=== PATIENT | male | born 1960 | race Caucasian/White ===

== ENCOUNTER → 2017-10-23 15:25 | Outpatient (CLI) | payer BC, SELFPAY ==
--- NOTE | 2017-10-23 15:25 | DT_ITS ---
This patient was seen during an EMR downtime October 20, 2017 - October 27, 2017. This patient may have a combination of paper and electronic documentation or all paper documentation. All documentation is viewable within the e-chart portion of [facility] for each patient visit.
[2017-10-28 05:11] LABS: ALB/GLOB Ratio 1.1 RATIO (0.9-2.4); Albumin, Serum 3.6 g/dL (3.2-5.0); BUN 14 mg/dL (7-18); BUN/Creat Ratio 17.5 RATIO (10-20); Calcium,Total 8.3 mg/dL (8.5-10.1); EST Glomerular Filtration Rate 105 mL/min (>60); Est Glom Filt Rate - Afr Amer 127 mL/min (>60); Globulin 3.3 g/dL (2.2-4.2); Glucose 102 mg/dL (74-106); Protein, Total 6.9 g/dL (6.4-8.2)
[2017-10-28 05:12] LABS: AST(SGOT) 21 U/L (15-37); Alanine Aminotransfer ALT/SGPT 32 U/L (16-61); Alkaline Phosphatase 112 U/L (45-117); Anion Gap 7 (5-15); Chloride 112 mmol/L (98-107); PSA,Total - Annual Screen 0.71 ng/mL (0.00-4.00); Potassium 3.9 mmol/L (3.5-5.1); Sodium Level 143 mmol/L (136-145); Thyroid Stim Hormone (TSH) 1.36 uIU/mL (0.358-3.74)
[2017-10-28 06:01] LABS: Absolute Neutrophil Count 5.1 X10^3/uL (2.0-7.7); Basophil% 0.2 % (0-1); Eosinophils% 2.1 % (0-5); Hematocrit 44.2 % (40-54); Hemoglobin 14.9 g/dl (13.0-16.5); Lymphocyte % 29.9 % (19-41); Mean Corp Hgb Conc 33.7 g/gl (32-36); Mean Corpuscular Hgb 31.3 pg (27.0-32.0); Mean Corpuscular Volume 92.9 fL (80-94); Mean Platelet Vol. 9.9 fl (6.2-12.0); Monocyte% 8.8 % (0-10); Neutrophil # 5.14 X10^3/uL (2.7-7.7); Neutrophil % 58.9 % (47-70); POSITIVE COUNT NO; POSITIVE DIFFERENTIAL NO; POSITIVE MORPHOLOGY NO; Platelet Count 211 K/mm3 (150-450); RBC Distribution Width CV 13.2 % (11.6-14.6); RBC Distribution Width SD 44.9 fl (35.1-43.9); Red Blood Count 4.76 M/mm3 (4.6-6.2); White Blood Count 8.7 K/mm3 (4.4-11.0)
[2017-10-28 06:02] LABS: Absolute Lymphocyte Count 2.61 X10^3/ul (0.83-4.51); Basophil# 0.02 X10^3/uL; Eosinophil# 0.18 X10^3/uL; Lymphocyte # 2.61 X10^3/ul (4.0); Monocyte# 0.77 X10^3/uL
[2017-11-07 14:38] LABS: Hep C Antibodies <0.1
== END ==
PROVIDERS: Family Provider Family Medicine Geriatric Medicine; PCP Family Medicine Geriatric Medicine; Visit Provider Family Medicine Geriatric Medicine
DX: R53.83 Other fatigue (principal); Z12.5 Encounter for screening for malignant neoplasm of prostate; Z13.89 Encounter for screening for other disorder
CPT/HCPCS: 36415; 80053; 84153; 84443; 85025; 86803; G0103

== ENCOUNTER → 2017-10-24 22:21 | Outpatient (CLI) | payer BC, SELFPAY ==
--- NOTE | 2017-10-24 22:21 | DT_ITS ---
This patient was seen during an EMR downtime October 20, 2017 - October 27, 2017. This patient may have a combination of paper and electronic documentation or all paper documentation. All documentation is viewable within the e-chart portion of [facility] for each patient visit.
[2017-10-31 07:11] LABS: Hep B Surface Antibodies Non Reactive (.)
== END ==
PROVIDERS: Visit Provider Family Medicine Geriatric Medicine
DX: Z13.89 Encounter for screening for other disorder (principal)
CPT/HCPCS: 86706

== ENCOUNTER → 2017-11-13 12:55 | Outpatient (CLI) | payer BC, SELFPAY ==
--- NOTE | 2017-11-13 12:59 | CT_ITS ---
STUDY: CT ABDOMEN AND PELVIS WITH CONTRAST REASON FOR EXAM: Male, 57 years old. One-week history Central abdominal pain. Nausea. RADIATION DOSAGE (If Supplied By Facility): CTDIvol = ( 17.37 ) mGy, DLP = ( 1185.66 ) mGycm TECHNIQUE: Transaxial images were obtained from the dome of the diaphragm to the symphysis pubis with oral contrast. 100mL ml of Isovue 300 contrast was administered. Sagittal and coronal images were reconstructed. Individualized dose optimization techniques were used for this CT. COMPARISON: Comparison is made with prior study dated March 08, 2016. FINDINGS: Stable mild increased markings at the right lung base. The visualized portions of the heart are within normal limits. Stable tiny cyst in the medial aspect of the dome of the liver. Normal gallbladder and extrahepatic biliary system. Normal spleen. Normal pancreas. Normal bilateral adrenal glands. Normal right kidney. Normal left kidney. Normal visualized stomach. Normal small intestine. There are multiple colonic diverticula consistent with diverticulosis. The appendix is visualized and appears normal. There is scattered atherosclerotic calcification of the abdominal aorta, without a demonstrated aneurysm. Normal inferior vena cava. Normal retroperitoneum. Normal urinary bladder. There are prostatic calcifications. There is a left-sided inguinal hernia containing adipose tissue. There are degenerative changes of the visualized lumbar spine. CT/Abdomen/Pelvis WITH Contrast IMPRESSION: Sigmoid diverticulosis. No acute abnormality is seen. Electronically Signed: Moy Simeon MD at 15:49 EDT Tel [phone], Service support ,
[2017-11-13 17:45] LABS: Absolute Lymphocyte Count 2.27 X10^3/ul (0.83-4.51); Absolute Neutrophil Count 7.7 X10^3/uL (2.0-7.7); Basophil# 0.02 X10^3/uL; Basophil% 0.2 % (0-1); Eosinophil# 0.08 X10^3/uL; Eosinophils% 0.7 % (0-5); Hematocrit 46.2 % (40-54); Hemoglobin 15.7 g/dl (13.0-16.5); Lymphocyte # 2.27 X10^3/ul (4.0); Mean Corpuscular Hgb 31.3 pg (27.0-32.0); Mean Corpuscular Volume 92.2 fL (80-94); Mean Platelet Vol. 10.3 fl (6.2-12.0); Monocyte# 0.71 X10^3/uL; Monocyte% 6.6 % (0-10); Neutrophil # 7.73 X10^3/uL (2.7-7.7); Neutrophil % 71.4 % (47-70); Platelet Count 207 K/mm3 (150-450); RBC Distribution Width CV 12.7 % (11.6-14.6); RBC Distribution Width SD 42.4 fl (35.1-43.9); Red Blood Count 5.01 M/mm3 (4.6-6.2); White Blood Count 10.8 K/mm3 (4.4-11.0)
[2017-11-13 17:51] LABS: POSITIVE COUNT NO; POSITIVE DIFFERENTIAL NO; POSITIVE MORPHOLOGY NO
[2017-11-13 17:59] LABS: AST(SGOT) 20 U/L (15-37); Alanine Aminotransfer ALT/SGPT 29 U/L (16-61); Albumin, Serum 3.7 g/dL (3.2-5.0); Alkaline Phosphatase 122 U/L (45-117); Amylase 56 U/L (25-115); Anion Gap 5 (5-15); BUN 11 mg/dL (7-18); BUN/Creat Ratio 13.8 RATIO (10-20); Calcium,Total 8.5 mg/dL (8.5-10.1); Chloride 106 mmol/L (98-107); EST Glomerular Filtration Rate 105 mL/min (>60); Est Glom Filt Rate - Afr Amer 128 mL/min (>60); Globulin 3.8 g/dL (2.2-4.2); Glucose 97 mg/dL (74-106); Lipase 177 U/L (73-393); Potassium 4.3 mmol/L (3.5-5.1); Protein, Total 7.5 g/dL (6.4-8.2); Sodium Level 136 mmol/L (136-145)
== END ==
LOC: CT 12:58
PROVIDERS: Family Provider Family Medicine Geriatric Medicine; PCP Family Medicine Geriatric Medicine; Visit Provider Family Medicine Geriatric Medicine
DX: R10.9 Unspecified abdominal pain (principal)
CPT/HCPCS: 36415; 74177; 80053; 82150; 83690; 85025

== ENCOUNTER → 2018-02-17 15:42 | Outpatient (CLI) | payer BC, SELFPAY ==
[2018-02-17 17:24] LABS: Absolute Lymphocyte Count 2.96 X10^3/ul (0.83-4.51); Absolute Neutrophil Count 6.1 X10^3/uL (2.0-7.7); Basophil# 0.03 X10^3/uL; Basophil% 0.3 % (0-1); Hematocrit 47.1 % (40-54); Lymphocyte # 2.96 X10^3/ul (4.0); Mean Corpuscular Hgb 30.9 pg (27.0-32.0); Mean Corpuscular Volume 91.1 fL (80-94); Monocyte# 0.89 X10^3/uL; Monocyte% 8.7 % (0-10); Neutrophil # 6.13 X10^3/uL (2.7-7.7); Neutrophil % 59.9 % (47-70); Platelet Count 213 K/mm3 (150-450); RBC Distribution Width CV 13.6 % (11.6-14.6); RBC Distribution Width SD 45.1 fl (35.1-43.9); Red Blood Count 5.17 M/mm3 (4.6-6.2); White Blood Count 10.2 K/mm3 (4.4-11.0)
[2018-02-17 17:25] LABS: POSITIVE COUNT NO; POSITIVE DIFFERENTIAL NO; POSITIVE MORPHOLOGY NO
[2018-02-17 17:57] LABS: AST(SGOT) 17 U/L (15-37); Alanine Aminotransfer ALT/SGPT 27 U/L (16-61); Albumin, Serum 3.8 g/dL (3.2-5.0); Alkaline Phosphatase 114 U/L (45-117); Anion Gap 5 (5-15); BUN 12 mg/dL (7-18); BUN/Creat Ratio 13.9 RATIO (10-20); Calcium,Total 8.6 mg/dL (8.5-10.1); Chloride 107 mmol/L (98-107); Creatinine, Serum 0.86 mg/dL (0.70-1.30); EST Glomerular Filtration Rate 96 mL/min (>60); Est Glom Filt Rate - Afr Amer 117 mL/min (>60); Globulin 3.7 g/dL (2.2-4.2); Glucose 88 mg/dL (74-106); Potassium 4.2 mmol/L (3.5-5.1); Protein, Total 7.5 g/dL (6.4-8.2); Sodium Level 139 mmol/L (136-145)
== END ==
PROVIDERS: Family Provider Family Medicine Geriatric Medicine; PCP Family Medicine Geriatric Medicine; Visit Provider Family Medicine Geriatric Medicine
DX: R10.9 Unspecified abdominal pain (principal)
CPT/HCPCS: 36415; 80053; 85025

== ENCOUNTER → 2018-02-18 09:33 | Outpatient (CLI) | payer BC, SELFPAY ==
--- NOTE | 2018-02-18 09:55 | RAD_ITS ---
STUDY: X-RAY - ABDOMEN/PELVIS REASON FOR EXAM: Male, 57 years old. ABDOMIONAL PAIN; H/O DIVERTICULOSIS TECHNIQUE: AP supine and upright views of the abdomen and pelvis. COMPARISON: None. FINDINGS: Normal visualized lung bases. There is an unremarkable bowel gas pattern. There is no demonstrated free abdominal air. The visualized liver, spleen and kidneys are grossly normal in size and morphology. Normal soft tissue structures. Normal visualized osseous structures. RAD/Abd Inc Decub and/or Erect IMPRESSION: Normal x-ray examination of the abdomen and pelvis. Electronically Signed: Yanick Colon MD at 10:26 EDT Tel , Service support ,
== END ==
PROVIDERS: Family Provider Family Medicine Geriatric Medicine; PCP Family Medicine Geriatric Medicine; Referring Provider Family Medicine Geriatric Medicine; Visit Provider Family Medicine Geriatric Medicine
DX: R10.9 Unspecified abdominal pain (principal)
CPT/HCPCS: 74019

== ENCOUNTER → 2018-04-22 13:16 | Outpatient (CLI) | payer BC, SELFPAY ==
[2018-04-22 16:20] LABS: Absolute Lymphocyte Count 3.73 X10^3/ul (0.83-4.51); Absolute Neutrophil Count 4.3 X10^3/uL (2.0-7.7); Basophil# 0.03 X10^3/uL; Basophil% 0.3 % (0-1); Eosinophils% 2.2 % (0-5); Hematocrit 45.5 % (40-54); Hemoglobin 15.4 g/dl (13.0-16.5); Lymphocyte # 3.73 X10^3/ul (4.0); Lymphocyte % 40.2 % (19-41); Mean Corp Hgb Conc 33.8 g/gl (32-36); Mean Corpuscular Hgb 31.2 pg (27.0-32.0); Mean Corpuscular Volume 92.1 fL (80-94); Monocyte# 0.99 X10^3/uL; Monocyte% 10.7 % (0-10); Neutrophil # 4.31 X10^3/uL (2.7-7.7); Neutrophil % 46.3 % (47-70); Platelet Count 221 K/mm3 (150-450); RBC Distribution Width CV 13.6 % (11.6-14.6); RBC Distribution Width SD 44.3 fl (35.1-43.9); Red Blood Count 4.94 M/mm3 (4.6-6.2); White Blood Count 9.3 K/mm3 (4.4-11.0)
[2018-04-22 16:38] LABS: POSITIVE COUNT NO; POSITIVE DIFFERENTIAL NO; POSITIVE MORPHOLOGY NO
[2018-04-22 17:00] LABS: AST(SGOT) 20 U/L (15-37); Alanine Aminotransfer ALT/SGPT 26 U/L (16-61); Albumin, Serum 3.5 g/dL (3.2-5.0); Alkaline Phosphatase 103 U/L (45-117); Anion Gap 9 (5-15); BUN 17 mg/dL (7-18); BUN/Creat Ratio 18.6 RATIO (10-20); Calcium,Total 8.6 mg/dL (8.5-10.1); Chloride 109 mmol/L (98-107); Creatinine, Serum 0.92 mg/dL (0.70-1.30); EST Glomerular Filtration Rate 90 mL/min (>60); Est Glom Filt Rate - Afr Amer 109 mL/min (>60); Globulin 3.5 g/dL (2.2-4.2); Glucose 90 mg/dL (74-106); Sodium Level 144 mmol/L (136-145)
== END ==
PROVIDERS: Family Provider Family Medicine Geriatric Medicine; PCP Family Medicine Geriatric Medicine; Visit Provider Family Medicine Geriatric Medicine
DX: R53.83 Other fatigue (principal)
CPT/HCPCS: 36415; 80053; 84443; 85025

== ENCOUNTER → 2018-11-06 | Outpatient (CLI) | payer OTHER, BC, SELFPAY ==
[2018-11-06 13:01] LABS: Absolute Lymphocyte Count 4.07 X10^3/ul (0.83-4.51); Absolute Neutrophil Count 7.6 X10^3/uL (2.0-7.7); Basophil# 0.02 X10^3/uL; Basophil% 0.1 % (0-1); Eosinophil# 0.12 X10^3/uL; Eosinophils% 0.9 % (0-5); Lymphocyte # 4.07 X10^3/ul (4.0); Lymphocyte % 30.5 % (19-41); Mean Corp Hgb Conc 33.3 g/gl (32-36); Mean Corpuscular Hgb 30.6 pg (27.0-32.0); Mean Corpuscular Volume 91.8 fL (80-94); Mean Platelet Vol. 9.5 fl (6.2-12.0); Monocyte# 1.47 X10^3/uL; Neutrophil # 7.62 X10^3/uL (2.7-7.7); Neutrophil % 57.1 % (47-70); Platelet Count 222 K/mm3 (150-450); RBC Distribution Width CV 13.2 % (11.6-14.6); RBC Distribution Width SD 43.8 fl (35.1-43.9); White Blood Count 13.4 K/mm3 (4.4-11.0)
[2018-11-06 13:05] LABS: POSITIVE COUNT NO; POSITIVE DIFFERENTIAL NO; POSITIVE MORPHOLOGY NO
[2018-11-06 13:26] LABS: ALB/GLOB Ratio 1.1 RATIO (0.9-2.4); AST(SGOT) 15 U/L (15-37); Alanine Aminotransfer ALT/SGPT 28 U/L (16-61); Albumin, Serum 3.5 g/dL (3.2-5.0); Alkaline Phosphatase 92 U/L (45-117); Anion Gap 7 (5-15); BUN 16 mg/dL (7-18); BUN/Creat Ratio 18.7 RATIO (10-20); Calcium,Total 8.7 mg/dL (8.5-10.1); Chloride 105 mmol/L (98-107); Creatinine, Serum 0.86 mg/dL (0.70-1.30); EST Glomerular Filtration Rate 97 mL/min (>60); Est Glom Filt Rate - Afr Amer 117 mL/min (>60); Globulin 3.2 g/dL (2.2-4.2); Glucose 102 mg/dL (74-106); PSA,Total - Annual Screen 0.73 ng/mL (0.00-4.00); Potassium 3.7 mmol/L (3.5-5.1); Protein, Total 6.7 g/dL (6.4-8.2); Sodium Level 141 mmol/L (136-145); Thyroid Stim Hormone (TSH) 2.35 uIU/mL (0.358-3.74)
== END | disposition home or self-care (01) ==
LOC: POLAB3 11:37
PROVIDERS: Family Provider Family Medicine Geriatric Medicine; PCP Family Medicine Geriatric Medicine; Visit Provider Family Medicine Geriatric Medicine
DX: R53.83 Other fatigue (principal); Z12.5 Encounter for screening for malignant neoplasm of prostate
CPT/HCPCS: 36415; 80053; 84153; 84443; 85025; G0103

== ENCOUNTER → 2019-01-20 | Outpatient (CLI) | payer OTHER, BC, SELFPAY ==
--- NOTE | 2019-01-20 10:00 | RAD_ITS ---
HISTORY:NKI, pain NKI, pain COMPARISON: None FINDINGS: # of images incl. paperwork: 4 XR Shoulder Min 2 Views: Right BONE AND JOINTS: No acute fracture or subluxation. Acromioclavicular arthropathy SOFT TISSUES: Unremarkable. No radiopaque foreign body. RAD/Shoulder min 2 Views IMPRESSION: No acute pathology Acromioclavicular arthropathy at 2218 Reported and signed by: Alissa Hammond DO Electronically Signed: Alissa Hammond DO at 22:16 EDT Tel , Service support ,
== END | disposition home or self-care (01) ==
LOC: RAD 09:54
PROVIDERS: Family Provider Family Medicine Geriatric Medicine; PCP Family Medicine Geriatric Medicine; Referring Provider Family Medicine Geriatric Medicine; Visit Provider Family Medicine Geriatric Medicine
DX: M25.511 Pain in right shoulder (principal)
CPT/HCPCS: 73030

== ENCOUNTER → 2019-01-29 | Outpatient (CLI) | payer OTHER, BC, SELFPAY ==
[2019-01-29 08:14] VITALS: BMI 32.9
--- NOTE | 2019-01-29 08:30 | RAD_ITS ---
STUDY: X-RAY - CERVICAL SPINE REASON FOR EXAM: Male, 58 years old. Neck pain TECHNIQUE: 3 view(s) of the cervical spine were obtained. COMPARISON: 09 August 2016 FINDINGS: Normal anterior atlantoaxial articulation. Normal odontoid process. Normal cervical lordosis. Normal vertebral bodies and endplates. Normal disc space heights. Normal visualized intervertebral neuroforamina. The soft tissue structures are unremarkable. RAD/Cerv Spine 2 or 3 Views IMPRESSION: Unremarkable for age x-ray examination of the visualized cervical spine. Electronically Signed: Milla Bell, at 16:54 EDT Tel , Service support ,
== END | disposition home or self-care (01) ==
PROVIDERS: Family Provider Family Medicine Geriatric Medicine; PCP Family Medicine Geriatric Medicine; Referring Provider Orthopaedic Surgery; Visit Provider Orthopaedic Surgery
DX: M25.511 Pain in right shoulder (principal); M43.6 Torticollis
CPT/HCPCS: 72040

== ENCOUNTER 2019-02-26 09:30 | Outpatient (RCR) | payer OTHER, BC, SELFPAY ==
[2019-01-29 08:14] VITALS: BMI 32.9
--- NOTE | 2019-02-08 15:08 | HP.PTEVAL ---
Patient's Visit Information PAU JOHNSON is a 58 year old M referred to Physical Therapy by Mason Hartley DO with a diagnosis of SPASM OF CERVICAL SPINE, DDD CERVICAL SPINE AND RIGHT SHOULDER PAIN.. Date of Evaluation: 02/08/19 Physical Therapist: Kitty Geronimo PT, Cert MDT - Visit Plan Frequency: 2-3x /Week Duration: 4-6 Weeks Plan: RIGHT NECK/SHOULDER US, E-STIM WITH CP OR MH AND STM. RIGHT SHOULDER MOBILIZATION AND PROM. POSTURE CORRECTION/STRENGTHENING, INSTRUCTION IN APPROPRIATE BODY MECHANICS AND ACTIVITY MODIFICATIONS. VENUS UE ROM, STRETCHING AND STRENGTHENING. HEP INSTRUCTION. 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 Disability: NO. Present symptoms: RIGHT SHOULDER PAIN. ARM HURTS DOWN TO HIS ELBOW AND UP INTO HIS NECK. ABOUT 4 MONTHS AGO HAD NUMBNESS TRAVELING DOWN ARM INTO FOREARM. DR. HYATT SENT HIM TO NEURO CARE AND HE HAD A NCT. HE REPORTS THE NERVE CONDUCTION TEST CAME BACK GOOD. PATIENT REPORTS HIS NECK FEELS STIFF BUT HE DOESN'T HAVE INTENSE PAIN IN HIS NECK. STATES HIS RIGHT SHOULDER REALLY HURTS AND IS TENDER TO THE TOUCH. DENIES LEFT UE SX'S. Present since: ABOUT 5 MONTHS AGO. Pain Scale: Worst - 10/10 Least - 3/10. Currently: 12/26 PATIENT REPORTS HE IS WORSENING. Commenced as a result of: NO APPARENT REASON. Symptoms at onset: RIGHT UE TINGLING IN ARM AND FOREARM. Worse: JUST SITTING UP, DRIVING, WALKING, IT SEEMS LIKE EVERYTHING DOES. Better: SOMETIMES LYING DOWN ON BACK WITH PILLOW UNDER HEAD. Disturbed sleep: YES. Previous history/Previous treatment: UNREMARKABLE. PATIENT DENIES ANY PRIOR HISTORY OF NECK OR SHOULDER PROBLEMS. REC'D A CORTISONE SHOT IN RIGHT SHOULDER FROM DR. CLARKE AND IT HAD NO EFFECT SO HE WAS REFERRED TO DR. BENDER. TAKING AN ANTI-INFLAMMATORY, MUSCLE RELAXER, VICODIN - NO EFFECT. Dizziness: NO. Tinnitis: NO. Nausea: NO. Shortness of Breath: NO. Difficulty Swollowing: NO. Gait: NORMAL FOR PATIENT - NO NEW CHANGES. Accidents: NO. Unexplained weight loss: NO. Imaging: NECK AND SHOULDER X-RAYS - AC JOINT ARTHROPATHY. NECK X-RAY - NORMAL. BUT STATES DR. BENDER TOLD HIM HE HAS DDD IN HIS LOWER CERVICAL SPINE AND THAT HE HAS A STRAIGHTENING OF THE CURVE IN HIS NECK. NO MRI'S. PMH/Recent major surgery: BAD BACK. LUMBAR DISCECTOMY ABOUT 8 YEARS AGO. OTHER: PATIENT REPORTS HE WAKES UP 2 OR 3 TIMES A NIGHT DUE TO THE PAIN. PATIENT REPORTS DR. CLARKE ORDERED AN MRI FOR HIS RIGHT SHOULDER PENDING TOMORROW. PATIENT REPORTS HE WAS SITTING AT THE TABLE THE OTHER DAY AND WHEN HE TURNED AND REACHED TO CYTOLOGY TEACHER A GLASS OF WATER HE FELT LIKE SOMETHING POPPED IN HIS RIGHT SHOULER. - Objective Sitting Posture/Standing Posture: POOR. FORWARD HEAD AND ROUNDED SHOULDERS. NO TORTICOLLIS. Active Correction of posture: NE. Other Observations: INDEP GAIT AND TRANSFERS. PAIN BEHAVIOR THROUGHOUT SUBJECTIVE PORTION OF EXAM WITH PATIENT C/O PAIN AND HOLDING RIGHT SHOULDER WITH LEFT HAND. Motor deficit: RIGHT HANDED WITH RIGHT CHUCKER STRENGTH OF 95 LBS AND LEFT 80 LBS. LEFT UE 5/5. RIGHT UE 5/5 EXCEPT RIGHT SHOULDER ABD AND EXTERNAL ROTATION 4-/5. Sensory deficit: NO EXCEPT HYPERSENSATIVITY RIGHT SHOULDER REGION. ROM deficit: DECREASED RIGHT SHOULDER ROM PASSIVELY IN SUPINE FOLLOWS: FLEX 160 DEG, ABD 170 DEG, IR/ER 40 DEG/65 DEG WITH 65 DEG ABD OF SHOULDER. PATIENT C/O PAIN WITH RIGHT SHOULDER ROM TESTING ALL PLANES. Reflexes: NT. Dural Signs: POSITIVE RIGHT UE. Cervical Mvmt Loss: Flex: NIL. Pro: NIL. Ext: KEITH. Ret: KEITH. RSB: MIN. LSB: MIN. R Rot: MOD. L Rot: MIN. PATIENT DENIES INCREASED PAIN WITH CERVICAL ROM TESTING ALL PLANES EXCEPT RIGHT ROTATION. Postural strength: POOR. Palpation: VERY ACUTE TENDERNESS WITH PALPATION OF THE ENTIRE RIGHT SHOULDER REGION AND INTO THE RIGHT UPPER TRAP BUT NOT IN THE OCCIPUT, CERVICAL SPINE, THORACIC SPINE OR MEDIAL/INFERIOR REGIONS OF THE SCAPULAE. OTHER: SEATED CERVICAL DISTRACTION TESTING HAS NO EFFECT ON RIGHT UE SX'S. TREATMENT: TRIAL OF US AT 1.5 W/CM2 X 10 MIN TO RIGHT NECK AND SHOULDER WITH PATIENT IN SITTING WITH LUMBAR SUPPORT. PATIENT REPORTED SOME RELIEF OF PAIN AFTER US TREATMENT. - Goals Goal 1:: DECREASE C/O RIGHT NECK AND UE SX'S. Goal Time Frame: 4-6 Weeks Goal 2:: IMPROVE PERSONAL CARE, LIFTING, READING, SLEEP, WORK, DRIVING AND RECREATIONAL FUNCTION. Goal Time Frame: 4-6 Weeks Goal 3:: INSTRUCT IN PROPHYLAXIS Goal Time Frame: 4-6 Weeks - Rehabilitation Potential Rehabilitation Potential: Fair - Anticipated Interventions Patient/Client Instruction: Educate patient on: Condition, Plan of Care, Risk Factors, Benefits of Fitness Program For the Purpose of:: To improve self management Therapeutic Exercise to Include: Strength training, Body mechanics, Postural training, Passive ROM, Active ROM, Scapular Strength/Stabilization For the Purpose of:: To decrease pain, To increase ROM, To improve muscle performance and motor function, To increase tolerance to activity/condition/position, To improve ability of physical actions for home/community/work/leisure Manual Therapy Techniques to Include: Passive ROM, Soft tissue mobilization Comment: OK TO TRY GENTLE MANUAL TRACTION WITH STM. RIGHT SHLD A/AA/PROM For the Purpose of:: To decrease pain, To increase ROM, To improve nutrient delivery to tissue, To improve muscle performance and motor function, To increase tolerance to activity/condition/position, To improve ability of physical actions for home/community/work/leisure TENS: Yes Cryotherapy (ice pack, ice massage): Yes Thermo therapy (hot pack): Yes Ultrasound (thermal/non thermal): Yes Comment: NECK AND RIGHT SHOULDER For the Purpose of:: To decrease pain, To decrease swelling/inflammation, To increase ROM, To improve nutrient delivery to tissue Thank you for the opportunity to evaluate your patient. For Medicare and Medicare HMO plans, please review the plan of care and approve it. It will need to be FAXED BACK to us at [phone] for Medicare purposes. For Medicare only, by signing this I certify the plan of care. Please let me know if there are questions or concerns regarding this plan of care. Physician Signature: Date:
--- NOTE | 2019-02-26 10:31 | HP.PTREVAL ---
Mason Hartley DO, It has been my pleasure to treat PAU JOHNSON over the last 6 visits for SPASM OF CERVICAL SPINE, DDD CERVICAL SPINE AND RIGHT SHOULDER PAIN.. Please see the progress note below for an update on the physical therapy plan of care! Subjective: PATIENT REPORTS THE MUSCLE STIFFNESS IN HIS SHOULDER BLADE IS NO LONGER THERE. THE PAIN IN THE SHOULER AND ARM IS BETTER BUT IT GETS WORSE WITH USEAGE (EX - DRIVING). IT RAMPS BACK UP WITH USAGE IN THE SHOULDER AND THE ARM. THE PAIN IS IN THE SHOULDER AND ARM IS ONLY IN THE UPPER ARM. PATIENT DENIES SYMPTOMS BELOW HIS ELBOW. PATIENT REPORTS HE WAS NOT ADMITTED TO THE HOSPITAL FOR HIS VERTIGO, HE WAS TREATED AND RELEASED IN THE EMERGENCY DEPARTMENT. STILL GETTING SOME VERTIGO. FOLLOWING UP WITH DR. REIS AFTER PT TODAY. MYRNA DROVE HIM HERE TODAY SO A LITTLE LESS PAIN THAN USUAL. PATIENT REPORTS HE HAS STARTED DOING EVERYTHING LEFT HANDED. Objective/Function: PATIENT REPORTS 40% IMPROVEMENT SINCE STARTING PHYSICAL THERAPY HOWEVER HE STILL REPORTS SIGNIFICANT PAIN AND HAS DECREASED HIS FUNCTION TO MANAGE HIS PAIN. HE NOW HAS DECREASED RIGHT SHOULDER ROM COMPARED TO INITIAL EVAL. AND HE ALSO HAS DECREASED RIGHT UE STRENGTH UPON EXAM TODAY. PAIN BEHAVIOR THROUGHOUT SUBJECTIVE PORTION OF EXAM WITH PATIENT C/O PAIN AND HOLDING RIGHT SHOULDER WITH LEFT HAND. UPON EXAM TODAY: Motor deficit: RIGHT HANDED WITH RIGHT CRIMINAL JUSTICE DEPARTMENT CHAIR STRENGTH OF 65 LBS AND LEFT 75 LBS. LEFT UE 5/5. RIGHT UE 5/5 EXCEPT RIGHT SHOULDER ABD AND EXTERNAL ROTATION 4-/5. Sensory deficit: NO EXCEPT HYPERSENSATIVITY RIGHT SHOULDER REGION. ROM deficit: DECREASED RIGHT SHOULDER ROM PASSIVELY IN SUPINE FOLLOWS: FLEX 135 DEG, ABD 110 DEG, IR/ER 45 DEG/65 DEG WITH 85 DEG ABD OF SHOULDER. PATIENT C/O PAIN WITH RIGHT SHOULDER ROM TESTING ALL PLANES. Reflexes: NT. Dural Signs: POSITIVE RIGHT UE. Cervical Mvmt Loss: Flex: NIL. Pro: NIL. Ext: KEITH. Ret: KEITH. RSB: MIN. LSB: MIN. R Rot: MOD. L Rot: MIN. PATIENT DENIES INCREASED PAIN WITH CERVICAL ROM TESTING ALL PLANES EXCEPT RIGHT ROTATION. Postural strength: POOR. Palpation: VERY ACUTE TENDERNESS WITH PALPATION OF THE ENTIRE RIGHT SHOULDER REGION AND INTO THE RIGHT UPPER TRAP BUT NOT IN THE OCCIPUT, CERVICAL SPINE, THORACIC SPINE OR MEDIAL/INFERIOR REGIONS OF THE SCAPULAE. NO DIZZINESS DURING PT SESSION TODAY HOWEVER HE IS HAVING A VERTIGO ISSUE AND EXPECTS TO GET AN ORDER FOR VESTIBULAR REHAB SOON. Plan Plan: HOLD PT DUE TO LACK OF PROGRESS PHYSICIAN RE-ASSESSMENT PENDING TODAY. Goals Goal 1:: DECREASE C/O RIGHT NECK AND UE SX'S. Goal Time Frame: 4-6 Weeks Goal Progress: Progressing Goal 2:: IMPROVE PERSONAL CARE, LIFTING, READING, SLEEP, WORK, DRIVING AND RECREATIONAL FUNCTION. Goal Time Frame: 4-6 Weeks Goal Progress: Not Progressing Goal 3:: INSTRUCT IN PROPHYLAXIS Goal Time Frame: 4-6 Weeks Goal Progress: Not Progressing Anticipated Interventions Patient/Client Instruction: Educate patient on: Condition, Plan of Care, Risk Factors, Benefits of Fitness Program For the Purpose of:: To improve self management Therapeutic Exercise to Include: Strength training, Body mechanics, Postural training, Passive ROM, Active ROM, Scapular Strength/Stabilization For the Purpose of:: To decrease pain, To increase ROM, To improve muscle performance and motor function, To increase tolerance to activity/condition/position, To improve ability of physical actions for home/community/work/leisure Manual Therapy Techniques to Include: Passive ROM, Soft tissue mobilization Comment: OK TO TRY GENTLE MANUAL TRACTION WITH STM. RIGHT SHLD A/AA/PROM For the Purpose of:: To decrease pain, To increase ROM, To improve nutrient delivery to tissue, To improve muscle performance and motor function, To increase tolerance to activity/condition/position, To improve ability of physical actions for home/community/work/leisure TENS: Yes Cryotherapy (ice pack, ice massage): Yes Thermo therapy (hot pack): Yes Ultrasound (thermal/non thermal): Yes Comment: NECK AND RIGHT SHOULDER For the Purpose of:: To decrease pain, To decrease swelling/inflammation, To increase ROM, To improve nutrient delivery to tissue Please do not hesitate to contact me at [phone] by phone or if you have questions or concerns regarding this new plan of care! Sincerely, Kitty Geronimo, PT, Cert MDT
--- NOTE | 2019-02-26 10:52 | HP.PTREVAL ---
Mason Hartley DO, It has been my pleasure to treat PAU JOHNSON over the last 6 visits for SPASM OF CERVICAL SPINE, DDD CERVICAL SPINE AND RIGHT SHOULDER PAIN.. Please see the progress note below for an update on the physical therapy plan of care! Subjective: PATIENT REPORTS THE MUSCLE STIFFNESS IN HIS SHOULDER BLADE IS NO LONGER THERE. THE PAIN IN THE SHOULER AND ARM IS BETTER BUT IT GETS WORSE WITH USEAGE (EX - DRIVING). IT RAMPS BACK UP WITH USAGE IN THE SHOULDER AND THE ARM. THE PAIN IS IN THE SHOULDER AND ARM IS ONLY IN THE UPPER ARM. PATIENT DENIES SYMPTOMS BELOW HIS ELBOW. PATIENT REPORTS HE WAS NOT ADMITTED TO THE HOSPITAL FOR HIS VERTIGO, HE WAS TREATED AND RELEASED IN THE EMERGENCY DEPARTMENT. STILL GETTING SOME VERTIGO. FOLLOWING UP WITH DR. REIS AFTER PT TODAY. MYRNA DROVE HIM HERE TODAY SO A LITTLE LESS PAIN THAN USUAL. PATIENT REPORTS HE HAS STARTED DOING EVERYTHING LEFT HANDED. Objective/Function: PATIENT REPORTS 40% IMPROVEMENT SINCE STARTING PHYSICAL THERAPY HOWEVER HE STILL REPORTS SIGNIFICANT PAIN AND HAS DECREASED HIS FUNCTION TO MANAGE HIS PAIN. HE NOW HAS DECREASED RIGHT SHOULDER ROM COMPARED TO INITIAL EVAL. AND HE ALSO HAS DECREASED RIGHT UE STRENGTH UPON EXAM TODAY. PAIN BEHAVIOR THROUGHOUT SUBJECTIVE PORTION OF EXAM WITH PATIENT C/O PAIN AND HOLDING RIGHT SHOULDER WITH LEFT HAND. UPON EXAM TODAY: Motor deficit: RIGHT HANDED WITH RIGHT INSTALLER TECHNICIAN STRENGTH OF 65 LBS AND LEFT 75 LBS. LEFT UE 5/5. RIGHT UE 5/5 EXCEPT RIGHT SHOULDER ABD AND EXTERNAL ROTATION 4-/5. Sensory deficit: NO EXCEPT HYPERSENSATIVITY RIGHT SHOULDER REGION. ROM deficit: DECREASED RIGHT SHOULDER ROM PASSIVELY IN SUPINE FOLLOWS: FLEX 135 DEG, ABD 110 DEG, IR/ER 45 DEG/65 DEG WITH 85 DEG ABD OF SHOULDER. PATIENT C/O PAIN WITH RIGHT SHOULDER ROM TESTING ALL PLANES. Reflexes: NT. Dural Signs: POSITIVE RIGHT UE. Cervical Mvmt Loss: Flex: NIL. Pro: NIL. Ext: KEITH. Ret: KEITH. RSB: MIN. LSB: MIN. R Rot: MOD. L Rot: MIN. PATIENT DENIES INCREASED PAIN WITH CERVICAL ROM TESTING ALL PLANES EXCEPT RIGHT ROTATION. Postural strength: POOR. Palpation: VERY ACUTE TENDERNESS WITH PALPATION OF THE ENTIRE RIGHT SHOULDER REGION AND INTO THE RIGHT UPPER TRAP BUT NOT IN THE OCCIPUT, CERVICAL SPINE, THORACIC SPINE OR MEDIAL/INFERIOR REGIONS OF THE SCAPULAE. PATIENT HAS A LOT OF SHOULDER PAIN TRYING TO DO THE SHOULDER ROM EX'S AND IS GOING TO TALK TO DR. BENDER ABOUT IT ON FOLLOW UP. NO DIZZINESS DURING PT SESSION TODAY HOWEVER HE IS HAVING A VERTIGO ISSUE AND EXPECTS TO GET AN ORDER FOR VESTIBULAR REHAB SOON. Plan Plan: HOLD PT DUE TO LACK OF PROGRESS PHYSICIAN RE-ASSESSMENT PENDING TODAY. Goals Goal 1:: DECREASE C/O RIGHT NECK AND UE SX'S. Goal Time Frame: 4-6 Weeks Goal Progress: Progressing Goal 2:: IMPROVE PERSONAL CARE, LIFTING, READING, SLEEP, WORK, DRIVING AND RECREATIONAL FUNCTION. Goal Time Frame: 4-6 Weeks Goal Progress: Not Progressing Goal 3:: INSTRUCT IN PROPHYLAXIS Goal Time Frame: 4-6 Weeks Goal Progress: Not Progressing Anticipated Interventions Patient/Client Instruction: Educate patient on: Condition, Plan of Care, Risk Factors, Benefits of Fitness Program For the Purpose of:: To improve self management Therapeutic Exercise to Include: Strength training, Body mechanics, Postural training, Passive ROM, Active ROM, Scapular Strength/Stabilization For the Purpose of:: To decrease pain, To increase ROM, To improve muscle performance and motor function, To increase tolerance to activity/condition/position, To improve ability of physical actions for home/community/work/leisure Manual Therapy Techniques to Include: Passive ROM, Soft tissue mobilization Comment: OK TO TRY GENTLE MANUAL TRACTION WITH STM. RIGHT SHLD A/AA/PROM For the Purpose of:: To decrease pain, To increase ROM, To improve nutrient delivery to tissue, To improve muscle performance and motor function, To increase tolerance to activity/condition/position, To improve ability of physical actions for home/community/work/leisure TENS: Yes Cryotherapy (ice pack, ice massage): Yes Thermo therapy (hot pack): Yes Ultrasound (thermal/non thermal): Yes Comment: NECK AND RIGHT SHOULDER For the Purpose of:: To decrease pain, To decrease swelling/inflammation, To increase ROM, To improve nutrient delivery to tissue Please do not hesitate to contact me at [phone] by phone or if you have questions or concerns regarding this new plan of care! Sincerely, Kitty Geronimo, PT, Cert MDT
== END 2019-02-26 17:00 | disposition home or self-care (01) ==
LOC: PT 09:30
PROVIDERS: Family Provider Family Medicine Geriatric Medicine; PCP Family Medicine Geriatric Medicine; Referring Provider Orthopaedic Surgery; Visit Provider Orthopaedic Surgery
DX: M62.838 Other muscle spasm (principal); M50.30 Other cervical disc degeneration, unspecified cervical region; M25.511 Pain in right shoulder
CPT/HCPCS: 97012; 97014; 97035; 97140; 97162; 97530; G0283

== ENCOUNTER → 2019-04-07 09:58 | Outpatient (CLI) | payer OTHER, BC, SELFPAY ==
[2019-03-15 07:55] VITALS: BMI 32.9
--- NOTE | 2019-04-07 10:00 | RAD_ITS ---
CLINICAL HISTORY: Male, 58 years old. Chronic right shoulder pain. PROCEDURE: ARTHROGRAM - RIGHT SHOULDER CONSENT: The procedure as well as the benefits and possible complications including infection and bleeding were explained to the patient. Informed consent was obtained. FLUOROSCOPY TIME (if supplied): (30 seconds) minutes/seconds Injection Information: 10 cc of dilute Magnevist. Number of images obtained: 3 TECHNIQUE: (All elements of maximal sterile barrier technique followed, including US elements as applicable) The patient was in the supine position. The overlying skin was prepped and draped in the usual sterile fashion. Following local anesthetic application and under direct fluoroscopic guidance, a 22-gauge spinal needle was placed into the shoulder joint. 2 cc of Isovue-300 was injected for confirmation. Following this, 10 cc of dilute Magnevist was injected. MRI will follow. The patient tolerated the procedure well. RAD/Arthrogram Shoulder w/ MRI IMPRESSION: Successful right shoulder arthrogram with injection of 10 cc of dilute Magnevist. Electronically Signed: Moy Simeon, at 12:43 EST , Service support ,
--- NOTE | 2019-04-07 10:56 | MRI_ITS ---
STUDY: MRI RIGHT SHOULDER REASON FOR EXAM: Male, 58 years old. Shoulder pain, labral tear TECHNIQUE: Standardized fat and water weighted pulse sequences were obtained in all 3 orthogonal planes. COMPARISON: None. FINDINGS: Mild supraspinatus and infraspinatus tendinosis and peritendinitis is with a thin linear full-thickness tear of the distal anterior supraspinatus tendon at the footprint with leakage of intra-articular contrast into the subacromial/subdeltoid bursa. Normal subscapularis tendon. Normal teres minor tendon. Normal supraspinatus muscle. Normal infraspinatus muscle. Normal subscapularis muscle. Normal teres minor muscle. Normal glenohumeral articulation. Normal humeral head and visualized proximal humerus. Normal biceps labral complex. Normal intracapsular long biceps tendon. There is labral degeneration with areas of fraying, but there is no demonstrated discrete labral tear. Normal capsulo- ligamentous complex. Normal rotator interval. There is moderate osteoarthritis of the acromioclavicular articulations. There is a Type II morphology (curved), with a neutral orientation. Normal visualized coracohumeral and coracoacromial ligaments. Normal quadrilateral space. Normal axillary space. Normal deltoid muscle. Normal trapezius muscle. MRI/Upper Ext Jt Only W/Contrast IMPRESSION: 1. Mild supraspinatus and infraspinatus tendinosis and peritendinitis as with a thin full-thickness tear of the distal anterior supraspinatus tendon at the footprint with leakage of intra-articular contrast into the subacromial/subdeltoid bursa. 2. Chronic fraying of the superior labrum. 3. Moderate acromioclavicular joint arthrosis with capsulitis and inferior osteophyte formation producing medial outlet stenosis. Electronically Signed: Earnest Hahn MD at 13:15 EST Tel , Service support ,
--- NOTE | 2019-04-07 11:05 | RAD_ITS ---
STUDY: X-RAY - ORBITS REASON FOR EXAM: Male, 58 years old. MRI clearance. TECHNIQUE: 2 view(s) of the orbits were obtained. COMPARISON: None. FINDINGS: Normal bilateral orbits without a metallic orbital foreign body. Normal visualized facial bones. Normal paranasal sinuses. The soft tissue structures are unremarkable. RAD/Orbits for Foreign Body IMPRESSION: No demonstrated metallic orbital foreign body. The patient is cleared for an MRI examination. Electronically Signed: Moy Simeon, at 11:19 EST , Service support ,
== END ==
LOC: RAD 09:59 → MRI 10:01
PROVIDERS: Family Provider Family Medicine Geriatric Medicine; PCP Family Medicine Geriatric Medicine; Referring Provider Orthopaedic Surgery; Visit Provider Orthopaedic Surgery
DX: M25.311 Other instability, right shoulder (principal); M25.511 Pain in right shoulder; S43.431D Superior glenoid labrum lesion of right shoulder, subsequent encounter
CPT/HCPCS: 23350; 70030; 73222; 77002; A9575; Q9967

== ENCOUNTER 2019-04-20 08:51 | Day surgery (SDC) | payer OTHER, BC, SELFPAY ==
[2019-04-12 08:59] VITALS: BMI 32.9
[2019-04-20] VITALS (7 sets, daily range): BP systolic 119–141; BP diastolic 74–87; PULSE 64–84; RESP 16–18; TEMP 36.3–37.1; O2SAT 93–97; BMI 34.0
--- NOTE | 2019-04-20 09:01 | EKG12_ITS ---
Test Reason : PRE OP Blood Pressure : / mmHG Vent. Rate : 075 BPM Atrial Rate : 075 BPM P-R Int : 132 ms QRS Dur : 088 ms QT Int : 380 ms P-R-T Axes : 004 057 040 degrees QTc Int : 424 ms Normal sinus rhythm Normal ECG No previous ECGs available Confirmed by ERIN AGUSTIN ([id number]), news video editor GISELE FUENTES ([id number]) on 04/25/2019 10:41:53 AM Referred By: Mason Hartley Confirmed By:ERIN AGUSTIN
[2019-04-20 09:46] LABS: Absolute Lymphocyte Count 3.03 X10^3/uL (0.83-4.51); Absolute Neutrophil Count 7.1 X10^3/uL (2.0-7.7); Basophil# 0.05 X10^3/uL; Basophil% 0.4 % (0-1); Eosinophil# 0.17 X10^3/uL; Eosinophils% 1.5 % (0-5); Hematocrit 44.8 % (40-54); Hemoglobin 15.4 g/dL (13.0-16.5); Lymphocyte # 3.03 X10^3/ul (4.0); Lymphocyte % 26.6 % (19-41); Mean Corp Hgb Conc 34.4 g/dL (32-36); Mean Corpuscular Hgb 31.7 pg (27.0-32.0); Mean Corpuscular Volume 92.2 fL (80-94); Mean Platelet Vol. 9.1 fl (6.2-12.0); Monocyte# 0.96 X10^3/uL; Monocyte% 8.4 % (0-10); NRBC Flagged by Analyzer 0 % (0-5); Neutrophil # 7.11 X10^3/uL (2.7-7.7); Neutrophil % 62.7 % (47-70); Platelet Count 198 K/mm3 (150-450); RBC Distribution Width CV 12.8 % (11.6-14.6); RBC Distribution Width SD 43.2 fl (35.1-43.9); Red Blood Count 4.86 M/mm3 (4.6-6.2); White Blood Count 11.4 K/mm3 (4.4-11.0)
[2019-04-20] MEDS: Lactated Ringers 1,000 ML 100 ML IV (09:52)
[2019-04-20] MEDS: Cefazolin 2 GM in 0.9% Normal Saline 100 ML IV (11:11)
[2019-04-20] MEDS: Bupiv/Epi 0.25% 30 ML Vial (11:56)
[2019-04-20] MEDS: Epinephrine (1 mg/ml) 1 MG/ML VIAL (11:56)
--- NOTE | 2019-04-20 12:56 | PCM.HP.BLA ---
History and Physical Date of Admission: 04/20/19 Intake Vital Signs 04/12/19 Body Mass Index (BMI) 32.9 Intake Visit Reasons: right shoulder Is patient in pain?: Yes Allergies No Known Allergies Allergy (Verified 03/15/19 09:50) [facility] Medical History (Updated 01/29/19 @ 08:17 by Jinny Calabrese) DDD (degenerative disc disease), lumbar (Acute) Chronic back pain (Chronic) HPI right shoulder: Details: Parts of this documentation were recorded by a scribe, this documentation accurately reflects the service provided and the decisions made by me, Mason Hartley, 04/12/19 0757. PAU JOHNSON is a 58 year old M here today for MRI f/u on right shoulder. He has slightly less pain because he has decreased use of it. He has pain with driving in the anterior shoulder. And worse pain with abduction of the arm or repetitive overhead movements over the deltoid. Ortho Exam Right Shoulder Skin/Wound: Yes CDI, No ecchymosis, No erythema, No swelling Testing: Positive Hawkin's, Neer's and TTP AC Joint SHOULDER: Skin/Wound: Yes CDI, No ecchymosis, No erythema, No swelling Testing: Positive Speed's, TTP Biceps and Bracken; SHOULDER: 140 forward elevation, 118 abduction, 4/5 abduction, 5/5 IR/ER Supplemental Info 04/07/2019 MRI right shoulder: Supraspinatus tendinosis with peritendinitis with thin full-thickness linear tear of the anterior supraspinatus, labral fraying superior labrum moderate AC joint arthrosis with capsulitis and inferior spurring producing impingement Assessment & Plan Problems 1. Impingement syndrome of right shoulder M75.41 2. Arthritis of right acromioclavicular joint M19.011 Plan Spoke with the patient about the anatomy of the shoulder and etiology of his pain. Explained due to failed conservative treatment, he is a candidate for surgery. Spoke with him about the surgery procedure and possible recovery depending on the procedure. We will consent him for an arthroscopic right shoulder rotator cuff evaluation debridement versus repair subacromial decompression labral debridement possible biceps tenotomy with open distal clavicle excision Reviewed the pre-operative plans with the patient. Risks and benefits of the procedure were fully explained, including but not limited to infection, neurovascular injury, continued pain, arthritis, stiffness, need for further surgery, re-injury, DVT, PE, general risks of anesthesia, and loss of limb or life. The patient understands all the risks and does wish to proceed with written consent. Follow up for 2 week post op appt or sooner if pain, swelling, numbness or associated symptoms, or concerns develop. All questions answered. Patient in agreement of plan. Coding Level of Care Code Off vis,est,level 3 Diagnoses Impingement syndrome of right shoulder M75.41 Arthritis of right acromioclavicular joint M19.011 ??Laterality: right I have re-examined the patient. There are no clinical changes since date of exam
--- NOTE | 2019-04-20 12:57 | DCINST_ITS ---
Discharge Diet: No Restrictions Call your doctor if you observe: Shortness of breath, Chest pain Additional Instructions: Leave the dressing on and intact for 48 hours. Then may remove and shower with warm water and antibacterial soap. But do not submerge in tub for 3 weeks. ice shoulder 15 min on and 15 mins off next 72 hrs. May remove sling for elbow range of motion and pendulum exercises may preform active range of motion of shoulder when pain allows. discontinue sling over the course to the week as pain allow. DC completely by 1 week. Do not lift push or pull greater then 5 lbs with operative extremity. Encourage finger and wrist range of motion. If any concerns call Dr. Hartley's office. Allergies/Adverse Reactions: Allergies No Known Allergies Allergy (Verified 04/19/19 13:51) Medications to take at Discharge albuterol sulfate HFA 90 mcg/actuation aerosol inhaler 1 puff INHALATION PRN PRN #8 g 01/29/19 famotidine 40 mg tablet 40 mg PO DAILY #90 tab 01/29/19 hydrocodone 7.5 mg-acetaminophen 325 mg tablet 1 tab PO PRN PRN #90 tab 01/29/19 tizanidine 4 mg tablet 4 mg PO PRN PRN #90 tab 01/29/19 Orders to be completed after discharge: CBC W/Diff, Automated Time Frame: 04/20/19, Facility: [facility], Location: Laboratory Primary Care Physician: Ye Acevedo Chi, MD [Primary Care Provider] - Test Results: Test results from this visit will be discussed in further detail at your follow- up appointment, if applicable. Please Follow Up With: Mason Hartley DO - 2 wk
--- NOTE | 2019-04-20 13:03 | PCM.OPRPT ---
Report of Operation Date of Procedure: 04/20/19 Description of Surgical Findings:: Preoperative diagnosis: Right shoulder impingement AC joint arthritis degenerative labral tearing small supraspinatus rotator cuff tear Postoperative diagnosis: Same Procedure: Arthroscopic labral debridement rotator cuff debridement subacromial decompression acromioplasty open distal clavicle excision Anesthesia: General ; EBL: 10 cc Complications: none Indication for procedure: This is a 58-year-old male with ongoing right shoulder pain who has failed conservative treatment with signs of impingement and AC joint pain on examination did have an MRI demonstrating AC joint arthritis with impingement anterior leading edge of supraspinatus rotator cuff tear and degenerative labral tearing. Patient did wish to proceed with an arthroscopic subacromial decompression open distal clavicle excision and surgery as indicated. risks benefits and alternatives of the procedure were reviewed including risk of bleeding infection nerve artery tissue damage need for further surgery continued pain postoperative stiffness and need for postoperative physical therapy and continued pain. Procedure : Patient was met in the preoperative holding area the operative extremity was identified by both the patient and the physician and was marked. Patient was met by anesthesia and brought back to the operating room on a wheeled cart. She was transferred to the operating table in the supine position. Anesthesia was started. Patient was then positioned in the beachchair configuration. Bony prominences were well-padded. The patient was prepped and draped in the usual sterile fashion. A timeout was called to ensure the proper patient procedure and extremity were being contemplated. Anatomic landmarks were palpated and marked with a marking pen. A 0.25% Marcaine with epinephrine was injected into the planned portal sites. An 11 blade scalpel was used to make a stab incision in the posterior lateral portal. Arthroscope was inserted into the glenohumeral space with ease. Inflow and outflow tubes were attached and arthroscopic visualization began. An anterior portal was established with an 18-gauge spinal needle. There was degenerative fraying of the superior labrum which was debrided with a shaver biceps tendon anchor complex was intact without tenosynovitis bicipital sling intact there was a small partial-thickness tear anterior supraspinatus which was debrided it was not felt that repair would be indicated. The arthroscope was then repositioned into the subacromial space there was large spurring of the undersurface of the acromion where the coracoacromial ligament attached as well as large spurring about the AC joint as well as significant bursal thickening with the use of an ArthroCare and a bur acromioplasty was performed of both spurs the AC joint was identified with spinal needles and marked the shoulder was thoroughly irrigated and injected with quarter percent Marcaine plain and morphine and attention was turned to our open portion of the procedure a 15 blade scalpel was then used to make a incision through the skin electrocautery was used to maintain hemostasis and dissected directly to bone creating full-thickness flaps Hohmann retractors were placed anterior and posterior to the distal clavicle and a TPS oscillating saw was used to remove 1.5 cm of distal clavicle to the undersurface of the clavicle and acromion were rasped this repair with 0 Vicryl stitches of the periosteal tissue was performed after wound was thoroughly irrigated followed by 2-0 Vicryl subcutaneous stitches followed by 3-0 nylon in the arthroscopic portals and open incision dressing was applied in the form of Xeroform 4 x 4 ABD and Ioban simple sling was placed.
[2019-04-20] MEDS: Acetaminophen 325 MG Tablet 650 MG PO (14:38)
[2019-04-20] MEDS: oxyCODONE 5 MG Tablet 10 MG PO (14:38)
== END 2019-04-20 15:05 | disposition home or self-care (01) ==
LOC: SDC 08:52 → AC 08:53
PROVIDERS: Anesthesiology; Family Provider Family Medicine Geriatric Medicine; PCP Family Medicine Geriatric Medicine; Referring Provider Orthopaedic Surgery; Visit Provider Orthopaedic Surgery
PROC: (CPT 29827; principal; 2019-04-20 10:00)
DX: M19.011 Primary osteoarthritis, right shoulder (principal); M75.41 Impingement syndrome of right shoulder; J44.9 Chronic obstructive pulmonary disease, unspecified; F17.200 Nicotine dependence, unspecified, uncomplicated; G47.30 Sleep apnea, unspecified; K21.9 Gastro-esophageal reflux disease without esophagitis; Z79.899 Other long term (current) drug therapy
CPT/HCPCS: 00450; 23120; 29823; 85025; 93005; J7120; J2405

== ENCOUNTER → 2019-05-07 10:10 | Outpatient (CLI) | payer OTHER, BC, SELFPAY ==
[2019-05-03 07:49] VITALS: BMI 34.0
[2019-05-07 12:30] LABS: Absolute Lymphocyte Count 2.74 X10^3/uL (0.83-4.51); Absolute Neutrophil Count 6.3 X10^3/uL (2.0-7.7); Basophil# 0.04 X10^3/uL; Basophil% 0.4 % (0-1); Eosinophil# 0.16 X10^3/uL; Eosinophils% 1.6 % (0-5); Hematocrit 47.8 % (40-54); Hemoglobin 15.7 g/dL (13.0-16.5); Lymphocyte # 2.74 X10^3/ul (4.0); Lymphocyte % 26.7 % (19-41); Mean Corp Hgb Conc 32.8 g/dL (32-36); Mean Corpuscular Hgb 30.7 pg (27.0-32.0); Mean Corpuscular Volume 93.4 fL (80-94); Mean Platelet Vol. 9.9 fl (6.2-12.0); Monocyte# 0.96 X10^3/uL; Monocyte% 9.4 % (0-10); NRBC Flagged by Analyzer 0 % (0-5); Neutrophil % 61.4 % (47-70); Platelet Count 230 K/mm3 (150-450); RBC Distribution Width CV 12.8 % (11.6-14.6); RBC Distribution Width SD 44.2 fl (35.1-43.9); Red Blood Count 5.12 M/mm3 (4.6-6.2); White Blood Count 10.3 K/mm3 (4.4-11.0)
[2019-05-07 12:53] LABS: AST(SGOT) 15 U/L (15-37); Alanine Aminotransfer ALT/SGPT 26 U/L (16-61); Albumin, Serum 3.8 g/dL (3.2-5.0); Alkaline Phosphatase 117 U/L (45-117); Anion Gap 4 (5-15); BUN 14 mg/dL (7-18); BUN/Creat Ratio 16.4 RATIO (10-20); Calcium,Total 8.5 mg/dL (8.5-10.1); Chloride 108 mmol/L (98-107); Creatinine, Serum 0.85 mg/dL (0.70-1.30); EST Glomerular Filtration Rate 97 mL/min (>60); Est Glom Filt Rate - Afr Amer 118 mL/min (>60); Globulin 3.7 g/dL (2.2-4.2); Glucose 93 mg/dL (74-106); Potassium 3.9 mmol/L (3.5-5.1); Protein, Total 7.5 g/dL (6.4-8.2); Sodium Level 139 mmol/L (136-145); Thyroid Stim Hormone (TSH) 0.77 uIU/mL (0.358-3.74)
== END ==
PROVIDERS: Family Provider Family Medicine Geriatric Medicine; PCP Family Medicine Geriatric Medicine; Visit Provider Family Medicine Geriatric Medicine
DX: R53.83 Other fatigue (principal)
CPT/HCPCS: 36415; 80053; 84443; 85025

== ENCOUNTER 2019-05-28 08:00 | Outpatient (RCR) | payer OTHER, BC, SELFPAY ==
[2019-05-03 07:49] VITALS: BMI 34.0
--- NOTE | 2019-05-06 09:57 | HP.PTEVAL_ITS ---
Patient's Visit Information PAU JOHNSON is a 58 year old M referred to Physical Therapy by Mason Hartley DO with a diagnosis of s/p Right Shoulder Labral Debriedment, distal clav excision 04/20/19. Date of Evaluation: 05/06/19 Physical Therapist: Padma Fitzgerald DPT - Visit Plan Frequency: 2x /Week Duration: 4 Weeks Plan: Focus on ROM, strength and functional mobility. No restrictions - Subjective Findings: He reports that he has had shoulder pain for a long time- then went to ortho- thought it was coming from his neck- was coming 3x a week for 3 weeks- went back to [facility]- MRI of the right shoulder- has surgery 04/20/19. Patient reports that when he rolls over onto it the pain increases. Physical movement is okay but repetitive really bothers him. Wore a sling for a week but is now better. When he gets over 90 degrees its sore and weak. Can reach up he can do it slow but coming down is worse. Pain is located along the incision on the upper trap. No radiating down the arm. No N/T. Worst: 5/10 Agg: movement above 90 degrees, reaching up quickly, picking up something. Best: 0/10 Eases: return to side of his chest. Describes pain as sharp but can be dull and achy as well. Right hand dominate. Work: [employer]- return to work date unknown- planson after the . Lifting up to #50 but thats not a normal thing. [employer] driving. Sleep: disturbed- bed- when on back hes okay then it wakes him up when he turns over on his side. No decrease in towel hemmer strength or finger dexterity. No RODRIGUEZ, blurred vision, dizziness. - Objective Posture: FH, RS, increased guarding of the right UE. Palpatoin: tender along upper trap to the tip of the acromion and into the bicpital groove. Sensation: WNL. Observation: incision healing well no s/s of infection. ROM: AROM: flexion: 90 degrees, Abd: 80 degrees, IR: to greater troch, ER: 30 degrees with pain at end ranges. 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 Strength: Wrist/Chucking And Sawing Machine Operator: good, Elbow: 4+/5 with discomfort. Shoulder isometrically at neutral: 4/5 with pain in all directions Scap: fair minus - Goals Goal 1:: Patient will be I with HEP and progression Goal Time Frame: 4-6 Weeks Goal 2:: Patient will demo full AROM of the right shoulder Goal Time Frame: 4-6 Weeks Goal 3:: Patient will demo 4+/5 strength in right UE Goal Time Frame: 4-6 Weeks Goal 4:: Patient will maintain proper posture t/o tx session to demo increased scap s/s. Goal Time Frame: 4-6 Weeks - Rehabilitation Potential Physical Therapy Diagnosis: Patient presents s/p right shoulder surgery- he has decreased ROM, strength, and muscular endurance leading to poor posture and increased pain with ADL's and recreational activities. Rehabilitation Potential: Good - Anticipated Interventions Patient/Client Instruction: Educate patient on: Benefits of Fitness Program Therapeutic Exercise to Include: Strength training, Endurance training, Balance training, Agility training, Body mechanics, Postural training, Flexibilty training, Passive ROM, Active ROM, Scapular Strength/Stabilization For the Purpose of:: To improve muscle performance and motor function TENS: Yes Cryotherapy (ice pack, ice massage): Yes Thermo therapy (hot pack): Yes Ultrasound (thermal/non thermal): Yes For the Purpose of:: To decrease pain Thank you for the opportunity to evaluate your patient. For Medicare and Medicare HMO plans, please review the plan of care and approve it. It will need to be FAXED BACK to us at [phone] for Medicare purposes. For Medicare only, by signing this I certify the plan of care. Please let me know if there are questions or concerns regarding this plan of care. Physician Signature: Date:
== END 2019-05-28 19:00 | disposition home or self-care (01) ==
LOC: PT 08:00
PROVIDERS: Family Provider Family Medicine Geriatric Medicine; PCP Family Medicine Geriatric Medicine; Referring Provider Orthopaedic Surgery; Visit Provider Orthopaedic Surgery
DX: Z98.890 Other specified postprocedural states (principal)
CPT/HCPCS: 97110; 97161

== ENCOUNTER → 2019-08-11 13:34 | Outpatient (CLI) | payer BC, SELFPAY ==
[2019-07-14 09:51] VITALS: BMI 34.0
--- NOTE | 2019-08-11 13:49 | CT_ITS ---
STUDY: CT BRAIN WITHOUT CONTRAST REASON FOR EXAM: Male, 58 years old. PT STATED INTERMITTENT VERTIGO X SEVERAL MONTHS RADIATION DOSAGE (If Supplied By Facility): CTDIvol = ( 60.81 ) mGy, DLP = ( 1021.47 ) mGycm TECHNIQUE: Transaxial CT imaging of the brain was performed without administration of intravenous contrast material. Individualized dose optimization techniques were used for this CT. COMPARISON: No relevant priors. FINDINGS: Normal soft tissue structures. Normal calvarium. Normal size ventricles and extra-axial spaces for the patient''s age. Normal white matter tracts of the cerebral hemispheres. Normal basal ganglia and thalami. Normal brainstem. Normal cerebellum. There is no intracranial hemorrhage. There are no findings of an acute ischemic infarction. Atherosclerotic calcification of the cavernous portions of the internal carotid arteries bilaterally. Partial opacification of the left ethmoid sinus. CT/Brain/Head without Contrast IMPRESSION: Partial opacification of the left ethmoid sinus. Electronically Signed: Moy Simeon, at 14:36 EDT , Service support ,
== END ==
PROVIDERS: PCP Family Medicine Geriatric Medicine; Referring Provider Family Medicine Geriatric Medicine; Visit Provider Family Medicine Geriatric Medicine
DX: R42 Dizziness and giddiness (principal)
CPT/HCPCS: 70450

== ENCOUNTER 2019-08-25 08:30 | Outpatient (RCR) | payer BC, SELFPAY ==
[2019-07-14 09:51] VITALS: BMI 34.0
--- NOTE | 2019-08-18 11:27 | HP.PTEVAL ---
Patient's Visit Information PAU JOHNSON is a 58 year old M referred to Physical Therapy by Ye Acevedo MD with a diagnosis of BPPV. Date of Evaluation: 08/18/19 Physical Therapist: PATRICK Vasquez - Visit Plan Frequency: 1-2x /Week Duration: 4 Weeks Plan: 1-2X/ week for treatment of R horizontal canal vertigo - Subjective Subjective: Pt reports that he has vertigo and depending on movements the room will spin. If he jumps out of bed in the morning he will lose his balance. Looking up and turning his head to the R the room will spin. If he rolls to his R side the room will spin.... he gets out of position so that he does not have to feel the spinning. He has not stayed on that side for awhile cause it is not a comfortable feeling. All day his head feel weird. He had a catscan the other day and it was normal except her had a little sinusitis on the R hand side. He reported that he had this a few months ago and he hit the floor. Not sure what was going on and took him to the ER and then it went away for 2-3 days and then it came back 2-3 week and then went away and then came back and now it has been there for 4 weeks no. He has been doing exercises from Dr Newman and have not helped. He had a PT visit and got HEP but they did not help. He is able to do most things but off balance. - Objective + R Hallpike for questionable torsional nystagmus that lasted about 30 seconds. Treated with the R EPLY. Re-tested R Hallpike and nystagmus was present and was not stopping at a minute..... sat pt up. Re-tested R Hallpike and nystagmus was present but it stopped after about 40 seconds. Roll test was + to the Right. Did BBQ roll X 4X to the R side and ended prone X 1 minute - Goals Goal 1:: Abolish dizziness when rolling to R side Goal Time Frame: 4-6 Weeks Goal 2:: Test FGA Goal Time Frame: 4-6 Weeks Goal 3:: Pt to feel 95% back to normal when walking with his dog. Goal Time Frame: 4-6 Weeks - Rehabilitation Potential Rehabilitation Potential: Good - Anticipated Interventions Patient/Client Instruction: Educate patient on: Plan of Care For the Purpose of:: To improve muscle performance and motor function, To improve ability to perform ADL's, To increase tolerance to activity/condition/position, To improve performance and independence with ADL's, To improve endurance, To improve balance, To improve safety with gait Therapeutic Exercise to Include: Strength training, Balance training, Neuromotor development For the Purpose of:: To improve ability to perform ADL's, To increase tolerance to activity/condition/position, To improve balance Manual Therapy Techniques to Include: Other Comment: Positional treatment For the Purpose of:: To improve ability to perform ADL's, To improve ability of physical actions for home/community/work/leisure, To improve gait and locomotor functions Thank you for the opportunity to evaluate your patient. For Medicare and Medicare HMO plans, please review the plan of care and approve it. It will need to be FAXED BACK to us at [phone] for Medicare purposes. For Medicare only, by signing this I certify the plan of care. Please let me know if there are questions or concerns regarding this plan of care. Physician Signature: Date:
--- NOTE | 2019-08-25 08:48 | HP.PTDCSUM ---
It has been my pleasure to treat PAU JOHNSON referred by Ye Acevedo MD, with the diagnosis of BPPV for a total of 3 visit(s). Discharge Date: 08/25/19 Please see the following information for a summary of their discharge status. Subjective: Overall much better. No spinning. Rated at 90% better. Still gets a slight feeling of continued movement when sitting. Feels like he keeps moving at times when he has stopped but it is brief. % Improvement: 90 Objective/Function: - MSQ except slight with head nods adn turns slight tranisent- B hallpike va. - roll test. excellent balance. Goal 1:: Abolish dizziness when rolling to R side Goal Progress: Goal Met Goal 2:: Test FGA Goal Progress: Goal Met Goal 3:: Pt to feel 95% back to normal when walking with his dog. Goal Progress: Progressing Plan: d/c Discharge Comments: Will do habituation at home for slight remianing symptoms and contact doctor if it worsens again If there are questions or concerns regarding this patient's physical therapy, please feel free to call me at [phone]. Thank you for the referral of this patient. Sincerely, Michael Solis, DPT, OCS, CSCS
== END 2019-08-25 19:00 | disposition home or self-care (01) ==
LOC: PT 08:30
PROVIDERS: PCP Family Medicine Geriatric Medicine; Referring Provider Family Medicine Geriatric Medicine; Visit Provider Family Medicine Geriatric Medicine
DX: H81.10 Benign paroxysmal vertigo, unspecified ear (principal)
CPT/HCPCS: 97161; 97530

== ENCOUNTER → 2019-10-22 12:05 | Outpatient (CLI) | payer BC, SELFPAY ==
[2019-10-06 14:15] VITALS: BMI 34.2
--- NOTE | 2019-10-22 12:10 | ECHOD_ITS ---
Reason For Study: CP Procedure This was a 2D Doppler, Color Flow transthoracic echocardiogram. Exam performed in department. Left Ventricle Normal LV size. Left ventricular systolic function is normal. The estimated ejection fraction is 60 %. Normal diastology for age. No regional wall motion abnormalities noted. Right Ventricle Normal RV size. Normal systolic function. Atria Normal left atrium. Normal right atrium. Mitral Valve Normal mitral valve. Trivial eccentric mitral valve insufficiency. Tricuspid Valve Normal tricuspid valve. Aortic Valve Normal aortic valve. Trisinus/trileaflet aortic valve. Pulmonic Valve Normal pulmonic valve. Great Vessels Normal aortic root. The pulmonary artery is normal size. Normal inferior vena cava. Pericardium/Pleural No pericardial effusion. MMode/2D Measurements & Calculations LVIDd: 4.6 cm IVSd: 1.1 cm LA dimension: 3.6 cm LVIDs: 2.2 cm LVPWd: 1.0 cm RVDd: 3.6 cm FS: 51.8 % LAV(MOD-bp): 51.3 ml LA A4 area: 18.1 cm2 RA A4 area: 14.9 cm2 LAV(MOD-bp) Indexed: 22.3 ml/m2 LAV(MOD-sp2): 51.1 ml LAV(MOD-sp4): 52.9 ml Time Measurements MV dec time: 0.20 sec Doppler Measurements & Calculations MV E max merritt: 95.1 cm/sec Lat Peak E' Merritt: 13.9 cm/sec Med Peak E' Merritt: 9.0 cm/sec MV A max merritt: 84.6 cm/sec E/E' lat: 6.9 E/E' med: 10.6 MV E/A: 1.1 MV V2 max: 118.5 cm/sec MV P1/2t max merritt: 119.4 cm/sec Ao V2 max: 140.6 cm/sec MV max P.6 mmHg MV P1/2t: 50.2 msec Ao max P.9 mmHg MV V2 mean: 65.1 cm/sec MV dec slope: 696.2 cm/sec2 MV mean P.0 mmHg MVA(P1/2t): 4.4 cm2 MV V2 VTI: 31.6 cm LV V1 max: 122.6 cm/sec PA V2 max: 125.2 cm/sec LV V1 max P.0 mmHg Interpretation Summary Normal LV size. Left ventricular systolic function is normal. The estimated ejection fraction is 60 %. Normal diastology for age. Structurally normal valves. Ordering Physician: Aleksandar Patton Referring Physician: Ye Acevedo Chi Performed By: Carlos Suárez RCS
--- NOTE | 2019-10-22 16:31 | STRESSREP ---
Stress Test Report Exercise stress test. 59-year-old man with a history of occasional chest discomfort. Stress protocol: Resting EKG demonstrates normal sinus rhythm with a rate of 71 bpm normal intervals are noted resting blood pressure 732 over 70 mmHg. The patient exercised according to regular Isaias protocol for total duration of 5 minutes and 8 seconds. The maximum heart rate was 157 bpm which was 98% of maximum predicted heart rate the maximum workload was 7 metabolic equivalents. At rest there were no ST or T wave changes noted to suggest ischemia at peak exercise upsloping ST changes only were noted with no meet the criteria for ischemia. The test was terminated due to dyspnea and back pain. The resting blood pressure was 132/70 with a peak blood pressure of 204/72 mmHg. Conclusion: Exercise stress test with no EKG criteria for ischemia at a moderate workload. No arrhythmias noted. No angina present.
== END ==
LOC: CVS 12:10
PROVIDERS: PCP Family Medicine Geriatric Medicine; Referring Provider Internal Medicine Cardiovascular Disease; Visit Provider Internal Medicine Cardiovascular Disease
DX: R07.9 Chest pain, unspecified (principal)
CPT/HCPCS: 93017; 93306

== ENCOUNTER → 2019-11-17 10:25 | Outpatient (CLI) | payer BC, SELFPAY ==
[2019-10-06 14:15] VITALS: BMI 34.2
[2019-11-17 12:26] LABS: Absolute Lymphocyte Count 3.05 X10^3/uL (0.83-4.51); Absolute Neutrophil Count 6.2 X10^3/uL (2.0-7.7); Basophil# 0.04 X10^3/uL; Basophil% 0.4 % (0-1); Eosinophil# 0.17 X10^3/uL; Eosinophils% 1.6 % (0-5); Hematocrit 46.3 % (40-54); Hemoglobin 15.4 g/dL (13.0-16.5); Lymphocyte # 3.05 X10^3/ul (4.0); Mean Corp Hgb Conc 33.3 g/dL (32-36); Mean Corpuscular Hgb 31.6 pg (27.0-32.0); Mean Corpuscular Volume 94.9 fL (80-94); Mean Platelet Vol. 10.1 fl (6.2-12.0); Monocyte# 0.99 X10^3/uL; Monocyte% 9.4 % (0-10); NRBC Flagged by Analyzer 0 % (0-5); Neutrophil # 6.23 X10^3/uL (2.7-7.7); Neutrophil % 59.2 % (47-70); Platelet Count 219 K/mm3 (150-450); RBC Distribution Width CV 13.2 % (11.6-14.6); RBC Distribution Width SD 46.1 fl (35.1-43.9); Red Blood Count 4.88 M/mm3 (4.6-6.2); White Blood Count 10.5 K/mm3 (4.4-11.0)
[2019-11-17 12:45] LABS: ALB/GLOB Ratio 1.1 RATIO (0.9-2.4); AST(SGOT) 19 U/L (15-37); Alanine Aminotransfer ALT/SGPT 29 U/L (16-61); Albumin, Serum 3.7 g/dL (3.2-5.0); Alkaline Phosphatase 121 U/L (45-117); Anion Gap 6 (5-15); BUN 18 mg/dL (7-18); BUN/Creat Ratio 24.9 RATIO (10-20); Calcium,Total 8.4 mg/dL (8.5-10.1); Chloride 108 mmol/L (98-107); Creatinine, Serum 0.72 mg/dL (0.70-1.30); EST Glomerular Filtration Rate 117 mL/min (>60); Est Glom Filt Rate - Afr Amer 142 mL/min (>60); Globulin 3.5 g/dL (2.2-4.2); Glucose 98 mg/dL (74-106); PSA,Total - Annual Screen 0.68 ng/mL (0.00-4.00); Protein, Total 7.2 g/dL (6.4-8.2); Sodium Level 140 mmol/L (136-145); Thyroid Stim Hormone (TSH) 0.93 uIU/mL (0.358-3.74)
== END ==
PROVIDERS: PCP Family Medicine Geriatric Medicine; Visit Provider Family Medicine Geriatric Medicine
DX: M10.9 Gout, unspecified (principal); R53.83 Other fatigue; Z12.5 Encounter for screening for malignant neoplasm of prostate
CPT/HCPCS: 36415; 80053; 84153; 84443; 84550; 85025; G0103

== ENCOUNTER → 2019-11-30 15:29 | Outpatient (CLI) | payer BC, SELFPAY ==
[2019-10-06 14:15] VITALS: BMI 34.2
--- NOTE | 2019-11-30 15:35 | CT_ITS ---
STUDY: LOW DOSE CT LUNG CANCER SCREENING REASON FOR EXAM: Male, 59 years old. TOBACCO USE- 1 PPD X 30 YRS, QUIT 2 WKS AGO RADIATION DOSAGE (If Supplied By Facility): CTDIvol = ( 4.02 ) mGy, DLP = ( 148.98 ) mGycm TECHNIQUE: No contrast was administered. Low dose technique was utilized (average mAS-38 and kVp 120). 1.25 mm axial source images with a slice interval of 1.25-mm were reconstructed in lung windows. 2.5 mm axial source images with a slice interval of 2.5-mm were reconstructed in lung windows. 5.0 mm axial source images with a slice interval of 5.0-mm were reconstructed in soft tissue windows. Nodule measured using lung windows on PACS and/or independent workstation with automated measurement of minimum and maximum diameter. Nodule measurement reported as average diameter rounded to the nearest whole number. Growth is defined as an increase ins size of greater than 1.5 mm. COMPARISON: Comparison is made with prior examination dated October 24 NODULES: No suspicious nodules seen. Emphysema: Mild degree of emphysematous changes. Increased renal markings with areas of confluence in the anterior medial aspect of the right middle lobe as well as the lingular segment of the left upper lobe suggestive of scarring. Hyperinflation. Aorta: Unremarkable Coronary arteries: Unremarkable Heart: Unremarkable Mediastinal nodes: Small benign-appearing mediastinal lymph nodes. Other chest and abdominal findings: Degenerative changes of the thoracic spine. CT/Low Dose CT Lung Screening IMPRESSION: Lung-RADS category 2 - Continue annual screening with LDCT in 12 months. IMPORTANT NOTES FOR USE: ACR Lung-RADS Version 1.0 Assessment Categories Release Date: September 13, 2013 Category: Coded 0-4 bases on nodule(s) with highest degree of suspicion. Negative screen is defined as categories 1 and 2; a positive screen is defined as categories 3 and 4. Category 3 and 4A nodules that are unchanged on interval CT should be coded as category 2, and individuals returned to screening in 12 months. Category 4X: Category 3 or 4 nodules with additional imaging findings that increase the suspicion of lung cancer, such as spiculation, GGN that doubles in size in 1 year, enlarged lymph notes, etc. Category Modifiers: S (significant finding unrelated to lung cancer) and C (prior history of treated lung cancer) may be added to the 0-4 Lung-RADS Electronically Signed: Moy Simeon, at 11:33 EDT , Service support ,
== END ==
PROVIDERS: PCP Family Medicine Geriatric Medicine; Referring Provider Family Medicine Geriatric Medicine; Visit Provider Family Medicine Geriatric Medicine
DX: T65.222S Toxic effect of tobacco cigarettes, intentional self-harm, sequela (principal); F17.210 Nicotine dependence, cigarettes, uncomplicated
CPT/HCPCS: G0297

== ENCOUNTER → 2020-04-10 14:42 | Outpatient (CLI) | payer BC, SELFPAY ==
[2019-10-06 14:15] VITALS: BMI 34.2
[2020-04-10 15:12] LABS: Absolute Lymphocyte Count 2.69 X10^3/uL (0.83-4.51); Absolute Neutrophil Count 8.3 X10^3/uL (2.0-7.7); Basophil# 0.04 X10^3/uL; Basophil% 0.3 % (0-1); Eosinophil# 0.09 X10^3/uL; Eosinophils% 0.7 % (0-5); Hematocrit 49.6 % (40-54); Hemoglobin 16.2 g/dL (13.0-16.5); Lymphocyte # 2.69 X10^3/ul (4.0); Mean Corp Hgb Conc 32.7 g/dL (32-36); Mean Corpuscular Hgb 30.2 pg (27.0-32.0); Mean Corpuscular Volume 92.5 fL (80-94); Mean Platelet Vol. 9.2 fl (6.2-12.0); Monocyte# 1.08 X10^3/uL; Monocyte% 8.8 % (0-10); NRBC Flagged by Analyzer 0 % (0-5); Neutrophil % 67.9 % (47-70); Platelet Count 218 K/mm3 (150-450); RBC Distribution Width CV 13.2 % (11.6-14.6); RBC Distribution Width SD 44.8 fl (35.1-43.9); Red Blood Count 5.36 M/mm3 (4.6-6.2); White Blood Count 12.2 K/mm3 (4.4-11.0)
[2020-04-10 15:27] LABS: ALB/GLOB Ratio 1.1 RATIO (0.9-2.4); AST(SGOT) 13 U/L (15-37); Alanine Aminotransfer ALT/SGPT 29 U/L (16-61); Albumin, Serum 3.9 g/dL (3.2-5.0); Alkaline Phosphatase 112 U/L (45-117); Anion Gap 5 (5-15); BUN 14 mg/dL (7-18); BUN/Creat Ratio 16.2 RATIO (10-20); Chloride 110 mmol/L (98-107); Creatinine, Serum 0.87 mg/dL (0.70-1.30); EST Glomerular Filtration Rate 95 mL/min (>60); Est Glom Filt Rate - Afr Amer 115 mL/min (>60); Globulin 3.5 g/dL (2.2-4.2); Glucose 99 mg/dL (74-106); Potassium 4.1 mmol/L (3.5-5.1); Protein, Total 7.4 g/dL (6.4-8.2); Sodium Level 141 mmol/L (136-145)
--- NOTE | 2020-04-10 17:15 | CT_ITS ---
STUDY: CT ABDOMEN AND PELVIS WITH CONTRAST REASON FOR EXAM: Male, 59 years old. Left lower quadrant pain RADIATION DOSAGE (If Supplied By Facility): DLP = ( 1011.85 ) mGycm TECHNIQUE: Transaxial images were obtained from the dome of the diaphragm to the symphysis pubis with oral contrast. GASTROGRAFIN and 100ML ISOVUE 300 contrast was administered. Sagittal and coronal images were reconstructed. Individualized dose optimization techniques were used for this CT. COMPARISON: CT abdomen pelvis 11/13/2017 FINDINGS: The visualized lung bases are clear. The visualized portions of the heart and pericardium are within normal limits. There are no calcified gallstones present. The liver is within normal limits. There are no suspicious hepatic lesions. The spleen is normal in size. The pancreas is within normal limits. The adrenal glands are within normal limits. There is a punctate density within the left distal ureter, series 601 image 61, without associated hydroureteronephrosis. There is no hydronephrosis. There are no focal renal lesions. Normal visualized stomach. There is no bowel obstruction or inflammation. Colonic diverticulosis is present. The aorta is normal in caliber. There is no abdominal or pelvic free air, free fluid, fluid collection or lymphadenopathy. There are no destructive osseous lesions. There is a left inguinal fat containing hernia. CT/Abdomen/Pelvis WITH Contrast IMPRESSION: Punctate density within the left distal ureter without associated hydroureteronephrosis, which may represent artifact, although tiny stone is possible. Colonic diverticulosis without evidence of inflammation. Left inguinal fat-containing hernia. Electronically Signed: Domingo Valencia, at 19:08 EST Tel , Service support ,
== END ==
PROVIDERS: PCP Family Medicine Geriatric Medicine; Referring Provider Family Medicine Geriatric Medicine; Visit Provider Family Medicine Geriatric Medicine
DX: R10.9 Unspecified abdominal pain (principal)
CPT/HCPCS: 36415; 74177; 80053; 85025; Q9967

== ENCOUNTER → 2020-04-27 10:32 | Outpatient (CLI) | payer BC, SELFPAY ==
[2019-10-06 14:15] VITALS: BMI 34.2
[2020-04-27 12:26] LABS: Absolute Lymphocyte Count 2.55 X10^3/uL (0.83-4.51); Basophil# 0.04 X10^3/uL; Basophil% 0.4 % (0-1); Eosinophil# 0.12 X10^3/uL; Eosinophils% 1.1 % (0-5); Hematocrit 48.3 % (40-54); Hemoglobin 16.5 g/dL (13.0-16.5); Lymphocyte # 2.55 X10^3/ul (4.0); Lymphocyte % 23.9 % (19-41); Mean Corp Hgb Conc 34.2 g/dL (32-36); Mean Corpuscular Hgb 31.3 pg (27.0-32.0); Mean Corpuscular Volume 91.7 fL (80-94); Mean Platelet Vol. 9.5 fl (6.2-12.0); Monocyte# 0.96 X10^3/uL; NRBC Flagged by Analyzer 0 % (0-5); Neutrophil # 6.96 X10^3/uL (2.7-7.7); Neutrophil % 65.2 % (47-70); Platelet Count 235 K/mm3 (150-450); RBC Distribution Width CV 13.2 % (11.6-14.6); RBC Distribution Width SD 43.9 fl (35.1-43.9); Red Blood Count 5.27 M/mm3 (4.6-6.2); White Blood Count 10.7 K/mm3 (4.4-11.0)
[2020-04-27 12:49] LABS: AST(SGOT) 15 U/L (15-37); Alanine Aminotransfer ALT/SGPT 28 U/L (16-61); Albumin, Serum 3.7 g/dL (3.2-5.0); Alkaline Phosphatase 111 U/L (45-117); Anion Gap 7 (5-15); BUN 15 mg/dL (7-18); BUN/Creat Ratio 18.7 RATIO (10-20); Calcium,Total 8.8 mg/dL (8.5-10.1); Chloride 106 mmol/L (98-107); EST Glomerular Filtration Rate 104 mL/min (>60); Est Glom Filt Rate - Afr Amer 126 mL/min (>60); Globulin 3.7 g/dL (2.2-4.2); Glucose 103 mg/dL (74-106); Potassium 3.9 mmol/L (3.5-5.1); Protein, Total 7.4 g/dL (6.4-8.2); Sodium Level 138 mmol/L (136-145)
== END ==
PROVIDERS: PCP Family Medicine Geriatric Medicine; Visit Provider Family Medicine Geriatric Medicine
DX: N39.0 Urinary tract infection, site not specified (principal); R10.9 Unspecified abdominal pain
CPT/HCPCS: 36415; 80053; 85025; 87086

== ENCOUNTER → 2020-04-27 11:34 | Outpatient (CLI) | payer BC, SELFPAY ==
[2019-10-06 14:15] VITALS: BMI 34.2
--- NOTE | 2020-04-27 11:37 | CT_ITS ---
STUDY: CT ABDOMEN AND PELVIS WITHOUT CONTRAST REASON FOR EXAM: Male, 59 years old. Left ureteral stone RADIATION DOSAGE (If Supplied By Facility): CTDIvol = ( 19.58 ) mGy, DLP = ( 1027.29 ) mGycm TECHNIQUE: Transaxial images were obtained from the dome of the diaphragm to the symphysis pubis without oral contrast, and without intravenous contrast. Sagittal and coronal images were reconstructed. Individualized dose optimization techniques were used for this CT. COMPARISON: Comparison is made with prior study dated 04/10/2020. FINDINGS: The visualized lung bases are unremarkable. The visualized portions of the heart are within normal limits. Normal liver. Normal gallbladder and extrahepatic biliary system. Normal spleen. Normal pancreas. Normal bilateral adrenal glands. Normal right kidney. Normal left kidney. Normal visualized stomach. Normal small intestine. There are multiple colonic diverticula consistent with diverticulosis. The appendix is visualized and appears normal. There is scattered atherosclerotic calcification of the abdominal aorta, without a demonstrated aneurysm. Normal inferior vena cava. Normal retroperitoneum. Normal urinary bladder. There is a left-sided inguinal hernia containing adipose tissue. There are mild degenerative changes of the visualized lumbar spine. CT/Abdomen/Pelvis without Cont IMPRESSION: No acute abnormality is seen. Sigmoid diverticulosis. Electronically Signed: Moy Simeon, at 12:19 EST , Service support ,
== END ==
PROVIDERS: PCP Family Medicine Geriatric Medicine; Referring Provider Family Medicine Geriatric Medicine; Visit Provider Family Medicine Geriatric Medicine
DX: N20.1 Calculus of ureter (principal)
CPT/HCPCS: 74176

== ENCOUNTER → 2020-05-17 09:13 | Outpatient (CLI) | payer BC, SELFPAY ==
[2019-10-06 14:15] VITALS: BMI 34.2
[2020-05-17 12:05] LABS: Absolute Lymphocyte Count 2.34 X10^3/uL (0.83-4.51); Absolute Neutrophil Count 5.9 X10^3/uL (2.0-7.7); Basophil# 0.04 X10^3/uL; Basophil% 0.4 % (0-1); Eosinophil# 0.14 X10^3/uL; Eosinophils% 1.5 % (0-5); Hematocrit 49.6 % (40-54); Hemoglobin 15.9 g/dL (13.0-16.5); Lymphocyte # 2.34 X10^3/ul (4.0); Lymphocyte % 25.4 % (19-41); Mean Corp Hgb Conc 32.1 g/dL (32-36); Mean Corpuscular Hgb 29.8 pg (27.0-32.0); Mean Corpuscular Volume 93.1 fL (80-94); Mean Platelet Vol. 9.6 fl (6.2-12.0); Monocyte# 0.81 X10^3/uL; Monocyte% 8.8 % (0-10); NRBC Flagged by Analyzer 0 % (0-5); Neutrophil # 5.87 X10^3/uL (2.7-7.7); Neutrophil % 63.6 % (47-70); Platelet Count 235 K/mm3 (150-450); RBC Distribution Width SD 44.8 fl (35.1-43.9); Red Blood Count 5.33 M/mm3 (4.6-6.2); White Blood Count 9.2 K/mm3 (4.4-11.0)
[2020-05-17 12:34] LABS: ALB/GLOB Ratio 1.1 RATIO (0.9-2.4); AST(SGOT) 15 U/L (15-37); Alanine Aminotransfer ALT/SGPT 29 U/L (16-61); Albumin, Serum 3.7 g/dL (3.2-5.0); Alkaline Phosphatase 114 U/L (45-117); Anion Gap 3 (5-15); BUN 13 mg/dL (7-18); BUN/Creat Ratio 15.7 RATIO (10-20); Calcium,Total 8.7 mg/dL (8.5-10.1); Chloride 108 mmol/L (98-107); Creatinine, Serum 0.83 mg/dL (0.70-1.30); EST Glomerular Filtration Rate 100 mL/min (>60); Est Glom Filt Rate - Afr Amer 122 mL/min (>60); Globulin 3.5 g/dL (2.2-4.2); Glucose 99 mg/dL (74-106); Potassium 4.1 mmol/L (3.5-5.1); Protein, Total 7.2 g/dL (6.4-8.2); Sodium Level 138 mmol/L (136-145); Thyroid Stim Hormone (TSH) 1.01 uIU/mL (0.358-3.74); Uric Acid 4.8 mg/dL (3.5-7.2)
== END ==
PROVIDERS: PCP Family Medicine Geriatric Medicine; Visit Provider Family Medicine Geriatric Medicine
DX: M10.9 Gout, unspecified (principal); R53.83 Other fatigue
CPT/HCPCS: 36415; 80053; 84443; 84550; 85025

== ENCOUNTER 2020-08-01 15:07 | Outpatient (RCR) | payer BC, SELFPAY ==
[2019-10-06 14:15] VITALS: BMI 34.2
== END 2020-10-24 23:59 ==
LOC: IMMUN 15:07
PROVIDERS: PCP Family Medicine Geriatric Medicine; Visit Provider Family Medicine
DX: Z23 Encounter for immunization (principal)
CPT/HCPCS: 91300

== ENCOUNTER → 2020-12-12 10:27 | Outpatient (CLI) | payer BC, SELFPAY ==
[2019-10-06 14:15] VITALS: BMI 34.2
[2020-12-12 12:41] LABS: Absolute Lymphocyte Count 3.01 X10^3/uL (0.83-4.51); Absolute Neutrophil Count 8.3 X10^3/uL (2.0-7.7); Basophil# 0.03 X10^3/uL; Basophil% 0.2 % (0-1); Eosinophil# 0.08 X10^3/uL; Eosinophils% 0.6 % (0-5); Hematocrit 46.2 % (40-54); Hemoglobin 15.6 g/dL (13.0-16.5); Lymphocyte # 3.01 X10^3/ul (0.83-4.51); Lymphocyte % 24.4 % (19-41); Mean Corp Hgb Conc 33.8 g/dL (32-36); Mean Corpuscular Volume 91.8 fL (80-94); Mean Platelet Vol. 9.6 fl (6.2-12.0); Monocyte# 0.92 X10^3/uL; Monocyte% 7.4 % (0-10); NRBC Flagged by Analyzer 0 % (0-5); Neutrophil # 8.26 X10^3/uL (2.7-7.7); Platelet Count 237 K/mm3 (150-450); RBC Distribution Width CV 12.4 % (11.6-14.6); RBC Distribution Width SD 41.7 fl (35.1-43.9); Red Blood Count 5.03 M/mm3 (4.6-6.2); White Blood Count 12.4 K/mm3 (4.4-11.0)
[2020-12-12 13:25] LABS: AST(SGOT) 16 U/L (15-37); Alanine Aminotransfer ALT/SGPT 29 U/L (16-61); Albumin, Serum 3.6 g/dL (3.2-5.0); Alkaline Phosphatase 110 U/L (45-117); Anion Gap 7 (5-15); BUN 12 mg/dL (7-18); BUN/Creat Ratio 16.2 RATIO (10-20); Calcium,Total 8.4 mg/dL (8.5-10.1); Chloride 107 mmol/L (98-107); Creatinine, Serum 0.74 mg/dL (0.70-1.30); EST Glomerular Filtration Rate 114 mL/min (>60); Est Glom Filt Rate - Afr Amer 137 mL/min (>60); Globulin 3.7 g/dL (2.2-4.2); Glucose 90 mg/dL (74-106); PSA,Total - Annual Screen 0.65 ng/mL (0.00-4.00); Potassium 3.9 mmol/L (3.5-5.1); Protein, Total 7.3 g/dL (6.4-8.2); Sodium Level 137 mmol/L (136-145); Thyroid Stim Hormone (TSH) 1.23 uIU/mL (0.358-3.74)
== END ==
PROVIDERS: PCP Family Medicine Geriatric Medicine; Visit Provider Family Medicine Geriatric Medicine
DX: M10.9 Gout, unspecified (principal); R53.83 Other fatigue; Z12.5 Encounter for screening for malignant neoplasm of prostate
CPT/HCPCS: 36415; 80053; 84153; 84443; 84550; 85025; G0103

== ENCOUNTER 2021-05-22 13:15 | Outpatient (CLI) | payer BC, SELFPAY | END 2021-05-22 23:59 | disposition short-term general hospital (02) | PROVIDERS: PCP Family Medicine Geriatric Medicine; Referring Provider Family Medicine Geriatric Medicine; Visit Provider Family Medicine Geriatric Medicine | DX: R68.83 Chills (without fever) (principal) | CPT/HCPCS: 87635; C9803; U0003; U0005 ==

== ENCOUNTER 2021-06-14 13:21 | Outpatient (CLI) | payer BC, SELFPAY ==
[2021-06-14 17:27] LABS: Absolute Lymphocyte Count 2.36 X10^3/uL (0.83-4.51); Basophil# 0.02 X10^3/uL; Basophil% 0.2 % (0-1); Hematocrit 48.1 % (40-54); Hemoglobin 15.8 g/dL (13.0-16.5); Lymphocyte # 2.36 X10^3/ul (0.83-4.51); Lymphocyte % 22.7 % (19-41); Mean Corp Hgb Conc 32.8 g/dL (32-36); Mean Corpuscular Hgb 30.4 pg (27.0-32.0); Mean Corpuscular Volume 92.5 fL (80-94); Monocyte# 0.88 X10^3/uL; Monocyte% 8.5 % (0-10); NRBC Flagged by Analyzer 0 % (0-5); Neutrophil % 67.3 % (47-70); Platelet Count 247 K/mm3 (150-450); RBC Distribution Width CV 13.2 % (11.6-14.6); RBC Distribution Width SD 45.1 fl (35.1-43.9); White Blood Count 10.4 K/mm3 (4.4-11.0)
[2021-06-14 18:10] LABS: AST(SGOT) 18 U/L (15-37); Alanine Aminotransfer ALT/SGPT 30 U/L (16-61); Albumin, Serum 3.8 g/dL (3.2-5.0); Alkaline Phosphatase 120 U/L (45-117); Anion Gap 7 (5-15); BUN 13 mg/dL (7-18); BUN/Creat Ratio 15.1 RATIO (10-20); Calcium,Total 8.7 mg/dL (8.5-10.1); Chloride 106 mmol/L (98-107); Creatinine, Serum 0.86 mg/dL (0.70-1.30); EST Glomerular Filtration Rate 95 mL/min (>60); Est Glom Filt Rate - Afr Amer 115 mL/min (>60); Globulin 3.8 g/dL (2.2-4.2); Glucose 109 mg/dL (74-106); Protein, Total 7.6 g/dL (6.4-8.2); Sodium Level 137 mmol/L (136-145); Thyroid Stim Hormone (TSH) 0.75 uIU/mL (0.358-3.74); Uric Acid 5.1 mg/dL (3.5-7.2)
== END 2021-06-14 23:59 | disposition short-term general hospital (02) ==
LOC: POLAB3 13:22
PROVIDERS: PCP Family Medicine Geriatric Medicine; Visit Provider Family Medicine Geriatric Medicine
DX: M10.9 Gout, unspecified (principal); R53.83 Other fatigue
CPT/HCPCS: 36415; 80053; 84443; 84550; 85025

== ENCOUNTER → 2021-11-14 | Outpatient (CLI) | payer BC, SELFPAY | END | disposition home or self-care (01) | PROVIDERS: PCP Family Medicine Geriatric Medicine; Visit Provider Family Medicine Geriatric Medicine | DX: R68.83 Chills (without fever) (principal) | CPT/HCPCS: 87635; 87804; 87807; C9803; U0003; U0005 ==

== ENCOUNTER → 2022-01-03 | Outpatient (CLI) | payer BC, SELFPAY ==
[2022-01-03 16:42] LABS: Absolute Lymphocyte Count 2.76 X10^3/uL (0.83-4.51); Absolute Neutrophil Count 8.6 X10^3/uL (2.0-7.7); Basophil# 0.02 X10^3/uL; Basophil% 0.2 % (0-1); Eosinophil# 0.11 X10^3/uL; Eosinophils% 0.9 % (0-5); Hematocrit 43.9 % (40-54); Hemoglobin 14.9 g/dL (13.0-16.5); Lymphocyte # 2.76 X10^3/ul (0.83-4.51); Lymphocyte % 22.3 % (19-41); Mean Corp Hgb Conc 33.9 g/dL (32-36); Mean Corpuscular Hgb 31.2 pg (27.0-32.0); Mean Corpuscular Volume 91.8 fL (80-94); Mean Platelet Vol. 9.7 fl (6.2-12.0); Monocyte# 0.86 X10^3/uL; NRBC Flagged by Analyzer 0 % (0-5); Neutrophil # 8.55 X10^3/uL (2.7-7.7); Neutrophil % 69.1 % (47-70); Platelet Count 220 K/mm3 (150-450); RBC Distribution Width CV 12.9 % (11.6-14.6); RBC Distribution Width SD 43.7 fl (35.1-43.9); Red Blood Count 4.78 M/mm3 (4.6-6.2); White Blood Count 12.4 K/mm3 (4.4-11.0)
[2022-01-03 16:58] LABS: Vitamin D,25 Hydroxy 18.6 ng/mL
[2022-01-03 17:01] LABS: ALB/GLOB Ratio 0.9 RATIO (0.9-2.4); AST(SGOT) 14 U/L (15-37); Alanine Aminotransfer ALT/SGPT 33 U/L (16-61); Albumin, Serum 3.5 g/dL (3.2-5.0); Alkaline Phosphatase 98 U/L (45-117); Anion Gap 7 (5-15); BUN 14 mg/dL (7-18); BUN/Creat Ratio 16.9 RATIO (10-20); Calcium,Total 8.7 mg/dL (8.5-10.1); Chloride 107 mmol/L (98-107); Creatinine, Serum 0.83 mg/dL (0.70-1.30); EST Glomerular Filtration Rate 100 mL/min (>60); Est Glom Filt Rate - Afr Amer 120 mL/min (>60); Globulin 3.8 g/dL (2.2-4.2); Glucose 129 mg/dL (74-106); PSA,Total - Annual Screen 0.73 ng/mL (0.00-4.00); Potassium 3.9 mmol/L (3.5-5.1); Protein, Total 7.3 g/dL (6.4-8.2); Sodium Level 140 mmol/L (136-145); Uric Acid 4.8 mg/dL (3.5-7.2)
== END | disposition home or self-care (01) ==
LOC: POLAB3 14:22
PROVIDERS: PCP Family Medicine Geriatric Medicine; Visit Provider Family Medicine Geriatric Medicine
DX: E55.9 Vitamin D deficiency, unspecified (principal); M10.9 Gout, unspecified; R53.83 Other fatigue; Z12.5 Encounter for screening for malignant neoplasm of prostate
CPT/HCPCS: 36415; 80053; 82306; 84153; 84443; 84550; 85025; G0103

== ENCOUNTER → 2022-04-29 | Outpatient (CLI) | payer BC, SELFPAY | END | disposition home or self-care (01) | LOC: PSN 11:26 | PROVIDERS: PCP Family Medicine Geriatric Medicine; Visit Provider Family Medicine Geriatric Medicine | DX: R68.83 Chills (without fever) (principal) | CPT/HCPCS: 87635; 87804; 87807; C9803; U0003; U0005 ==

== ENCOUNTER → 2022-06-05 | Outpatient (CLI) | payer BC, SELFPAY ==
--- NOTE | 2022-06-05 14:34 | CT_ITS ---
EXAM: CT ABDOMEN AND PELVIS WITH INTRAVENOUS CONTRAST CLINICAL INDICATION: DIVERTICULITIS TECHNIQUE: Helically acquired images were obtained of the abdomen and pelvis with intravenous contrast. This CT exam was performed using one or more of the following dose reduction techniques: automated exposure control, adjustment of the mA and/or kV according to patient size, and/or use of iterative reconstruction technique. This report was created using [employer] report generation technology. CONTRAST: Oral and amp; IV Gastrografin and amp; 100mL Isovue-300 COMPARISON: None. FINDINGS: LOWER THORAX: Unremarkable. Lung bases are clear. No cardiomegaly. No significant pericardial effusion. ABDOMEN: LIVER: Unremarkable. Homogeneous. No focal mass. GALLBLADDER AND BILE DUCTS: Unremarkable. No calcified gallstones. No gallbladder distention or wall edema. No intra- or extrahepatic biliary ductal dilation. PANCREAS: Unremarkable. No focal cystic or solid mass. SPLEEN: Unremarkable. Normal size without focal cystic or solid mass. ADRENALS: Unremarkable. No nodules. KIDNEYS AND URETERS: Unremarkable. Normal renal size and position. No hydronephrosis. STOMACH AND BOWEL: Unremarkable. No stomach or bowel distention. No focal inflammatory change. PELVIS: APPENDIX: No evidence of acute appendicitis. BLADDER: Unremarkable. REPRODUCTIVE: Unremarkable as visualized. No mass. ABDOMEN and PELVIS: INTRAPERITONEAL SPACE: Unremarkable. No ascites or other fluid collection. No free air. BONES/JOINTS: Unremarkable. No suspicious lytic or blastic abnormality. SOFT TISSUES: Unremarkable. No discrete abdominal or pelvic wall hernia. VASCULATURE: Unremarkable. Abdominal aorta is non-dilated. LYMPH NODES: Unremarkable. No enlarged lymph nodes. CT/Abdomen/Pelvis WITH Contrast IMPRESSION: Negative CT of the abdomen and pelvis with intravenous contrast. Electronically Signed: Sadi Butterfield MD at 16:54 [facility] ,
[2022-06-05 15:32] LABS: Absolute Lymphocyte Count 2.55 X10^3/uL (0.83-4.51); Absolute Neutrophil Count 5.5 X10^3/uL (2.0-7.7); Basophil# 0.04 X10^3/uL; Basophil% 0.4 % (0-1); Eosinophil# 0.15 X10^3/uL; Eosinophils% 1.6 % (0-5); Hematocrit 44.4 % (40-54); Hemoglobin 15.2 g/dL (13.0-16.5); Lymphocyte # 2.55 X10^3/ul (0.83-4.51); Lymphocyte % 27.3 % (19-41); Mean Corp Hgb Conc 34.2 g/dL (32-36); Mean Corpuscular Hgb 31.1 pg (27.0-32.0); Mean Corpuscular Volume 90.8 fL (80-94); Mean Platelet Vol. 9.5 fl (6.2-12.0); Monocyte% 11.8 % (0-10); NRBC Flagged by Analyzer 0 % (0-5); Neutrophil # 5.48 X10^3/uL (2.7-7.7); Neutrophil % 58.6 % (47-70); Platelet Count 212 K/mm3 (150-450); RBC Distribution Width CV 12.4 % (11.6-14.6); RBC Distribution Width SD 41.2 fl (35.1-43.9); Red Blood Count 4.89 M/mm3 (4.6-6.2); White Blood Count 9.4 K/mm3 (4.4-11.0)
[2022-06-05 15:59] LABS: ALB/GLOB Ratio 1.1 RATIO (0.9-2.4); AST(SGOT) 19 U/L (15-37); Alanine Aminotransfer ALT/SGPT 39 U/L (16-61); Albumin, Serum 3.8 g/dL (3.2-5.0); Alkaline Phosphatase 104 U/L (45-117); Anion Gap 5 (5-15); BUN 14 mg/dL (7-18); Chloride 110 mmol/L (98-107); Creatinine, Serum 0.78 mg/dL (0.70-1.30); EST Glomerular Filtration Rate 107 mL/min (>60); Est Glom Filt Rate - Afr Amer 129 mL/min (>60); Globulin 3.5 g/dL (2.2-4.2); Glucose 90 mg/dL (74-106); Potassium 4.2 mmol/L (3.5-5.1); Protein, Total 7.3 g/dL (6.4-8.2); Sodium Level 141 mmol/L (136-145)
== END | disposition home or self-care (01) ==
PROVIDERS: PCP Family Medicine Geriatric Medicine; Referring Provider Family Medicine Geriatric Medicine; Visit Provider Family Medicine Geriatric Medicine
DX: K57.32 Diverticulitis of large intestine without perforation or abscess without bleeding (principal)
CPT/HCPCS: 36415; 74177; 80053; 85025; Q9967

== ENCOUNTER → 2022-07-09 | Outpatient (CLI) | payer BC, SELFPAY ==
[2022-07-09 17:39] LABS: Absolute Lymphocyte Count 2.61 X10^3/uL (0.83-4.51); Absolute Neutrophil Count 4.7 X10^3/uL (2.0-7.7); Basophil# 0.06 X10^3/uL; Basophil% 0.7 % (0-1); Eosinophils% 2.3 % (0-5); Hematocrit 43.7 % (40-54); Hemoglobin 14.8 g/dL (13.0-16.5); Lymphocyte # 2.61 X10^3/ul (0.83-4.51); Lymphocyte % 30.6 % (19-41); Mean Corp Hgb Conc 33.9 g/dL (32-36); Mean Corpuscular Volume 91.4 fL (80-94); Mean Platelet Vol. 9.9 fl (6.2-12.0); Monocyte# 0.95 X10^3/uL; Monocyte% 11.1 % (0-10); NRBC Flagged by Analyzer 0 % (0-5); Neutrophil # 4.68 X10^3/uL (2.7-7.7); Neutrophil % 54.9 % (47-70); Platelet Count 227 K/mm3 (150-450); RBC Distribution Width CV 12.7 % (11.6-14.6); RBC Distribution Width SD 42.1 fl (35.1-43.9); Red Blood Count 4.78 M/mm3 (4.6-6.2); White Blood Count 8.5 K/mm3 (4.4-11.0)
[2022-07-09 18:21] LABS: Vitamin D,25 Hydroxy 21.2 ng/mL
[2022-07-09 18:34] LABS: ALB/GLOB Ratio 1.1 RATIO (0.9-2.4); AST(SGOT) 27 U/L (15-37); Alanine Aminotransfer ALT/SGPT 37 U/L (16-61); Albumin, Serum 3.7 g/dL (3.2-5.0); Alkaline Phosphatase 97 U/L (45-117); Anion Gap 6 (5-15); BUN 13 mg/dL (7-18); BUN/Creat Ratio 15.9 RATIO (10-20); Calcium,Total 9.2 mg/dL (8.5-10.1); Chloride 106 mmol/L (98-107); Creatinine, Serum 0.82 mg/dL (0.70-1.30); EST Glomerular Filtration Rate 101 mL/min (>60); Est Glom Filt Rate - Afr Amer 122 mL/min (>60); Globulin 3.5 g/dL (2.2-4.2); Glucose 79 mg/dL (74-106); Potassium 4.2 mmol/L (3.5-5.1); Protein, Total 7.2 g/dL (6.4-8.2); Sodium Level 139 mmol/L (136-145); Thyroid Stim Hormone (TSH) 0.87 uIU/mL (0.358-3.74)
== END | disposition home or self-care (01) ==
LOC: POLAB3 15:06
PROVIDERS: PCP Family Medicine Geriatric Medicine; Visit Provider Family Medicine Geriatric Medicine
DX: E11.65 Type 2 diabetes mellitus with hyperglycemia (principal); I10 Essential (primary) hypertension; E55.9 Vitamin D deficiency, unspecified
CPT/HCPCS: 36415; 80053; 82306; 84443; 85025

== ENCOUNTER → 2022-11-07 | Outpatient (CLI) | payer BC, SELFPAY ==
--- NOTE | 2022-11-07 10:11 | US_ITS ---
HISTORY: ABDOMINAL PAIN. TECHNIQUE: Davis scale and color doppler imaging was performed of the right upper quadrant. 95 images. COMPARISON: CT 06/05/2022. FINDINGS: LIVER: 17.9 cm in length. Heterogeneous echotexture without focal lesion demonstrated. No intrahepatic ductal dilatation. MAIN PORTAL VEIN: Patent with hepatopedal flow. COMMON BILE DUCT: 5 mm in diameter. GALLBLADDER: No gallstones. 3 mm wall thickness, within normal limits. No pericholecystic fluid. Sonographic Rubio sign negative. PANCREAS: Not well visualized due to overlying bowel gas. RIGHT KIDNEY: 12.2 cm in length with a cortical thickness of 2.5 cm. No hydronephrosis or gross renal mass demonstrated. US/Abdomen Limited IMPRESSION: No sonographic evidence of cholelithiasis. Hepatic steatosis with hepatomegaly. Electronically Signed: Marifer Swenson MD at 11:19 EDT ,
--- NOTE | 2022-11-07 10:30 | RAD_ITS ---
HISTORY: ABDOMINAL PAIN. TECHNIQUE: XR Abdomen W/ Decub and/or Erect Views. COMPARISON: CT 06/05/2022. FINDINGS: BOWEL GAS PATTERN: No dilated bowel loops identified. FREE AIR: None seen on upright view. CALCIFICATIONS: No abnormal calcifications observed. BONES: Mild degenerative change and scoliosis of the lumbar spine. SOFT TISSUES: No acute consolidation in the lung bases. RAD/Abd Inc Decub and/or Erect IMPRESSION: Non-obstructive bowel gas pattern. Electronically Signed: Marifer Swenson MD at 11:21 EDT ,
[2022-11-07 11:15] LABS: Absolute Lymphocyte Count 2.33 X10^3/uL (0.83-4.51); Basophil# 0.05 X10^3/uL; Basophil% 0.6 % (0-1); Eosinophil# 0.16 X10^3/uL; Eosinophils% 1.9 % (0-5); Hematocrit 45.5 % (40-54); Lymphocyte # 2.33 X10^3/ul (0.83-4.51); Lymphocyte % 27.3 % (19-41); Mean Corpuscular Hgb 30.1 pg (27.0-32.0); Mean Corpuscular Volume 91.2 fL (80-94); Mean Platelet Vol. 9.9 fl (6.2-12.0); Monocyte# 0.96 X10^3/uL; Monocyte% 11.2 % (0-10); NRBC Flagged by Analyzer 0 % (0-5); Neutrophil # 5.02 X10^3/uL (2.7-7.7); Neutrophil % 58.8 % (47-70); Platelet Count 221 K/mm3 (150-450); RBC Distribution Width CV 12.9 % (11.6-14.6); RBC Distribution Width SD 43.1 fl (35.1-43.9); Red Blood Count 4.99 M/mm3 (4.6-6.2); White Blood Count 8.5 K/mm3 (4.4-11.0)
[2022-11-07 11:33] LABS: ALB/GLOB Ratio 1.1 RATIO (0.9-2.4); AST(SGOT) 26 U/L (15-37); Alanine Aminotransfer ALT/SGPT 38 U/L (16-61); Albumin, Serum 3.8 g/dL (3.2-5.0); Alkaline Phosphatase 90 U/L (45-117); Amylase 57 U/L (25-115); Anion Gap 3 (5-15); BUN 14 mg/dL (7-18); BUN/Creat Ratio 18.4 RATIO (10-20); Calcium,Total 8.9 mg/dL (8.5-10.1); Chloride 110 mmol/L (98-107); Creatinine, Serum 0.76 mg/dL (0.70-1.30); EST Glomerular Filtration Rate 110 mL/min (>60); Est Glom Filt Rate - Afr Amer 133 mL/min (>60); Globulin 3.4 g/dL (2.2-4.2); Glucose 113 mg/dL (74-106); Lipase 37 U/L (13-75); Potassium 4.4 mmol/L (3.5-5.1); Protein, Total 7.2 g/dL (6.4-8.2); Sodium Level 141 mmol/L (136-145)
== END | disposition home or self-care (01) ==
LOC: US 10:01
PROVIDERS: PCP Family Medicine Geriatric Medicine; Referring Provider Family Medicine Geriatric Medicine; Visit Provider Family Medicine Geriatric Medicine
DX: M06.4 Inflammatory polyarthropathy (principal); R10.9 Unspecified abdominal pain
CPT/HCPCS: 36415; 74019; 76705; 80053; 82150; 83690; 85025

== ENCOUNTER → 2022-11-20 | Outpatient (CLI) | payer BC, SELFPAY ==
--- NOTE | 2022-11-20 08:41 | US_ITS ---
STUDY: ABDOMINAL ULTRASOUND - ELASTOGRAPHY REASON FOR VISIT: Male, 62 years old. History of fatty infiltration of the liver. TECHNIQUE: Liver stiffness measurements were obtained on a [employer] RS 85 ultrasound machine using a CA 1-7 probe following the SRU guidelines. 3 measurements were obtained using a 2-D-SWE method. TheIQR/M was 22% suggesting a quality data set. TECHNICAL QUALITY: Adequate. COMPARISON: Comparison is made with prior ultrasound of the abdomen dated November 07, 2022. FINDINGS: Liver: Hepatomegaly and fatty infiltration of the liver. Median liver stiffness measured 6.7 kPa. Abdomen: There is no demonstrated mass lesion. US/Elastography Parenchyma/Organ IMPRESSION: Liver stiffness measures 6.7 kPa compatible with F2-F3 (Mild to moderate liver fibrosis) Metavir score. Electronically Signed: Moy Simeon MD at 15:10 EDT ,
== END | disposition home or self-care (01) ==
PROVIDERS: PCP Family Medicine Geriatric Medicine; Referring Provider Family Medicine Geriatric Medicine; Visit Provider Family Medicine Geriatric Medicine
DX: K76.0 Fatty (change of) liver, not elsewhere classified (principal)
CPT/HCPCS: 76981

== ENCOUNTER → 2023-01-08 | Outpatient (CLI) | payer BC, SELFPAY ==
[2023-01-08 12:14] LABS: Basophil# 0.06 X10^3/uL; Basophil% 0.7 % (0-1); Eosinophil# 0.16 X10^3/uL; Eosinophils% 1.9 % (0-5); Hematocrit 44.1 % (40-54); Hemoglobin 14.8 g/dL (13.0-16.5); Lymphocyte % 27.8 % (19-41); Mean Corp Hgb Conc 33.6 g/dL (32-36); Mean Corpuscular Hgb 30.4 pg (27.0-32.0); Mean Corpuscular Volume 90.6 fL (80-94); Mean Platelet Vol. 10.1 fl (6.2-12.0); Monocyte# 0.78 X10^3/uL; Monocyte% 9.4 % (0-10); NRBC Flagged by Analyzer 0 % (0-5); Neutrophil # 4.96 X10^3/uL (2.7-7.7); Platelet Count 218 K/mm3 (150-450); RBC Distribution Width CV 12.8 % (11.6-14.6); RBC Distribution Width SD 42.2 fl (35.1-43.9); Red Blood Count 4.87 M/mm3 (4.6-6.2); White Blood Count 8.3 K/mm3 (4.4-11.0)
[2023-01-08 12:41] LABS: AST(SGOT) 24 U/L (15-37); Alanine Aminotransfer ALT/SGPT 41 U/L (16-61); Albumin, Serum 3.7 g/dL (3.2-5.0); Alkaline Phosphatase 103 U/L (45-117); Anion Gap 6 (5-15); BUN 12 mg/dL (7-18); Calcium,Total 8.8 mg/dL (8.5-10.1); Chloride 109 mmol/L (98-107); Creatinine, Serum 0.75 mg/dL (0.70-1.30); EST Glomerular Filtration Rate 112 mL/min (>60); Est Glom Filt Rate - Afr Amer 135 mL/min (>60); Globulin 3.7 g/dL (2.2-4.2); Glucose 114 mg/dL (74-106); PSA,Total - Annual Screen 0.66 ng/mL (0.00-4.00); Potassium 4.3 mmol/L (3.5-5.1); Protein, Total 7.4 g/dL (6.4-8.2); Sodium Level 140 mmol/L (136-145); Thyroid Stim Hormone (TSH) 1.18 uIU/mL (0.358-3.74)
== END | disposition home or self-care (01) ==
LOC: POLAB3 09:28
PROVIDERS: PCP Family Medicine Geriatric Medicine; Visit Provider Family Medicine Geriatric Medicine
DX: E11.65 Type 2 diabetes mellitus with hyperglycemia (principal); I10 Essential (primary) hypertension; Z12.5 Encounter for screening for malignant neoplasm of prostate
CPT/HCPCS: 36415; 80053; 84153; 84443; 85025; G0103

== ENCOUNTER → 2023-02-27 | Outpatient (CLI) | payer BC, SELFPAY ==
--- NOTE | 2023-02-27 06:45 | CT_ITS ---
STUDY: LOW DOSE CT LUNG CANCER SCREENING REASON FOR EXAM: Male, 62 years old. NICOTINE DEPENDENCE RADIATION DOSAGE (If Supplied By Facility): CTDIvol = ( 4.02 ) mGy, DLP = ( 145.97 ) mGycm TECHNIQUE: No contrast was administered. Low dose technique was utilized (average mAS-38 and kVp 120). 1.25 mm axial source images with a slice interval of 1.25-mm were reconstructed in lung windows with coronal and sagittal reformats. COMPARISON: November 30, 2019 NODULES: No suspicious pulmonary nodules. Parenchyma: No airspace consolidation, effusion, pneumothorax. Minimal bilateral apical scarring. Mild bilateral diffuse upper lung emphysematous change. Endobronchial lesion: No endobronchial lesion. Mild bilateral basilar peribronchial thickening. Aorta: No aortic ectasia CORONARY ARTERIES: Mild multivessel coronary atherosclerosis. Heart: No cardiomegaly. No pericardial effusion. Pulmonary artery: No main pulmonary arterial enlargement. Mediastinal nodes: Scattered subcentimeter short axis mediastinal lymph nodes, unchanged from November 30, 2019, nonpathologic by size criteria. Other chest and abdominal findings: Unremarkable imaged portion of the thyroid. Unremarkable esophagus. CT/Low Dose CT Lung Screening IMPRESSION: No suspicious pulmonary nodules. Mild emphysematous change with mild bilateral peribronchial thickening that can be seen with acute inflammation. Lung-RADS category 1 - Continue annual screening with LDCT in 12 months. IMPORTANT NOTES FOR USE: ACR Lung-RADS Version 1.1 Assessment Categories Release Date: 2018 Category: Coded 0-4 bases on nodule(s) with highest degree of suspicion. Negative screen is defined as categories 1 and 2; a positive screen is defined as categories 3 and 4. Category 3 and 4A nodules that are unchanged on interval CT should be coded as category 2, and individuals returned to screening in 12 months. Category 4X: Category 3 or 4 nodules with additional imaging findings that increase the suspicion of lung cancer, such as spiculation, GGN that doubles in size in 1 year, enlarged lymph notes, etc. Category Modifiers: S (significant finding unrelated to lung cancer) Electronically Signed: Oneal Rudolph MD at 9:08 EDT ,
== END | disposition home or self-care (01) ==
LOC: CT 06:45
PROVIDERS: PCP Family Medicine Geriatric Medicine; Referring Provider Family Medicine Geriatric Medicine; Visit Provider Family Medicine Geriatric Medicine
DX: Z12.2 Encounter for screening for malignant neoplasm of respiratory organs (principal); F17.210 Nicotine dependence, cigarettes, uncomplicated
CPT/HCPCS: 71271

== ENCOUNTER → 2023-05-22 | Outpatient (CLI) | payer BC, SELFPAY ==
--- NOTE | 2023-05-22 07:41 | US_ITS ---
STUDY: ABDOMINAL ULTRASOUND - RIGHT UPPER QUADRANT; ELASTOGRAPHY REASON FOR VISIT: Male, 62 years old. Fatty infiltration of the liver. TECHNIQUE: Ultrasound evaluation of the right upper quadrant was performed with real-time and static roa-scale imaging. Point quantification shear wave elastography was performed ([employer]). TECHNICAL QUALITY: Limited. Examination limited due to a combination of factors including obesity and bowel gas. COMPARISON: Comparison is made with prior study dated November 07, 2022. FINDINGS: Liver: The liver measures 20 cm. There is increased echogenicity consistent with fatty infiltration. The bile ducts are within normal limits. There is hepatic color flow. The direction of portal flow is hepatopetal. There is no demonstrated mass lesion. Median liver stiffness measured 6.7 kPa. Gallbladder: Normal distended gallbladder. The gallbladder wall measures 2.2 mm. There is a negative sonographic Rubio''s sign. There is no pericholecystic fluid. There are no gallstones. Common Bile Duct (C.B.D.): The common bile duct measures 4.9 mm. Pancreas: The pancreas was not visualized due to overlying bowel gas. Right Kidney: Normal size of the right kidney. The right kidney measures 13.2 cm x 5.2 cm x 6.7 cm. Normal renal cortex. The right cortex measures 1.9 cm. There is no demonstrated renal mass or cyst. There is no right hydronephrosis. US/ABD Limited w/ Elastography IMPRESSION: 1. Liver stiffness measures 6.7 kPa compatible with F2-F3 (Mild to moderate liver fibrosis) Metavir score. Electronically Signed: Moy Simeon MD at 10:49 EST ,
--- OUTSIDE RECORDS SUMMARY | 2023-05-22 08:10 | XMS RPT_ITS | CCD ---
Author Name Unknown Address [address] [place] [address] Organization [facility] Care Team Providers Care Commercial Singer Name Role Phone Janine Carney PA-C Unavailable Martinez Green MD Unavailable Janine Carney PA-C Unavailable TRICIA LEVIN, DR LINDQUIST Primary Care Physician TRICIA LEVIN, DR LINDQUIST Primary Care Physician TRICIA LEVIN, DR LINDQUIST Primary Care Unavailable RICHARD LIEBERMAN, ZECHARIAH Meyer Attending Eagle CLARKE MD, DR LINDQUIST Primary Care Unavailable RICHARD LIEBERMAN, ZECHARIAH Meyer Attending Eagle CLARKE MD, DR LINDQUIST Primary Care Unavailable RICHARD LIEBERMAN, ZECHARIAH Meyer Attending Eagle CLARKE MD, DR LINDQUIST Primary Care Unavailable RICHARD LIEBERMAN, ZECHARIAH Meyer Attending Eagle CLARKE MD, DR LINDQUIST Primary Care Unavailable KAYLEY CARVAJAL, DR EVERARDO Piper Attending Agustina CLARKE MD, DR LINDQUIST Primary Care Unavailable ROBBIN BLOCK Admitting RENEE Caballero DO Attending Agustina CLARKE MD, DR LINDQUIST Primary Care Unavailable RICHARD LIEBERMAN, ZECHARIAH Meyer Attending Eagle LIEBERMAN, ZECHARIAH Meyer Attending Eagle CLARKE MD, DR LINDQUIST Primary Care Unavailable DIANA LEVIN, DR ERINN Cramer Attending Abigail CLARKE MD, DR LINDQUIST Primary Care Unavailable DIANA LEVIN, DR ERINN Cramer Attending Abigail CLARKE MD, DR LINDQUIST Primary Care Unavailable TRICIA LEVIN, DR LINDQUIST Primary Care Unavailable RICHARD CABAN-ALICIA, ZECHARIAH Meeyr Attending [facility] harden Medications Current Medications Medication Drug Class(es) Dates Sig (Normalized) Sig (Original) acetaminophen 500 mg oral tablet (10 sources) Start: 07-23-2022 Tylenol Extra Strength 500 mg oral tablet Dose : 1,000 mg = 2 tab(s), Oral, TID, PRN as needed for pain Start Date: 07/23/22 Status: Ordered Completed/Discontinued Medications Medication Drug Class(es) Dates Sig (Normalized) Sig (Original) cyclobenzaprine hydrochloride 10 mg oral tablet (4 sources) Muscle Relaxant Start: 01-16-2017 take 1 tablet by mouth twice daily CYCLOBENZAPRINE HCL 10 MG TABS One tablet by mouth twice daily CYCLOBENZAPRINE HCL [id number] Janine Carney PA-C gabapentin 600 mg oral tablet (4 sources) Anti-epileptic Agent Start: 10-25-2021 End: 12-24-2021 Neurontin 600 mg oral tablet Dose : 600 mg = 1 tab(s), Oral, qHS, Fill 10/26/2021., # 30 tab(s), 1 Refill(s), Pharmacy: [facility], DDD (degenerative disc disease), lumbar, 10/26/21, 180.3, cm, 10/25/21 8:17:00 EDT, Height, 111.4, kg, 10/25/21 8:17:00 EDT, Dosing Weight Start Date: 10/25/21 Stop Date: 12/24/21 Status: Ordered Problems Active Problems Problem Classification Problem Date Documented Date Episodic/Chronic Intestinal infection (10 sources) Intestinal infectious disease 04-20-2020 Episodic Nonspecific chest pain (1 source) Chest pain; Translations: [Chest pain, unspecified] Onset: 07-22-2022 Episodic Osteoarthritis (10 sources) Osteoarthritis of joint of right hand 04-20-2020 Chronic Other nervous system disorders (1 source) Chronic pain; Translations: [Other chronic pain] Onset: 07-22-2022 Chronic Other non-traumatic joint disorders (20 sources) Arthritis of hand 09-20-2020 Chronic Residual codes; unclassified (10 sources) Sleep disorder 11-22-2020 Episodic Residual codes; unclassified (1 source) Tobacco user; Translations: [Tobacco use] Onset: 07-22-2022 Episodic Spondylosis; intervertebral disc disorders; other back problems (20 sources) Degeneration of lumbar intervertebral disc; Translations: [Lumbar spondylosis] Onset: 07-22-2022 04-20-2020 Chronic Spondylosis; intervertebral disc disorders; other back problems (20 sources) Backache; Translations: [Lumbar radiculopathy] Onset: 01-16-2017 01-16-2017 Episodic Past or Other Problems Problem Classification Problem Date Documented Date Episodic/Chronic Bacterial infection (4 sources) Methicillin resistant Staphylococcus aureus infection; Translations: [Methicillin resistant Staphylococcus aureus infection, unspecified site] Onset: 01-16-2017 01-16-2017 Episodic Calculus of urinary tract (10 sources) Kidney stone Onset: 06-22-2020 06-28-2020 Episodic Skin and subcutaneous tissue infections (4 sources) Abscess; Translations: [Cutaneous abscess, unspecified] Onset: 01-16-2017 01-16-2017 Episodic Results Test Name Value Interpretation Reference Range Facil ity Vital Signs Date Time Vital Sign Value Performing Clinician Facility 01-18-2023 21:37-0400 Diastolic Blood Pressure Non-Invasive [address] EVERARDO ZALDIVAR DO [facility] 01-18-2023 21:37-0400 Heart rate 95 /min DR EVERARDO ZALDIVAR DO [facility] 01-18-2023 21:37-0400 Reason For Taking VItal Signs DR EVERARDO ZALDIVAR DO [facility] 01-18-2023 21:37-0400 Respiratory rate 18 /min DR EVERARDO ZALDIVAR DO [facility] 01-18-2023 21:37-0400 Systolic Blood Pressure Non-Invasive [address] EVERARDO ZALDIVAR DO [facility] 01-18-2023 20:34-0400 Body temperature 98.6 [degF] DR MCGEE KAYLEY DO [facility] 01-18-2023 20:34-0400 Diastolic Blood Pressure Non-Invasive 84 1 EVERARDO KALYEY DO [facility] 01-18-2023 20:34-0400 Heart rate 98 /min DR MCGEE KAYLEY DO [facility] 01-18-2023 20:34-0400 Respiratory rate 18 /min EVERARDO ZALDIVAR DO [facility] 01-18-2023 20:34-0400 Systolic Blood Pressure Non-Invasive 151 1 EVERARDO KAYLEY DO [facility] 07-23-2022 14:07-0500 Body temperature 97.88 [degF] ROBBIN GAMINO HOSPICE NURSE PRACTITIONER-SILK HANGER [facility] 07-23-2022 14:07-0500 Diastolic Blood Pressure Non-Invasive 82 1 ROBBINDAISHA RUBIODEBRA HOSPICE NURSE PRACTITIONER-SILK HANGER [facility] 07-23-2022 14:07-0500 Heart rate 73 /min ROBBINDAISHA RUBIODEBRA HOSPICE NURSE PRACTITIONER-SILK HANGER [facility] 07-23-2022 14:07-0500 Respiratory rate 18 /min ROBBINDAISHA RUBIODEBRA HOSPICE NURSE PRACTITIONER-SILK HANGER [facility] 07-23-2022 14:07-0500 Systolic Blood Pressure Non-Invasive 121 1 ROBBIN JOANNEDEBRA HOSPICE NURSE PRACTITIONER-SILK HANGER [facility] 07-23-2022 12:05-0500 Heart rate 69 /min ROBBINDAISHA RUBIODEBRA HOSPICE NURSE PRACTITIONER-SILK HANGER [facility] 07-23-2022 11:11-0500 Body temperature 97.34 [degF] ROBBIN GAMINO HOSPICE NURSE PRACTITIONER-SILK HANGER [facility] 07-23-2022 11:11-0500 Diastolic Blood Pressure Non-Invasive 70 1 ROBBIN GAMINO HOSPICE NURSE PRACTITIONER-SILK HANGER [facility] 07-23-2022 11:11-0500 Heart rate 71 /min ROBBIN GAMINO HOSPICE NURSE PRACTITIONER-SILK HANGER [facility] 07-23-2022 11:11-0500 Respiratory rate 18 /min ROBBIN GAMINO HOSPICE NURSE PRACTITIONER-SILK HANGER [facility] 07-23-2022 11:11-0500 Systolic Blood Pressure Non-Invasive 117 1 ROBBIN GAMINO HOSPICE NURSE PRACTITIONER-SILK HANGER [facility] 07-23-2022 08:02-0500 Blood Pressure Cuff Size ROBBIN GAMINO HOSPICE NURSE PRACTITIONER-SILK HANGER [facility] 07-23-2022 08:02-0500 Blood Pressure Location ROBBIN GAMINO HOSPICE NURSE PRACTITIONER-SILK HANGER [facility] 07-23-2022 08:02-0500 Blood Pressure Method ROBBIN GAMINO HOSPICE NURSE PRACTITIONER-SILK HANGER [facility] 07-23-2022 08:02-0500 Body temperature 97.88 [degF] ROBBIN GAMINO HOSPICE NURSE PRACTITIONER-SILK HANGER [facility] 07-23-2022 08:02-0500 Diastolic Blood Pressure Non-Invasive 90 1 ROBBIN GAMINO HOSPICE NURSE PRACTITIONER-SILK HANGER [facility] 07-23-2022 08:02-0500 Heart rate 73 /min ROBBIN GAMINO HOSPICE NURSE PRACTITIONER-SILK HANGER [facility] 03-07-2023 08:02-0500 Respiratory rate 18 /min ROBBIN GAMINO APRN-SILK HANGER [facility] 07-23-2022 08:02-0500 Systolic Blood Pressure Non-Invasive 143 1 ROBBIN GAMINO HOSPICE NURSE PRACTITIONER-SILK HANGER [facility] 07-22-2022 18:03-0500 Body height 180.3 cm ROBBIN GAMINO HOSPICE NURSE PRACTITIONER-SILK HANGER [facility] 07-22-2022 18:03-0500 Body weight 117.3 kg ROBBIN GAMINO HOSPICE NURSE PRACTITIONER-SILK HANGER [facility] 07-22-2022 18:03-0500 Body weight 36.08 kg/m2 ROBBIN GAMINO HOSPICE NURSE PRACTITIONER-SILK HANGER [facility] 07-22-2022 12:14-0500 Heart rate 89 /min ROBBIN GAMINO APRN-SILK HANGER [facility] 01-16-2017 13:35-0400 BP Diastolic 78 mm[Hg] Janine Carney PA-C [facility] [employer] Work Phone: 01-16-2017 13:35-0400 BP Systolic 122 mm[Hg] Janine Carney PA-C [facility] [employer] Work Phone: 01-16-2017 13:35-0400 Pulse (Heart Rate) 87 /min Janine Carney PA-C [facility] [employer] Work Phone: 01-16-2017 13:35-0400 Respiratory Rate 18 /min Janine Carney PA-C [facility] [employer] Work Phone: Encounters Encounter Date Encounter Type Care Provider Facility Start: 05-07-2023 End: 05-08-[address] AMEENA CLARKE MD Facility:A Start: 03-26-2023 End: 03-27-[address] AMEENA CLARKE MD Facility:A Start: 02-26-2023 End: 02-27-[address] AMEENA CLARKE MD Facility:A Start: 01-24-2023 End: 01-25-[address] AMEENA CLARKE MD Facility:A Start: 01-18-2023 End: 01-18-2023 Emergency department patient visit DR AMEENA CLARKE MD Facility:B Start: 01-18-2023 End: 01-18-2023 Emergency department patient visit DR EVERARDO ZALDIVAR DO [facility] Start: 12-25-2022 End: 12-26-[address] AMEENA CLARKE MD Facility:A Start: 11-26-2022 End: 11-27-[address] AMEENA CLARKE MD Facility:A Start: 11-26-2022 End: 11-26-2022 Patient encounter procedure ZECHARIAH RAMOS HOSPICE NURSE PRACTITIONER-SEAT BUILDER [facility][1] Pain Management Start: 2022 End: 09-13-[address] ERINN ORTIZ MD Facility:A Start: 07-22-2022 End: 07-23-[address] AMEENA CLARKE MD Facility:B Start: 07-22-2022 End: 07-23-2022 Observation ROBBIN GAMINO APRN-SILK HANGER [facility] Start: 07-10-2022 End: 07-11-[address] ERINN ORTIZ MD Facility:A Start: 07-10-2022 End: 07-10-[address] ERINN ORTIZ MD [facility][1] Pain Management Start: 05-22-2022 End: 05-23-2022 ambulatory ZECHARIAH RAMOS HOSPICE NURSE PRACTITIONER-SEAT BUILDER Facility:A Start: 05-22-2022 End: 05-22-2022 Patient encounter procedure ZECHARIAH RAMOS HOSPICE NURSE PRACTITIONER-SEAT BUILDER [facility][1] Pain Management Start: 03-19-2022 End: 03-19-2022 Patient encounter procedure ZECHARIAH RAMOS APRN-SEAT BUILDER [facility][1] Pain Management Start: 01-17-2022 End: 01-17-2022 Patient encounter procedure ZECHARIAH RAMOS HOSPICE NURSE PRACTITIONER-SEAT BUILDER [facility][1] Pain Management Start: 10-25-2021 End: 10-25-2021 Patient encounter procedure ZECHARIAH RAMOS HOSPICE NURSE PRACTITIONER-SEAT BUILDER [facility][1] Pain Management Start: 08-08-2021 End: 08-08-[address] ERINN ORTIZ MD [facility][1] Pain Management Start: 03-29-2021 End: 03-29-[address] ERINN ORTIZ MD [facility][1] Pain Management Procedures Date Procedure Procedure Detail Performing Clinician Start: 01-16-2017 End: 01-16-2017 Drainage of skin abscess Janine michael PA-C Work Phone: Laminectomy DR ERINN VALADEZ MD Mass (morphologic abnormality) DR ERINN ORTIZ MD Plan of Treatment Date Care Activity Detail Author Start: 01-23-2017 End: 01-23-2017 Appointment Appointment [facility] [employer] Work Phone: Start: 01-16-2017 End: 01-16-2017 Appointment Appointment [facility] Work Phone: [facility] Work Phone: Immunizations Immunization Date Immunization Notes Care Provider Adriano Adams-26-2022 influenza virus vaccine, unspecified formulation ROBBIN GAMINO HOSPICE NURSE PRACTITIONER-SILK HANGER [facility] 05-08-2021 SARS-CoV-2 mRNA (tozinameran) vaccine ROBBIN GAMINO HOSPICE NURSE PRACTITIONER-SILK HANGER [facility] 03-05-2021 influenza virus vaccine, unspecified formulation ROBBIN GAMINO HOSPICE NURSE PRACTITIONER-SILK HANGER [facility] 09-02-2020 SARS-CoV-2 mRNA (tozinameran) vaccine ROBBIN GAMINO HOSPICE NURSE PRACTITIONER-SILK HANGER [facility] Payers Date Payer Category Payer Unknown [id number] 1960 Unknown [id number] 2.16.8 [id number] 1960 Unknown [id number] 2.16.8 [id number]. 1960 Unknown [id number] 2.16.8 [id number]. 1958 Unknown [id number] 2.16.8 [id number]. 1958 Unknown [id number] 2.16.8 [id number]. 1958 Unknown [id number] 2.16.8 [id number]. 1960 Unknown [id number] 2.16.8 [id number]. 1958 Unknown [id number] 2.16.8 [id number]. 1960 Unknown [id number] 2.16.8 [id number] 1960 Unknown [id number] 2.16.8 [id number] 1960 Unknown [id number] 2.16.8 [id number] Social History Date Type Detail Facility Start: 09-20-2020 Light tobacco smoker (finding) [facility] Ex-smoker (finding) [facility][1] Pain Management Sex Assigned At Male [facility] Functional Status Date Assessment Result Facility 01-18-2023 Functional Status N/A [facility] 01-18-2023 Functional Status Standard Safet y ID band on, Call device within reach, Bed in low position, Wheels locked, Upper/Half-Length side-rails up, Toileting device within reach, Bedside Cart Locked, Visitor at bedside [facility] 07-23-2022 Functional Status Door open, Room check performed [facility] 07-23-2022 Functional Status [facility] 07-23-2022 Functional Status bilateral knee high [facility] 07-23-2022 Functional Status Multilevel home [facility] 07-23-2022 [facility] Functional Status Sensory Deficits None [facility] Mental Status Date Assessment Result Facility 01-18-2023 Mental Status Orientation Oriented x 4 [facility] 01-18-2023 Mental Status [facility] 07-23-2022 Mental Status Oriented x 4 [facility] 07-23-2022 Mental Status [facility] Clinical Notes 07-22-2022 to 01-18-2023 Note Date & Type Note Facility 01-18-2023 Hospital Discharg e instructions Patient Education 01/18/2023 20:42:45 Back Care Tips Back Care Tips Caring for your back These are things you can do to prevent a recurrence of acute back pain and to reduce symptoms from chronic back pain: Maintain a healthy weight. If you are overweight, losing weight will help most types of back pain. Exercise is an important part of recovery from most types of back pain. The muscles behind and in front of the spine support the back. This means strengthening both the back muscles and the abdominal muscles will provide better support for your spine. Swimming and brisk walking are good overall exercises to improve your fitness level. Practice safe lifting methods (below). Practice good posture when sitting, standing and walking. Avoid prolonged sitting. This puts more stress on the lower back than standing or walking. Wear quality shoes with sufficient arch support. Foot and ankle alignment can affect back symptoms. Women should avoid wearing high heels. Therapeutic massage can help relax the back muscles without stretching them. During the first 24 to 72 hours after an acute injury or flare-up of chronic back pain, apply an ice pack to the painful area for 20 minutes and then remove it for 20 minutes, over a period of 60 to 90 minutes, or several times a day. As a safety precaution, do not use a heating pad at bedtime. Sleeping on a heating pad can lead to skin dugan or tissue damage. You can alternate ice and heat therapies. Medicines Talk to your healthcare provider before using medicines, especially if you have other medical problems or are taking other medicines. You may use acetaminophen or ibuprofen to control pain, unless your healthcare provider prescribed other pain medicine. If you have chronic conditions like diabetes, liver or kidney disease, stomach ulcers, or gastrointestinal bleeding, or are taking blood thinners, talk with your healthcare provider before taking any medicines. Be careful if you are given prescription pain medicines, narcotics, or medicine for muscle spasm. They can cause drowsiness, affect your coordination, reflexes, and judgment. Do not drive or operate heavy machinery while taking these types of medicines. Take prescription pain medicine only as prescribed by your healthcare provider. Lumbar stretch Here is a simple stretching exercise that will help relax muscle spasm and keep your back more limber. If exercise makes your back pain worse, don t do it. Lie on your back with your knees bent and both feet on the ground. Slowly raise your left knee to your chest as you flatten your lower back against the floor. Hold for 5 seconds. Relax and repeat the exercise with your right knee. Do 10 of these exercises for each leg. Safe lifting method Don t bend over at the waist to lift an object off the floor. Instead, bend your knees and hips in a squat. Keep your back and head upright Hold the object close to your body, directly in front of you. Straighten your legs to lift the object. Lower the object to the floor in the reverse fashion. If you must slide something across the floor, push it. Posture tips Sitting Sit in chairs with straight backs or low-back support. Keep your knees lower than your hips, with your feet flat on the floor. When driving, sit up straight. Adjust the seat forward so you are not leaning toward the steering wheel. A small pillow or rolled towel behind your lower back may help if you are driving long distances. Standing When standing for long periods, shift most of your weight to one leg at a time. Alternate legs every few minutes. Sleeping The best way to sleep is on your side with your knees bent. Put a low pillow under your head to support your neck in a neutral spine position. Avoid thick pillows that bend your neck to one side. Put a pillow between your legs to further relax your lower back. If you sleep on your back, put pillows under your knees to support your legs in a slightly flexed position. Use a firm mattress. If your mattress sags, replace it, or use a 1/2-inch plywood board under the mattress to add support. Follow-up care Follow up with your healthcare provider, or as advised. If X-rays, a CT scan or an MRI scan were taken, they will be reviewed by a radiologist. You will be notified of any new findings that may affect your care. Call 911 Call 911 if any of the following occur: Trouble breathing Confusion Very drowsy Fainting or loss of consciousness Rapid or very slow heart rate Loss of bowel or bladder control When to seek medical advice Call your healthcare provider right away if any of the following occur: Pain becomes worse or spreads to your arms or legs Weakness or numbness in one or both arms or legs Numbness in the groin area [id number] [employer]. [address] [place] [address], [place] [address]. All rights reserved. This information is not intended as a substitute for professional medical care. Always follow your healthcare professional's instructions. Follow Up Care 01/18/2023 18:36:19 With:AMEENA CLARKE MD Address: [address] [place] [id number]- [facility] Discharge summary Discharge Instructions Thank you for allowing [facility] to assist you with your healthcare needs. The following is important discharge information regarding your hospital visit. Diagnosis from Today's Visit Back pain What to Do Next Instructions from Your Care Team No qualifying data available. Post Acute Orders No qualifying data available. You Need to Schedule the Following Appointments Follow Up with AMEENA CLARKE MD When Within 2-4 days Where: [facility] [place] [id number]- Allergies NKA Medications Please ask your primary doctor or pharmacist before taking any other medication not listed, including over the counter drugs, herbal medications, vitamins and or supplements as they may interact with your home medications. What How Much When Why Instructions Last Dose New baclofen (baclofen 20 mg oral tablet) 1 tab(s) by mouth Three (3) times a day Duration: 5 Days Printed Prescription Unchanged acetaminophen (Tylenol Extra Strength 500 mg oral tablet) 2 tab(s) by mouth Three (3) times a day as needed for as needed for pain Unchanged acetaminophen-hydrocodone (acetaminophen-hydrocodone 325 mg-7.5 mg oral tablet) 1 tab(s) by mouth Every 8 hours Lumbar degenerative disc disease Duration: 30 Days fill date Unchanged ibuprofen As needed for as needed for pain Unchanged pantoprazole (pantoprazole 40 mg oral enteric coated tablet) 1 tab(s) by mouth Daily before supper Duration: 30 Days Unchanged tiZANidine (tiZANidine 4 mg oral tablet) 1 tab(s) by mouth Three (3) times a day DDD (degenerative disc disease), lumbar Duration: 90 Days fill date: Please take this list to your next doctor s visit. Bring all medications you take, including over the counter medications, herbals and other supplements with you to your doctor s visit. Patients and families are reminded to discard old lists and to update any records with all medication providers or retail pharmacies. Education Materials Back Care Tips Caring for your back These are things you can do to prevent a recurrence of acute back pain and to reduce symptoms from chronic back pain: Maintain a healthy weight. If you are overweight, losing weight will help most types of back pain. Exercise is an important part of recovery from most types of back pain. The muscles behind and in front of the spine support the back. This means strengthening both the back muscles and the abdominal muscles will provide better support for your spine. Swimming and brisk walking are good overall exercises to improve your fitness level. Practice safe lifting methods (below). Practice good posture when sitting, standing and walking. Avoid prolonged sitting. This puts more stress on the lower back than standing or walking. Wear quality shoes with sufficient arch support. Foot and ankle alignment can affect back symptoms. Women should avoid wearing high heels. Therapeutic massage can help relax the back muscles without stretching them. During the first 24 to 72 hours after an acute injury or flare-up of chronic back pain, apply an ice pack to the painful area for 20 minutes and then remove it for 20 minutes, over a period of 60 to 90 minutes, or several times a day. As a safety precaution, do not use a heating pad at bedtime. Sleeping on a heating pad can lead to skin dugan or tissue damage. You can alternate ice and heat therapies. Medicines Talk to your healthcare provider before using medicines, especially if you have other medical problems or are taking other medicines. You may use acetaminophen or ibuprofen to control pain, unless your healthcare provider prescribed other pain medicine. If you have chronic conditions like diabetes, liver or kidney disease, stomach ulcers, or gastrointestinal bleeding, or are taking blood thinners, talk with your healthcare provider before taking any medicines. Be careful if you are given prescription pain medicines, narcotics, or medicine for muscle spasm. They can cause drowsiness, affect your coordination, reflexes, and judgment. Do not drive or operate heavy machinery while taking these types of medicines. Take prescription pain medicine only as prescribed by your healthcare provider. Lumbar stretch Here is a simple stretching exercise that will help relax muscle spasm and keep your back more limber. If exercise makes your back pain worse, don t do it. Lie on your back with your knees bent and both feet on the ground. Slowly raise your left knee to your chest as you flatten your lower back against the floor. Hold for 5 seconds. Relax and repeat the exercise with your right knee. Do 10 of these exercises for each leg. Safe lifting method Don t bend over at the waist to lift an object off the floor. Instead, bend your knees and hips in a squat. Keep your back and head upright Hold the object close to your body, directly in front of you. Straighten your legs to lift the object. Lower the object to the floor in the reverse fashion. If you must slide something across the floor, push it. Posture tips Sitting Sit in chairs with straight backs or low-back support. Keep your knees lower than your hips, with your feet flat on the floor. When driving, sit up straight. Adjust the seat forward so you are not leaning toward the steering wheel. A small pillow or rolled towel behind your lower back may help if you are driving long distances. Standing When standing for long periods, shift most of your weight to one leg at a time. Alternate legs every few minutes. Sleeping The best way to sleep is on your side with your knees bent. Put a low pillow under your head to support your neck in a neutral spine position. Avoid thick pillows that bend your neck to one side. Put a pillow between your legs to further relax your lower back. If you sleep on your back, put pillows under your knees to support your legs in a slightly flexed position. Use a firm mattress. If your mattress sags, replace it, or use a 1/2-inch plywood board under the mattress to add support. Follow-up care Follow up with your healthcare provider, or as advised. If X-rays, a CT scan or an MRI scan were taken, they will be reviewed by a radiologist. You will be notified of any new findings that may affect your care. Call 911 Call 911 if any of the following occur: Trouble breathing Confusion Very drowsy Fainting or loss of consciousness Rapid or very slow heart rate Loss of bowel or bladder control When to seek medical advice Call your healthcare provider right away if any of the following occur: Pain becomes worse or spreads to your arms or legs Weakness or numbness in one or both arms or legs Numbness in the groin area [phone] [employer]. [address] [place] [address]. All rights reserved. This information is not intended as a substitute for professional medical care. Always follow your healthcare professional's instructions. Additional Information VACCINATE! IT SAVES LIVES! Members of the community who have not yet received the COVID-19 vaccine and would like to receive it can visit one of [facility] vaccine clinics. There are many vaccine clinic locations within the [facility]. For locations and available times, please visit www.[email or web address].[place]. gov/. It is important to note that some COVID mobile vaccine clinics are held outdoors and may be canceled in rainy or stormy conditions. To learn more about pediatric vaccinations (ages 5-11), we invite you to visit the [facility] webpage. https://www.[employer]rmos.org/p ages/6843-Qsqto-Btcicgdkuvj-Freq ckealo-Idvsk-Idrccjfsg.html To learn more about the COVID-19 vaccine, we invite you to visit the CDC website for a list of frequently asked questions. https://www.cdc.gov/coronavirus/ 2019-ncov/vaccines/faq.html [employer] Patient Portal Access Instructions: Stay connected with your healthcare team and access your personal medical information anytime with the [facility] Patient Portal. If you would like a full copy of your medical records please contact the [facility] Medical Records Department Friday through Friday between 8a.m. and 4:30p.m. Please follow the directions below to access the portal: 1.Access the email account you provided upon registration to the hospital.2.Look for an invitation email from [facility].3.Open the email and access the invitation link: Accept Invitation to [facility]4.Fill in the required taylor to create your account. Sign into [email or web address] with your username and password that you created in the above steps to stay up to date. You can then view a summary of results, a summary of your visits, and the ability to download your summaries to your computer or send the information securely to a physician. Remember that your healthcare information is confidential, so carefully consider who you will allow to register on the [facility] Patient Portal for access to your information. You can also access the [employer] Patient Portal on the [employer]. Simply click on Health Records under Health Data and then click on the [employer] logo. HOW TO SAFELY DISPOSE OF PRESCRIPTION MEDICATIONS Please use one of the following methods to safely dispose of your unused medications. 1.Use a drug disposal kit: the drug disposal pouch allows you to safely discard your old and unused drugs. Ask your nurse to give you one when you are discharged.2.Visit a local take-back location: Many local pharmacies and police departments have programs that collect old and unwanted prescription drugs. Call your local pharmacy or go to http://Teachbase.Sprig Toys/5D3Id4c to find one close to you.3.Make use of household items: Use cat litter or old coffee grounds to dispose medications if other options are not available. Mix your drugs with these household products, seal them in an airtight container and throw it into the garbage. Call [facility]: [phone] to be sure your drugs can be disposed of in this way. Some medicines may require a different approach.4.Never flush your medications down the toilet. IF YOU HAVE BEEN PRESCRIBED AN OPIOIDS FOR PAIN If you have been prescribed an opioid (such as hydrocodone, oxycodone or morphine), it is critical to understand the possible side effects and risks of opioid pain medications. Even when taken as directed, opioids can have several side effects including: Tolerance, meaning you might need to take more of a medication for the same pain relief. Nausea, vomiting and/or constipation. Sleepiness, dizziness, dry mouth, confusion, depression or itching. Physical dependence, meaning you have withdrawal symptoms when a medication is stopped ? this can develop within a few days. KNOW YOUR RESPONSIBILITIES It is important to know exactly how much and how often to take the opioid pain medications you are prescribed. Never take opioids in higher amounts or more often than prescribed. Do not combine opioids with alcohol or other drugs that cause drowsiness, such as benzodiazepines, also known as benzos, including diazepam and alprazolam, muscle relaxants or sleep aids. Never sell or share prescription opioids. This is illegal. Store opioids in a secure place and out of reach of others (including children, family, friends and visitors). The last page(s) of this document has been signed and retained as a CHART COPY Signatures Patient Education Materials Back Care Tips Medication Leaflets My discharge plan and instructions have been reviewed and explained to me and ELIZABETH Corrigan PAU Carli understand my current condition and have read and understand these discharge instructions. I have received a written copy of the plan/instructions. If I have questions, I am aware that I should contact my doctor. Patient/Occupational Therapy Specialist Signature: Date/Time: Relationship to Patient: Witness Name/Signature: Date/Time: [facility] 07-23-2022 Hospital Discharg e instructions Patient Education 07/23/2022 13:50:33 Aspirin and Your Heart Aspirin and Your Heart Aspirin is a medicine that prevents the cells in the blood that are used for clotting, called platelets, from sticking together. Aspirin can be used to help reduce the risk of blood clots, heart attacks, and other heart-related problems. Can I take aspirin? Your health care provider will help you determine whether it is safe and beneficial for you to take aspirin daily. Taking aspirin daily may be helpful if you: Have had a heart attack or chest pain. Are at risk for a heart attack. Have undergone open-heart surgery, such as coronary artery bypass surgery (CABG). Have had coronary angioplasty or a stent. Have had certain types of stroke or transient ischemic attack (TIA). Have peripheral artery disease (PAD). Have chronic heart rhythm problems such as atrial fibrillation and cannot take an anticoagulant. Have valve disease or have had surgery on a valve. What are the risks? Daily use of aspirin can cause side effects. Some of these include: Bleeding. Bleeding problems can be minor or serious. An example of a minor problem is a cut that does not stop bleeding. An example of a more serious problem is stomach bleeding or, rarely, bleeding into the brain. Your risk of bleeding is increased if you are also taking non-steroidal anti-inflammatory drugs (NSAIDs). Increased bruising. Upset stomach. An allergic reaction. People who have nasal polyps have an increased risk of developing an aspirin allergy. General guidelines Take aspirin only as told by your health care provider. Make sure that you understand how much you should take and what form you should take. The two forms of aspirin are: ?Oli-nxsgkye-qtivpu.This type of aspirin does not have a coating and is absorbed quickly. This type of aspirin also comes in a chewable form. ?Enteric-coated. This type of aspirin has a coating that releases the medicine very slowly. Enteric-coated aspirin might cause less stomach upset than iix-ihcykip-rllmqr aspirin. This type of aspirin should not be chewed or crushed. Limit alcohol intake to no more than 1 drink a day for non women and 2 drinks a day for men. Drinking alcohol increases your risk of bleeding. One drink equals 12 oz of beer, 5 oz of wine, or 1 oz of hard liquor. Contact a health care provider if you: Have unusual bleeding or bruising. Have stomach pain or nausea. Have ringing in your ears. Have an allergic reaction that causes: ?Hives. ?Itchy skin. ?Swelling of the lips, tongue, or face. Get help right away if you: Notice that your bowel movements are bloody, dark red, or black in color. Vomit or cough up blood. Have blood in your urine. Cough, have noisy breathing (wheeze), or feel short of breath. Have chest pain, especially if the pain spreads to the arms, back, neck, or jaw. Have a severe headache, or a headache with confusion, or dizziness. These symptoms may represent a serious problem that is an emergency. Do not wait to see if the symptoms will go away. Get medical help right away. Call your local emergency services (911 in the [place] Do not drive yourself to the hospital. Summary Aspirin can be used to help reduce the risk of blood clots, heart attacks, and other heart-related problems. Daily use of aspirin can increase your risk of side effects. Your health care provider will help you determine whether it is safe and beneficial for you to take aspirin daily. Take aspirin only as told by your health care provider. Make sure that you understand how much you can take and what form you can take. This information is not intended to replace advice given to you by your health care provider. Make sure you discuss any questions you have with your health care provider. Document Released: 04/17/2009 Document Revised: 03/05/2018 Document Reviewed: 03/05/2018 [employer] Patient Education 2020 [employer]. 07/23/2022 13:48:35 Chest Pain (Nonspecific), Dqwj-gk-Bqwn Chest Pain (Nonspecific) It is often hard to give a diagnosis for the cause of chest pain. There is always a chance that your pain could be related to something serious, such as a heart attack or a blood clot in the lungs. You need to follow up with your doctor. HOME CARE If antibiotic medicine was given, take it as directed by your doctor. Finish the medicine even if you start to feel better. For the next few days, avoid activities that bring on chest pain. Continue physical activities as told by your doctor. Do not use any tobacco products. This includes cigarettes, chewing tobacco, and e-cigarettes. Avoid drinking alcohol. Only take medicine as told by your doctor. Follow your doctor's suggestions for more testing if your chest pain does not go away. Keep all doctor visits you made. GET HELP IF: Your chest pain does not go away, even after treatment. You have a rash with blisters on your chest. You have a fever. GET HELP RIGHT AWAY IF: You have more pain or pain that spreads to your arm, neck, jaw, back, or belly (abdomen). You have shortness of breath. You cough more than usual or cough up blood. You have very bad back or belly pain. You feel sick to your stomach (nauseous) or throw up (vomit). You have very bad weakness. You pass out (faint). You have chills. This is an emergency. Do not wait to see if the problems will go away. Call your local emergency services (911 in [place] Do not drive yourself to the hospital. MAKE SURE YOU: Understand these instructions. Will watch your condition. Will get help right away if you are not doing well or get worse. Document Released: 10/21/2008 Document Revised: 05/10/2014 Document Reviewed: 10/21/2008 ExitCare Patient Information 2015 [employer]. This information is not intended to replace advice given to you by your health care provider. Make sure you discuss any questions you have with your health care provider. Follow Up Care 07/22/2022 12:05:58 With:AMEENA CLARKE MD Address: [facility] [place] [address]- When:5 to 7 days Comments:Follow up. Message left with office [facility] Dominique 07-23-2022 Note Discharge Instructions Thank you for allowing [facility] to assist you with your healthcare needs. The following is important discharge information regarding your hospital visit. Your Care Team Robbin Gamino HOSPICE NURSE PRACTITIONER Your Diagnosis Chest pain Chronic pain Tobacco use Chest pain DDD (degenerative disc disease), lumbar, Lumbar degenerative disc disease What to do next Instructions From Your Doctor You were admitted for chest pain and had a stress test done. This was negative. It appears as though you have not been taking pantoprazole as prescribed for GERD. A prescription has been sent into your pharmacy for 1 month. Please follow-up with your PCP. Scheduled Follow-Up Appointments Appointment Type When With Where Contact InformationPM OV 2022 08:30 AM JOSE ANTONIOT ERINN ORTIZ MD [facility] Follow Up Appointments Follow Up with AMEENA CLARKE MD When Within 5 to 7 days Why: Follow up. Message left with office Where: [facility] [place] [address]- The Following Activity and Diet Have Been Ordered for You Discharge Activity - Ordered -- Resume your pre-hospitalization activity, 07/23/22 13:30:00 EST Discharge Diet - Ordered -- No changes were made to your diet during your hospital stay. Please resume your pre hospitalization diet on discharge., 07/23/22 13:30:00 EST The Following Treatments Have Been Ordered for You Discharge Labs No qualifying data available. Discharge Radiology No qualifying data available. Other Therapies No qualifying data available. Post Acute Orders No qualifying data available. Allergies NKA Medications Please ask your primary doctor or pharmacist before taking any other medication not listed, including over the counter drugs, herbal medications, vitamins and or supplements as they may interact with your home medications. What How Much When Why Instructions Last Dose Changed acetaminophen (Tylenol Extra Strength 500 mg oral tablet) 2 tab(s) by mouth Three (3) times a day as needed for as needed for pain None today Changed acetaminophen-hydrocodone ([place] 325- 7.5 mg oral tablet) 1 tab(s) by mouth Every 8 hours as needed for as needed for pain none today Changed albuterol (ProAir HFA MDI (90 mcg/ inh) inhalation aerosol) 2 puff(s) by inhalation Every 4 hours as needed for as needed for wheezing none Changed pantoprazole (pantoprazole 40 mg oral enteric coated tablet) 1 tab(s) by mouth Daily before supper Duration: 30 Days Pickup at [facility] 18107/23/22 at 1202 Unchanged tiZANidine (tiZANidine 4 mg oral tablet) 1 tab(s) by mouth Three (3) times a day DDD (degenerative disc disease), lumbar Duration: 30 Days Fill 07/23/22 at 0923am Pharmacy Information [facility] [address]: [address] [place], [place] [id number] [phone] Please take this list to your next doctor s visit. Bring all medications you take, including over the counter medications, herbals and other supplements with you to your doctor s visit. Patients and families are reminded to discard old lists and to update any records with all medication providers or retail pharmacies. Education Materials Chest Pain (Nonspecific) It is often hard to give a diagnosis for the cause of chest pain. There is always a chance that your pain could be related to something serious, such as a heart attack or a blood clot in the lungs. You need to follow up with your doctor. HOME CARE If antibiotic medicine was given, take it as directed by your doctor. Finish the medicine even if you start to feel better. For the next few days, avoid activities that bring on chest pain. Continue physical activities as told by your doctor. Do not use any tobacco products. This includes cigarettes, chewing tobacco, and e-cigarettes. Avoid drinking alcohol. Only take medicine as told by your doctor. Follow your doctor's suggestions for more testing if your chest pain does not go away. Keep all doctor visits you made. GET HELP IF: Your chest pain does not go away, even after treatment. You have a rash with blisters on your chest. You have a fever. GET HELP RIGHT AWAY IF: You have more pain or pain that spreads to your arm, neck, jaw, back, or belly (abdomen). You have shortness of breath. You cough more than usual or cough up blood. You have very bad back or belly pain. You feel sick to your stomach (nauseous) or throw up (vomit). You have very bad weakness. You pass out (faint). You have chills. This is an emergency. Do not wait to see if the problems will go away. Call your local emergency services (911 in [place] Do not drive yourself to the hospital. MAKE SURE YOU: Understand these instructions. Will watch your condition. Will get help right away if you are not doing well or get worse. Document Released: 10/21/2008 Document Revised: 05/10/2014 Document Reviewed: 10/21/2008 ExitCare Patient Information 2015 [employer]. This information is not intended to replace advice given to you by your health care provider. Make sure you discuss any questions you have with your health care provider. Additional Information VACCINATE! IT SAVES LIVES! Members of the community who have not yet received the COVID-19 vaccine and would like to receive it can visit one of [facility] vaccine clinics. There are many vaccine clinic locations within the [facility]. For locations and available times, please visit [email or web address].gov/. It is important to note that some COVID mobile vaccine clinics are held outdoors and may be canceled in rainy or stormy conditions. To learn more about pediatric vaccinations (ages 5-11), we invite you to visit the [facility] webpage. https://www.[facility].org/p ages/5298-Pcxme-Otzxltbazdu-Freq qwwxqo-Ajzbz-Fclrfdbtk.html To learn more about the COVID-19 vaccine, we invite you to visit the CDC website for a list of frequently asked questions. https://www.cdc.gov/coronavirus/ 2019-ncov/vaccines/faq.html [facility] Patient Portal Access Instructions: Stay connected with your healthcare team and access your personal medical information anytime with the [facility] Patient Portal.If you would like a full copy of your medical records, please contact the [facility] Medical Records Department, Friday through Friday between 8a.m. and 4:30p.m. Please follow the directions below to access the portal: 1.Access the email account you provided upon registration to the hospital.2.Look for an invitation email from [facility].3.Open the email and access the invitation link: Accept Invitation to [facility]4.Fill in the required taylor to create your account. Sign into [email or web address] with your username and password that you created in the above steps to stay up to date. You can then view a summary of results, a summary of your visits, and the ability to download your summaries to your computer or send the information securely to a physician. Remember that your healthcare information is confidential, so carefully consider who you will allow to register on the [facility] Patient Portal for access to your information. You can also access the [facility] Patient Portal on the [employer]. Simply click on Health Records under Health Data and then click on the [employer] logo. HOW TO SAFELY DISPOSE OF PRESCRIPTION MEDICATIONS Please use one of the following methods to safely dispose of your unused medications. 1.Use a drug disposal kit: the drug disposal pouch allows you to safely discard your old and unused drugs. Ask your nurse to give you one when you are discharged.2.Visit a local take-back location: Many local pharmacies and police departments have programs that collect old and unwanted prescription drugs. Call your local pharmacy or go to http://Teachbase.Sprig Toys/3V5Lg6l to find one close to you.3.Make use of household items: Use cat litter or old coffee grounds to dispose medications if other options are not available. Mix your drugs with these household products, seal them in an airtight container and throw it into the garbage. Call [facility]: [phone] to be sure your drugs can be disposed of in this way. Some medicines may require a different approach.4.Never flush your medications down the toilet. IF YOU HAVE BEEN PRESCRIBED AN OPIOID FOR PAIN If you have been prescribed an opioid (such as hydrocodone, oxycodone or morphine), it is critical to understand the possible side effects and risks of opioid pain medications. Even when taken as directed, opioids can have several side effects including: Tolerance, meaning you might need to take more of a medication for the same pain relief. Nausea, vomiting and/or constipation. Sleepiness, dizziness, dry mouth, confusion, depression or itching. Physical dependence, meaning you have withdrawal symptoms when a medication is stopped, can develop within a few days. KNOW YOUR RESPONSIBILITIES It is important to know exactly how much and how often to take the opioid pain medications you are prescribed. Never take opioids in higher amounts or more often than prescribed. Do not combine opioids with alcohol or other drugs that cause drowsiness, such as benzodiazepines, also known as benzos, including diazepam and alprazolam, muscle relaxants or sleep aids. Never sell or share prescription opioids. This is illegal. Store opioids in a secure place and out of reach of others (including children, family, friends and visitors). The last page of this document has been signed and retained as a CHART COPY. Signatures Patient Education Materials Chest Pain (Nonspecific), Sppf-vp-Bjdc Medication Leaflets My discharge plan and instructions have been reviewed and explained to me and I,PAU JOHNSON V understand my current condition and have read and understand these discharge instructions. I have received a written copy of the plan/instructions. If I have questions, I am aware that I should contact my doctor. Patient/Occupational Therapy Specialist Signature: Date/Time: Relationship to Patient: Witness Name/Signature: Date/Time: [facility] 07-23-2022 Note ORIGINAL NM MYOCARDIAL SPECT STRESS/REST CLINICAL STATEMENT: cp TECHNIQUE: Lexiscan dose:0.4 mg Radiopharmaceutical (stress): Tc-99m Sestamibi Dose:31.6 mCi Radiopharmaceutical (rest): Tc-99m Sestamibi Dose:9.9 mCi SPECT acquisition and processing Reconstruction and reorientation of SPECT images into short axis, vertical and horizontal long axis planes Quantitative LVEF assessment COMPARISON:None REPORT: Rotating planar images demonstrate subdiaphragmatic tracer activity especially in rest images. Prominent apical thinning and diaphragmatic attenuation noted. No evidence of transient ischemic dilatation. Gated SPECT images demonstrate normal wall motion and wall thickening. End-diastolic volume is 107 mL. Ejection fraction is 66%. IMPRESSION: 1. No evidence of ischemia or prior infarction. 2. Diaphragmatic attenuation and prominent apical thinning noted. 3. Normal systolic function with ejection fraction of 66%. 4. No prior studies for comparison. Interpreted By: Catie Umanzor MD Preliminary Report By: Catie Umanzor MD Electronically Signed By: Catie Umanzor MD Dictated Date: 07/23/2022 1:01:26 PM Prelim Date: 07/23/2022 1:01:26 PM Sign Date: 07/23/2022 1:04:20 PM Ordering Provider:[facility], [place], [facility] 07-23-2022 Note ORIGINAL NM MYOCARDIAL SPECT STRESS/REST CLINICAL STATEMENT: cp TECHNIQUE: Lexiscan dose:0.4 mg Radiopharmaceutical (stress): Tc-99m Sestamibi Dose:31.6 mCi Radiopharmaceutical (rest): Tc-99m Sestamibi Dose:9.9 mCi SPECT acquisition and processing Reconstruction and reorientation of SPECT images into short axis, vertical and horizontal long axis planes Quantitative LVEF assessment COMPARISON:None REPORT: Rotating planar images demonstrate subdiaphragmatic tracer activity especially in rest images. Prominent apical thinning and diaphragmatic attenuation noted. No evidence of transient ischemic dilatation. Gated SPECT images demonstrate normal wall motion and wall thickening. End-diastolic volume is 107 mL. Ejection fraction is 66%. IMPRESSION: 1. No evidence of ischemia or prior infarction. 2. Diaphragmatic attenuation and prominent apical thinning noted. 3. Normal systolic function with ejection fraction of 66%. 4. No prior studies for comparison. Interpreted By: Catie Umanzor MD Preliminary Report By: Catie Umanzor MD Electronically Signed By: Catie Umanzor MD Dictated Date: 07/23/2022 1:01:26 PM Prelim Date: 07/23/2022 1:01:26 PM Sign Date: 07/23/2022 1:04:20 PM Ordering Provider:[facility], [place], [facility] 07-22-2022 Note Date of Service 07/22/22 Chief Complaint c/o chest pain into left arm since last night History of Present Illness 61-year-old male with past medical history significant for chronic back pain, obesity, tobacco use, GERD. Patient presented to [facility] emergency department on 07/22/2022 with a 1 day history of left-sided chest pain. In the emergency department he was afebrile, mildly hypertensive, adequate oxygen saturations on room air. CBC was within normal limits. Glucose elevated at 118. BNP 21. High-sensitivity troponin 6.4. X-ray chest was unremarkable. On exam today, pt denies any fever or chills. No headache or dizziness. Denies palpitations. Admits chest discomfort on the left side that is constant does not worsen with activity. Left arm pain. No cough, dyspnea, sputum production. Denies N/V/D/C. No melena/hematochezia. No dysuria or hematuria. No new paresthesias. Review of Systems See HPI for specific ROS. All other systems reviewed and negative. Physical Exam Vitals and Measurements T: 36.5 C (Oral) TMIN: 36.5 C (Oral) TMAX: 36.9 C (Oral) HR: 92(Monitored) RR: 18 BP: 148/87 SpO2: 96% HT: 180.3 cm WT: 117.3 kg BMI: 36.08 Weight Dosing Weight: 117.3 kg (07/22/22) Dosing Weight: 117.3 kg (07/22/22) GEN: Appears chronically ill EYES: No conjunctival erythema, drainage. EOMI EARS: Hearing grossly intact. NOSE: No nasal discharge. THROAT: Oral cavity and pharynx pink and moist. CHEST: Normal S1 and S2. Rhythm is regular. Clear to auscultation, without rales, rhonchi, wheezing. Chest pain is reproducible on 1 area of the left side of his chest but not the rest of the left side of his chest. ABD: Positive bowel sounds x 4 quads. Soft, nondistended, nontender. EXT: No significant deformity or joint abnormality. No edema. Peripheral pulses intact. NEURO: Sensation grossly intact SKIN: Skin color normal PSYCH: The mental examination revealed the patient was alert and oriented x 4 Lab Results 07/22 12:39 WBC: 8.3 Hgb: 14.8 Hct: 43.4 Platelet: 213 Neutrophil %: 65.0 Glucose Level: 118 H Sodium Level: 142 Potassium Level: 4.4 BUN: 14 Creatinine Lvl (s): 0.79 Imaging Results and Diagnostics XR Chest 1 View Result Date: July 22, 2022 Verified By: MARTINEZ MARISCAL MD CLINICAL STATEMENT: IMPRESSION: No acute pulmonary disease. EKG EC07/22/22: Sinus rhythm...normal P axis, V-rate 50- 99 Baseline wander in lead(s) II,III,aVL,aVF Electronic Signature: MD FAWN BARGER MD 07/22/2022 12:26:40 Assessment/Plan 1. Chest pain 2. Chronic pain 3. Tobacco use Chest pain heart score 4 for being moderately suspicious, age 61, obese, tobacco use, family history. Admit for stress test. Keep n.p.o. after midnight. Repeat troponin at 1800 today. Chronic pain continue home medications Tobacco use educated on smoking cessation DVT prophylaxis:Lovenox Labs, diagnostics, and progress notes reviewed as noted in HPI Code Status:Full Code Plan of care discussed with patient. All questions answered. Patient verbalizes understanding is agreeable to plan of care. This dictation was performed using voice recognition software and may include grammatical and/or spelling errors. Problem List/Past Medical History Ongoing Arthritis of hand, left Arthritis of right hand Intestinal infection Kidney stone Lumbar degenerative disc disease Lumbar radiculopathy Lumbar spondylosis Lumbosacral radiculopathy Osteoarthritis of right hand Postlaminectomy syndrome Sleep disorder Historical No qualifying data Procedure/Surgical History Mass Laminectomy Rotator cuff repair Medications Home Medications (5) Active acetaminophen-hydrocodone 325 mg-7.5 mg oral tablet 1 tab(s), Oral, q8h pantoprazole 40 mg oral enteric coated tablet ProAir HFA MDI (90 mcg/inh) inhalation aerosol tiZANidine 4 mg oral tablet 4 mg = 1 tab(s), Oral, TID Tylenol 650 mg, PRN, Oral, QID Allergies NKA Social History Smoking Status - 01/17/2017 Current some day smoker Alcohol - Denies Alcohol Use, 01/17/2017 Use: Current. Frequency: 1-2 times per year., 02/18/2019 Home/Environment Domestic Concerns: None. Living situation: Home/Independent. Lives In: Multilevel home., 07/22/2022 Nutrition/Health Type of diet: Regular. Appetite Excellent. Eating Difficulties None., 07/22/2022 Substance Abuse - Denies Substance Abuse, 01/17/2017 Use: Never., 02/18/2019 Tobacco Nicotine Use: 4 or less cigarettes(less than 1/4 pack)/day in last 30 days, Former smoker, quit more than 30 days ago. Type: Cigarettes., 09/20/2020 Family History Family history is unknown Immunizations pneumococcal 23-valent vaccine(Pneumovax: 0 unknown unit (10/18/15) SARS-CoV-2 mRNA (tozinameran) vaccine: 0.3 unknown unit (05/08/21) SARS-CoV-2 mRNA (tozinameran) vaccine: 0.3 unknown unit (09/02/20) SARS-CoV-2 mRNA (tozinameran) vaccine: 0.3 unknown unit (08/12/20) zoster vaccine live: 0 unknown unit (10/18/15) zoster vaccine, inactivated: 0.5 unknown unit (10/30/18) zoster vaccine, inactivated: 0.5 unknown unit (08/26/18) Code Status Code Status - Ordered -- 07/22/22 16:33:00 EST, Full Code, Constant Order Digitally Signed by ROBBIN GAMINO on 07/22/2022 07:03 PM [facility] 1. Chest pain 2. Chronic pain 3. Tobacco use Chest pain heart score 4 for being moderately suspicious, age 61, obese, tobacco use, family history. Admit for stress test. Keep n.p.o. after midnight. Repeat troponin at 1800 today. Chronic pain continue home medications Tobacco use educated on smoking cessation DVT prophylaxis:Lovenox Labs, diagnostics, and progress notes reviewed as noted in HPI Code Status:Full Code Plan of care discussed with patient. All questions answered. Patient verbalizes understanding is agreeable to plan of care. This dictation was performed using voice recognition software and may include grammatical and/or spelling errors. Future Appointments Appointment Date:2022 08:30:00 AM Scheduled Provider:ERINN ORTIZ MD Location:PM Office Appointment Type:PM OV [facility] 03-06-2023 Note ORIGINAL EXAMINATION: ONE XRAY VIEW OF THE CHEST TECHNIQUE: AP upright COMPARISON: Chest 02/18/2019, CT abdomen pelvis 06/21/2020 HISTORY: ORDERING SYSTEM PROVIDED HISTORY: Reason for Exam: chest pain FINDINGS: Support devices: None Cardiomediastinal: The heart size is normal Lungs: No infiltrates, pulmonary edema, consolidation or a large pleural effusion is demonstrated. Mild bilateral lower lobe fibrosis noted. Pneumothorax: None Osseous: No acute osseous pathology. Moderately severe left AC joint arthrosis. Foreshortening of the distal right clavicle reflecting either postsurgical or degenerative change. IMPRESSION: No acute pulmonary disease. Interpreted by: Martinez Mariscal MD Preliminary Report By: Martinez Mariscal MD Electronically signed By Martinez Mariscal MD Dictated Date: 07/22/2022 1:01:07 PM Prelim Date: 07/22/2022 1:03:44 PM Sign Date: 07/22/2022 1:03:44 PM Ordering Provider: [facility]03-06-2023 Note ORIGINAL EXAMINATION: ONE XRAY VIEW OF THE CHEST TECHNIQUE: AP upright COMPARISON: Chest 02/18/2019, CT abdomen pelvis 06/21/2020 HISTORY: ORDERING SYSTEM PROVIDED HISTORY: Reason for Exam: chest pain FINDINGS: Support devices: None Cardiomediastinal: The heart size is normal Lungs: No infiltrates, pulmonary edema, consolidation or a large pleural effusion is demonstrated. Mild bilateral lower lobe fibrosis noted. Pneumothorax: None Osseous: No acute osseous pathology. Moderately severe left AC joint arthrosis. Foreshortening of the distal right clavicle reflecting either postsurgical or degenerative change. IMPRESSION: No acute pulmonary disease. Interpreted by: Martinez Mariscal MD Preliminary Report By: Martinez Mariscal MD Electronically signed By Martinez Mariscal MD Dictated Date: 07/22/2022 1:01:07 PM Prelim Date: 07/22/2022 1:03:44 PM Sign Date: 07/22/2022 1:03:44 PM [facility] available [facility] + Plan note Future Appointments Appointment Date:12/27/2021 08:30:00 AM Scheduled Provider:ZECHARIAH RAMOS Location:PM Office Appointment Type:PM [facility][1] Pain Management Evaluation + Plan note Future Appointments Appointment Date:03/19/2022 12:30:00 PM Scheduled Provider:ZECHARIAH RAMOS Location:PM Office Appointment Type:PM [facility][1] Pain Management Evaluation + Plan note Future Appointments Appointment Date:05/22/2022 09:30:00 AM Scheduled Provider:ZECHARIAH RAMOS APRN-ALICIA Location:PM Office Appointment Type:PM [facility][1] Pain Management Evaluation + Plan note Future Appointments Appointment Date:07/24/2022 09:30:00 AM Scheduled Provider:ZECHARIAH RAMOS APRN-ALICIA Location:PM Office Appointment Type:PM OV [facility][1] Pain Management Evaluation + Plan note Future Appointments Appointment Date:2022 08:30:00 AM Scheduled Provider:ERINN ORTIZ MD Location:PM Office Appointment Type:PM OV [facility][1] Pain Management Evaluation + Plan note Future Appointments Appointment Date:12/25/2022 08:20:00 AM Scheduled Provider:ZECHARIAH RAMOS APRN-ALICIA Location:PM Office Appointment Type:PM OV [facility][1] Pain Management Evaluation + Plan note Future Appointments Appointment Date:01/24/2023 08:10:00 AM Scheduled Provider:ZECHARIAH RAMOS APRN-ALICIA Location:PM Office Appointment Type:PM [facility] Discharge instructions No data available for this section [facility][1] Pain Management progress note No data available for this section [facility][1] Pain Management Summary Purpose Family History No Family History Records Found Advance Directives No Advanced Directives Records Found Additional Source Comments Care Team (unrecognized sect ion and content) Personnel Name: AMEENA CLARKE MD Address: [facility] [address] [place] [address]- Care Team Personnel Name: AMEENA CLARKE MD Member Role: Primary Care Physician Address: Address: [facility] [place] [address]- Care Team Related Persons Name: [facility] Address: Home [address] [place] [address] [place] Care Team Personnel Name: AMEENA CLARKE MD Member Role: Primary Care Physician Address: Address: [facility] [place] [address]- Name: EVERARDO ZALDIVAR DO Position: ED Physician Member Role: Attending Physician Address: Address: [place] [address]- Care Team Related Persons Name: [facility] Address: Home [address] Care Team (unrecognized sect ion and content) Care Team Personnel Name: AMEENA CLARKE MD Member Role: Primary Care Physician Address: Address: [facility] [place] [address]- Care Team Related Persons Name: [facility] Address: Home [address] [place] [address] [place] Care Team Personnel Name: AMEENA CLARKE MD Member Role: Primary Care Physician Address: Address: [facility] [place] [address]- Care Team Related Persons Name: [facility] Address: Home [address] [place] [address] [place] Care Team Personnel Name: AMEENA CLARKE MD Member Role: Primary Care Physician Address: Address: [facility] [place] [address]- Care Team Related Persons Name: [facility] Address: Home [address] [place] [address] [place] Care Team Personnel Name: AMEENA CLARKE MD Member Role: Primary Care Physician Address: Address: [facility] [address] [place] [address]- Care Team Related Persons Name: JACOB JOHNSON Address: Home [address] Care Team Personnel Name: AMEENA CLARKE MD Member Role: Primary Care Physician Address: Address: [facility] [address] [place] [address]- Name: JESS Lorenzo Position: AO RN Member Role: ED RN Name: Katharine Gan Coder Position: HIM: Coders Member Role: HIM: Coders Name: MD FAWN BARGER MD Position: ED Physician Member Role: ED Physician Address: Address: [facility] [address] [place] [address]- Care Team Related Persons Name: JACOB JOHNSON Address: Home [address] [place] [address] (unrecognized sect ion and content) No Status Records Found INFORMATION SOURCE (unrecogn ized section and content) FOR RECORDS PERTAINING TO PATIENTS WHO ARE OR HAVE BEEN ENROLLED IN A CHEMICAL DEPENDENCY/SUBSTANCEABUSE PROGRAM, SOME INFORMATION MAY BE OMITTED. This clinical summary was aggregated from multiple sources. Caution should be exercised in using it in the provision of clinical care. This summary normalizes information from multiple sources, and as a consequence, information in this document may materially change the coding, format and clinical context of patient data. In addition, data may be omitted in some cases. CLINICAL DECISIONS SHOULD BE BASED ON THE PRIMARY CLINICAL RECORDS. [employer] provides no warranty or guarantee of the accuracy or completeness of information in this document.
== END | disposition home or self-care (01) ==
LOC: US 07:40
PROVIDERS: PCP Family Medicine Geriatric Medicine; Referring Provider Internal Medicine Gastroenterology; Visit Provider Internal Medicine Gastroenterology
DX: K76.0 Fatty (change of) liver, not elsewhere classified (principal)
CPT/HCPCS: 76705; 76981

== ENCOUNTER → 2023-06-16 | Outpatient (CLI) | payer BC, SELFPAY ==
--- NOTE | 2023-06-16 11:45 | RAD_ITS ---
STUDY: X-RAY - LEFT HAND REASON FOR EXAM: Male, 62 years old. HAND PAIN SWELLING TECHNIQUE: 3 view(s) of the hand. COMPARISON: Left hand x-ray April 04, 2015 FINDINGS: There is joint space narrowing of the radiocarpal articulation consistent with degenerative arthrosis. Normal distal radioulnar joint. 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 Normal carpal articulations Normal carpometacarpal articulation of the thumb. Normal second through fifth carpometacarpal joints. Normal metacarpi. There is mild degenerative arthrosis of the metacarpophalangeal (MCP) joints. Normal interphalangeal joint of the thumb. Normal proximal and distal phalanges of the thumb. Normal metacarpophalangeal joints of the second through fifth fingers. There is mild articular joint space narrowing of the proximal and distal interphalangeal joints of the second through fifth fingers, but without erosive changes or periarticular soft tissue swelling. Normal phalanges of the second through fifth fingers. The soft tissue structures are unremarkable. 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 There is intervening small stable cyst at this level. No visualized acute fracture. Degenerative change slightly worsened over time at the radiocarpal joint and the first carpal metacarpal joint. Electronically Signed: Alissa Mullins MD at 22:42 EST ,
--- NOTE | 2023-06-16 11:47 | RAD_ITS ---
EXAM: XR LEFT WRIST COMPLETE, 3 OR MORE VIEWS CLINICAL INDICATION: HAND PAIN TECHNIQUE: Frontal, lateral and oblique views of the left wrist. COMPARISON: No relevant prior studies available. FINDINGS: BONES/JOINTS: There is narrowing of the radiocarpal joint space. No acute fracture. No subluxation. Normal alignment. No sclerotic or destructive changes observed. SOFT TISSUES: Unremarkable. No soft tissue swelling or gas. No radiopaque foreign body. RAD/Wrist min 3 Views IMPRESSION: Degenerative changes with narrowing of the radiocarpal joint space. There is no acute osseous abnormality. Electronically Signed: Sadi Butterfield MD at 23:55 EST ,
--- OUTSIDE RECORDS SUMMARY | 2023-06-16 12:21 | XMS RPT_ITS | CCD ---
Author Name Unknown Address [address] [place] [address] Organization [facility] Care Team Providers Care Infection Control Manager Name Role Phone Janine Carney PA-C Unavailable Martinez Green MD Unavailable [phone] Janine Carney PA-C Unavailable TRICIA LEVIN, DR [...] CLARKE MD, DR LINDQUIST Primary Care Unavailable ZECHARIAH SPENCE Attending Eagle ORTIZ MD, DR ERINN Craemr Attending Abigail CLARKE MD, DR LINDQUIST Primary Care Unavailable DIANA LEVIN, DR ERINN Cramer Attending Abigail CLARKE MD, DR LINDQUIST Primary Care Unavailable ZECHARIAH SPENCE Attending Eagle CLARKE MD, DR LINDQUIST Primary Care Unavailable TRICIA LEVIN, DR LINDQUIST Primary Care Unavailable ZECHARIAH SPENCE Attending Eagle harden Medications Current Medications Medication Drug Class(es) Dates Sig (Normalized) Sig (Original) acetaminophen 500 mg oral tablet (11 sources) Start: 07-23-2022 Tylenol Extra Strength 500 [...] tablet by mouth twice daily CYCLOBENZAPRINE HCL [id number] Janine Carney PA-C gabapentin 600 mg oral tablet (4 sources) Anti-epileptic Agent Start: 10-25-2021 End: 12-24-2021 Neurontin 600 mg oral tablet Dose : 600 mg = 1 tab(s), Oral, qHS, Fill 10/26/2021., # 30 tab(s), 1 Refill(s), Pharmacy: [facility], DDD (degenerative disc disease), lumbar, 10/26/21, 180.3, cm, 10/25/21 8:17:00 EDT, Height, 111.4, kg, 10/25/21 8:17:00 EDT, Dosing Weight Start Date: 10/25/21 Stop Date: 12/24/21 Status: Ordered Problems Active Problems Problem Classification Problem Date Documented Date Episodic/Chronic Intestinal infection (11 sources) Intestinal infectious disease 04-20-2020 Episodic Nonspecific chest pain (1 source) Chest pain; Translations: [Chest pain, unspecified] Onset: 07-22-2022 Episodic Osteoarthritis (11 sources) Osteoarthritis of joint of right hand 04-20-2020 Chronic Other nervous system disorders (1 source) Chronic pain; Translations: [Other chronic pain] Onset: 07-22-2022 Chronic Other non-traumatic joint disorders (20 sources) Arthritis of hand 09-20-2020 Chronic Residual codes; unclassified (11 sources) Sleep disorder 11-22-2020 Episodic Residual codes; [...] 01-16-2017 01-16-2017 Episodic Calculus of urinary tract (11 sources) Kidney stone Onset: 06-22-2020 06-28-2020 Episodic Skin and subcutaneous tissue infections (4 sources) Abscess; Translations: [Cutaneous abscess, unspecified] Onset: 01-16-2017 01-16-2017 Episodic Results Test Name Value Interpretation Reference Range Facil ity Vital Signs Date Time Vital Sign Value Performing Clinician Facility 01-18-2023 21:37-0400 Diastolic Blood Pressure Non-Invasive [address] EVERARDO ZALDIVAR DO [facility] 01-18-2023 21:37-0400 Heart rate 95 /min DR EVERARDO ZALDIVAR DO [facility] 01-18-2023 21:37-0400 Reason For Taking VItal Signs DR EVERARDO ZALDIVAR DO [facility] 01-18-2023 21:37-0400 Respiratory rate 18 /min DR EVERARDO ZALDIVAR DO [facility] 01-18-2023 21:37-0400 Systolic Blood Pressure Non-Invasive [address] EVERARDO ZALDIVAR DO [facility] 01-18-2023 20:34-0400 Body temperature 98.6 [degF] DR MCGEE KAYLEY DO [facility] 01-18-2023 20:34-0400 Diastolic Blood Pressure Non-Invasive 84 1 EVERARDO KAYLEY DO [facility] 01-18-2023 20:34-0400 Heart rate 98 /min DR MCGEE KAYLEY DO [facility] 01-18-2023 20:34-0400 Respiratory rate 18 /min EVERARDO ZALDIVAR DO [facility] 01-18-2023 20:34-0400 Systolic Blood Pressure Non-Invasive 151 1 EVERARDO KAYLEY DO [facility] 07-23-2022 14:07-0500 Body temperature 97.88 [degF] ROBBIN GAMINO LICENSING ENGINEER-BOILER RELINER [facility] 07-23-2022 14:07-0500 Diastolic Blood Pressure Non-Invasive 82 1 ROBBINDAISHA RUBIODEBRA LICENSING ENGINEER-BOILER RELINER [facility] 07-23-2022 14:07-0500 Heart rate 73 /min ROBBINDAISHA RUBIODEBRA LICENSING ENGINEER-BOILER RELINER [facility] 07-23-2022 14:07-0500 Respiratory rate 18 /min ROBBINDAISHA RUBIODEBRA LICENSING ENGINEER-BOILER RELINER [facility] 07-23-2022 14:07-0500 Systolic Blood Pressure Non-Invasive 121 1 ROBBIN JOANNEDEBRA LICENSING ENGINEER-BOILER RELINER [facility] 07-23-2022 12:05-0500 Heart rate 69 /min ROBBINDAISHA RUBIODEBRA LICENSING ENGINEER-BOILER RELINER [facility] 07-23-2022 11:11-0500 Body temperature 97.34 [degF] ROBBIN GAMINO LICENSING ENGINEER-BOILER RELINER [facility] 07-23-2022 11:11-0500 Diastolic Blood Pressure Non-Invasive 70 1 ROBBIN GAMINO LICENSING ENGINEER-BOILER RELINER [facility] 07-23-2022 11:11-0500 Heart rate 71 /min ROBBIN GAMINO LICENSING ENGINEER-BOILER RELINER [facility] 07-23-2022 11:11-0500 Respiratory rate 18 /min ROBBIN GAMINO LICENSING ENGINEER-BOILER RELINER [facility] 07-23-2022 11:11-0500 Systolic Blood Pressure Non-Invasive 117 1 ROBBIN GAMINO LICENSING ENGINEER-BOILER RELINER [facility] 07-23-2022 08:02-0500 Blood Pressure Cuff Size ROBBIN GAMINO LICENSING ENGINEER-BOILER RELINER [facility] 07-23-2022 08:02-0500 Blood Pressure Location ROBBIN GAMINO LICENSING ENGINEER-BOILER RELINER [facility] 07-23-2022 08:02-0500 Blood Pressure Method ROBBIN GAMINO LICENSING ENGINEER-BOILER RELINER [facility] 07-23-2022 08:02-0500 Body temperature 97.88 [degF] ROBBIN GAMINO LICENSING ENGINEER-BOILER RELINER [facility] 07-23-2022 08:02-0500 Diastolic Blood Pressure Non-Invasive 90 1 ROBBIN GAMINO LICENSING ENGINEER-BOILER RELINER [facility] 07-23-2022 08:02-0500 Heart rate 73 /min ROBBIN GAMINO LICENSING ENGINEER-BOILER RELINER [facility] 03-07-2023 08:02-0500 Respiratory rate 18 /min ROBBIN GAMINO LICENSING ENGINEER-BOILER RELINER [facility] 07-23-2022 08:02-0500 Systolic Blood Pressure Non-Invasive 143 1 ROBBIN GAMINO LICENSING ENGINEER-BOILER RELINER [facility] 07-22-2022 18:03-0500 Body height 180.3 cm ROBBIN GAMINO LICENSING ENGINEER-BOILER RELINER [facility] 07-22-2022 18:03-0500 Body weight 117.3 kg ROBBIN GAMINO LICENSING ENGINEER-BOILER RELINER [facility] 07-22-2022 18:03-0500 Body weight 36.08 kg/m2 ROBBIN GAMINO LICENSING ENGINEER-BOILER RELINER [facility] 07-22-2022 12:14-0500 Heart rate 89 /min ROBBIN GAMINO LICENSING ENGINEER-BOILER RELINER [facility] 01-16-2017 13:35-0400 BP Diastolic 78 mm[Hg] Janine Carney PA-C [facility] Work Phone: 01-16-2017 13:35-0400 BP Systolic 122 mm[Hg] Janine Carney PA-C [facility] Work Phone: 01-16-2017 13:35-0400 Pulse (Heart Rate) 87 /min Janine Carney PA-C [facility] Work Phone: 01-16-2017 13:35-0400 Respiratory Rate 18 /min Janine Carney PA-C [facility] Work Phone: Encounters Encounter Date Encounter Type Care Provider Facility Start: 06-04-2023 End: 06-05-[address] AMEENA CLARKE MD Facility:A Start: 06-04-2023 End: 06-04-2023 Patient encounter procedure ZECHARIAH Mitch RICHARD LICENSING ENGINEER-ANTHROPOLOGICAL LINGUIST [facility] Start: 05-07-2023 End: 05-08-[address] AMEENA [...] department patient visit DR EVERARDO ZALDIVAR DO [facility] Start: 12-25-2022 End: 12-26-[address] AMEENA CLARKE MD Facility:A Start: 11-26-2022 End: 11-27-2022 ambulatory ZECHARIAH RAMOS LICENSING ENGINEER-ANTHROPOLOGICAL LINGUIST Facility:A Start: 11-26-2022 End: 11-26-2022 Patient encounter procedure ZECHARIAH RAMOS LICENSING ENGINEER-ANTHROPOLOGICAL LINGUIST [facility] Start: 2022 End: 09-13-[address] ERINN ORTIZ MD Facility:A Start: 07-22-2022 End: 07-23-[address] AMEENA CLARKE MD Facility:B Start: 07-22-2022 End: 07-23-2022 Observation ROBBIN GAMINO APRN-BOILER RELINER [facility] Start: 07-10-2022 End: 07-11-[address] ERINN ORTIZ MD Facility:A Start: 07-10-2022 End: 07-10-[address] ERINN ORTIZ MD [facility] Start: 05-22-2022 End: 05-22-2022 Patient encounter procedure ZECHARIAH RAMOS LICENSING ENGINEER-ANTHROPOLOGICAL LINGUIST [facility] Start: 03-19-2022 End: 03-19-2022 Patient encounter procedure ZECHARIAH RAMOS LICENSING ENGINEER-ANTHROPOLOGICAL LINGUIST [facility] Start: 01-17-2022 End: 01-17-2022 Patient encounter procedure ZECHARIAH RAMOS LICENSING ENGINEER-ANTHROPOLOGICAL LINGUIST [facility] Start: 10-25-2021 End: 10-25-2021 Patient encounter procedure ZECHARIAH RAMOS LICENSING ENGINEER-ANTHROPOLOGICAL LINGUIST [facility] Start: 08-08-2021 End: 08-08-[address] ERINN ORTIZ MD [facility] Start: 03-29-2021 End: 03-29-[address] ERINN ORTIZ MD [facility] Procedures Date Procedure Procedure Detail Performing Clinician Start: 01-16-2017 End: 01-16-2017 Drainage of skin abscess Janine ANDRADE-Anshul Work Phone: Laminectomy DR ERINN VALADEZ MD Mass (morphologic abnormality) DR ERINN ORTIZ MD Plan of Treatment Date Care Activity Detail Author Start: 01-23-2017 End: 01-23-2017 Appointment Appointment [facility] Work Phone: Start: 01-16-2017 End: 01-16-2017 Appointment Appointment [facility] Work Phone: [facility] Work Phone: Immunizations Immunization Date Immunization Notes Care Provider Adriano turner 03-13-2022 influenza virus vaccine, unspecified formulation ROBBIN KENNEN LICENSING ENGINEER-BOILER RELINER [facility] 05-08-2021 SARS-CoV-2 mRNA (tozinameran) vaccine ROBBIN KENNEN LICENSING ENGINEER-BOILER RELINER [facility] 03-05-2021 influenza virus vaccine, unspecified formulation ROBBIN KENNEN LICENSING ENGINEER-BOILER RELINER [facility] 09-02-2020 SARS-CoV-2 mRNA (tozinameran) vaccine ROBBINDAISHA RUBIONEN LICENSING ENGINEER-BOILER RELINER [facility] Payers Date Payer Category Payer Unknown [id number] 1960 Unknown [id number] 2.16.8 [id number] 1960 Unknown [id number] 2.16.8 [id number] 1960 Unknown [id number] 2.16.8 [id number] 1958 Unknown [id number] 2.16.8 [id number] 1958 Unknown [id number] 2.16.8 [id number] 1958 Unknown [id number] 2.16.8 [id number] 1958 Unknown [id number] 2.16.8 [id number] 1958 Unknown [id number] 2.16.8 [id number] 1958 Unknown [id number] 2.16.8 [id number] 1958 Unknown [id number] 2.16.8 [id number] 1958 Unknown [id number] 2.16.8 [id number] Social History Date Type Detail Facility Start: 09-20-2020 Light tobacco smoker (finding) [facility] Ex-smoker (finding) [facility] Sex Assigned At Male [facility] Functional Status Date Assessment Result Facility 01-18-2023 Functional Status N/A [facility] 01-18-2023 Functional Status Standard Safet y ID band on, Call device within reach, Bed in low position, Wheels locked, Upper/Half-Length side-rails up, Toileting device within reach, Bedside Cart Locked, Visitor at bedside [facility] 07-23-2022 Functional Status Door open, Room check performed [facility] 07-23-2022 Functional Status [facility] 07-23-2022 Functional Status bilateral knee high [facility] 07-23-2022 Functional Status Multilevel home [facility] 07-23-2022 Functional Status [facility] 07-22-2022 Functional Status Sensory Deficits None A [facility] Mental Status Date Assessment Result Facility 01-18-2023 Mental Status Orientation Oriented x 4 [facility] 01-18-[address] [facility] 07-23-2022 Mental Status Oriented x [address] [facility] 07-23-2022 Mental Status [facility] selma Fox Clinical Notes 07-22-2022 to 01-18-2023 Note Date [...] or legs Numbness in the groin area [phone] [employer] [place] [address], [place] [address]. All rights reserved. This information is not intended as a substitute for professional medical care. Always follow your healthcare professional's instructions. Follow Up Care 01/18/2023 18:36:19 With:AMEENA CLARKE MD [facility] [facility] [address] [place] [address]- When:2-4 days [facility] 01-18-2023 Emergency department Discharge summary Discharge Instructions Thank you for allowing [facility] to assist you with your healthcare needs. The following is important discharge information regarding your hospital visit. Diagnosis from Today's Visit Back pain What to Do Next Instructions from Your Care Team No qualifying data available. Post Acute Orders No qualifying data available. You Need to Schedule the Following Appointments Follow Up with AMEENA CLARKE MD When Within 2-4 days Where: [facility] [address] [place] [address]- Allergies NKA Medications Please ask your primary [...] or legs Numbness in the groin area [phone] [employer]. [address] [place] [address], [place] [address]. All rights reserved. This information is not intended as a substitute for professional medical care. Always follow your healthcare professional's instructions. Additional Information VACCINATE! IT SAVES LIVES! Members of the community who have not yet received the COVID-19 vaccine and would like to receive it can visit one of [facility] vaccine clinics. There are many vaccine clinic locations within the [facility]. For locations and available times, please visit [email or web address] [email or web address] It is important to note that some COVID mobile vaccine clinics are held outdoors and may be canceled in rainy or stormy conditions. To learn more about pediatric vaccinations (ages 5-11), we invite you to visit the [facility] webpage. https://www.Mailsuites.org/p ages/0238-Vqpze-Jxnqfmyfqay-Freq nmjytq-Aonzw-Siwyuobnf.html To learn more about the COVID-19 vaccine, we invite you to visit the CDC website for a list of frequently asked questions. https://www.cdc.gov/coronavirus/ 2019-ncov/vaccines/faq.html [facility] Patient Portal Access Instructions: Stay connected with your healthcare team and access your personal medical information anytime with the [facility] Patient Portal. If you would like a full copy of your medical records please contact the [facility] Medical Records Department Friday through Friday between 8a.m. and 4:30p.m. Please follow the directions below to access the portal: 1.Access the email account you provided upon registration to the hospital.2.Look for an invitation email from [facility].3.Open the email and access the invitation link: Accept Invitation to [facility]4.Fill in the required taylor to create your account. Sign into [email or web address] with your username and password that you [...] you will allow to register on the [facility] Patient Portal for access to your information. You can also access the [facility] Patient Portal on the [employer] roc. Simply click on Health Records under Health Data and then click on the [employer] logo. HOW TO SAFELY DISPOSE OF PRESCRIPTION [...] Call your local pharmacy or go to http://Transifex.Truminim/7X9Oz1s to find one close to you.3.Make use of household items: Use cat litter or old coffee grounds to dispose medications if other options are not available. Mix your drugs with these household products, seal them in an airtight container and throw it into the garbage. Call [facility]: [phone] to be sure your drugs can be [...] been reviewed and explained to me and I,BELLEHOLLIS PAU Carli understand my current condition and have read and understand these discharge instructions. I have received a written copy of the plan/instructions. If I have questions, I am aware that I should contact my doctor. Patient/Horse Racing Manager Signature: Date/Time: Relationship to Patient: Witness Name/Signature: Date/Time: [facility] 07-23-2022 Hospital Discharg e instructions Patient Education [...] take. The two forms of aspirin are: ?Wey-mdwhyuh-jlrmsc.This type of aspirin does not have a coating and is absorbed quickly. This type of aspirin also comes in a chewable form. ?Enteric-coated. This type of aspirin has a coating that releases the medicine very slowly. Enteric-coated aspirin might cause less stomach upset than eeu-eylnqet-vaidov aspirin. This type of aspirin should not [...] 04/17/2009 Document Revised: 03/05/2018 Document Reviewed: 03/05/2018 [employer] Patient Education 2020 [employer]. 07/23/2022 13:48:35 Chest Pain (Nonspecific), Ojrg-qm-Resg Chest Pain (Nonspecific) It is often hard [...] Document Reviewed: 10/21/2008 ExitCare Patient Information 2015 [employer]. This information is not intended to replace advice given to you by your health care provider. Make sure you discuss any questions you have with your health care provider. Follow Up Care 07/22/2022 12:05:58 With:AMEENA CLARKE MD Address: [facility] [address] [place] [address]- When:5 to 7 days Comments:Follow up. Message left with office [facility] 07-23-2022 Note Discharge Instructions Thank you for allowing [facility] to assist you with your healthcare needs. The following is important discharge information regarding your hospital visit. Your Care Team Robbin Gamino LICENSING ENGINEER Your Diagnosis Chest pain Chronic pain Tobacco [...] Where Contact InformationPM OV 2022 08:30 AM EDT ERINN ORTIZ MD [facility] Follow Up Appointments Follow Up with AMEENA CLARKE MD When Within 5 to 7 days Why: Follow up. Message left with office Where: [facility] [address] [place] [address]- The Following Activity and Diet Have Been [...] needed for pain None today Changed acetaminophen-hydrocodone ([place] 325- 7.5 mg oral tablet) 1 tab(s) [...] before supper Duration: 30 Days Pickup at [facility] 181107/23/22 at 1202 Unchanged tiZANidine (tiZANidine 4 mg oral tablet) 1 tab(s) by mouth Three (3) times a day DDD (degenerative disc disease), lumbar Duration: 30 Days Fill 07/23/22 at 0923am Pharmacy Information [facility]: [address] [place], [place] [id number] [phone] Please take this list to your next [...] Document Reviewed: 10/21/2008 ExitCare Patient Information 2015 [facility] [employer]. This information is not intended to replace advice given to you by your health care provider. Make sure you discuss any questions you have with your health care provider. Additional Information VACCINATE! IT SAVES LIVES! Members of the community who have not yet received the COVID-19 vaccine and would like to receive it can visit one of [facility] vaccine clinics. There are many vaccine clinic locations within the [facility]. For locations and available times, please visit https://[email or web address].[email or web address]/. It is important to note that some COVID mobile vaccine clinics are held outdoors and may be canceled in rainy or stormy conditions. To learn more about pediatric vaccinations (ages 5-11), we invite you to visit the [facility] webpage. https://www.[facility].org/p ages/1547-Mhkwz-Ofmttpjnrog-Freq rzlhfx-Oawyl-Nrosjwpsm.html To learn more about the COVID-19 vaccine, we invite you to visit the CDC website for a list of frequently asked questions. https://www.cdc.gov/coronavirus/ 2019-ncov/vaccines/faq.html [facility] Patient Portal Access Instructions: Stay connected with your healthcare team and access your personal medical information anytime with the [facility] [facility] Patient Portal.If you would like a full copy of your medical records, please contact the [facility] Medical Records Department, Friday through Friday between 8a.m. and 4:30p.m. Please follow the directions below to access the portal: 1.Access the email account you provided upon registration to the [facility].2.Look for an invitation email from [facility].3.Open the email and access the invitation link: Accept Invitation to [employer]4.Fill in the required taylor to create your account. Sign into [email or web address] with your username and password that you [...] you will allow to register on the [facility] Patient Portal for access to your information. You can also access the [facility] [facility] Patient Portal on the [employer]. Simply click on Health Records under Health Data and then click on the [employer] logo. HOW TO SAFELY DISPOSE OF PRESCRIPTION [...] Call your local pharmacy or go to http://Transifex.Truminim/0Q0Wu0n to find one close to you.3.Make use of household items: Use cat litter or old coffee grounds to dispose medications if other options are not available. Mix your drugs with these household products, seal them in an airtight container and throw it into the garbage. Call [facility]: [phone] to be sure your drugs can be [...] Signatures Patient Education Materials Chest Pain (Nonspecific), Pree-gr-Rorr Medication Leaflets My discharge plan and instructions have been reviewed and explained to me and I,PAU JOHNSON V understand my current condition and have read and understand these discharge instructions. I have received a written copy of the plan/instructions. If I have questions, I am aware that I should contact my doctor. Patient/Horse Racing Manager Signature: Date/Time: Relationship to Patient: Witness Name/Signature: Date/Time: [facility] 07-23-2022 Note ORIGINAL NM MYOCARDIAL SPECT STRESS/REST [...] PM Sign Date: 07/23/2022 1:04:20 PM Ordering Provider:[facility] 07-23-2022 Note ORIGINAL NM MYOCARDIAL SPECT [...] PM Sign Date: 07/23/2022 1:04:20 PM Ordering Provider:Robbin Gamino [facility] 07-22-2022 Note Date of Service 07/22/22 Chief Complaint c/o chest pain into left arm since last night History of Present Illness 61-year-old male with past medical history significant for chronic back pain, obesity, tobacco use, GERD. Patient presented to [facility] emergency department on 07/22/2022 with a 1 [...] by ROBBIN GAMINO on 07/22/2022 07:03 PM [facility] 1. Chest pain 2. Chronic pain 3. [...] ORTIZ MD Location:PM Office Appointment Type:PM OV [facility] 03-06-2023 Note ORIGINAL EXAMINATION: ONE XRAY VIEW [...] Sign Date: 07/22/2022 1:03:44 PM Ordering Provider: FAWN BARGER [facility]03-06-2023 Note ORIGINAL EXAMINATION: ONE XRAY VIEW OF [...] Sign Date: 07/22/2022 1:03:44 PM [facility] No data available for this section [facility] Evaluation + Plan note Future Appointments Appointment Date:12/27/2021 08:30:00 AM Scheduled Provider:ZECHARIAH RAMOS APRN-ANTHROPOLOGICAL LINGUIST Location:PM Office Appointment Type:PM OV RICHARD AT [facility] Evaluation + Plan note Future Appointments Appointment Date:03/19/2022 12:30:00 PM Scheduled Provider:ZECHARIAH RAMOS LICENSING ENGINEER-ANTHROPOLOGICAL LINGUIST Location:PM Office Appointment Type:PM OV RICHARD AT [facility] evaluation + Plan note Future Appointments Appointment Date:05/22/2022 09:30:00 AM Scheduled Provider:ZECHARIAH RAMOS LICENSING ENGINEER-ANTHROPOLOGICAL LINGUIST Location:PM Office Appointment Type:PM OV RICHARD AT [facility] Evaluation + Plan note Future Appointments Appointment Date:07/24/2022 09:30:00 AM Scheduled Provider:ZECHARIAH RAMOS APRN-ANTHROPOLOGICAL LINGUIST Location:PM Office Appointment Type:PM OV RICHARD AT [facility] evaludrdyq + Plan note Future Appointments Appointment Date:2022 08:30:00 AM Scheduled Provider:ERINN ORTIZ MD Location:PM Office Appointment Type:PM OV [facility] Pain Management Evaluation + Plan note Future Appointments Appointment Date:12/25/2022 08:20:00 AM Scheduled Provider:ZECHARIAH RAMOS APRN-ANTHROPOLOGICAL LINGUIST Location:PM Office Appointment Type:PM OV [facility] Pain Management evaluation + Plan note Future Appointments Appointment Date:01/24/2023 08:10:00 AM Scheduled Provider:ZECHARIAH RAMOS LICENSING ENGINEER-ANTHROPOLOGICAL LINGUIST Location:PM Office Appointment Type:PM OV [facility] Evaluation + Plan note Future Appointments Appointment Date:07/03/2023 06:50:00 AM Scheduled Provider:ERINN ORTIZ MD Location:PM Office Appointment Type:PM OV [facility] Hospital Discharge instructions No data available for this section [facility] Note* [facility] [employer] Tech Reyna Piper: PERFORM Event Display: Pain Management Treatment Agreement Authored Date: [id number] [facility] progress note No data available for this section [facility] Summary Purpose Family History No Family History Records Found Advance Directives No Advanced Directives Records Found Additional Source Comments Care Team (unrecognized sect ion and content) Personnel Name: AMEENA CLARKE MD Address: [facility] [address] [place] [address]- Care Team Personnel Name: AMEENA CLARKE MD Member Role: Primary Care Physician Address: Address: [facility] [address] [place] [address]- Care Team Related Persons Name: JACOB JOHNSON Address: Home [address] [place] [address] [place] Care Team Personnel Name: AMEENA CLARKE MD Member Role: Primary Care Physician Address: Address: [facility] [address] [place] [address]- Name: EVERARDO ZALDIVAR DO Position: ED Physician Member Role: Attending Physician Address: Address: [facility] [address] [place] [address]- Care Team Related Persons Name: JACOB JOHNSON Address: Home [address] Care Team Personnel Name: AMEENA CLARKE MD Member Role: Primary Care Physician Address: Address: [facility] [address] [place] [address]- Care Team Related Persons Name: JACOB JOHNSNO Address: Home [address] Care Team (unrecognized sect ion and content) Care Team Personnel Name: AMEENA CLARKE MD Member Role: Primary Care Physician Address: Address: [facility] [address] [place] [address]- Care Team Related Persons Name: JACOB JOHNSON Address: Home [address] Care Team Personnel Name: AMEENA CLARKE MD Member Role: Primary Care Physician Address: Address: [facility] [address] [place] [address]- Care Team Related Persons Name: [facility] Address: Home [address] Care Team Personnel Name: AMEENA CLARKE MD Member Role: Primary Care Physician Address: Address: [facility] [address] [place] [address]- Care Team Related Persons Name: ANAIS JOHNSONI Address: Home [address] Care Team Personnel Name: AMEENA CLARKE MD Member Role: Primary Care Physician Address: Address: [facility] [address] [place] [address]- Care Team Related Persons Name: ANAIS JOHNSONI Address: Home [address] Care Team Personnel Name: AMEENA CLARKE MD Member Role: Primary Care Physician Address: Address: [facility] [address] [place] [address]- Name: JESS Lorenzo Position: RN Member Role: ED RN Name: Katharine Gan Coder Position: HIM: Coders Member Role: HIM: Coders Name: MD FAWN BARGER MD Position: ED Physician Member Role: ED Physician Address: Address: [facility] [address] [place] [address]- Care Team Related Persons Name: JACOB JOHNSON Address: Home [address] (unrecognized sect ion and content) No Status [...] BE BASED ON THE PRIMARY CLINICAL RECORDS. [facility] [employer] [facility]. provides no warranty or guarantee of the accuracy or completeness of information in this document.
[2023-06-16 12:30] LABS: Erythrocyte Sedimentation Rate 10 mm/hr (0-20)
[2023-06-16 12:32] LABS: Absolute Lymphocyte Count 2.46 X10^3/uL (0.83-4.51); Absolute Neutrophil Count 5.2 X10^3/uL (2.0-7.7); Basophil# 0.04 X10^3/uL; Basophil% 0.5 % (0-1); Eosinophils% 2.3 % (0-5); Hematocrit 43.1 % (40-54); Hemoglobin 14.7 g/dL (13.0-16.5); Lymphocyte # 2.46 X10^3/ul (0.83-4.51); Lymphocyte % 28.1 % (19-41); Mean Corp Hgb Conc 34.1 g/dL (32-36); Mean Corpuscular Hgb 30.2 pg (27.0-32.0); Mean Corpuscular Volume 88.7 fL (80-94); Mean Platelet Vol. 9.7 fl (6.2-12.0); Monocyte% 9.1 % (0-10); NRBC Flagged by Analyzer 0 % (0-5); Neutrophil # 5.23 X10^3/uL (2.7-7.7); Neutrophil % 59.8 % (47-70); Platelet Count 180 K/mm3 (150-450); RBC Distribution Width CV 12.7 % (11.6-14.6); RBC Distribution Width SD 41.4 fl (35.1-43.9); Red Blood Count 4.86 M/mm3 (4.6-6.2); White Blood Count 8.8 K/mm3 (4.4-11.0)
[2023-06-16 13:09] LABS: Anion Gap 6 (5-15); BUN 13 mg/dL (7-18); BUN/Creat Ratio 15.3 RATIO (10-20); Calcium,Total 8.8 mg/dL (8.5-10.1); Chloride 110 mmol/L (98-107); Creatinine, Serum 0.85 mg/dL (0.70-1.30); EST Glomerular Filtration Rate 96 mL/min (>60); Est Glom Filt Rate - Afr Amer 116 mL/min (>60); Glucose 133 mg/dL (74-106); Potassium 3.9 mmol/L (3.5-5.1); Sodium Level 138 mmol/L (136-145); Uric Acid 5.5 mg/dL (3.5-7.2)
== END | disposition home or self-care (01) ==
PROVIDERS: PCP Family Medicine Geriatric Medicine; Referring Provider Family Medicine Geriatric Medicine; Visit Provider Family Medicine Geriatric Medicine
DX: M79.89 Other specified soft tissue disorders (principal); M79.641 Pain in right hand
CPT/HCPCS: 36415; 73110; 73130; 80048; 84550; 85025; 85652; 86140

== ENCOUNTER → 2023-07-07 | Outpatient (CLI) | payer BC, SELFPAY ==
--- OUTSIDE RECORDS SUMMARY | 2023-07-07 10:27 | XMS RPT_ITS | CCD ---
Author Name Unknown Address [address] [place] [address] Organization [facility] Care Team Providers Care Retail Solar Advisor Name Role Phone Janine Carney PA-C Unavailable [phone] Martinez Green MD Unavailable Janine Carney PA-C Unavailable TRICIA LEVIN, DR LINDQUIST Primary Care Physician TRICIA LEVIN, DR LINDQUIST Primary Care Physician DIANA LEVIN, DR ERINN Cramer Attending Abigail CLARKE MD, DR LINDQUIST Primary Care Unavailable DIANA LEVIN, DR ERINN Cramer Attending Abigail CLARKE MD, DR LINDQUIST Primary Care Unavailable DIANA LEVIN, DR ERINN Cramer Attending Abigail CLARKE MD, DR LINDQUIST Primary Care Unavailable TRICIA LEVIN, DR LINDQUIST Primary Care Unavailable EVERARDO ZALDIVAR Attending Unavailable TRICIA LEVIN, DR LINDQUIST Primary Care Unavailable ROBBIN GAMINO Admitting Unavailable RENEE ALDANA DO Attending Unavailable ZECHARIAH SPENCE Attending Eagle CLARKE MD, [...] CLARKE MD, DR LINDQUIST Primary Care Unavailable Medications Current Medications Medication Drug Class(es) Dates [...] tablet by mouth twice daily CYCLOBENZAPRINE HCL [id number] Janine Carney PA-C gabapentin 600 mg oral tablet (4 sources) Anti-epileptic Agent Start: 10-25-2021 End: 12-24-2021 Neurontin 600 mg oral tablet Dose : 600 mg = 1 tab(s), Oral, qHS, Fill 10/26/2021., # 30 tab(s), 1 Refill(s), Pharmacy: [facility], DDD (degenerative disc disease), lumbar, 10/26/21, 180.3, [...] Non-Invasive [address] EVERARDO ZALDIVAR DO [facility] 01-18-2023 21:37-0400 Heart rate 95 /min DR EVERARDO ZALDIVAR DO [facility] 01-18-2023 21:37-0400 Reason For Taking VItal Signs DR EVERARDO ZALDIVAR DO [facility] 01-18-2023 21:37-0400 Respiratory rate 18 /min DR EVERARDO ZALDIVAR DO [facility] 01-18-2023 21:37-0400 Systolic Blood Pressure Non-Invasive [address] EVERARDO ZALDIVAR DO [facility] 01-18-2023 20:34-0400 Body temperature 98.6 [degF] DR MCGEE KAYLEY DO [facility] 01-18-2023 20:34-0400 Diastolic Blood Pressure Non-Invasive [address] MCGEE KAYLEY DO [facility] 01-18-2023 20:34-0400 Heart rate 98 /min DR MCGEE KAYLEY DO [facility] 01-18-2023 20:34-0400 Respiratory rate 18 /min DR MCGEE KAYLEY DO [facility] 01-18-2023 20:34-0400 Systolic Blood Pressure Non-Invasive [address] MCGEE EFRABONI DO [facility] 07-23-2022 14:07-0500 Body temperature 97.88 [degF] ROBBIN GAMINO RAM PRESS OPERATOR-REPAIRER SHOE STICKS [facility] 07-23-2022 14:07-0500 Diastolic Blood Pressure Non-Invasive 82 1 ROBBIN GAMINO RAM PRESS OPERATOR-REPAIRER [employer] STIC[employer] [facility] 07-23-2022 14:07-0500 Heart rate 73 /min ROBBIN GAMINO RAM PRESS OPERATOR-REPAIRER [employer]OE STICKS [facility] 07-23-2022 14:07-0500 Respiratory rate 18 /min ROBBIN GAMINO RAM PRESS OPERATOR-REPAIRER SHOE STICKS [facility] 07-23-2022 14:07-0500 Systolic Blood Pressure Non-Invasive 121 1 ROBBINDAISHA GAMINO RAM PRESS OPERATOR-REPAIRER SHOE STICKS [facility] 07-23-2022 12:05-0500 Heart rate 69 /min ROBBIN GAMINO RAM PRESS OPERATOR-REPAIRER SHOE STICKS [facility] 07-23-2022 11:11-0500 Body temperature 97.34 [degF] ROBBIN GAMINO RAM PRESS OPERATOR-REPAIRER SHOE STICKS [facility] 07-23-2022 11:11-0500 Diastolic Blood Pressure Non-Invasive 70 1 ROBBIN GAMINO RAM PRESS OPERATOR-REPAIRER SHOE STICKS [facility] 07-23-2022 11:11-0500 Heart rate 71 /min ROBBIN GAMINO RAM PRESS OPERATOR-REPAIRER SHOE STICKS [facility] 07-23-2022 11:11-0500 Respiratory rate 18 /min ROBBIN GAMINO RAM PRESS OPERATOR-REPAIRER SHOE STICKS [facility] 07-23-2022 11:11-0500 Systolic Blood Pressure Non-Invasive 117 1 ROBBIN DEL RIOShoaib RAM PRESS OPERATOR-REPAIRER SHOE STICKS [facility] 07-23-2022 08:02-0500 Blood Pressure Cuff Size ROBBIN GAMINO RAM PRESS OPERATOR-REPAIRER SHOE STICKS [facility] 07-23-2022 08:02-0500 Blood Pressure Location ROBBIN GAMINO RAM PRESS OPERATOR-REPAIRER [employer]IC[employer] [facility] 07-23-2022 08:02-0500 Blood Pressure Method ROBBIN GAMINO RAM PRESS OPERATOR-REPAIRER SH[employer] STICKS [facility] 07-23-2022 08:02-0500 Body temperature 97.88 [degF] ROBBIN GAMINO RAM PRESS OPERATOR-REPAIRER SHOE STICKS [facility] 07-23-2022 08:02-0500 Diastolic Blood Pressure Non-Invasive 90 1 ROBBIN GAMINO RAM PRESS OPERATOR-REPAIRER SHOE STICKS [facility] 07-23-2022 08:02-0500 Heart rate 73 /min ROBBIN DEL RIOShoaib RAM PRESS OPERATOR-REPAIRER SHOE STICKS [facility] 07-23-2022 08:02-0500 Respiratory rate 18 /min ROBBIN GAMINO RAM PRESS OPERATOR-REPAIRER SHOE STICKS [facility] 07-23-2022 08:02-0500 Systolic Blood Pressure Non-Invasive 143 1 ROBBIN GAMINO RAM PRESS OPERATOR-REPAIRER SHOE STICKS [facility] 07-22-2022 18:03-0500 Body height 180.3 cm ROBBIN GAMINO RAM PRESS OPERATOR-REPAIRER SHOE STICKS [facility] 07-22-2022 18:03-0500 Body weight 117.3 kg ROBBIN GAMINO RAM PRESS OPERATOR-REPAIRER SHOE [employer]ICKS [facility] 07-22-2022 18:03-0500 Body weight 36.08 kg/m2 ROBBIN GAMINO RAM PRESS OPERATOR-REPAIRER SHOE STICKS [facility] 07-22-2022 12:14-0500 Heart rate 89 /min ROBBIN GAMINO RAM PRESS OPERATOR-REPAIRER SHOE STICKS [facility] 01-16-2017 13:35-0400 BP Diastolic 78 mm[Hg] Janine Carney PA-C [facility] Work Phone: 01-16-2017 13:35-0400 BP Systolic 122 mm[Hg] Janine Carney PA-C [facility] Work Phone: 01-16-2017 13:35-0400 Pulse (Heart Rate) 87 /min Janine Carney PA-C [facility] [employer] [facility] Work Phone: 01-16-2017 13:35-0400 Respiratory Rate 18 /min Janine Carney PA-C [facility] [employer] Work Phone: Encounters Encounter Date Encounter Type Care Provider Facility Start: 07-03-2023 End: 07-04-[address] ERINN ORTIZ MD Facility:A Start: 06-04-2023 End: 06-05-2023 ambulatory ZECHARIAH A RICHARD RAM PRESS OPERATOR-HIGH SCHOOL TUTOR Facility:A Start: 06-04-2023 End: 06-04-2023 Patient encounter procedure ZECHARIAH A RICHARD RAM PRESS OPERATOR-HIGH SCHOOL TUTOR [facility] Start: 05-07-2023 End: 05-08-2023 ambulatory ZECHARIAH A RICHARD RAM PRESS OPERATOR-HIGH SCHOOL TUTOR Facility:A Start: 03-26-2023 End: 03-27-2023 ambulatory ZECHARIAH A RICHARD RAM PRESS OPERATOR-HIGH SCHOOL TUTOR Facility:A Start: 02-26-2023 End: 02-27-2023 ambulatory ZECHARIAH A RICHARD RAM PRESS OPERATOR-HIGH SCHOOL TUTOR Facility:A Start: 01-24-2023 End: 01-25-2023 ambulatory ZECHARIAH A RICHARD RAM PRESS OPERATOR-HIGH SCHOOL TUTOR Facility:A Start: 01-18-2023 End: 01-18-2023 Emergency department patient visit DR AMEENA CLARKE MD Facility:B Start: 01-18-2023 End: 01-18-2023 Emergency department patient visit DR EVERARDO ZALDIVAR DO [facility] Start: 12-25-2022 End: 12-26-2022 ambulatory ZECHARIAH A RICHARD RAM PRESS OPERATOR-HIGH SCHOOL TUTOR Facility:A Start: 11-26-2022 End: 11-27-2022 ambulatory ZECHARIAH A RICHARD RAM PRESS OPERATOR-HIGH SCHOOL TUTOR Facility:A Start: 11-26-2022 End: 11-26-2022 Patient encounter procedure ZECHARIAH A RICHARD RAM PRESS OPERATOR-HIGH SCHOOL TUTOR [facility] Start: 2022 End: 09-13-[address] ERINN ORTIZ MD Facility:A Start: 07-22-2022 End: 07-23-[address] AMEENA CLARKE MD Facility:B Start: 07-22-2022 End: 07-23-2022 Observation ROBBIN SIDDIQUIREPAIRER SHOE STICKS [facility] Start: 07-10-2022 End: 07-11-[address] ERINN ORTIZ MD Facility:A Start: 07-10-2022 End: 07-10-[address] ERINN ORTIZ MD [facility] Start: 05-22-2022 End: 05-22-2022 Patient encounter procedure ZECHARIAH RAMOS RAM PRESS OPERATOR-HIGH SCHOOL TUTOR [facility] Start: 03-19-2022 End: 03-19-2022 Patient encounter procedure ZECHARIAH DESIRETTA RAM PRESS OPERATOR-HIGH SCHOOL TUTOR [facility] Start: 01-17-2022 End: 01-17-2022 Patient encounter procedure ZECHARIAH RAMOS RAM PRESS OPERATOR-HIGH SCHOOL TUTOR [facility] Start: 10-25-2021 End: 10-25-2021 Patient encounter procedure ZECHARIAH DESIRETTA RAM PRESS OPERATOR-HIGH SCHOOL TUTOR [facility] Start: 08-08-2021 End: 08-08-[address] ERINN ORTIZ MD [facility] Start: 03-29-2021 End: 03-29-[address] ERINN ORTIZ MD [facility] Procedures Date Procedure Procedure Detail Performing Clinician Start: 01-16-2017 End: 01-16-2017 Drainage of skin abscess Janine ANDRADE-Anshul Work Phone: Laminectomy DR ERINN VALADEZ MD Mass (morphologic abnormality) DR ERINN ORTIZ MD Plan of Treatment Date Care Activity Detail Author Start: 01-23-2017 End: 01-23-2017 Appointment Appointment [facility] Work Phone: Start: 01-16-2017 End: 01-16-2017 Appointment Appointment [facility] Work Phone: [facility] Work Phone: Immunizations Immunization Date Immunization Notes Care Provider [facility] 03-13-2022 influenza virus vaccine, unspecified formulation ROBBINDAISHA RUBIONEN RAM PRESS OPERATOR-REPAIRER SHOE STICKS [facility] 05-08-2021 SARS-CoV-2 mRNA (tozinameran) vaccine ROBBIN JOANNENEN RAM PRESS OPERATOR-REPAIRER SHOE STICKS [facility] 03-05-2021 influenza virus vaccine, unspecified formulation ROBBIN KENNEN RAM PRESS OPERATOR-REPAIRER SHOE STICKS [facility] 09-02-2020 SARS-CoV-2 mRNA (tozinameran) vaccine ROBBIN JOANNENEN RAM PRESS OPERATOR-REPAIRER SHOE STICKS [facility] Payers Date Payer Category Payer Unknown [id number] 1960 Unknown [id number] 2.16.8 [id number] 1960 Unknown [id number] 2.16.8 [id number] 1958 Unknown [id number] 2.16.8 [id number] 1958 Unknown [id number] 2.16.8 [id number] 1958 Unknown [id number] 2.16.8 [id number] 1958 Unknown [id number] 2.16.8 [id number] 1958 Unknown [id number] 2.16.8 [id number] 1958 Unknown [id number] 2.16.8 [id number] 1958 Unknown [id number] 2.16.8 [id number] 1960 Unknown [id number] 2.16.8 [id number] 1958 Unknown [id number] 2.16.8 [id number] 1960 Unknown [id number] 2.16.8 [id number] Social History Date Type Detail Facility Start: 09-20-2020 Light tobacco smoker (finding) [facility] Ex-smoker (finding) [facility] Sex Assigned At Male [facility] Functional Status Date Assessment Result Facility 01-18-2023 Functional Status N/A [facility] 01-18-2023 Functional Status Standard Safet y ID band on, Call device within reach, Bed in low position, Wheels locked, Upper/Half-Length side-rails up, Toileting device within reach, Bedside Cart Locked, Visitor at bedside [facility] 07-23-2022 Functional Status Door open, Room check performed [facility] 07-23-2022 Functional Status [facility] 07-23-2022 Functional Status bilateral knee high [facility] 07-23-2022 Functional Status Multilevel home [facility] 07-23-2022 Functional Status [facility] 07-22-2022 Functional Status Sensory Deficits None A [facility] Mental Status Date Assessment Result Facility 01-18-2023 Mental Status Orientation Oriented x 4 [facility] 01-18-2023 Mental Status [facility] 07-23-2022 Mental Status Oriented x 4 [facility] 07-23-2022 Mental Status [facility] Clinical Notes 07-22-2022 to 01-18-2023 Note Date [...] or legs Numbness in the groin area [phone] [employer]. [address] [place] [address]. All rights reserved. This information is not intended as a substitute for professional medical care. Always follow your healthcare professional's instructions. Follow Up Care 01/18/2023 18:36:19 With:AMEENA CLARKE MD Address: [facility]/[address] [place] [address]- When:2-4 days [facility] 01-18-2023 Emergency department Discharge summary Discharge Instructions Thank you for allowing [facility] to assist you with your healthcare needs. The following is important discharge information regarding your hospital visit. Diagnosis from Today's Visit Back pain What to Do Next Instructions from Your Care Team No qualifying data available. Post Acute Orders No qualifying data available. You Need to Schedule the Following Appointments Follow Up with AMEENA CLARKE MD When Within 2-4 days Where: [facility]/[address] [place] [address]- Allergies NKA Medications Please ask your primary [...] or legs Numbness in the groin area [phone] [employer]. [address] [place] [address]. All rights reserved. This information is not intended as a substitute for professional medical care. Always follow your healthcare professional's instructions. Additional Information VACCINATE! IT SAVES LIVES! Members of the community who have not yet received the COVID-19 vaccine and would like to receive it can visit one of [facility] vaccine clinics. There are many vaccine clinic locations within the [facility]. For locations and available times, please visit [email or web address] [email or web address] It is important to note that some COVID mobile vaccine clinics are held outdoors and may be canceled in rainy or stormy conditions. To learn more about pediatric vaccinations (ages 5-11), we invite you to visit the [facility] webpage. https://www.[facility].org/p ages/2564-Ykiud-Fjvpsitwggf-Freq lfrjjq-Lmmpm-Lxpbpaaob.html To learn more about the COVID-19 vaccine, we invite you to visit the CDC website for a list of frequently asked questions. https://www.cdc.gov/coronavirus/ 2019-ncov/vaccines/faq.html [facility] Patient Portal Access Instructions: Stay connected with your healthcare team and access your personal medical information anytime with the [facility] Patient Portal. If you would like a full copy of your medical records please contact the [facility] Medical Records Department Friday through Friday between 8a.m. and 4:30p.m. Please follow the directions below to access the portal: 1.Access the email account you provided upon registration to the [facility].2.Look for an invitation email from [facility].3.Open the email and access the invitation link: Accept Invitation to [facility].Fill in the required taylor to create your account. Sign into [email or web address].[email or web address] with your username and password that you [...] you will allow to register on the [facility] Patient Portal for access to your information. You can also access the [facility] Patient Portal on the [employer]. Simply click on Health Records under Health Data and then click on the TrustedCompany.com logo. HOW TO SAFELY DISPOSE OF PRESCRIPTION [...] Call your local pharmacy or go to http://GlucoSentient.Inteligistics/3J6Dy4r to find one close to you.3.Make use of household items: Use cat litter or old coffee grounds to dispose medications if other options are not available. Mix your drugs with these household products, seal them in an airtight container and throw it into the garbage. Call [facility]: [phone] to be sure your drugs can be [...] aware that I should contact my doctor. Patient/Pan Devulcanizer Signature: Date/Time: Relationship to Patient: Witness Name/Signature: Date/Time: [facility] 07-23-2022 Hospital Discharg e instructions Patient [...] take. The two forms of aspirin are: ?Gdh-hluchlh-lyevpf.This type of aspirin does not have a coating and is absorbed quickly. This type of aspirin also comes in a chewable form. ?Enteric-coated. This type of aspirin has a coating that releases the medicine very slowly. Enteric-coated aspirin might cause less stomach upset than umd-cohuazn-utvvza aspirin. This type of aspirin should not [...] 04/17/2009 Document Revised: 03/05/2018 Document Reviewed: 03/05/2018 [employer] Patient Education 2020 [employer]. 07/23/2022 13:48:35 Chest Pain (Nonspecific), Jfvr-yd-Pzkv Chest Pain (Nonspecific) It is often hard [...] Document Reviewed: 10/21/2008 ExitCare Patient Information 2015 [employer] [facility]. This information is not intended to replace advice given to you by your health care provider. Make sure you discuss any questions you have with your health care provider. Follow Up Care 07/22/2022 12:05:58 With:AMEENA CLARKE MD Address: [facility]/[place] [address] [place] [address]- When:5 to 7 days Comments:Follow up. Message left with office [facility] 07-23-2022 Note Discharge Instructions Thank you for allowing [facility] to assist you with your healthcare needs. The following is important discharge information regarding your hospital visit. Your Care Team Robbin Gamino RAM PRESS OPERATOR Your Diagnosis Chest pain Chronic pain Tobacco [...] 2022 08:30 AM EDT ERINN ORTIZ MD [facility] Follow Up Appointments Follow Up with AMEENA CLARKE MD When Within 5 to 7 days Why: Follow up. Message left with office Where: [facility]/[place] [address] [place] [address]- The Following Activity and Diet Have Been [...] needed for pain None today Changed acetaminophen-hydrocodone (Reddick 325- 7.5 mg oral tablet) 1 tab(s) [...] before supper Duration: [address] [facility] 07/23/22 at 1202 Unchanged tiZANidine (tiZANidine 4 mg oral tablet) 1 tab(s) by mouth Three (3) times a day DDD (degenerative disc disease), lumbar Duration: 30 Days Fill 07/23/22 at 0923am Pharmacy Information [facility]: [address] [place], [place] [id number] [phone] Please take this list to your next [...] Document Reviewed: 10/21/2008 ExitCare Patient Information 2015 [facility], [facility]. This information is not intended to replace advice given to you by your health care provider. Make sure you discuss any questions you have with your health care provider. Additional Information VACCINATE! IT SAVES LIVES! Members of the community who have not yet received the COVID-19 vaccine and would like to receive it can visit one of [facility] vaccine clinics. There are many vaccine clinic locations within the [facility]. For locations and available times, please visit [email or web address]/. It is important to note that some COVID mobile vaccine clinics are held outdoors and may be canceled in rainy or stormy conditions. To learn more about pediatric vaccinations (ages 5-11), we invite you to visit the [facility] webpage. https://www.[facility].org/p ages/9833-Rhvua-Ptyjqvceezt-Freq dontfy-Zruyw-Iwpydblnr.html To learn more about the COVID-19 vaccine, we invite you to visit the CDC website for a list of frequently asked questions. https://www.cdc.gov/coronavirus/ 2019-ncov/vaccines/faq.html [facility] Patient Portal Access Instructions: Stay connected with your healthcare team and access your personal medical information anytime with the [facility] Patient Portal.If you would like a full copy of your medical records, please contact the [facility] Medical Records Department, Friday through Friday between 8a.m. and 4:30p.m. Please follow the directions below to access the portal: 1.Access the email account you provided upon registration to the [facility].2.Look for an invitation email from [facility].3.Open the email and access the invitation link: Accept Invitation to [facility]4.Fill in the required taylor to create your account. Sign into [email or web address].[email or web address] with your username and password that you [...] you will allow to register on the [facility] Patient Portal for access to your information. You can also access the [facility] Patient Portal on the [employer] roc. Simply click on Health Records under Health Data and then click on the TrustedCompany.com logo. HOW TO SAFELY DISPOSE OF PRESCRIPTION [...] Call your local pharmacy or go to http://bit.ly/9V4Tp6o to find one close to you.3.Make use of household items: Use cat litter or old coffee grounds to dispose medications if other options are not available. Mix your drugs with these household products, seal them in an airtight container and throw it into the garbage. Call [facility]: [phone] to be sure your drugs can be [...] Signatures Patient Education Materials Chest Pain (Nonspecific), Bsoc-lb-Tkvz Medication Leaflets My discharge plan and instructions have been reviewed and explained to me and IELIZABETH KEVIN V understand my current condition and have read and understand these discharge instructions. I have received a written copy of the plan/instructions. If I have questions, I am aware that I should contact my doctor. Patient/Pan Devulcanizer Signature: Date/Time: Relationship to Patient: Witness Name/Signature: Date/Time: [facility] 07-23-2022 Note ORIGINAL NM MYOCARDIAL SPECT [...] Date: 07/23/2022 1:04:20 PM Ordering Provider:Robbin Gamino [facility] 07-23-2022 Note ORIGINAL NM MYOCARDIAL SPECT [...] Date: 07/23/2022 1:04:20 PM Ordering Provider:Robbin Gamino [facility] 07-22-2022 Note Date of Service 07/22/22 Chief Complaint c/o chest pain into left arm since last night History of Present Illness 61-year-old male with past medical history significant for chronic back pain, obesity, tobacco use, GERD. Patient presented to [facility] emergency department on 07/22/2022 with a [...] by ROBBIN GAMINO on 07/22/2022 07:03 PM [facility] 1. Chest pain 2. Chronic pain [...] ORTIZ MD Location:PM Office Appointment Type:PM OV [facility] 03-06-2023 Note ORIGINAL EXAMINATION: ONE XRAY [...] 07/22/2022 1:03:44 PM Ordering Provider: FAWN BARGER [facility]03-06-2023 Note ORIGINAL EXAMINATION: ONE XRAY VIEW [...] Sign Date: 07/22/2022 1:03:44 PM [facility] No data available for this section [facility] Evaluation + Plan note Future Appointments Appointment Date:12/27/2021 08:30:00 AM Scheduled Provider:ZECHARIAH RAMOS Location:PM Office Appointment Type:PM OV RICHARD AT [facility] Evaluation + Plan note Future Appointments Appointment Date:03/19/2022 12:30:00 PM Scheduled Provider:ZECHARIAH RAMOS Location:PM Office Appointment Type:PM OV [facility] AT [facility] Evaluation + Plan note Future Appointments Appointment Date:05/22/2022 09:30:00 AM Scheduled Provider:ZECHARIAH RAMOS Location:PM Office Appointment Type:PM OV [facility] AT [facility] Evaluation + Plan note Future Appointments Appointment Date:07/24/2022 09:30:00 AM Scheduled Provider:ZECHARIAH RAMOS Location:PM Office Appointment Type:PM OV [facility] AT [facility] Pain Management Evaluation + Plan note Future Appointments Appointment Date:2022 08:30:00 AM Scheduled Provider:ERINN ORTIZ MD Location:PM Office Appointment Type:PM OV [facility] Pain Management Evaluation + Plan note Future Appointments Appointment Date:12/25/2022 08:20:00 AM Scheduled Provider:ZECHARIAH RAMOS APRN-[employer] Location:PM Office Appointment Type:PM OV [facility] AT [facility] Evaluation + Plan note Future Appointments Appointment Date:01/24/2023 08:10:00 AM Scheduled Provider:ZECHARIAH RAMOS Location:PM Office Appointment Type:PM OV [facility] AT [facility] Evaluation + Plan note Future Appointments Appointment Date:07/03/2023 06:50:00 AM Scheduled Provider:ERINN ORTIZ MD Location:PM Office Appointment Type:PM OV [facility] Hospital Discharge instructions No data available for this section [facility] Note* Roosevelt Louise: PERFORM Event Display: Pain Management Treatment Agreement Authored Date: [id number] [facility] progress note No data available for this section [facility] Summary Purpose Family History No Family History Records Found Advance Directives No Advanced Directives Records Found Additional Source Comments Care Team (unrecognized sect ion and content) Personnel Name: AMEENA CLARKE MD Address: [facility] [address] [place] [address]- Care Team Personnel Name: AMEENA CLARKE MD Member Role: Primary Care Physician Address: Address: [facility] [address] [place] [address]- Care Team Related Persons Name: JACOB JOHNSON Address: Home [address] [place] [address] Care Team Personnel Name: AMEENA CLARKE MD Member Role: Primary Care Physician Address: Address: [facility] [address] [place] [address]- [place] Name: EVERARDO ZALDIVAR DO Position: ED Physician Member Role: Attending Physician Address: Address: [facility] [address] [place] [address]- [place] Care Team Related Persons Name: JACOB JOHNSON Address: Home [address] [place] [address] [place] Care Team Personnel Name: AMEENA CLARKE MD Member Role: Primary Care Physician Address: Address: [facility] [address] [place] [address]- Care Team Related Persons Name: JACOB JOHNSON Address: Home [address] [place] [address] [place] Care Team (unrecognized sect ion and content) Care Team Personnel Name: AMEENA CLARKE MD Member Role: Primary Care Physician Address: Address: [facility] [address] [place] [address]- Care Team Related Persons Name: JACOB JOHNSON Address: Home [address] Care Team Personnel Name: AMEENA CLARKE MD Member Role: Primary Care Physician Address: Address: [facility] [address] [place] [address]- Care Team Related Persons Name: ANAIS JOHNSONI Address: Home [address] [place] [address] [place] Care Team Personnel Name: AMEENA CLARKE MD Member Role: Primary Care Physician Address: Address: [facility] [place] [address]- Care Team Related Persons Name: JACOB JOHNSON Address: Home [address] [place] [address] [place] Care Team Personnel Name: AMEENA CLARKE MD Member Role: Primary Care Physician Address: Address: [facility] [place] [address]- Care Team Related Persons Name: ANAIS JOHNSONI Address: Home [address] [place] [address] [place] Care Team Personnel Name: AMEENA CLAKRE MD Member Role: Primary Care Physician Address: Address: [facility] [address] [place] [address]- Name: JESS Lorenzo Position: AO RN Member Role: ED RN Name: Katharine Gan Coder Position: HIM: Coders Member Role: HIM: Coders Name: MD FAWN BARGER MD Position: ED Physician Member Role: ED Physician Address: Address: [facility] [address] [place] [address]- Care Team Related Persons Name: JACOB JOHNSON Address: Home [address] [place] [address] (unrecognized sect ion and content) No Status [...] BE BASED ON THE PRIMARY CLINICAL RECORDS. [facility] [employer] [facility]. provides no warranty or guarantee of the accuracy or completeness of information in this document.
[2023-07-07 11:15] LABS: Absolute Lymphocyte Count 2.14 X10^3/uL (0.83-4.51); Absolute Neutrophil Count 5.2 X10^3/uL (2.0-7.7); Basophil# 0.05 X10^3/uL; Basophil% 0.6 % (0-1); Eosinophil# 0.18 X10^3/uL; Eosinophils% 2.2 % (0-5); Lymphocyte # 2.14 X10^3/ul (0.83-4.51); Lymphocyte % 25.6 % (19-41); Mean Corp Hgb Conc 32.6 g/dL (32-36); Mean Platelet Vol. 9.8 fl (6.2-12.0); Monocyte# 0.81 X10^3/uL; Monocyte% 9.7 % (0-10); NRBC Flagged by Analyzer 0 % (0-5); Neutrophil # 5.16 X10^3/uL (2.7-7.7); Neutrophil % 61.5 % (47-70); Platelet Count 201 K/mm3 (150-450); RBC Distribution Width CV 12.8 % (11.6-14.6); RBC Distribution Width SD 42.7 fl (35.1-43.9); White Blood Count 8.4 K/mm3 (4.4-11.0)
[2023-07-07 12:06] LABS: ALB/GLOB Ratio 1.1 RATIO (0.9-2.4); AST(SGOT) 21 U/L (15-37); Alanine Aminotransfer ALT/SGPT 40 U/L (16-61); Albumin, Serum 3.7 g/dL (3.2-5.0); Alkaline Phosphatase 100 U/L (45-117); Anion Gap 3 (5-15); BUN 17 mg/dL (7-18); BUN/Creat Ratio 22.5 RATIO (10-20); Calcium,Total 8.7 mg/dL (8.5-10.1); Chloride 110 mmol/L (98-107); Creatinine, Serum 0.76 mg/dL (0.70-1.30); EST Glomerular Filtration Rate 110 mL/min (>60); Est Glom Filt Rate - Afr Amer 133 mL/min (>60); Globulin 3.5 g/dL (2.2-4.2); Glucose 111 mg/dL (74-106); Potassium 4.1 mmol/L (3.5-5.1); Protein, Total 7.2 g/dL (6.4-8.2); Sodium Level 139 mmol/L (136-145); Thyroid Stim Hormone (TSH) 0.88 uIU/mL (0.358-3.74)
== END | disposition home or self-care (01) ==
PROVIDERS: PCP Family Medicine Geriatric Medicine; Visit Provider Family Medicine Geriatric Medicine
DX: E11.65 Type 2 diabetes mellitus with hyperglycemia (principal); I10 Essential (primary) hypertension
CPT/HCPCS: 36415; 80053; 84443; 85025

== ENCOUNTER → 2023-12-08 | Outpatient (CLI) | payer BC, MEDICARE, SELFPAY ==
--- NOTE | 2023-12-08 12:25 | RAD_ITS ---
STUDY: X-RAY - ABDOMEN/PELVIS REASON FOR EXAM: Male, 63 years old. DIVERTICULITIS TECHNIQUE: AP supine and upright views of the abdomen and pelvis. COMPARISON: None. FINDINGS: Normal visualized lung bases. There is a moderate amount of colonic fecal material. There is no demonstrated free abdominal air. The visualized liver, spleen and kidneys are grossly normal in size and morphology. Normal soft tissue structures. There are diffuse degenerative changes of the visualized lumbar spine. RAD/Abd Inc Decub and/or Erect IMPRESSION: Moderate amount of fecal material is seen throughout the colon. Electronically Signed: Moy Simeon MD at 9:36 EDT ,
[2023-12-08 12:32] LABS: Absolute Lymphocyte Count 2.07 X10^3/uL (0.83-4.51); Absolute Neutrophil Count 5.8 X10^3/uL (2.0-7.7); Basophil# 0.03 X10^3/uL; Basophil% 0.3 % (0-1); Eosinophil# 0.13 X10^3/uL; Eosinophils% 1.5 % (0-5); Hematocrit 46.5 % (40-54); Hemoglobin 15.4 g/dL (13.0-16.5); Lymphocyte # 2.07 X10^3/ul (0.83-4.51); Lymphocyte % 23.4 % (19-41); Mean Corp Hgb Conc 33.1 g/dL (32-36); Mean Corpuscular Hgb 29.8 pg (27.0-32.0); Mean Corpuscular Volume 90.1 fL (80-94); Mean Platelet Vol. 9.1 fl (6.2-12.0); Monocyte# 0.74 X10^3/uL; Monocyte% 8.4 % (0-10); NRBC Flagged by Analyzer 0 % (0-5); Neutrophil # 5.84 X10^3/uL (2.7-7.7); Neutrophil % 66.2 % (47-70); Platelet Count 232 K/mm3 (150-450); RBC Distribution Width CV 13.1 % (11.6-14.6); RBC Distribution Width SD 43.6 fl (35.1-43.9); Red Blood Count 5.16 M/mm3 (4.6-6.2); White Blood Count 8.8 K/mm3 (4.4-11.0)
[2023-12-08 13:02] LABS: ALB/GLOB Ratio 0.8 RATIO (0.9-2.4); AST(SGOT) 15 U/L (15-37); Alanine Aminotransfer ALT/SGPT 23 U/L (16-61); Albumin, Serum 3.4 g/dL (3.2-5.0); Alkaline Phosphatase 101 U/L (45-117); Anion Gap 3 (5-15); BUN 14 mg/dL (7-18); BUN/Creat Ratio 19.9 RATIO (10-20); Calcium,Total 8.9 mg/dL (8.5-10.1); Chloride 108 mmol/L (98-107); EST Glomerular Filtration Rate 120 mL/min (>60); Est Glom Filt Rate - Afr Amer 145 mL/min (>60); Glucose 117 mg/dL (74-106); Potassium 4.1 mmol/L (3.5-5.1); Protein, Total 7.4 g/dL (6.4-8.2); Sodium Level 137 mmol/L (136-145)
== END | disposition home or self-care (01) ==
PROVIDERS: PCP Family Medicine Geriatric Medicine; Referring Provider Family Medicine Geriatric Medicine; Visit Provider Family Medicine Geriatric Medicine
DX: R53.83 Other fatigue (principal); E78.5 Hyperlipidemia, unspecified; K57.32 Diverticulitis of large intestine without perforation or abscess without bleeding
CPT/HCPCS: 36415; 74019; 80053; 85025

== ENCOUNTER → 2023-12-17 | Outpatient (CLI) | payer BC, MEDICARE, SELFPAY ==
[2023-12-16 22:29] LABS: Absolute Lymphocyte Count 2.57 X10^3/uL (0.83-4.51); Basophil# 0.07 X10^3/uL; Basophil% 0.5 % (0-1); Eosinophil# 0.12 X10^3/uL; Eosinophils% 0.8 % (0-5); Hematocrit 45.1 % (40-54); Hemoglobin 15.2 g/dL (13.0-16.5); Lymphocyte # 2.57 X10^3/ul (0.83-4.51); Lymphocyte % 16.9 % (19-41); Mean Corp Hgb Conc 33.7 g/dL (32-36); Mean Corpuscular Hgb 30.2 pg (27.0-32.0); Mean Corpuscular Volume 89.5 fL (80-94); Mean Platelet Vol. 9.4 fl (6.2-12.0); Monocyte# 1.37 X10^3/uL; NRBC Flagged by Analyzer 0 % (0-5); Neutrophil # 11.01 X10^3/uL (2.7-7.7); Neutrophil % 72.5 % (47-70); Platelet Count 241 K/mm3 (150-450); RBC Distribution Width CV 13.1 % (11.6-14.6); Red Blood Count 5.04 M/mm3 (4.6-6.2); White Blood Count 15.2 K/mm3 (4.4-11.0)
[2023-12-16 22:41] LABS: ALB/GLOB Ratio 0.9 RATIO (0.9-2.4); AST(SGOT) 17 U/L (15-37); Alanine Aminotransfer ALT/SGPT 27 U/L (16-61); Albumin, Serum 3.6 g/dL (3.2-5.0); Alkaline Phosphatase 113 U/L (45-117); Anion Gap 6 (5-15); BUN 13 mg/dL (7-18); BUN/Creat Ratio 16.4 RATIO (10-20); Chloride 107 mmol/L (98-107); EST Glomerular Filtration Rate 104 mL/min (>60); Est Glom Filt Rate - Afr Amer 126 mL/min (>60); Globulin 3.9 g/dL (2.2-4.2); Glucose 98 mg/dL (74-106); Potassium 3.9 mmol/L (3.5-5.1); Protein, Total 7.5 g/dL (6.4-8.2); Sodium Level 138 mmol/L (136-145)
== END | disposition home or self-care (01) ==
LOC: POLAB3 07:11
PROVIDERS: PCP Family Medicine Geriatric Medicine; Referring Provider Family Medicine Geriatric Medicine; Visit Provider Family Medicine Geriatric Medicine
DX: I10 Essential (primary) hypertension (principal)
CPT/HCPCS: 36415; 80053; 85025

== ENCOUNTER → 2023-12-17 | Outpatient (CLI) | payer BC, MEDICARE, SELFPAY ==
--- NOTE | 2023-12-17 10:01 | CT_ITS ---
STUDY: CT ABDOMEN AND PELVIS WITH CONTRAST REASON FOR EXAM: Male, 63 years old. Lower abdominal pain with cramping. History of diverticulitis and esophageal mass. RADIATION DOSAGE (If Supplied By Facility): CTDIvol = ( 16.71 ) mGy, DLP = ( 1310.20 ) mGycm TECHNIQUE: Transaxial images were obtained from the dome of the diaphragm to the symphysis pubis with oral contrast. Oral and amp; IV Gastrografin and amp; 100mL Isovue-300 was administered. Sagittal and coronal images were reconstructed. Individualized dose optimization techniques were used for this CT. COMPARISON: Comparison is made with prior study dated June 05, 2022. FINDINGS: Mild increased linear markings in the anterior aspect of the right middle lobe and lingular segment of the left upper lobe suggestive of scarring. Minimal right lateral pericardial thickening. There is decreased attenuation of the liver consistent with steatosis. Normal gallbladder and extrahepatic biliary system. Normal spleen. Normal pancreas. Normal bilateral adrenal glands. Normal right kidney. Normal left kidney. Normal visualized stomach. Normal small intestine. There is diverticulosis, with thickening of the colon wall, and pericolonic inflammation changes consistent with acute diverticulitis. The appendix is visualized and appears normal. There is scattered atherosclerotic calcification of the abdominal aorta, without a demonstrated aneurysm. Normal inferior vena cava. Normal retroperitoneum. Normal urinary bladder. There are prostatic calcifications. Normal abdominal wall. There are degenerative changes of the visualized lumbar spine. CT/Abdomen/Pelvis WITH Contrast IMPRESSION: Mild degree of acute sigmoid diverticulitis. No evidence of fluid collection. Electronically Signed: Moy Simeon MD at 12:39 EDT ,
== END | disposition home or self-care (01) ==
LOC: CT 10:00
PROVIDERS: PCP Family Medicine Geriatric Medicine; Referring Provider Family Medicine Geriatric Medicine; Visit Provider Family Medicine Geriatric Medicine
DX: I10 Essential (primary) hypertension (principal); R10.9 Unspecified abdominal pain
CPT/HCPCS: 74177; Q9967; A4216

== ENCOUNTER → 2024-02-05 | Outpatient (CLI) | payer BC, MEDICARE, SELFPAY ==
[2024-02-05 14:31] LABS: Absolute Lymphocyte Count 2.42 X10^3/uL (0.83-4.51); Absolute Neutrophil Count 6.3 X10^3/uL (2.0-7.7); Basophil# 0.04 X10^3/uL; Basophil% 0.4 % (0-1); Eosinophil# 0.16 X10^3/uL; Eosinophils% 1.6 % (0-5); Hematocrit 44.1 % (40-54); Hemoglobin 14.8 g/dL (13.0-16.5); Lymphocyte # 2.42 X10^3/ul (0.83-4.51); Lymphocyte % 24.6 % (19-41); Mean Corp Hgb Conc 33.6 g/dL (32-36); Mean Corpuscular Hgb 30.4 pg (27.0-32.0); Mean Corpuscular Volume 90.6 fL (80-94); Mean Platelet Vol. 9.4 fl (6.2-12.0); Monocyte# 0.95 X10^3/uL; Monocyte% 9.6 % (0-10); NRBC Flagged by Analyzer 0 % (0-5); Neutrophil # 6.25 X10^3/uL (2.7-7.7); Neutrophil % 63.5 % (47-70); Platelet Count 206 K/mm3 (150-450); RBC Distribution Width CV 13.3 % (11.6-14.6); RBC Distribution Width SD 44.1 fl (35.1-43.9); Red Blood Count 4.87 M/mm3 (4.6-6.2); White Blood Count 9.9 K/mm3 (4.4-11.0)
[2024-02-05 14:53] LABS: Vitamin D,25 Hydroxy 15.8 ng/mL
[2024-02-05 14:59] LABS: ALB/GLOB Ratio 0.9 RATIO (0.9-2.4); AST(SGOT) 19 U/L (15-37); Alanine Aminotransfer ALT/SGPT 24 U/L (16-61); Albumin, Serum 3.4 g/dL (3.2-5.0); Alkaline Phosphatase 97 U/L (45-117); Anion Gap 7 (5-15); BUN 15 mg/dL (7-18); BUN/Creat Ratio 15.4 RATIO (10-20); Calcium,Total 9.2 mg/dL (8.5-10.1); Chloride 111 mmol/L (98-107); Creatinine, Serum 0.98 mg/dL (0.70-1.30); EST Glomerular Filtration Rate 82 mL/min (>60); Est Glom Filt Rate - Afr Amer 99 mL/min (>60); Globulin 3.9 g/dL (2.2-4.2); Glucose 96 mg/dL (74-106); PSA,Total - Annual Screen 0.96 ng/mL (0.00-4.00); Potassium 4.1 mmol/L (3.5-5.1); Protein, Total 7.3 g/dL (6.4-8.2); Sodium Level 142 mmol/L (136-145); Thyroid Stim Hormone (TSH) 0.971 uIU/mL (0.358-3.740)
== END | disposition home or self-care (01) ==
LOC: POLAB3 14:19
PROVIDERS: PCP Family Medicine Geriatric Medicine; Visit Provider Family Medicine Geriatric Medicine
DX: I10 Essential (primary) hypertension (principal); E11.65 Type 2 diabetes mellitus with hyperglycemia; E55.9 Vitamin D deficiency, unspecified; Z12.5 Encounter for screening for malignant neoplasm of prostate
CPT/HCPCS: 36415; 80053; 82306; 84153; 84443; 85025; G0103

== ENCOUNTER → 2024-03-30 | Outpatient (CLI) | payer BC, MEDICARE, SELFPAY | END | disposition home or self-care (01) | LOC: POLAB3 16:09 | PROVIDERS: PCP Family Medicine Geriatric Medicine; Visit Provider Family Medicine Geriatric Medicine | DX: R68.83 Chills (without fever) (principal) | CPT/HCPCS: 36415; 87631 ==

== ENCOUNTER → 2024-04-29 | Outpatient (CLI) | payer BC, MEDICARE, SELFPAY | END | disposition home or self-care (01) | LOC: POLAB3 14:03 | PROVIDERS: PCP Family Medicine Geriatric Medicine; Visit Provider Family Medicine Geriatric Medicine | DX: R68.83 Chills (without fever) (principal) | CPT/HCPCS: 87631 ==

== ENCOUNTER → 2024-06-01 | Outpatient (CLI) | payer BC, MEDICARE, SELFPAY | END | disposition home or self-care (01) | LOC: POLAB3 11:45 | PROVIDERS: PCP Family Medicine Geriatric Medicine; Visit Provider Family Medicine Geriatric Medicine | DX: R68.83 Chills (without fever) (principal) ==

== ENCOUNTER → 2024-07-02 | Outpatient (CLI) | payer BC, MEDICARE, SELFPAY ==
--- NOTE | 2024-07-02 07:50 | RAD_ITS ---
EXAM: XR Right Ribs and AP Chest, 3 or More Views CLINICAL INDICATION: TECHNIQUE: Frontal and oblique views of the right ribs and frontal view of the chest. COMPARISON: No relevant prior studies available. FINDINGS: LUNGS AND PLEURAL SPACES: Unremarkable. No consolidation. No pneumothorax. HEART: Unremarkable. No cardiomegaly. MEDIASTINUM: Unremarkable. Normal mediastinal contour. BONES/JOINTS: Unremarkable. No displaced rib fractures. RAD/Ribs Uni Min 3V w/PA Chest IMPRESSION: No displaced rib fractures. Reading [facility]
== END | disposition home or self-care (01) ==
LOC: RAD 07:44
PROVIDERS: PCP Family Medicine Geriatric Medicine; Referring Provider Family Medicine Geriatric Medicine; Visit Provider Family Medicine Geriatric Medicine
DX: R07.81 Pleurodynia (principal)
CPT/HCPCS: 71101

== ENCOUNTER → 2024-08-04 | Outpatient (CLI) | payer BC, MEDICARE, SELFPAY ==
[2024-08-04 13:30] LABS: Absolute Lymphocyte Count 2.59 X10^3/uL (0.83-4.51); Basophil# 0.05 X10^3/uL; Basophil% 0.4 % (0-1); Eosinophil# 0.16 X10^3/uL; Eosinophils% 1.3 % (0-5); Hematocrit 43.9 % (40-54); Lymphocyte # 2.59 X10^3/ul (0.83-4.51); Lymphocyte % 21.8 % (19-41); Mean Corp Hgb Conc 34.2 g/dL (32-36); Mean Corpuscular Hgb 31.1 pg (27.0-32.0); Mean Corpuscular Volume 90.9 fL (80-94); Mean Platelet Vol. 8.8 fl (6.2-12.0); Monocyte# 1.02 X10^3/uL; Monocyte% 8.6 % (0-10); NRBC Flagged by Analyzer 0 % (0-5); Neutrophil # 8.03 X10^3/uL (2.7-7.7); Neutrophil % 67.6 % (47-70); Platelet Count 219 K/mm3 (150-450); RBC Distribution Width CV 13.4 % (11.6-14.6); Red Blood Count 4.83 M/mm3 (4.6-6.2); White Blood Count 11.9 K/mm3 (4.4-11.0)
[2024-08-04 14:12] LABS: ALB/GLOB Ratio 1.4 RATIO (0.9-2.4); AST(SGOT) 22 U/L (<=37); Alanine Aminotransfer ALT/SGPT 20 U/L (<=46); Albumin, Serum 4.2 g/dL (3.4-4.8); Alkaline Phosphatase 94 U/L (40-129); Anion Gap 10 (5-15); BUN 12 mg/dL (4-19); BUN/Creat Ratio 14.6 RATIO (10-20); Calcium,Total 9.1 mg/dL (7.6-11.0); Carbon Dioxide 23.7 mmol/L (21.0-32.0); Chloride 106 mmol/L (98-108); Creatinine, Serum 0.79 mg/dL (0.70-1.20); EST Glomerular Filtration Rate 99 (>60); Glucose 109 mg/dL (70-99); Protein, Total 7.1 g/dL (5.9-8.4); Sodium Level 139 mmol/L (133-145); Total Bilirubin 0.34 mg/dL (0.00-1.30)
[2024-08-04 14:44] LABS: Thyroid Stim Hormone (TSH) 0.846 uIU/mL (0.300-4.200)
== END | disposition home or self-care (01) ==
LOC: POLAB3 13:13
PROVIDERS: PCP Family Medicine Geriatric Medicine; Visit Provider Family Medicine Geriatric Medicine
DX: E11.65 Type 2 diabetes mellitus with hyperglycemia (principal); I10 Essential (primary) hypertension; E55.9 Vitamin D deficiency, unspecified; R68.83 Chills (without fever)
CPT/HCPCS: 36415; 80053; 82306; 84443; 85025; 87631

== ENCOUNTER → 2024-09-22 | Outpatient (CLI) | payer BC, MEDICARE, SELFPAY | END | disposition home or self-care (01) | LOC: LABSPEC 17:08 | PROVIDERS: PCP Family Medicine Geriatric Medicine; Visit Provider Family Medicine Geriatric Medicine | DX: R50.9 Fever, unspecified (principal) | CPT/HCPCS: 87631 ==

== ENCOUNTER → 2024-10-18 | Outpatient (CLI) | payer BC, MEDICARE, SELFPAY ==
--- NOTE | 2024-10-18 11:08 | RAD_ITS ---
EXAM: XR Abdomen, 2 Views CLINICAL INDICATION: FECAL IMPACTION TECHNIQUE: Frontal view of the abdomen/pelvis with upright view of the abdomen. COMPARISON: No relevant prior studies available. FINDINGS: INTRAPERITONEAL SPACE: No free air. GASTROINTESTINAL TRACT: Fecal retention in the colon consistent with constipation. No dilation. BONES/JOINTS: Unremarkable. No acute fracture. RAD/Abd Inc Decub and/or Erect IMPRESSION: Fecal retention in the colon consistent with constipation. Reading Location[facility]
[2024-10-18 13:19] LABS: ALB/GLOB Ratio 1.5 RATIO (0.9-2.4); AST(SGOT) 23 U/L (<=37); Alanine Aminotransfer ALT/SGPT 22 U/L (<=46); Albumin, Serum 4.3 g/dL (3.4-4.8); Alkaline Phosphatase 88 U/L (40-129); Anion Gap 12 (5-15); BUN 13 mg/dL (4-19); BUN/Creat Ratio 17.8 RATIO (10-20); CORTISOL AM 6.81 ug/dL (6.02-18.40); Calcium,Total 9.1 mg/dL (7.6-11.0); Carbon Dioxide 22.1 mmol/L (21.0-32.0); Chloride 104 mmol/L (98-108); Creatinine, Serum 0.71 mg/dL (0.70-1.20); EST Glomerular Filtration Rate 101 (>60); Globulin 2.8 g/dL (2.2-4.2); Glucose 109 mg/dL (70-99); Potassium 4.5 mmol/L (3.3-5.1); Protein, Total 7.1 g/dL (5.9-8.4); Sodium Level 138 mmol/L (133-145); Total Bilirubin 0.45 mg/dL (0.00-1.30); Troponin T High Sensitivity 7 ng/L (<=22)
[2024-10-18 14:03] LABS: Absolute Lymphocyte Count 2.01 X10^3/uL (0.83-4.51); Absolute Neutrophil Count 7.4 X10^3/uL (2.0-7.7); Basophil# 0.05 X10^3/uL; Basophil% 0.5 % (0-1); Eosinophil# 0.11 X10^3/uL; Hemoglobin 14.7 g/dL (13.0-16.5); Lymphocyte # 2.01 X10^3/ul (0.83-4.51); Lymphocyte % 19.1 % (19-41); Mean Corp Hgb Conc 34.2 g/dL (32-36); Mean Corpuscular Hgb 31.7 pg (27.0-32.0); Mean Corpuscular Volume 92.7 fL (80-94); Mean Platelet Vol. 9.4 fl (6.2-12.0); Monocyte# 0.89 X10^3/uL; Monocyte% 8.5 % (0-10); NRBC Flagged by Analyzer 0 % (0-5); Neutrophil # 7.41 X10^3/uL (2.7-7.7); Neutrophil % 70.5 % (47-70); Platelet Count 225 K/mm3 (150-450); RBC Distribution Width CV 12.9 % (11.6-14.6); RBC Distribution Width SD 43.9 fl (35.1-43.9); Red Blood Count 4.64 M/mm3 (4.6-6.2); White Blood Count 10.5 K/mm3 (4.4-11.0)
[2024-10-20 04:07] LABS: Myoglobin, Serum 41 ng/mL (28-72)
== END | disposition home or self-care (01) ==
LOC: RAD 10:58
PROVIDERS: PCP Family Medicine Geriatric Medicine; Referring Provider Family Medicine Geriatric Medicine; Visit Provider Family Medicine Geriatric Medicine
DX: K56.41 Fecal impaction (principal); R07.9 Chest pain, unspecified
CPT/HCPCS: 36415; 74019; 80053; 82533; 83874; 84484; 85025

== ENCOUNTER → 2024-10-19 | Outpatient (CLI) | payer BC, MEDICARE, SELFPAY ==
[2024-10-19 09:06] LABS: CPK Total, Creatine Kinase 179 U/L (24-195); Troponin T High Sensitivity 9 ng/L (<=22)
[2024-10-20 04:07] LABS: Myoglobin, Serum 47 ng/mL (28-72)
== END | disposition home or self-care (01) ==
LOC: LAB 07:27
PROVIDERS: PCP Family Medicine Geriatric Medicine; Referring Provider Family Medicine Geriatric Medicine; Visit Provider Family Medicine Geriatric Medicine
DX: R07.9 Chest pain, unspecified (principal)
CPT/HCPCS: 36415; 82550; 83874; 84484

== ENCOUNTER 2024-10-26 19:42 | Emergency (ER) | payer BC, MEDICARE, SELFPAY ==
[2024-10-26 19:43] VITALS: BP 152/95; PULSE 97; RESP 18; TEMP 36.3; O2SAT 95
[2024-10-26 19:47] VITALS: BMI 33.9
--- NOTE | 2024-10-26 19:55 | EKG12_ITS ---
Test Reason : CP Blood Pressure : */* mmHG Vent. Rate : 78 BPM Atrial Rate : 78 BPM P-R Int : 144 ms QRS Dur : 76 ms QT Int : 352 ms P-R-T Axes : 58 52 53 degrees QTcB Int : 401 ms Normal sinus rhythm Normal ECG Confirmed by Neo Caro ([id number]), editor news PREETI REYES ([id number]) on 10/28/2024 6:47:37 AM Referred By: Confirmed By: Neo Caro
--- NOTE | 2024-10-26 20:42 | RAD_ITS ---
PROCEDURE: CHEST 1 VIEW (PORTABLE) 10/26/2024 REASON FOR EXAM: CHEST PAIN TECHNIQUE: Frontal view of the chest. COMPARISON: Chest radiographs 07/02/2024 FINDINGS: Hardware: None Heart: Cardiac and mediastinal contours are stable. Lungs: The lungs are clear. No significant pleural effusion. Bones: Degenerative changes are identified within the thoracic spine. Unchanged widening of the right acromioclavicular joint. RAD/Chest 1 View (Portable) IMPRESSION: No acute cardiopulmonary abnormality. Reading Location: [id number]
[2024-10-26 20:43] VITALS: BP 144/97; PULSE 74; RESP 16; O2SAT 97
[2024-10-26 20:52] LABS: Absolute Lymphocyte Count 2.62 X10^3/uL (0.83-4.51); Absolute Neutrophil Count 7.1 X10^3/uL (2.0-7.7); Basophil# 0.03 X10^3/uL; Basophil% 0.3 % (0-1); Eosinophil# 0.12 X10^3/uL; Eosinophils% 1.1 % (0-5); Hemoglobin 14.9 g/dL (13.0-16.5); Lymphocyte # 2.62 X10^3/ul (0.83-4.51); Lymphocyte % 24.1 % (19-41); Mean Corp Hgb Conc 34.7 g/dL (32-36); Mean Corpuscular Hgb 31.3 pg (27.0-32.0); Mean Corpuscular Volume 90.3 fL (80-94); Monocyte# 0.96 X10^3/uL; Monocyte% 8.8 % (0-10); NRBC Flagged by Analyzer 0 % (0-5); Neutrophil # 7.12 X10^3/uL (2.7-7.7); Neutrophil % 65.4 % (47-70); Platelet Count 220 K/mm3 (150-450); RBC Distribution Width CV 12.9 % (11.6-14.6); RBC Distribution Width SD 42.5 fl (35.1-43.9); Red Blood Count 4.76 M/mm3 (4.6-6.2); White Blood Count 10.9 K/mm3 (4.4-11.0)
--- NOTE | 2024-10-26 20:52 | ED.VIS.CHEST ---
HPI History of Present Illness Chief Complaint: Chest Pain Detail of Chief Complaint: Chest pressure. Informant: patient Onset/Context/Timing Onset: Days Activity at onset: sudden and rest Timing: Intermittent Quality: Positive for Aching and Pressure Location: Substernal Current Severity: Mild Maximum Severity: Moderate Worsened By: Nothing Relieved By: Nothing Associated Symptoms: Positive for - (No radiation of the discomfort.); Negative for Nausea, Vomiting, Diaphoresis, Dyspnea, Cough, Fever, Lightheadedness, Acid Reflux or Palpitations Narrative Narrative: Patient is a 64-year-old male. He was a smoker of 40+ years. He quit 4 years ago. He presents with an aching pressure sensation middle of his chest. This occurred at rest. This has been going on for a couple of days.'s been intermittent. He has been seen by his primary care physician Dr. Acevedo. He had troponin level drawn on the and that was normal. The only other abnormality was slight elevation of his glucose. Patient does have history of GERD. He does not sleep with his bed elevated. He was not made aware there are certain foods when should not eat and he should not having the eat 2 to 3 hours prior to going to bed. He denies black or maroon-colored stool. He denies any associated symptoms with the chest discomfort or radiation of the chest discomfort. Patient does have history of gout, bronchospasm, BPH and GERD. He was given samples of a new medication last week. He states the medicine is not helping. He was on Protonix. Patient denies any other symptoms. Prior Similar Symptoms: Yes (According to patient he was not told what was the cause of his pain.) Recent Illness/Hospitalization: Yes CVD Risk Factors: Positive for Smoking; Negative for Hypertension, Diabetes or Family History 1' </=55 PE Risk Factors: Negative for Recent Travel/Surgery, Recent Immobilization, Prior DVT or PE, Cancer or OCP + Smoking + >/=35 TAD Risk Factors: Negative for Marfan's Syndrome, Hypertension or Family History [facility] Medical History (Updated 10/26/24 @ 23:[address] Sohail Jordan MD) Arthritis of right acromioclavicular joint Nicotine dependence Obesity DDD (degenerative disc disease), lumbar Chronic back pain Medical History no medical history no medical history Home Medications ?Medication ?Instructions ?Recorded ?Last Taken ?Type albuterol sulfate 90 mcg/actuation 1 puff inhalation PRN PRN Sob &/Or 01/29/19 Unknown History aerosol inhaler Wheezing #8 grams tizanidine 4 mg tablet 4 mg PO PRN PRN muscle relaxant 01/29/19 Unknown History #90 tabs hydrocodone 7.5 mg-acetaminophen 1 tab PO DAILY PRN pain 10/06/19 Unknown History 325 mg tablet colchicine 0.6 mg tablet 0.6 mg PO QDAY PRN gout 04/26/24 Unknown History tamsulosin 0.4 mg capsule 0.4 mg PO QDAY 04/26/24 Unknown History acetaminophen 325 mg tablet 650 mg PO Q6H PRN fever or pain 10/26/24 Unknown History (Aminofen) loratadine 10 mg tablet 10 mg PO DAILY 10/26/24 Unknown History (Allerclear) meloxicam 15 mg tablet 15 mg PO DAILY 10/26/24 Unknown History pantoprazole 40 mg tablet,delayed 40 mg PO DAILY 10/26/24 Unknown History release sennosides 8.6 mg-docusate sodium 2 tab PO BID 10/26/24 Unknown History 50 mg tablet (Stool Softener-Stimulant Laxative) sucralfate 1 gram tablet 1 g PO .AC and at bedtime 30 days 10/26/24 Unknown Rx #120 tabs Allergy/AdvReac Type Severity Reaction Status Date / Time No Known Allergies Allergy Verified 10/26/24 19:43 Surgical History History of back surgery History of arthroscopic procedure on shoulder (03/2019) Social History Smoking Status: Former smoker quit date: 07/18/19 Tobacco: How many years used: 30 ROS ROS ED Constitutional Constitutional ED: Denies chills, fever(s), subjective or sweats Eyes Eyes: Reports none ENT ENT ED: Denies rhinorrhea or sore throat Cardiovascular Cardiovascular: Reports as per HPI; Denies orthopnea or paroxysmal nocturnal dyspnea Respiratory/Chest Respiratory/Chest: Denies cough, dyspnea, dyspnea on exertion, orthopnea or paroxysmal nocturnal dyspnea Gastrointestinal Gastrointestinal: Denies abdominal pain, constipation, diarrhea, melena, nausea or vomiting Musculoskeletal Musculoskeletal: Denies arthralgias, back pain or myalgias Integumentary Denies rash Neurologic Neurologic: Denies paresthesias or weakness Hematologic/Lymphatic Hematologic/Lymphatic: Denies easy bleeding or easy bruising EXAM Physical Exam Const Vital Signs: 10/26/24 19:43 10/26/24 19:55 10/26/24 20:43 Temperature 97.4 F L Temperature Source Temporal Pulse Rate 97 74 Respiratory Rate 18 16 Blood Pressure 152/95 H 144/97 H Blood Pressure Mean 114 112 Pulse Ox 95 97 Oxygen Delivery Method Room Air Room Air 10/26/24 21:00 10/26/24 22:00 10/26/24 23:00 Temperature Temperature Source Pulse Rate 68 63 64 Respiratory Rate 16 18 18 Blood Pressure 137/89 H 138/86 H 134/84 H Blood Pressure Mean 105 103 100 Pulse Ox 97 97 94 Oxygen Delivery Method Room Air Room Air Positive well nourished and well developed Constitutional Narrative: BMI is 34.0. General Appearance ED: well developed and NAD; Negative for pallor HEENT normocephalic and atraumatic Eyes PERRL and EOMs intact bilaterally General Eye ED: Negative for pale conjunctiva or scleral icterus Neck no lymphadenopathy, supple and no JVD Chest Wall inspection of chest normal and palpation of chest normal Resp normal respiratory effort and clear to auscultation bilaterally Effort and Inspection: Negative for pain with movement Cardio regular rate, regular rhythm, S1 normal heart sound, S2 normal heart sound and no murmurs GI normal to inspection, nondistended, normoactive bowel sounds, soft to palpation, non-tender and no masses; Negative for hepatosplenomegaly Back/Spine no CVA tenderness Extremity normal to inspection General Extremety ED: Negative for edema General Extremity: Negative for edema Neuro oriented x3 and CN's II-XII intact bilaterally Neuro Narrative: Moves all extremities. Sensorium / Orientation: awake and alert Psych mental status grossly normal Skin no rashes or lesions noted and no wounds General Skin Exam: Negative for jaundice or pallor MDM MDM MDM Narrative Medical decision making narrative: Cardiac versus noncardiac. Noncardiac would include GERD, peptic ulcer disease, pulmonary. Nurse protocol orders were placed which included EKG, chest x-ray and appropriate blood work. History & Record Review Additional record(s) reviewed:: Prior outpatient record (Office notes and laboratory results from Dr. Acevedo's office were reviewed.) Lab Data Attestation: I reviewed the patient's lab results. Lab results narrative: CBC is unremarkable. Basic metabolic panel reveals slight elevation in glucose to 105 with normal CO2 anion gap. High sensitivity troponin was normal at 8. Labs: Laboratory Results - last 24 hr 10/26/24 20:35 WBC 10.9 RBC 4.76 Hgb 14.9 Hct 43.0 MCV 90.3 MCH 31.3 MCHC 34.7 RDW Std Deviation 42.5 RDW Coeff of Shae 12.9 Plt Count 220 MPV 9.0 Immature Gran % (Auto) 0.300 Neut % (Auto) 65.4 Lymph % (Auto) 24.1 Mcduffie % (Auto) 8.8 Eos % (Auto) 1.1 Baso % (Auto) 0.3 Absolute Neuts (auto) 7.1 Absolute Lymphs (auto) 2.62 Nucleated RBC % 0 Sodium 139 Potassium 3.8 Chloride 104 Carbon Dioxide 22.0 Anion Gap 13 BUN 11 Creatinine 0.79 Estim Creat Clear Calc 115.60 Est GFR (MDRD) Non-Af 98 BUN/Creatinine Ratio 14.4 Glucose 105 H Calcium 9.4 Troponin T High Sens 8 D Radiography Chest X-Ray - ED: 1 View, Read by ED Physician, Unchanged, Normal, Heart, Lungs (Chronic changes with some mild atelectasis.), Mediastinum, Bony Structures, No Acute Disease and Chronic Changes Diagnostic Testing: Clinical Impression(s) from Imaging Studies Chest X-Ray 10/26/24 20:42 IMPRESSION: No acute cardiopulmonary abnormality. Reading Location: [facility] EKG Initial EKG: Attestation: I personally reviewed and interpreted this EKG as follows: Interpretation: Sinus Rhythm (EKG is normal. Rate is 78. AL interval is 144 ms. Cures duration 76 ms. QT duration did not 52 ms. Linn is normal) Treatment and Re-Evaluation :: Patient was given a GI cocktail with improvement. Suspect his chest discomfort is due to his GERD. Prescribed Sucre fate to take in addition to the medicine he is presently taking for his reflux. He also was given lifestyle changes with GERD. All of his questions were answered and he was discharged to home. Discharge Plan Triage Chief Complaint: Chest Pain ED Provider: Sohail Jordan Dx/Rx/DC Orders Clinical Impression: Chest pain due to GERD, Elevated blood-pressure reading without diagnosis of hypertension Instructions: GERD Lifestyle Changes, ED GERD (Adult) Prescriptions: New sucralfate 1 gram tablet 1 g PO .AC and at bedtime 30 Days Qty: 120 0RF No Action tizanidine 4 mg tablet 4 mg PO PRN PRN (Reason: muscle relaxant) Qty: 90 albuterol sulfate 90 mcg/actuation HFA aerosol inhaler 1 puff INHALATION PRN PRN (Reason: Sob &/Or Wheezing) Qty: 8 hydrocodone-acetaminophen 7.5-325 mg tablet 1 tab PO DAILY PRN (Reason: pain) tamsulosin 0.4 mg capsule 0.4 mg PO QDAY colchicine 0.6 mg tablet 0.6 mg PO QDAY PRN (Reason: gout) pantoprazole 40 mg tablet,delayed release (DR/EC) 40 mg PO DAILY meloxicam 15 mg tablet 15 mg PO DAILY sennosides-docusate sodium [Stool Softener-Stimulant Laxat] 8.6-50 mg tablet 2 tab PO BID loratadine [Allerclear] 10 mg tablet 10 mg PO DAILY acetaminophen [Aminofen] 325 mg tablet 650 mg PO Q6H PRN (Reason: fever or pain) Primary Care Provider: Ye Acevedo Chi Referrals: Ye Acevedo Chi, MD [Primary Care Provider] - Print Language: Hungarian Disposition Disposition: Home, Self Care
[2024-10-26 21:00] VITALS: BP 137/89; PULSE 68; RESP 16; O2SAT 97
[2024-10-26] MEDS: Mag Hydrox/Al Hydrox/Simeth 30 ML UDC PO (21:11)
[2024-10-26] MEDS: Lidocaine 2% Viscous15 ML UDC 15 ML PO (21:11)
[2024-10-26 21:13] LABS: Anion Gap 13 (5-15); BUN 11 mg/dL (4-19); BUN/Creat Ratio 14.4 RATIO (10-20); Calcium,Total 9.4 mg/dL (7.6-11.0); Chloride 104 mmol/L (98-108); Creatinine, Serum 0.79 mg/dL (0.70-1.20); EST Glomerular Filtration Rate 98 (>60); Glucose 105 mg/dL (70-99); Potassium 3.8 mmol/L (3.3-5.1); Sodium Level 139 mmol/L (133-145); Troponin T High Sensitivity 8 ng/L (<=22)
[2024-10-26 22:00] VITALS: BP 138/86; PULSE 63; RESP 18; O2SAT 97
[2024-10-26 23:00] VITALS: BP 134/84; PULSE 64; RESP 18; O2SAT 94
[2024-10-27] VITALS: BP 127/89; PULSE 63; RESP 16; TEMP 37.1; O2SAT 99
== END 2024-10-27 00:10 | disposition home or self-care (01) ==
PROVIDERS: Emergency Provider Emergency Medicine; PCP Family Medicine Geriatric Medicine; Visit Provider Emergency Medicine
DX: R07.89 Other chest pain (principal); K21.9 Gastro-esophageal reflux disease without esophagitis; R03.0 Elevated blood-pressure reading, without diagnosis of hypertension; Z79.899 Other long term (current) drug therapy; Z87.891 Personal history of nicotine dependence
CPT/HCPCS: 71045; 80048; 84484; 85025; 93005; 99285; A4216

== ENCOUNTER 2024-11-25 10:12 | Day surgery (SDC) | payer BC, MEDICARE, SELFPAY ==
--- NOTE | 2024-11-24 15:45 | PAT.ANESEVAL ---
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 When Was Last Pacemaker Check QUESTION #4 FULL TEXT: You/Your Family Experience fever (hyperthermia) with Anesthesia Last Oral Intake Last Oral intake: Last Oral Intake NPO since Meds taken in AM with sips of water? 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 Female No 11/24/24 10:03 HX of Motion Sickness No 11/24/24 10:03 HX of N/V After Surgery No 11/24/24 10:03 Non-Smoker Yes 11/24/24 10:03 Duration of Surgery greater No 11/24/24 10:03 than 60 minutes Number of Risk Factors 1 11/24/24 10:03 PONV Score Low Risk 11/24/24 10:03 Height & Weight Height & Weight: Anesthesia: Height & Weight Height 5 ft 11 in 11/16/24 14:48 Respiratory Assessment Respiratory Assessment - creative writing english professor: Respiratory Tract Infection Hx - creative writing english professor Hx Respiratory Tract Infection No 11/24/24 10:03 STOP Sleep Apnea STOP Sleep Apnea - creative writing english professor: STOP Sleep Apnea - creative writing english professor Hx Hypertension Yes: MED STARTED 1 WEEK AGO 11/24/24 10:03 Hx Sleep Apnea Yes 11/24/24 10:03 CPAP Yes 11/24/24 10:03 BIPAP No 11/24/24 10:03 Do you snore loudly (louder than talking or can be heard Do you often feel tired/ fatigued/ sleepy during daytime? Has anyone observed you stop breathing during sleep? STOP Results Positive 11/24/24 10:03 QUESTION #5 FULL TEXT : Do you snore loudly (louder than talking or can be heard through closed doors)? 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 Specify any problems Hx of Preganancy in last 3 N/A 11/24/24 10:03 Months Nurse Filling Out Transfusion VCHRISTIN 11/24/24 10:03 & Questions: Date: 11/24/24 11/24/24 10:03 Time: 10:11/24/24 10:03 Patient unable to answer at this time (ie. 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: /Reproductive Hx- creative writing english professor Hx Now No 11/24/24 10:03 Gestational Age (in weeks): EDC: Hx Hx Para Hx Section SAB No 11/24/24 10:03 [facility] Medical History (Updated 11/24/24 @ 10:03 by Carolin Rodgers) MRSA infection Alcohol use History of steroid therapy Kidney stone Back pain Gastric reflux CPAP (continuous positive airway pressure) dependence Sleep apnea Former smoker History of edema History of echocardiogram History of stress test Cardiology follow-up encounter Hypertension Arthritis of right acromioclavicular joint Nicotine dependence Obesity DDD (degenerative disc disease), lumbar Chronic back pain Home Medications ?Medication ?Instructions ?Recorded ?Last Taken ?Type albuterol sulfate 90 mcg/actuation 1 puff inhalation PRN PRN Sob &/Or 01/29/19 Unknown History aerosol inhaler Wheezing #8 grams tizanidine 4 mg tablet 4 mg PO PRN PRN muscle relaxant 01/29/19 Unknown History #90 tabs hydrocodone 7.5 mg-acetaminophen 1 tab PO DAILY PRN pain 10/06/19 Unknown History 325 mg tablet colchicine 0.6 mg tablet 0.6 mg PO QDAY PRN gout 04/26/24 Unknown History tamsulosin 0.4 mg capsule 0.4 mg PO QDAY 04/26/24 Unknown History acetaminophen 325 mg tablet 650 mg PO Q6H PRN fever or pain 10/26/24 Unknown History (Aminofen) loratadine 10 mg tablet 10 mg PO DAILY 10/26/24 Unknown History (Allerclear) meloxicam 15 mg tablet 15 mg PO DAILY PRN pain 10/26/24 Unknown History pantoprazole 40 mg tablet,delayed 40 mg PO DAILY 10/26/24 Unknown History release sennosides 8.6 mg-docusate sodium 2 tab PO BID 10/26/24 Unknown History 50 mg tablet (Stool Softener-Stimulant Laxative) sucralfate 1 gram tablet 1 g PO .AC and at bedtime 30 days 10/26/24 Unknown Rx #120 tabs losartan 50 mg tablet 50 mg PO QHS 11/24/24 Unknown History Allergy/AdvReac Type Severity Reaction Status Date / Time No Known Allergies Allergy Verified 11/24/24 09:46 Family History Other Cancer Surgical History (Updated 11/24/24 @ 10:03 by Carolin Rodgers) History of throat surgery History of back surgery History of arthroscopic procedure on shoulder (03/2019) Social History Smoking Status: Former smoker quit date: 07/18/19 Tobacco: How many years used: 30 alcohol intake: never substance use type: does not use Audit: Pertinent Findings Pertinent Findings EKG Perinent findings: 10/26/2024. Normal sinus rhythm Stress test pertinent findings: 10/22/2019. Exercise stress test with no EKG criteria for ischemia at a moderate workload. No arrhythmias noted. No angina present. Echo (EF%) pertinent findings: 10/22/2019 EF 60% Recommendation Anesthesia Recommendation Anesthesia recommendation: OPTIMIZED for anesthesia
[2024-11-25] VITALS (8 sets, daily range): BP systolic 98–139; BP diastolic 64–99; PULSE 64–78; RESP 16; TEMP 36.4–36.9; O2SAT 91–98; BMI 34.0
--- NOTE | 2024-11-25 10:21 | PCM.HP.STD ---
HPI - General General Date of Admission: 11/25/24 Date of Service: 11/25/24 Chief Complaint: GERD HPI Narrative PAU JOHNSON, is a 64 M who presents for Chief Complaint: reflux for many years The patient is a 64-year-old male presenting with gastroesophageal reflux disease (GERD). He has experienced reflux symptoms for over 40 years, characterized by gas buildup and pressure. He has been on pantoprazole, a proton pump inhibitor, intermittently for the past year, with recent continuous use for three to four weeks. Despite medication, he experiences flare-ups with severe chest pain, leading to an ER visit on October 26. ER evaluation showed normal troponin levels, and a GI cocktail provided symptom relief. He was prescribed sucralfate to be taken before meals and at bedtime, which initially improved symptoms. The patient reports mild discomfort and frequent belching, with no nausea, vomiting, or dysphagia. He denies any history of myocardial infarction, stroke, or known heart, lung, or kidney disease. The patient has a history of fatty liver disease, identified via ultrasound, and is managed with vitamin E supplementation and dietary modifications. He undergoes regular colonoscopies, with the last revealing no polyps but diverticulosis. He has a history of pseudogout, managed with meloxicam and colchicine as needed for flare-ups. The patient quit smoking four years ago and consumes alcohol rarely. - gas build up / pressure for >40 years - he is taking pantoprazole 40mg daily and reports he has been on a PPI daily for many years - for the most part symptoms are controlled with PPI - he had pain in upper chest - ER sent him home with Carafate QID and feels this helped for 3-4 days - belching - denies any N/V - denies any dysphagia - denies any heart, lung or kidney disease - Meloxicam 15mg once daily for pseudo gout - h/o smoker, quit 4 years ago - EtOH rare - caffeine intake has decreased - reports starting Vitamin E for fatty liver - weight loss was recommended - previously seen by Dr. Kan - reports he is due for next colonoscopy in 2-3 years, reports his last colonoscopy was negative for polyps 2 years ago - personal h/o colon polyps - denies any family h/o colon CA Attestation: Documentation on this patient encounter was supported using ambient scribe technology/ voice AI technology. The patient consented to recording for the purpose of documenting the encounter. Provider reviewed content of the generated note prior to signature. [facility] Medical History MRSA infection Alcohol use History of steroid therapy Kidney stone Back pain Gastric reflux CPAP (continuous positive airway pressure) dependence Sleep apnea Former smoker History of edema History of echocardiogram History of stress test Cardiology follow-up encounter Hypertension Arthritis of right acromioclavicular joint Nicotine dependence Obesity DDD (degenerative disc disease), lumbar Chronic back pain Home Medications ?Medication ?Instructions ?Recorded ?Last Taken ?Type albuterol sulfate 90 mcg/actuation 1 puff inhalation PRN PRN Sob &/Or 01/29/19 Unknown History aerosol inhaler Wheezing #8 grams tizanidine 4 mg tablet 4 mg PO PRN PRN muscle relaxant 01/29/19 Unknown History #90 tabs hydrocodone 7.5 mg-acetaminophen 1 tab PO DAILY PRN pain 10/06/19 Unknown History 325 mg tablet colchicine 0.6 mg tablet 0.6 mg PO QDAY PRN gout 04/26/24 Unknown History tamsulosin 0.4 mg capsule 0.4 mg PO QDAY 04/26/24 Unknown History acetaminophen 325 mg tablet 650 mg PO Q6H PRN fever or pain 10/26/24 Unknown History (Aminofen) loratadine 10 mg tablet 10 mg PO DAILY 10/26/24 Unknown History (Allerclear) meloxicam 15 mg tablet 15 mg PO DAILY PRN pain 10/26/24 Unknown History pantoprazole 40 mg tablet,delayed 40 mg PO DAILY 10/26/24 Unknown History release sennosides 8.6 mg-docusate sodium 2 tab PO BID 10/26/24 Unknown History 50 mg tablet (Stool Softener-Stimulant Laxative) sucralfate 1 gram tablet 1 g PO .AC and at bedtime 30 days 10/26/24 Unknown Rx #120 tabs losartan 50 mg tablet 50 mg PO QHS 11/24/24 Unknown History Allergy/AdvReac Type Severity Reaction Status Date / Time No Known Allergies Allergy Verified 11/24/24 09:46 Family History Other Cancer Surgical History History of throat surgery History of back surgery History of arthroscopic procedure on shoulder (03/2019) Social History Smoking Status: Former smoker quit date: 07/18/19 Tobacco: How many years used: 30 alcohol intake: never substance use type: does not use ROS Constitutional Constitutional: Denies fatigue, fever(s), poor appetite, weight gain or weight loss Gastrointestinal Gastrointestinal: Denies belching, bloating, change in bowel habits, change in stool character, chewing difficulty, coffee ground emesis, constipation, cramping, diarrhea, dyspepsia, dysphagia, early satiety, excessive flatus, fecal incontinence, heartburn, hematemesis, hematochezia, hemorrhoids, loose stools, melena, nausea, odynophagia, rectal bleeding, tenesmus, vomiting or weight changes Physical Exam Const alert, oriented x3, no apparent distress and healthy appearing General Appearance: cooperative GI normal to inspection, nondistended, normoactive bowel sounds, soft to palpation, non-tender and non-distended Percussion: normal to percussion Rectal Exam: deferred Assessment & Plan Assessment/Plan (1) GERD (gastroesophageal reflux disease): (2) Chest pain: PLAN: Assessment and Plan Assessment and Plan (1) GERD (gastroesophageal reflux disease): Status: Acute Plan: The patient will continue pantoprazole once daily in the morning on an empty stomach. Sucralfate will be taken before lunch, dinner, and at bedtime to avoid interaction with pantoprazole. An upper endoscopy is scheduled to further evaluate the gastrointestinal symptoms. Plan 64-year-old male with a history of gastroesophageal reflux disease GERD) presents with exacerbated symptoms, including severe chest pain, leading to an ER visit. The ER evaluation ruled out cardiac causes with normal troponin levels, and a GI cocktail provided symptom relief, suggesting a gastrointestinal etiology. The patient is currently on pantoprazole and sucralfate, with adjustments to the dosing schedule to optimize symptom control. The patient also has a history of fatty liver disease, managed with vitamin E and lifestyle modifications, and pseudogout, managed with meloxicam and colchicine as needed. Regular colonoscopies have shown diverticulosis, with no recent polyps detected. Patient Instructions: - Continue taking pantoprazole once daily in the morning on an empty stomach. - Take sucralfate before lunch, dinner, and at bedtime. - Schedule and prepare for an upper endoscopy as instructed. - Maintain dietary modifications and continue vitamin E for fatty liver management.
[2024-11-25] MEDS: Lactated Ringers 1,000 ML 15 ML IV (10:35)
--- NOTE | 2024-11-25 11:00 | PRE.ANES_ITS ---
ASA Classification* ASA Classification ASA Classification: 3 Assessment & Plan Anesthesia* Anesthesia Assessment Anesthesia Assessment: Discussed sedation and/or anesthesia options, risks, benefits, and alternatives with patient/parents/legal guardian/POA. Questions invited. The patient/parents/legal guardian/POA seems to understand and agrees to proceed with anesthesia plan. Reviewed the physical assessment, medical history, allergy history and patient home medications list prior to surgery/procedure/anesthetic and documented any changes. Performed airway and anesthesia risk assessments. Anesthesia Type Anesthesia Type: MAC History Source History Obtained from:: Patient and Chart Anesthesia Focused Assessment* Temperature: 98.4 F Pulse Rate: 74 Blood Pressure: 139/99 Respiratory Rate: 16 Pulse Ox: 98 Oxygen Delivery Method: Room Air Airway Assessment Mouth opens: >3 cm Mallampati Score: III Teeth Condition: Caps/Crowns (Two front teeth) Neck Range of motion (ROM): Full ROM Comment: Patient has a history of difficult airway Labs Anesthesia Preop lab: CBC WBC 10.9 K/mm3 (4.4-11.0) 10/26/24 20:35 10/26/24 RBC 4.76 M/mm3 (4.6-6.2) 10/26/24 20:35 10/26/24 Hgb 14.9 g/dL (13.0-16.5) 10/26/24 20:35 10/26/24 Hct 43.0 % (40-54) 10/26/24 20:35 10/26/24 Plt Count 220 K/mm3 (150-450) 10/26/24 20:35 10/26/24 CHEMISTRY Potassium 3.8 mmol/L (3.3-5.1) 10/26/24 20:35 10/26/24 Sodium 139 mmol/L (133-145) 10/26/24 20:35 10/26/24 BUN 11 mg/dL (4-19) 10/26/24 20:35 10/26/24 Creatinine 0.79 mg/dL (0.70-1.20) 10/26/24 20:35 10/26/24 Glucose 105 mg/dL (70-99) H 10/26/24 20:35 10/26/24 TSH 0.846 uIU/mL (0.300-4.200) 08/04/24 13:13 07/17 02/10 COAG Pre-Assessment Diagnosis/Proposed Procedure Planned Operative Procedure(s): EGD Anesthesia History Anesthesia History - addiction counselor: Anesthesia History - addiction counselor Hx Hospitalization No 11/24/24 10:03 Any Problems With Anesthesia Yes: stopped breathing & had 11/24/24 10:03 to be intubated w/ throat surgery, DIFFICULT AIRWY Cholinesterase deficiency No 11/24/24 10:03 You/Your Family Experience No 11/24/24 10:03 fever (hyperthermia) with Relationship Recent Exposure to Contagious No 11/25/24 10:27 Disease Does patient have nerve No 11/24/24 10:03 stimulator Patient instructed to have device shut off --Does patient have Pacemaker No 11/25/24 10:27 or ICD? When Was Last Pacemaker Check QUESTION #4 FULL TEXT: You/Your Family Experience fever (hyperthermia) with Anesthesia Last Oral Intake Last Oral intake: Last Oral Intake NPO since 23:00 11/25/24 10:27 Meds taken in AM with sips of water? Meds patient instructed to take am of surgery PONV PONV - addiction counselor: PONV - addiction counselor Female No 11/24/24 10:03 HX of Motion Sickness No 11/24/24 10:03 HX of N/V After Surgery No 11/24/24 10:03 Non-Smoker Yes 11/24/24 10:03 Duration of Surgery greater No 11/24/24 10:03 than 60 minutes Number of Risk Factors 1 11/24/24 10:03 PONV Score Low Risk 11/24/24 10:03 Height & Weight Height & Weight: Anesthesia: Height & Weight Height 5 ft 11 in 11/25/24 10:27 Weight: 110.677 kg 11/25/24 10:27 Body Mass Index (BMI) 34.0 11/25/24 10:27 Respiratory Assessment Respiratory Assessment - addiction counselor: Respiratory Tract Infection Hx - addiction counselor Hx Respiratory Tract Infection No 11/24/24 10:03 STOP Sleep Apnea STOP Sleep Apnea - addiction counselor: STOP Sleep Apnea - addiction counselor Hx Hypertension Yes: MED STARTED 1 WEEK AGO 11/24/24 10:03 Hx Sleep Apnea Yes 11/24/24 10:03 CPAP Yes 11/24/24 10:03 BIPAP No 11/24/24 10:03 Do you snore loudly (louder than talking or can be heard Do you often feel tired/ fatigued/ sleepy during daytime? Has anyone observed you stop breathing during sleep? STOP Results Positive 11/24/24 10:03 QUESTION #5 FULL TEXT : Do you snore loudly (louder than talking or can be heard through closed doors)? 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 Specify any problems Hx of Preganancy in last 3 N/A 11/24/24 10:03 Months Nurse Filling Out Transfusion VCHRISTIN 11/24/24 10:03 & Questions: Date: 11/24/24 11/24/24 10:03 Time: 10:07 11/24/24 10:03 Patient unable to answer at this time (ie. confused, unrespo /Reproduction History /Reproductive History - addiction counselor: /Reproductive Hx- addiction counselor Hx Now No 11/24/24 10:03 Gestational Age (in weeks): EDC: Hx Hx Para Hx Section SAB No 11/24/24 10:03 Active Medications Active Medications: Current Medications Generic Name Dose Route Start Last Admin Trade Name Freq PRN Reason Stop Dose Admin Lactated Ringer's 1,000 mls @ 15 mls/hr 11/25/24 10:30 11/25/24 10:35 IV 15 mls/hr .Q48H ADDIE Administration PFSH Medical History MRSA infection Alcohol use History of steroid therapy Kidney stone Back pain Gastric reflux CPAP (continuous positive airway pressure) dependence Sleep apnea Former smoker History of edema History of echocardiogram History of stress test Cardiology follow-up encounter Hypertension Arthritis of right acromioclavicular joint Nicotine dependence Obesity DDD (degenerative disc disease), lumbar Chronic back pain Home Medications ?Medication ?Instructions ?Recorded ?Last Taken ?Type albuterol sulfate 90 mcg/actuation 1 puff inhalation P RN PRN Sob &/Or 01/29/19 Unknown History aerosol inhaler Wheezing #8 grams tizanidine 4 mg tablet 4 mg PO PRN PRN muscle relax ant 01/29/19 Unknown History #90 tabs hydrocodone 7.5 mg-acetaminophen 1 tab PO DAILY PRN pa in 10/06/19 Unknown History 325 mg tablet colchicine 0.6 mg tablet 0.6 mg PO QDAY PRN gout 02/09 Unknown History tamsulosin 0.4 mg capsule 0.4 mg PO QDAY 04/26/24 Unkn own History acetaminophen 325 mg tablet 650 mg PO Q6H PRN fever or pain 10/26/24 Unknown History (Aminofen) loratadine 10 mg tablet 10 mg PO DAILY 10/26/24 Unkn own History (Allerclear) meloxicam 15 mg tablet 15 mg PO DAILY PRN pain 10/17 Unknown History pantoprazole 40 mg tablet,delayed 40 mg PO DAILY 10/2611/24/24 History release sennosides 8.6 mg-docusate sodium 2 tab PO BID 5 Unknown History 50 mg tablet (Stool Softener-Stimulant Laxative) sucralfate 1 gram tablet 1 g PO .AC and at bedtime 30 days 10/26/24 11/24/24 Rx #120 tabs losartan 50 mg tablet 50 mg PO QHS 11/24/24 History Allergy/AdvReac Type Severity Reaction Status Date / Time No Known Allergies Allergy Verified 11/25/24 Family History Other Cancer Surgical History History of throat surgery History of back surgery History of arthroscopic procedure on shoulder (03/2019) Social History Smoking Status: Former smoker quit date: 07/18/19 Tobacco: How many years used: 30 alcohol intake: never substance use type: does not use Review of Systems (Anesthesia) ROS Narrative System reviewed and no additional complaints, except as documented.
--- NOTE | 2024-11-25 11:30 | EGD_PTH ---
PATIENT: PAU JOHNSON V LOC: EN U#:[id number] AGE/SX: 64/M ROOM: RE11/25/[address]: Dr. Donovan Ramirez DO : 1960 BED: DIS: 11/25/2024 SPEC #: [id number] RECD: 11/26/24 07:15 STATUS: [place] #: [id number] CODY: 11/25/24 11:[address]: Donovan Ramirez DEPT: SURGICAL PATHOLOGY RECD BY: Cj Snow ENTERED: 11/26/24 10:40 SP TYPE: EGD BIOPSY MACHO DR: Dr. Ye Acevedo MD Tissues: A - Duodenum, NOS B - Esophagus, NOS Procedures: Surgery Specimen Level IV HEADER OPERATION: EGD with biopsy PRE-OP DIAGNOSIS: GERD TISSUE SUBMITTED: A- Duodenum biopsy, B- Distal esophagus biopsy MICROSCOPIC DIAGNOSIS A. Duodenum, colon, biopsy: Focal chronic nonspecific duodenitis. Negative for histologic signs of celiac disease. B. Distal esophagus, biopsy: Squamocolumnar mucosa with reflux esophagitis. Negative for intestinal metaplasia, dysplasia, or malignancy. MICROSCOPIC DESCRIPTION Slides are reviewed. GROSS DESCRIPTION A. Received in fixative is one container labeled with the patient's name and designated Duodenum biopsy. The specimen consists of multiple irregular fragments of light castaneda soft tissue that in aggregate measure 0.2 to 0.4 cm. The specimen is totally submitted in one cassette. B. Received in fixative is one container labeled with the patient's name and designated Distal esophagus biopsy. The specimen consists of two irregular fragments of light castaneda soft tissue that in aggregate measure 0.3 and 0.5 cm. The specimen is totally submitted in one cassette. ELENI/ 11/26/2024 CPT:11185j4
--- NOTE | 2024-11-25 12:31 | OP.CCLET_ITS ---
11/25/2024 Ye Acevedo MD [address] [place] [address] Re : Upper GI endoscopy procedure for Jorge Luis Pelletier Dear Dr. Acevedo This procedure was performed on November. My impressions and recommendations are as follows: Impressions : - Z-line irregular, 39 cm from the incisors. Biopsied. - No gross lesions in the entire stomach. - Non-bleeding duodenal ulcers with no stigmata of bleeding. Biopsied. -The exact cause of duodenal polyps isn't always clear. However, certain factors increase the risk, including: Chronic inflammation of the GI tract. Family history of intestinal polyps or inherited syndromes like familial adenomatous polyposis (FAP). FAP is caused by an APC gene mutation and is associated with a significantly increased risk of duodenal polyps, according to [facility]. Dietary factors like a low-fiber, high-fat diet. Smoking and heavy alcohol consumption. Older age (over 50). Recommendations : - Discharge patient to home. - Resume previous diet. - Continue present medications. - Await pathology results. My findings are described in the full procedure note, which is enclosed. If I can be of further assistance, please feel free to contact me at . Sincerely, Donovan Ramirez, 11/25/2024 12:30:47 PM This report has been signed electronically.
--- NOTE | 2024-11-25 12:31 | OP.EGD_ITS ---
Patient Name: Jorge Luis Pelletier Procedure Date: 11/25/2024 12:13 PM Date of : 1960 Age: 64 Procedure: Upper GI endoscopy Indications: Epigastric abdominal pain, Heartburn Providers: Donovan Ramirez DO Referring MD: Ye Acevedo MD Medicines: Monitored Anesthesia Care Patient Profile: This is a 64 year old male. Refer to note in patient chart for documentation of history and physical. Patient has symptoms of acute abdominal distention, acute epigastric abdominal pain, acute dyspepsia and acute heartburn. Complications: No immediate complications. Procedure: Pre-Anesthesia Assessment: - Prior to the procedure, a History and Physical was performed, and patient medications and allergies were reviewed. The patient is competent. The risks and benefits of the procedure and the sedation options and risks were discussed with the patient. All questions were answered and informed consent was obtained. Patient identification and proposed procedure were verified by the physician in the pre-procedure area. Mental Status Examination: alert and oriented. Airway Examination: normal oropharyngeal airway and neck mobility. Respiratory Examination: clear to auscultation. CV Examination: normal. Prophylactic Antibiotics: The patient does not require prophylactic antibiotics. Prior Anticoagulants: The patient has taken no anticoagulant or antiplatelet agents except for NSAID medication. ASA Grade Assessment: II - A patient with mild systemic disease. After reviewing the risks and benefits, the patient was deemed in satisfactory condition to undergo the procedure. The anesthesia plan was to use monitored anesthesia care (MAC). Immediately prior to administration of medications, the patient was re-assessed for adequacy to receive sedatives. The heart rate, respiratory rate, oxygen saturations, blood pressure, adequacy of pulmonary ventilation, and response to care were monitored throughout the procedure. The physical status of the patient was re-assessed after the procedure. After obtaining informed consent, the endoscope was passed under direct vision. Throughout the procedure, the patient's blood pressure, pulse, and oxygen saturations were monitored continuously. The Endoscope was introduced through the mouth, and advanced to the third part of the duodenum. Small bowel enteroscopy was deemed necessary. The upper GI endoscopy was accomplished without difficulty. The patient tolerated the procedure well. Scope In: 12:19:18 PM Scope Out: 12:23:19 PM Total Procedure Duration Time 0 hours 4 minutes 1 second Findings: The Z-line was irregular and was found 39 cm from the incisors. Biopsies were taken with a cold forceps for histology. Verification of patient identification for the specimen was done. Estimated blood loss was minimal. No gross lesions were noted in the entire examined stomach. Many non-bleeding superficial duodenal ulcers with no stigmata of bleeding were found in the duodenal bulb and in the first portion of the duodenum. Biopsies were taken with a cold forceps for histology. Verification of patient identification for the specimen was done. Estimated blood loss was minimal. Multiple 3 mm carpet-like polyps with no bleeding were found in the duodenal bulb, in the first portion of the duodenum and in the second portion of the duodenum. Impression: - Z-line irregular, 39 cm from the incisors. Biopsied. - No gross lesions in the entire stomach. - Non-bleeding duodenal ulcers with no stigmata of bleeding. Biopsied. -The exact cause of duodenal polyps isn't always clear. However, certain factors increase the risk, including: Chronic inflammation of the GI tract. Family history of intestinal polyps or inherited syndromes like familial adenomatous polyposis (FAP). FAP is caused by an APC gene mutation and is associated with a significantly increased risk of duodenal polyps, according to [employer]. Dietary factors like a low-fiber, high-fat diet. Smoking and heavy alcohol consumption. Older age (over 50). Recommendation: - Discharge patient to home. - Resume previous diet. - Continue present medications. - Await pathology results. Procedure Code(s): --- Professional --- 49793, Small intestinal endoscopy, enteroscopy beyond second portion of duodenum, not including ileum; with biopsy, single or multiple CPT copyright 2021 [employer]. All rights reserved. The codes documented in this report are preliminary and upon electric lineman review may be revised to meet current compliance requirements. Donovan Ramirez DO 11/25/2024 12:30:47 PM This report has been signed electronically. Number of Addenda: 0 Note Initiated On: 11/25/2024 12:13 PM
--- NOTE | 2024-11-25 12:34 | PCM.POST.ANE ---
Anesthesia: Postop Eval I Current Vital Signs Temperature: 98.2 F Pulse Rate: 75 Blood Pressure: 109/69 Respiratory Rate: 16 Pulse Ox: 93 Oxygen Delivery Method: Room Air Assessment Airway patent: Yes Spontaneous unlabored respirations: Yes Mental status: Asleep nausea: No Vomiting: No Anesthesia Complication: No Fluid Hydration Crystalloid volume administer (ml): 300 Total IV fluid infused: 300 Progress Note Anesthesia document: Postop Eval 1 completed: Yes
--- NOTE | 2024-11-25 14:37 | PCM.POSTANE2 ---
Anesthesia Postop Eval I Sum Postop Eval Completion status Anesthesia document: Postop Eval 1 completed: Yes Anesthesia Postop Eval I Summary Anesthesia Postop Eval I Summary: Anesthesia Postop Eval I: Assessment Summary Airway patent Yes 11/25/24 12:35 [email or web address] Spontaneous unlabored Yes 11/25/24 12:35 [email or web address] respirations Mental status Asleep 11/25/24 12:35 [email or web address] nausea No 11/25/24 12:35 [email or web address] Vomiting No 11/25/24 12:35 [email or web address] Anesthesia Postop Eval I: Fluid Summary Crystalloid volume administer 300 11/25/24 12:35 [email or web address] (ml) Colloids volume administered ( ml) Blood Product volume administered (ml) Total IV fluid infused 300 11/25/24 12:35 [email or web address] Anesthesia Postop Eval I: Summary Notes Anesthesia Complication No 11/25/24 12:35 [email or web address] Anesthesia Complication Comment: Post-operative progress note Anesthesia: Postop Eval II Evaluation Mental status: Awake and Calm Pain Level: 0 nausea: No Vomiting: No Complications Anesthesia Complication: No
== END 2024-11-25 13:10 | disposition home or self-care (01) ==
LOC: EN 10:12 → AC 10:14
PROVIDERS: PCP Family Medicine Geriatric Medicine; Referring Provider Family Medicine Geriatric Medicine; Visit Provider Internal Medicine Gastroenterology
PROC: 0DJ08ZZ Inspection of Upper Intestinal Tract, Via Natural or Artificial Opening Endoscopic (ICD-10-PCS; CPT 43235; principal; 2024-11-25 11:25)
DX: K29.80 Duodenitis without bleeding (principal); K26.9 Duodenal ulcer, unspecified as acute or chronic, without hemorrhage or perforation; R07.9 Chest pain, unspecified; K21.00 Gastro-esophageal reflux disease with esophagitis, without bleeding; Z87.891 Personal history of nicotine dependence; I10 Essential (primary) hypertension; Z79.899 Other long term (current) drug therapy; Z86.0100 Personal history of colon polyps, unspecified
CPT/HCPCS: 44361; 88305; J2405

== ENCOUNTER 2024-12-30 09:01 | Outpatient (CLI) | payer BC, MEDICARE, SELFPAY | END 2024-12-30 23:59 | disposition home or self-care (01) | PROVIDERS: PCP Family Medicine Geriatric Medicine; Referring Provider Nurse Practitioner Acute Care; Visit Provider Nurse Practitioner Acute Care | DX: Z00.00 Encounter for general adult medical examination without abnormal findings (principal) | CPT/HCPCS: 36415 ==

== ENCOUNTER → 2025-01-11 | Outpatient (CLI) | payer BC, MEDICARE, SELFPAY ==
--- NOTE | 2025-01-11 07:58 | US_ITS ---
PROCEDURE: ABD LIMITED W/ ELASTOGRAPHY REASON FOR EXAM: LIVER STEATOSIS COMPARISON: Prior study dated May 22, 2023. TECHNIQUE: Right upper quadrant abdominal ultrasound. [facility] ElastQ Imaging shear wave elastography for non-invasive assessment of liver tissue stiffness. Heidi EPIQ Elite. FINDINGS: LIVER: Size: Enlarged (hepatomegaly) Length: 19.5 cm Echotexture: Diffusely echogenic suggesting fatty infiltration Contour: Normal Lesions: None identified Elastography: EQI Med: 10.3 kPa EQI Med Merritt: 1.9 m/s IQR/Med: 17.6 %* GALLBLADDER: No stones sludge wall thickening or tenderness. COMMON BILE DUCT: Normal measuring 4.8 mm. PANCREAS: Visualized portions are sonographically unremarkable. Visualized portions of the right kidney are unremarkable. No right upper quadrant ascites. The spleen is not enlarged. The spleen measures 11.1 cm 5.4 cm 4.7 cm. US/ABD Limited w/ Elastography IMPRESSION: MODERATE TO SEVERE HEPATIC FIBROSIS Hepatomegaly. Fatty infiltration of the liver. The spleen is not enlarged. Reference Values: SRU <1.37 m/s (5.7kPa): No to mild fibrosis 1.37 m/s - 2.2 m/s: Moderate to severe fibrosis >2.2 m/s (15kPa): Significant fibrosis / cirrhosis METAVIR Score F2 or higher: 1.34 m/s (5.7kPa) F3 or higher: 1.55 m/s (7.3kPa) F4: 1.80 m/s (10kPa) * If the IQR/Med is >30%, the variance in the measurements is a large and the a ccuracy of the measurement may be in question. Reading Location: [id number]
--- OUTSIDE RECORDS SUMMARY | 2025-01-11 08:23 | XMS RPT_ITS | CCD ---
Author Organization [facility] Care Team Providers Care Acetone Button Paster Name Role Phone Janine Carney PA-C Unavailable Norma LEVIN, Martinez Moss Unavailable [phone] Janine Carney PA-C Unavailable CURTIS LEVIN, DR LINDQUIST Primary Care Physician CURTIS LEVIN, DR LINDQUIST Primary Care Physician DIANA LEVIN, DR ERINN Cramer Attending Abigail ACEVEDO MD, DR LINDQUIST Primary Care Unavailable RICHARD LIEBERMAN, ZECHARIAH A Attending Eagle ACEVEOD MD, DR LINDQUIST Primary Care Unavailable CURTIS LEVIN, DR LINDQUIST Primary Care Unavailable RICHARD LIEBERMAN, ZECHARIAH Meyer Attending Eagle ACEVEDO MD, DR LINDQUIST Primary Care Unavailable RICHARD LIEBERMAN, ZECHARIAH A Attending Eagle ACEVEDO MD, DR LINDQUIST Primary Care Unavailable KAYLEY CARVAJAL, DR EVERARDO Piper Attending Unavailable RICHARD LIEBERMAN, ZECHARIAH A Attending Eagle ACEVEDO MD, DR LINDQUIST Primary Care Unavailable RICHARD LIEBERMAN, ZECHARIAH A Attending Eagle ACEVEDO MD, DR LINDQUIST Primary Care Unavailable CURTIS LEVIN, DR LINDQUIST Primary Care Unavailable RICHARD LIEBERMAN, ZECHARIAH A Attending Eagle ACEVEDO MD, DR LINDQUIST Primary Care Unavailable RICHARD LIEBERMAN, ZECHARIAH A Attending Eagle ORTIZ MD, DR ERINN Cramer Attending Abigail ACEVEDO MD, DR LINDQUIST Primary Care Unavailable RICHARD LIEBERMAN, ZECHARIAH Meyer Attending Eagle ACEVEDO MD, DR LINDQUIST Primary Care Unavailable CURTIS LEVIN, DR LINDQUIST Primary Care Unavailable RADHA CABAN-HAT MAKER, SHI Meyer Attending Shi Acevedo MD, Dr. Ye Coombs Primary Care Provider [phone] Curtis LEVIN, Dr. Ye Coombs Referring Provider [phone] Shaji Waters Attending Provider Curtis LEVIN, Dr. Ye Coombs Attending Provider Curtis LEVIN, Dr. Ye Coombs Primary Care Provider [phone] Curtis LEVIN, Dr. Ye Coombs Attending Provider [phone] Curtis LEVIN, Dr. Ye Coombs Referring Provider MARIA GUADALUPE CABAN-HAT MAKER, VANDANA Piper Attending Shi ACEVEDO MD, DR LINDQUIST Primary Care Unavailable CURTIS LEVIN, DR LINDQUIST Primary Care Unavailable RADHA PRODUCTION GEAR CUTTER-HAT MAKER, SHI Meyer Attending Shi Acevedo MD, Dr. Ye Coombs Primary Care Provider [phone] Curtis LEVIN, Dr. Ye Coombs Attending Provider Julian LEVIN, Dr. Sauceda Emergency Provider Curtis LEVIN, Dr. Ye Coombs Primary Care Provider [phone] Curtis LEVIN, Dr. Ye Coombs Attending Provider Curtis LEVIN, Dr. Ye Coombs Referring Provider [phone] Julian LEVIN, Dr. Sauceda Attending Provider Sabino GO CART MECHANIC-CLindsey Attending Provider James CARVAJAL, Dr. Man Attending Provider James CARVAJAL, Dr. Man Other Provider [phone] Curtis LEVIN, Dr. Ye Coombs Primary Care Provider [phone] Curtis LEVIN, Dr. Ye Coombs Attending Provider Pooja LEVIN, Dr. Huertas Attending Provider Sabino GO CART MECHANIC-CLindsey Referring Provider Curtis, Ye Chi Primary Care Unavailable Curtis, Ye Chi Attending Unavailable Curtis, Ye Chi Referring Unavailable Curtis, Ye Chi Primary Care Unavailable Curtis, Ye Chi Attending Unavailable Curtis, Ye Chi Referring Unavailable Curtis, Ye Chi Primary Care Unavailable SabinoLindsey Referring Unavailable SabinoLindsey Attending Unavailable Curtis, Ye Chi Primary Care Unavailable Curtis, Ye Chi Referring Unavailable Aleksandar Patton Attending Unavailable Curtis, Ye Chi Primary Care Unavailable Curtis, Ye Chi Attending Unavailable Curtis, Ye Chi Referring Unavailable Curtis, Ye Chi Attending Unavailable Curtis, Ye Chi Primary Care Unavailable Curtis, Ye Chi Primary Care Unavailable SabinoLindsey campoverde Attending Unavailable Sabino, Lindsey Referring Unavailable Curtis, Ye Chi Attending Unavailable Curtis, Ye Chi Primary Care Unavailable Curtis, Ye Chi Attending Unavailable Curtis, Ye Chi Primary Care Unavailable Curtis, Ye Chi Primary Care Unavailable Curtis, Ye Chi Referring Unavailable Friend, Donovan Attending Unavailable Curtis, Ye Chi Attending Unavailable Curtis, Ye Chi Primary Care Unavailable Curtis, Ye Chi Primary Care Unavailable Sohail Jordan Attending Unavailable Curtis, Ye Chi Referring Unavailable Curtis, Ye Chi Primary Care Unavailable Neo Caro Attending Unavailable Friend, Donovan Consulting Unavailable Curtis, Ye Chi Primary Care Unavailable Curtis, Ye Chi Referring Unavailable FriendDonovan Attending Unavailable Curtis, Ye Chi Primary Care Unavailable Curtis, Ye Chi Referring Unavailable Lindsey Gallo Attending Unavailable Curtis, Ye Chi Primary Care Unavailable Curtis, Ye Chi Referring Unavailable SabinoLindsey campoverde Attending Unavailable Curtis, Ye Chi Referring Unavailable Curtis, Ye Chi Primary Care Unavailable Shaji Waters Attending Unavailable Curtis, Ye Chi Attending Unavailable Curtis, Ye Chi Referring Unavailable Curtis, Ye Chi Primary Care Unavailable Curtis, Ye Chi Attending Unavailable Curtis, Ye Chi Primary Care Unavailable Curtis, Ye Chi Attending Unavailable Curtis, Ye Chi Primary Care Unavailable Curtis, Ye Chi Attending Unavailable Curtis, Ye Chi Referring Unavailable Curtis, Ye Chi Primary Care Unavailable Medications Current Medications Medication Drug Class(es) Dates Sig (Normalized) Sig (Original) acetaminophen 325 mg oral tablet (19 sources) Start: 10-26-2024 Acetaminophen (Aminofen) 325 mg tablet Active 650 mg PO EVERY 6 HOURS as needed for fever or pain October 26, 2024 12:00am Start: 07-23-2022 Tylenol Extra Strength 500 mg oral tablet Dose : 1,000 mg = 2 tab(s), Oral, TID, PRN as needed for pain Start Date: 07/23/22 Status: Ordered Start: 06-28-2020 Tylenol Oral, 0 Refill(s) Start Date: 06/28/20 Status: Ordered acetaminophen 325 mg / HYDROcodone bitartrate 7.5 mg oral tablet (20 sources) Opioid Agonist Start: 08-06-2023 End: 10-02-2023 take 1 tablet by mouth every eight hours acetaminophen-hydrocodone 325 mg-7.5 mg oral tablet Dose = 1 tab(s), Oral, q8h, # 90 tab(s), 0 Refill(s), Pharmacy: [facility], Postlaminectomy syndrome Lumbar degenerative disc disease, 180.3, cm, 09/02/23 10:38:00 EDT, Height, 116.8, kg, 09/02/23 10:38:00 EDT, Dosing Weight Start Date: 09/02/23 Stop Date: 10/02/23 Status: Ordered Start: 05-07-2023 End: 07-04-2023 take 1 tablet by mouth every eight hours acetaminophen-hydrocodone 325 mg-7.5 mg oral tablet Dose = 1 tab(s), Oral, q8h, REFILL 06-06-23, # 90 tab(s), 0 Refill(s), Pharmacy: [facility], Lumbar degenerative disc disease, 06/06/23, 180, cm, 06/04/23 7:12:00 EST, Height, 121.8, kg, 06/04/23 7:12:00 EST, Dosing Weight Start Date: 06/04/23 Stop Date: 07/04/23 Status: Ordered Start: 11-26-2022 End: 01-24-2023 take 1 tablet by mouth every eight hours acetaminophen-hydrocodone 325 mg-7.5 mg oral tablet Dose = 1 tab(s), Oral, q8h, fill date 12/28/22, # 90 tab(s), 0 Refill(s), Pharmacy: [facility], Lumbar degenerative disc disease, 12/28/22, 180.3, cm, 12/25/22 9:09:00 EDT, Height, 120.5, kg, 12/25/22 9:09:00 EDT, Dosing Weight Start Date: 12/25/22 Stop Date: 01/24/23 Status: Ordered Start: 06-28-2022 End: 07-28-2022 [place] 325- 7.5 mg oral table t Dose = 1 tab(s), Oral, q8h, PRN as needed for pain, 0 Refill(s), 117.3 Start Date: 07/23/22 Status: Ordered Start: 05-22-2022 End: 06-21-2022 take 1 tablet by mouth every eight hours acetaminophen-hydrocodone 325 mg-7.5 mg oral tablet Dose = 1 tab(s), Oral, q8h, fill 05/30/2022., # 90 tab(s), 0 Refill(s), Pharmacy: [facility], Lumbar degenerative disc disease, 05/30/22, 180.3, cm, 05/22/22 9:17:00 EST, Height, 120.45, kg, 05/22/22 9:17:00 EST, Dosing Weight Start Date: 05/22/22 Stop Date: 06/21/22 Status: Ordered Start: 03-19-2022 End: 04-18-2022 take 1 tablet by mouth every eight hours acetaminophen-hydrocodone 325 mg-7.5 mg oral tablet Dose = 1 tab(s), Oral, q8hr, # 90 tab(s), 0 Refill(s), Pharmacy: [facility], Lumbar degenerative disc disease, 03/21/22, 180.3, cm, 03/19/22 12:30:00 EDT, Height, 119, kg, 03/19/22 12:30:00 EDT, Dosing Weight Start Date: 03/19/22 Stop Date: 04/18/22 Status: Ordered Start: 01-17-2022 End: 02-16-2022 take 1 tablet by mouth every eight hours acetaminophen-hydrocodone 325 mg-7.5 mg oral tablet Dose = 1 tab(s), Oral, q8hr, fill 01/18/2022, X 30 day(s), # 90 tab(s), 0 Refill(s), Pharmacy: [facility], Lumbar degenerative disc disease, 01/18/22, 180.3, cm, 01/17/22 11:35:00 EDT, Height, 113.6, kg, 01/17/22 11:35:00 EDT, Dosing Weight Start Date: 01/17/22 Stop Date: 02/16/22 Status: Ordered Start: 10-25-2021 End: 11-09-2021 take 1 tablet by mouth every eight hours as needed for pain [place] 325- 7.5 mg oral tablet Dose = 1 tab(s), Oral, q8hr, PRN as needed for pain, Fill 10/26/2021., # 45 tab(s), 0 Refill(s), Pharmacy: [facility], DDD (degenerative disc disease), lumbar, 10/26/21, 180.3, cm, 10/25/21 8:17:00 EDT, Height, 111.4, kg, 10/25/21 8:17:00 ED... Start Date: 10/25/21 Stop Date: 11/09/21 Status: Ordered Start: 08-08-2021 End: 09-07-2021 take 1 tablet by mouth every eight hours as needed for pain [place] 325- 7.5 mg oral tablet Dose = 1 tab(s), Oral, q8hr, PRN as needed for pain, # 90 tab(s), 0 Refill(s), Pharmacy: [facility], DDD (degenerative disc disease), lumbar, 180.3, cm, 08/08/21 7:57:00 EDT, Height, 112.5, kg, 08/08/21 7:57:00 EDT, Dosing Weight Start Date: 08/08/21 Stop Date: 09/07/21 Status: Ordered Start: 03-29-2021 End: 04-28-2021 take 1 tablet by mouth every eight hours as needed for pain [place] 325- 7.5 mg oral tablet Dose = 1 tab(s), Oral, q8hr, PRN as needed for pain, # 90 tab(s), 0 Refill(s), Pharmacy: [facility], DDD (degenerative disc disease), lumbar, 180.3, cm, 03/29/21 9:47:00 EST, Height, 113.6, kg, 03/29/21 9:47:00 EST, Dosing Weight Start Date: 03/29/21 Stop Date: 04/28/21 Status: Ordered Start: 10-06-2019 Hydrocodone-Ac etaminophen 7.5-325 mg tablet Active 1 {tbl} PO DAILY as needed for pain 0 October 06, 2019 12:00am Start: 10-06-2019 take 1 tablet by piero th once daily Hydrocodone-Acetaminophen Active 1 TABLE T PO DAILY October 05, 2019 11:00pm Start: 01-29-2019 End: 05-31-2019 Hydrocodone-Acetaminophen 7. 5-325 mg tablet Discontinued 1 {tbl} PO NEEDED as needed for Pain Or Fever 90 0 January 29, 2019 12:00am May 31, 2019 9:05am Start: 01-29-2019 End: 05-31-2019 Hydrocodone-Acetaminophen Di scontinued 1 TABLET PO NEEDED 90 January 28, 2019 11:00pm May 31, 2019 8:05am Start: 01-16-2017 take 1 tablet by piero th twice daily as needed HYDROCODONE-ACETAMINOPHEN 7.5-325 MG TAB S One tablet by mouth twice daily as needed HYDROCODONE-ACETAMINOPHEN [id number] Janine Carney PA-C [id number] 200 actuat albuterol 0.09 mg/actuat metered dose inhaler (20 sources) beta2-Adrenergic Agonist Start: 02-18-2019 take 2 puff(s) by inhalation every four hours as needed for wheezing ProAir HFA MDI (90 mcg/inh) inhalation aerosol 2 puff(s), Inhalation, q4h, PRN as needed for wheezing Start Date: 02/18/19 Status: Ordered Start: 02-18-2019 ProAir HFA MDI (90 mcg/inh) inhalation aerosol INHALE 2 PUFFS BY MOUTH SIX TIMES DAILY NEEDED FOR WHEEZING Start Date: 02/18/19 Status: Ordered Start: 02-18-2019 ProAir HFA MDI (90 mcg/inh) inhalation aerosol INHALE 2 PUFFS BY MOUTH SIX TIMES DAILY NEEDED FOR WHEEZING Start Date: 02/18/19 Status: Ordered Start: 01-29-2019 End: 12-30-2024 Albuterol Sulfate 90 mcg/act uation HFA aerosol inhaler Discontinued 1 NMA INHALATION NEEDED as needed for Sob &/Or Wheezing 8 January 29, 2019 12:00am December 30, 2024 8:27am Start: 01-29-2019 Albuterol Sulf ate Active 1 PUFF INHALATION NEEDED 8 January 28, 2019 11:00pm baclofen 20 mg oral tablet (1 source) gamma-Aminobutyric Acid-ergic Agonist Start: 01-18-2023 End: 01-23-2023 baclofen 20 mg oral tablet Dose : 20 mg = 1 tab(s), Oral, TID, # 15 tab(s), 0 Refill(s) Start Date: 01/18/23 Stop Date: 01/23/23 Status: Ordered colchicine 0.6 mg oral tablet (14 sources) Start: 04-26-2024 take 1 tablet by mouth once daily as needed Colchicine 0.6 mg tablet Active 0.6 mg PO daily as needed for gout April 26, 2024 1:00am Start: 03-26-2023 colchicine 0.6 mg oral tablet Dose : 0.6 mg = 1 tab(s), Oral, qDay, 0 Refill(s) Start Date: 03/26/23 Status: Ordered docusate sodium 50 mg / sennosides, half-way 8.6 mg oral tablet (5 sources) Start: 10-26-2024 Sennosides-Docusate Sodium (Sennosides 8.6 Mg-Docusate Sodium 50 Mg Tablet) 8.6-50 mg tablet Active 2 {tbl} PO TWICE A DAY October 26, 2024 12:00am famotidine 40 mg oral tablet (20 sources) Histamine-2 Receptor Antagonist Start: 01-03-2025 take 1 tablet by mouth once daily Famotidine 40 mg tablet Active 40 mg PO daily January 03, 2025 12:00am Start: 01-29-2019 End: 10-26-2024 take 1 tablet by mouth once daily Famotidine 40 mg tablet Discontinued 40 mg PO DAILY 90 0 January 29, 2019 12:00am October 26, 2024 8:54pm Ibuprofen (5 sources) Nonsteroidal Anti-inflammatory Drug Start: 12-25-2022 ibuprofen PRN as needed for pain, 0 Refill(s) Start Date: 12/25/22 Status: Ordered levocetirizine dihydrochloride 5 mg oral tablet (1 source) Histamine-1 Receptor Antagonist Start: 01-03-2025 take 1 tablet by mouth once daily Levocetirizine (Xyzal) 5 mg tablet Active 5 mg PO daily January 03, 2025 12:00am loratadine 10 mg oral tablet (5 sources) Start: 10-26-2024 take 1 tablet by mouth once daily Loratadine (Allerclear) 10 mg tablet Active 10 mg PO DAILY October 26, 2024 12:00am losartan potassium 50 mg oral tablet (3 sources) Angiotensin 2 Receptor Nnacy Start: 11-24-2024 take 1 tablet by mouth at bedtime Losartan 50 mg tablet Active 50 mg PO AT BEDTIME November 24, 2024 12:00am meloxicam 15 mg oral tablet (20 sources) Nonsteroidal Anti-inflammatory Drug Start: 01-03-2025 take 1 tablet by mouth once daily as needed Meloxicam 15 mg tablet Active 15 mg PO daily as needed January 03, 2025 12:00am Start: 10-26-2024 End: 12-30-2024 take 1 tablet by mouth once daily as needed for pain Meloxicam 15 mg tablet Discontinued 15 mg PO DAILY as needed for pain October 26, 2024 12:00am December 30, 2024 8:28am Start: 07-14-2019 End: 10-06-2019 take 1 tablet by mouth once daily Meloxicam (Mobic) 15 mg tablet Discontinued 15 mg PO DAILY 17 06July 14, 2019 1:00am October 06, 2019 2:23pm Do not take with other NSAIDs. Tylenol is okay pantoprazole 40 mg delayed release oral tablet (20 sources) Proton Pump Inhibitor Start: 01-03-2025 take 1 tablet by mouth once daily Pantoprazole 40 mg tablet,delayed release (DR/EC) Active 40 mg PO daily January 03, 2025 2:41pm Start: 12-30-2024 End: 01-03-2025 take 1 tablet by mouth twice daily Pantoprazole 40 mg tablet,delayed release (DR/EC) Discontinued 40 mg PO TWICE A DAY December 30, 2024 8:29am January 03, 2025 2:43pm Start: 10-26-2024 End: 12-30-2024 take 1 tablet by mouth once daily Pantoprazole 40 mg tablet,delayed release (DR/EC) Discontinued 40 mg PO DAILY October 26, 2024 12:00am December 30, 2024 8:29am Start: 07-23-2022 End: 08-22-2022 pantoprazole 40 mg oral ente sonia coated tablet Dose : 40 mg = 1 tab(s), Oral, acSupper, # 30 tab(s), 0 Refill(s), Pharmacy: [facility], 180.3, cm, 07/22/22 18:03:00 EST, Height Start Date: 07/23/22 Stop Date: 08/22/22 Status: Ordered Start: 08-08-2021 take 1 tablet by piero th once daily pantoprazole 40 mg oral enteric coated tablet TAKE 1 TABLET BY MOUTH ONCE DAILY FOR 90 DAYS Start Date: 10/25/21 Status: Ordered predniSONE 5 mg oral tablet (2 sources) Start: 03-29-2021 take 1 tablet by mouth once daily as needed Deltasone 5 mg tab (TAPER) PRN Swelling, TAKE 1 TABLET BY MOUTH ONCE DAILY NEEDED FOR WRIST SWELLING Start Date: 03/29/21 Status: Ordered sucralfate 1000 mg oral tablet (6 sources) Aluminum Complex Start: 01-03-2025 take 1 tablet by mouth four times daily Sucralfate 1 gram tablet Active 1 g PO 4 times daily January 03, 2025 12:00am Start: 10-26-2024 End: 12-30-2024 take 1 tablet by mouth at bedtime Sucralfate 1 gram tablet Discontinued 1 g PO .AC and at bedtime 120 30 0 October 26, 2024 12:00am December 30, 2024 8:29am tamsulosin hydrochloride 0.4 mg oral capsule (9 sources) alpha-Adrenergic Nancy Start: 04-26-2024 take 1 capsule by mouth once daily Tamsulosin 0.4 mg capsule Active 0.4 mg PO daily April 26, 2024 1:00am tiZANidine 4 mg oral tablet (20 sources) Central alpha-2 Adrenergic Agonist Start: 01-29-2019 End: 12-01-2023 Tizanidine 4 mg tablet Active 4 mg PO NEEDED as needed for muscle relaxant 90 0 January 29, 2019 12:00am vitamin e 180 mg oral capsule (1 source) Start: 01-03-2025 take 1 capsule by mouth twice daily Vitamin E (Dl, Acetate) 180 mg (400 unit) capsule Active 180 mg PO TWICE A DAY January 03, 2025 12:00am vitamin E 400 intl units oral capsule (2 sources) Start: 07-03-2023 vitamin E 400 intl units oral capsule Dose : 400 International_U nit = 1 cap(s), Oral, BID, 0 Refill(s) Start Date: 07/03/23 Status: Ordered Completed/Discontinued Medications Medication Drug Class(es) Dates Sig (Normalized) Sig (Original) acetaminophen 325 mg / oxyCODONE hydrochloride 5 mg oral tablet (20 sources) Opioid Agonist Start: 04-20-2019 End: 05-31-2019 Oxycodone-Acetaminoph en 1 TABLET tablet Discontinued 1 - 2 {tbl} PO EVERY 4 HOURS NEEDED as needed for Pain 60 April 20, 2019 May 31, 2019 9:06am Other acute postprocedural pain Start: 04-20-2019 End: 05-31-2019 take 1 tablet by mouth every four hours as needed Oxycodone-Acetaminophen Discontinued 1 - 2 TABLET PO EVERY 4 HOURS NEEDED 60 April 20, 2019 May 31, 2019 8:06am cyclobenzaprine hydrochloride 10 mg oral tablet (4 sources) Muscle Relaxant Start: 01-16-2017 take 1 tablet by mouth twice daily CYCLOBENZAPRINE HCL 10 MG TABS One tablet by mouth twice daily CYCLOBENZAPRINE HCL [id number] Janine Carney PA-C doxycycline hyclate 100 mg oral tablet (9 sources) Tetracycline-c lass Drug Start: 04-26-2024 End: 10-26-2024 take 1 tablet by mouth twice daily Doxycycline Hyclate 100 mg tablet Discontinued 100 mg PO TWICE A DAY April 26, 2024 1:00am October 26, 2024 8:54pm gabapentin 600 mg oral tablet (4 sources) Anti-epileptic Agent Start: 10-25-2021 End: 12-24-2021 Neurontin 600 mg oral tablet Dose : 600 mg = 1 tab(s), Oral, qHS, Fill 10/26/2021., # 30 tab(s), 1 Refill(s), Pharmacy: [facility], DDD (degenerative disc disease), lumbar, 10/26/21, 180.3, cm, 10/25/21 8:17:00 EDT, Height, 111.4, kg, 10/25/21 8:17:00 EDT, Dosing Weight Start Date: 10/25/21 Stop Date: 12/24/21 Status: Ordered Start: 08-08-2021 End: 10-07-2021 Neurontin 600 mg oral tablet Dose : 600 mg = 1 tab(s), Oral, qHS, # 30 tab(s), 1 Refill(s), Pharmacy: [facility], DDD (degenerative disc disease), lumbar, 180.3, cm, 08/08/21 7:57:00 EDT, Height, 112.5, kg, 08/08/21 7:57:00 EDT, Dosing Weight Start Date: 08/08/21 Stop Date: 10/07/21 Status: Ordered Start: 03-29-2021 Neurontin 600 mg oral tablet Dose : 600 mg = 1 tab(s), Oral, qHS, # 30 tab(s), 1 Refill(s), Pharmacy: [facility], DDD (degenerative disc disease), lumbar, 180.3, cm, 03/29/21 9:47:00 EST, Height, 113.6, kg, 03/29/21 9:47:00 EST, Dosing Weight Start Date: 03/29/21 Status: Ordered levoFLOXacin 750 mg oral tablet (9 sources) Quinolone Antimicrobial Start: 04-26-2024 End: 10-26-2024 take 1 tablet by mouth every twenty-four hours Levofloxacin 750 mg tablet Discontinued 750 mg PO Q24H 10 0 April 26, 2024 1:00am October 26, 2024 8:55pm varenicline 1 mg oral tablet (20 sources) Partial Cholinergic Nicotinic Agonist Start: 10-06-2019 End: 04-26-2024 take 1 tablet by mouth twice daily Varenicline Tartrate (Chantix) 1 mg tablet Discontinued 1 mg PO TWICE A DAY October 06, 2019 12:00am April 26, 2024 9:14am Problems Active Problems Problem Classification Problem Date Documented Da te Episodic/Chronic Coronary atherosclerosis and other heart disease (1 source) Coronary atherosclerosis; Translations: [Atherosclerotic heart disease of [place] coronary artery without angina pectoris] 01-03-2025 Chronic Diabetes mellitus with complications (1 source) Type 2 diabetes mellitus with hyperglycemia; Translations: [Type 2 diabetes mellitus with hyperglycemia] Onset: 08-11-2024 Chronic Esophageal disorders (19 sources) Chest pain; Translations: [Gastro-esophageal reflux disease without esophagitis] Onset: 11-16-2024 10-26-2024 Chronic Essential hypertension (2 sources) Hypertensive disorder; Translations: [Essential (primary) hypertension] Onset: 02-27-2024 01-03-2025 Chronic Comment on above: RECENT ADDITION OF B P MED, 1 WEEK AGO Gastroduodenal ulcer (except hemorrhage) (6 sources) Ulcer of duodenum; Translations: [Duodenal ulcer, unspecified as acute or chronic, without hemorrhage or perforation] Onset: 12-30-2024 12-30-2024 Chronic Intestinal infection (14 sources) Intestinal infectious disease 04-20-2020 Episodic Intestinal obstruction without hernia (1 source) Fecal impaction; Translations: [Fecal impaction] Onset: 10-21-2024 Episodic Nonspecific chest pain (20 sources) Chest pain; Translations: [Chest pain, unspecified] Onset: 07-22-2022 10-04-2019 Episodic Osteoarthritis (14 sources) Osteoarthritis of joint of right hand 04-20-2020 Chronic Other circulatory disease (5 sources) Elevated blood-pressure reading without diagnosis of hypertension; Translations: [Elevated blood-pressure reading, without diagnosis of hypertension] 10-26-2024 Episodic Other liver diseases (4 sources) Steatosis of liver; Translations: [Fatty (change of) liver, not elsewhere classified] 12-30-2024 Chronic Other liver diseases (2 sources) Fatty (change of) liver, not elsewhere classified; Translations: [Fatty (change of) liver, not elsewhere classified] Onset: 12-30-2024 Chronic Other nervous system disorders (1 source) Chronic pain; Translations: [Other chronic pain] Onset: 07-22-2022 Chronic Other non-traumatic joint disorders (20 sources) Arthritis of hand 09-20-2020 Chronic Residual codes; unclassified (1 source) Sleep apnea; Translations: [Sleep apnea, unspecified] 01-03-2025 Chronic Residual codes; unclassified (14 sources) Sleep disorder 11-22-2020 Episodic Residual codes; unclassified (1 source) Tobacco user; Translations: [Tobacco use] Onset: 07-22-2022 Episodic Spondylosis; intervertebral disc disorders; other back problems (20 sources) Degeneration of lumbar intervertebral disc; Translations: [Lumbar spondylosis] Onset: 07-22-2022 04-20-2020 Chronic Spondylosis; intervertebral disc disorders; other back problems (20 sources) Backache; Translations: [Lumbar radiculopathy] Onset: 01-16-2017 01-16-2017 Episodic Substance-related disorders (20 sources) Nicotine dependence; Translations: [Nicotine dependence, unspecified, uncomplicated] 10-04-2019 Chronic Comment on above: Quit smoking November 05 Unclassified (1 source) Other intervertebral disc degeneration, lumbar region with discogenic back pain and lower extremity pain; Translations: [Other intervertebral disc degeneration, lumbar region with discogenic back pain and lower extremity pain] Onset: 10-13-2024 Past or Other Problems Problem Classification Problem Date Documented Date Episodic/Chronic Bacterial infection (4 sources) Methicillin resistant Staphylococcus aureus infection; Translations: [Methicillin resistant Staphylococcus aureus infection, unspecified site] Onset: 01-16-2017 01-16-2017 Episodic Calculus of urinary tract (14 sources) Kidney stone Onset: 06-22-2020 06-28-2020 Episodic Fever of unknown origin (1 source) Fever, unspecified; Translations: [Fever, unspecified] Onset: 09-27-2024 Episodic Other lower respiratory disease (1 source) Pleurodynia; Translations: [Pleurodynia] Onset: 07-16-2024 Episodic Residual codes; unclassified (1 source) Chills (without fever); Translations: [Chills (without fever)] Onset: 06-23-2024 Episodic Skin and subcutaneous tissue infections (4 sources) Abscess; Translations: [Cutaneous abscess, unspecified] Onset: 01-16-2017 01-16-2017 Episodic Unclassified (1 source) Other intervertebral disc degeneration, lumbar region with discogenic back pain and lower extremity pain; Translations: [Other intervertebral disc degeneration, lumbar region with discogenic back pain and lower extremity pain] Onset: 10-13-2024 Results Test Name Value Interpretation Reference Range Facility [id number] 01-03-2025 [facility] Misc. COMMENT Normal . [facility] Comment on above: Order Comment: [id number] Result Comment: Test Ordered: [id number] Enhanced Liver Fibrosis (ELF) ELF(TM) Score 9.48 BN Reference Range: <9.80 ELF(TM) Score Interpretation: Risk cut-offs to assess the likelihood of progression to cirrhosis and liver-related clinical events within 3.9 years following baseline ELF score (IQR: 14.0-22.4 months)*: Lower risk < 9.80 Mid risk 9.80 - 11.29 Higher risk >11.29 Note: The ELF(TM) Score is a unitless numerical value. *Lucas SA, Néstor VW, Linette T, et al. Selonsertib for patients with bridging fibrosis or compensated cirrhosis due to PEREZ: Results from randomized phase III STELLAR trials. J Hepatol. 2020 Nov;73(1):26-39. Performed at: [facility] [address] [id number] Simonizer: Festus Bustamante MD, Phone: [phone] Performed at: [facility] [address] [id number] Simonizer: Jose Enrique Castanon PhD, Phone: [phone] Performed By: #### L [id number] #### [facility] Laboratory [address] [place], [address] Gastroenterology Visit Repor ton 12-30-2024 Gastroenterology Visit Report [facility] Gastroenterology [address] [place] [address] OFFICE VISIT Date of Service: 12/30/24 MR#: [id number] Acct: [id number] Name: JORGE LUIS JOHNSON V Rep #: [id number] : 1960 Provider: DOC shirley Age/Sex: 64/M [place] [facility] [place] Status: Signed Intake Vital Signs 11/25/24 10:27 12/30/24 08:33 Height 5 ft 11 in 5 ft 11 in Weight: 244 lb 8 oz BMI 34.1 BP 127/82 H Respiration 18 Pulse 65 Temp 98.3 F Temp Source Temporal Pulse Oximetry (%) 98 Oxygen Delivery Method room air Intake Visit Reasons: Test Result Chief Complaint: reflux for many years Communications Editor Required: No Accompanied by: Self Is patient in pain?: No Allergies No Known Allergies Allergy (Verified 12/30/24 08:38) Medications ???Medication ???Instructions ???Recorded ???Confirmed ???Type tizanidine 4 mg tablet 4 mg PO PRN PRN muscle relaxant 12/30/24 History #90 tabs hydrocodone 7.5 mg-acetaminophen 1 tab PO DAILY PRN pain 10/06/19 0 12/30/24 History 325 mg tablet colchicine 0.6 mg tablet 0.6 mg PO QDAY PRN gout 04/26/24 0 12/30/24 History tamsulosin 0.4 mg capsule 0.4 mg PO QDAY 04/26/24 12/30/24 H istory acetaminophen 325 mg tablet 650 mg PO Q6H PRN fever or pain 12/30/24 History (Aminofen) loratadine 10 mg tablet 10 mg PO DAILY 10/26/24 12/30/24 H istory (Allerclear) sennosides 8.6 mg-docusate sodium 2 tab PO BID 10/26/24 12/30/24 Hi story 50 mg tablet (Stool Softener-Stimulant Laxative) losartan 50 mg tablet 50 mg PO QHS 11/24/24 12/30/24 His tory pantoprazole 40 mg tablet,delayed 40 mg PO BID 12/30/24 12/30/24 Hi story release Have you fallen in the past year?: No PFSH Medical History (Updated 12/30/24 @ 08:57 by DOC Haq) MRSA infection Alcohol use History of steroid therapy Kidney stone Back pain Gastric reflux CPAP (continuous positive airway pressure) dependence Sleep apnea Former smoker History of edema History of echocardiogram History of stress test Cardiology follow-up encounter Hypertension Arthritis of right acromioclavicular joint Nicotine dependence Obesity DDD (degenerative disc disease), lumbar Chronic back pain Surgical History History of throat surgery History of back surgery History of arthroscopic procedure on shoulder (03/2019) Family History Other Cancer Social History Smoking Status: Former smoker quit date: 07/18/19 Tobacco: How many years used: 30 alcohol intake: never substance use type: does not use HPI HPI Chief Complaint: reflux for many years Details: OV 11/16/2024 64-year-old male with a history of gastroesophageal reflux disease GERD) presents with exacerbated symptoms, including severe chest pain, leading to an ER visit. The ER evaluation ruled out cardiac causes with normal troponin levels, and a GI cocktail provided symptom relief, suggesting a gastrointestinal etiology. The patient is currently on pantoprazole and sucralfate, with adjustments to the dosing schedule to optimize symptom control. The patient also has a history of fatty liver disease, managed with vitamin E and lifestyle modifications, and pseudogout, managed with meloxicam and colchicine as needed. Regular colonoscopies have shown diverticulosis, with no recent polyps detected. Patient Instructions: - Continue taking pantoprazole once daily in the morning on an empty stomach. - Take sucralfate before lunch, dinner, and at bedtime. - Schedule and prepare for an upper endoscopy as instructed. - Maintain dietary modifications and continue vitamin E for fatty liver management. EGD 11/25/2024 - biopsies negative for Mahoney's and Celiac Sprue - per Dr. Ramirez the polyps are likely reactive to inflammation and no repeat EGD needed. - Z-line irregular, 39 cm from the incisors. Biopsied. - No gross lesions in the entire stomach. - Non-bleeding duodenal ulcers with no stigmata of bleeding. Biopsied. - multiple 3mm carpet like polyps without bleeding were found in the duodenal bulb. -The exact cause of duodenal polyps isn't always clear. However, certain factors increase the risk, including: Chronic inflammation of the GI tract. Family history of intestinal polyps or inherited syndromes like familial adenomatous polyposis (FAP). FAP is caused by an APC gene mutation and is associated with a significantly increased risk of duodenal polyps, according to MyPathologyReport. Dietary factors like a low-fiber, high-fat diet. Smoking and heavy alcohol consumption. Older age (over 50). COLON 01/20/2015 hyperplastic transverse c (more content not included)... Normal [facility] EGD Reporton 11-25-2024 EGD Report [facility] Medical Records Department [address] [place] [address] EGD Report MR#: [id number] Acct: [id number] Name: JORGE LUIS JOHNSON V Rep #: [id number] : 1960 64 From: Donovan Ramirez DO PCP: Dr. Ye Acevedo MD Status:REG [facility] [place] Patient Name: Jorge Luis Johnson Procedure Date: 11/25/2024 12:13 PM Date of : 1960 Age: 64 Procedure: Upper GI endoscopy Indications: Epigastric abdominal pain, Heartburn Providers: Donovan Ramirez DO Referring MD: Ye Acevedo MD Medicines: Monitored Anesthesia Care Patient Profile: This is a 64 year old male. Refer to note in patient chart for documentation of history and physical. Patient has symptoms of acute abdominal distention, acute epigastric abdominal pain, acute dyspepsia and acute heartburn. Complications: No immediate complications. Procedure: Pre-Anesthesia Assessment: - Prior to the procedure, a History and Physical was performed, and patient medications and allergies were reviewed. The patient is competent. The risks and benefits of the procedure and the sedation options and risks were discussed with the patient. All questions were answered and informed consent was obtained. Patient identification and proposed procedure were verified by the physician in the pre-procedure area. Mental Status Examination: alert and oriented. Airway Examination: normal oropharyngeal airway and neck mobility. Respiratory Examination: clear to auscultation. CV Examination: normal. Prophylactic Antibiotics: The patient does not require prophylactic antibiotics. Prior Anticoagulants: The patient has taken no anticoagulant or antiplatelet agents except for NSAID medication. ASA Grade Assessment: II - A patient with mild systemic disease. After reviewing the risks and benefits, the patient was deemed in satisfactory condition to undergo the procedure. The anesthesia plan was to use monitored anesthesia care (MAC). Immediately prior to administration of medications, the patient was re-assessed for adequacy to receive sedatives. The heart rate, respiratory rate, oxygen saturations, blood pressure, adequacy of pulmonary ventilation, and response to care were monitored throughout the procedure. The physical status of the patient was re-assessed after the procedure. After obtaining informed consent, the endoscope was passed under direct vision. Throughout the procedure, the patient's blood pressure, pulse, and oxygen saturations were monitored continuously. The Endoscope was introduced through the mouth, and advanced to the third part of the duodenum. Small bowel enteroscopy was deemed necessary. The upper GI endoscopy was accomplished without difficulty. The patient tolerated the procedure well. Scope In: 12:19:18 PM Scope Out: 12:23:19 PM Total Procedure Duration Time 0 hours 4 minutes 1 second Findings: The Z-line was irregular and was found 39 cm from the incisors. Biopsies were taken with a cold forceps for histology. Verification of patient identification for the specimen was done. Estimated blood loss was minimal. No gross lesions were noted in the entire examined stomach. Many non-bleeding superficial duodenal ulcers with no stigmata of bleeding were found in the duodenal bulb and in the first portion of the duodenum. Biopsies were taken with a cold forceps for histology. Verification of patient identification for the specimen was done. Estimated blood loss was minimal. Multiple 3 mm carpet-like polyps with no bleeding were found in the duodenal bulb, in the first portion of the duodenum and in the second portion of the duodenum. Impression: - Z-line irregular, 39 cm from the incisors. Biopsied. - No gross lesions in the entire stomach. - Non-bleeding duodenal ulcers with no stigmata of bleeding. Biopsied. -The exact cause of duodenal polyps isn't always clear. However, certain factors increase the risk, including: Chronic inflammation of the GI tract. Family history of intestinal polyps or inherited syndromes like familial adenomatous polyposis (FAP). FAP is caused by an APC gene mutation and is associated with a significantly increased risk of duodenal polyps, according to MyPathologyReport. Dietary factors like a low-fiber, high-fat diet. Smoking and heavy alcohol consumption. Older age (over 50). Recommendation: - Discharge patient to home. - Resume previous diet. - Continue present medications. - Await pathology results. Procedure Code(s): --- Professional --- 03194, Small intestinal endoscopy, enteroscopy beyond second portion of duodenum, not including ileum; with biopsy, single or multiple CPT copyright 2021 [employer]. All rights reserved. The codes documented in this report are preliminary and upon manager spring review may be revised to meet current complianc (more content not included)... Normal [facility] MR/POSTOP.Little 11-25-2024 MR/POSTOP.[facility] Medical Records Department [address] [place] [address] Anesthesia Postop Eval I 11/25/24 1234 MR#: [id number] Acct: [id number] Name: JORGE LUIS JOHNSON V Rep #: [id number] : 1960 64 From: Gilbert Matt PCP: Dr. Ye Acevedo MD Status:[facility] Y Race: C Location: [place] [address] Anesthesia: Postop Eval I Current Vital Signs Temperature: 98.2 F Pulse Rate: 75 Blood Pressure: 109/69 Respiratory Rate: 16 Pulse Ox: 93 Oxygen Delivery Method: Room Air Assessment Airway patent: Yes Spontaneous unlabored respirations: Yes Mental status: Asleep nausea: No Vomiting: No Anesthesia Complication: No Fluid Hydration Crystalloid volume administer (ml): 300 Total IV fluid infused: 300 Progress Note Anesthesia document: Postop Eval 1 completed: Yes 11/25/24 1235 Date Gilbert Spears Signature: Date CC: Signed Normal [facility] MR/[id number] [facility]-25-2024 [facility] Medical Records Department [address] [place] [address] Anesthesia Postop Eval II 11/25/24 1437 MR#: [id number] Acct: [id number] Name: JORGE LUIS JOHNSON V Rep #: [id number] : 1960 64 From: Naomie Maria CRNA PCP: Dr. Ye Acevedo MD Status:[facility] Y Race: C Location: [place] Anesthesia Postop Eval I Sum Postop Eval Completion status Anesthesia document: Postop Eval 1 completed: Yes Anesthesia Postop Eval I Summary Anesthesia Postop Eval I Summary: Anesthesia Postop Eval I: Assessment Summary Airway patent Yes 11/25/24 12:35 [email or web address] Spontaneous unlabored Yes 11/25/24 12:35 [email or web address] respirations Mental status Asleep 11/25/24 12:35 [email or web address] nausea No 11/25/24 12:35 [email or web address] Vomiting No 11/25/24 12:35 [email or web address] Anesthesia Postop Eval I: Fluid Summary Crystalloid volume administer 300 11/25/24 12:35 [email or web address] (ml) Colloids volume administered ( ml) Blood Product volume administered (ml) Total IV fluid infused 300 11/25/24 12:35 [email or web address] Anesthesia Postop Eval I: Summary Notes Anesthesia Complication No 11/25/24 12:35 [email or web address] Anesthesia Complication Comment: Post-operative progress note Anesthesia: Postop Eval II Evaluation Mental status: Awake and Calm Pain Level: 0 nausea: No Vomiting: No Complications Anesthesia Complication: No 11/25/24 1438 Date Naomie Spears Signature: Date CC: Signed Normal [facility] Surgery Specimen Level Umer 11-25-2024 Surgery Specimen Level IV Patient Age/Sex Location Account Attending Physician JORGE LUIS JOHNSON V 64/M RUFINO [id number] Donovanlinn Ramirez DO Specimen: [id number] Received: 11/26/24 Status: CLINT Pillai Num: [id number] Spec Type: EGD BIOPSY Subm Dr: Donovan Ramirez DO [facility] OPERATION: EGD with biopsy PRE-OP DIAGNOSIS: GERD TISSUE SUBMITTED: A- Duodenum biopsy, B- Distal esophagus biopsy MICROSCOPIC DIAGNOSIS A. Duodenum, colon, biopsy: Focal chronic nonspecific duodenitis. Negative for histologic signs of celiac disease. B. Distal esophagus, biopsy: Squamocolumnar mucosa with reflux esophagitis. Negative for intestinal metaplasia, dysplasia, or malignancy. MICROSCOPIC DESCRIPTION Slides are reviewed. GROSS DESCRIPTION A. Received in fixative is one container labeled with the patient's name and designated Duodenum biopsy. The specimen consists of multiple irregular fragments of light castaneda soft tissue that in aggregate measure 0.2 to 0.4 cm. The specimen is totally submitted in one cassette. B. Received in fixative is one container labeled with the patient's name and designated Distal esophagus biopsy. The specimen consists of two irregular fragments of light castaneda soft tissue that in aggregate measure 0.3 and 0.5 cm. The specimen is totally submitted in one cassette. ELENI/ 11/26/2024 CPT:28453v3 Patient Age/Sex Location Account Attending Physician JORGE LUIS JOHNSON V 64/M EN [id number] Donovan Ramirez DO Signed (signature on file) Dr. Wen Ybarra MD 12/06/24 1523 Normal [facility] Comment on above: Performed By: #### L [id number] #### [facility] Laboratory [address] [facility] [place], [place], [address] Coronary Angiography CTon Coronary Angiography CT [facility] Imaging Services [address] [address] 11/24/24 7405 MR#: [id number] Acct: [id number] Name: OJRGE LUIS JOHNSON V Rep #: [id number] : 1960 64 From: Aleksandar Patton MD PCP: Dr. Ye Acevedo MD Status:REG REF Y Location: CT Calcium Scoring Date of Study:: 11/24/24 Indications Indications: Chest pain coronary disease Coronary Calcium Scoring: High-resolution Computed Tomographic imaging of the chest was performed on [11/24/2024], with particular attention paid to the coronary arteries. Images from the examination were analyzed for the presence and extent of coronary artery calcification , using coronary calcium quantification software. The patient tolerated the procedure well and there were no complications. The results of the coronary calcification analysis are provided below. Findings Coronary Artery Left Main (LM): 0 Left Anterior Descending (LAD): 74.9 Left Circumflex (LCX): 0 Right Coronary Artery (RCA): 89.4 Total Agatston Score: 164.3 Percentile Rankin to 50th percentile Calcium Scoring Interpretation: Different methods to categorize the overall amount of coronary plaque. Overall amount CAC SIS Visual of coronary plaque P1 Mild -100 <2 1-2 vessels with mild amount of plaque P2 Moderate 101-300 3-4 1-2 vessels with moderate amount, 3 vessels with mild amount of plaque P3 Severe 301-999 5-7 3 vessels with moderate amount, 1 vessel with severe amount of plaque P4 Extensive >1000 >8 2-3 vessels with severe amount of plaque Calcium Score: Moderate: 1-2 vessels w/moderate amt, 3 vessels w/mild amt of plaque Conclusion: Mild to moderate two-vessel plaque disease noted 11/24/24 1758 Date Aleksandar Patton MD Cosigner Signature (if applicable): Date CC: Dr. Aleksandar Patton MD; Dr. Ye Acevedo MD Signed Normal [facility] Limited Chest CT Cardiac Onl yon 11-24-[address] Cardiac Only [facility] Imaging Services [address] [place] [address] Cardiac Only MR#: [id number] Acct: [id number] Name: JORGE LUIS JOHNSON V Rep #: [id number] : 1960 M 64 From: Augustine Moss PCP: Dr. Ye Acevedo MD Status: REG REF Study: Limited Chest CT Cardiac Only Date of Exam: Exam# [id number] Ordering Dr: Ye Acevedo MD PROCEDURE: LIMITED CHEST CT CARDIAC ONLY 11/24/2024 REASON FOR EXAM: CAD, CHEST PAIN TECHNIQUE: CT performed for coronary artery calcification. One or more dose reduction techniques were used (e.g., Automated exposure control, adjustment of the mA and/or kV according to patient size, use of iterative reconstruction technique). RADIATION DOSE SUMMARY: CTDlvol: 12.19 mGy DLP: 243.79 mGycm COMPARISON: None. CT/Limited Chest CT Cardiac Only IMPRESSION: At least mild pulmonary emphysema is seen. Limited imaging of the lungs demonstrates no acute process. No pleural effusion or pneumothorax is seen in visualized areas. No adenopathy is noted. The visualized upper abdomen demonstrates no significant abnormality. Reading Location: [address] CC: Dr. Ye Acevedo MD Joint Filler: Signed [facility] MR/PAT.ANEon 11-24-2024 MR/PAT.[facility] Medical Records Department [address] [place] [address] PAT - Anesthesia 11/24/24 1545 MR#: [id number] Acct: [id number] Name: JORGE LUIS JOHNSON V Rep #: [id number] : 1960 64 From: Vini Waite MD PCP: Dr. 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 When Was Last Pacemaker Check QUESTION #4 FULL TEXT: You/Your Family Experience fever (hyperthermia) with Anesthesia Last Oral Intake Last Oral intake: Last Oral Intake NPO since Meds taken in AM with sips of water? 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 Has anyone observed you stop breathing during sleep? STOP Results Positive 11/24/24 10:03 QUESTION #5 FULL TEXT : Do you snore loudly (louder than talking or can be heard through closed doors)? 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 Specify any problems Hx of Preganancy in last 3 N/A 11/24/24 10:03 Months Nurse Filling Out Transfusion VCHRISTIN 11/24/24 10:03 Questions: Date: 11/24/24 11/24/24 10:03 Time: 10:07 11/24/24 10:03 Patient unable to answer at this time (ie. 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 developer: /Reproducti ve Hx- ibm websphere commerce developer Hx Now No 11/24/24 10:03 Gestational Age (in weeks): EDC: Hx Hx Para Hx Section SAB No 11/24/24 10:03 [facility] Medical History (Updated 11/24/24 @ 10:03 by Carolin Rodgers) MRSA infection Alcohol use History of steroid therapy Kidney stone Back pain Gastric reflux CPAP (continuous positive airway pressure) dependence Sleep apnea Former smoker History of edema History of echocardiogram History of stress test Cardiology follow-up encounter Hypertension Arthritis of right acromioclavicular joint Nicotine dependence Obesity DDD (degenerative disc disease), lumbar Chronic back pain Home Medications ???Medication ???Instructions ???Recorded ???Last Taken ???Type albuterol sulfate 90 mcg/actuation 1 puff inhalation PRN PRN Sob / Or 01/29/19 Unknown History aerosol inhaler Wheezing #8 grams tizanidine 4 mg tablet 4 mg PO PRN PRN muscle relaxant Unknown History #90 tabs (more content not included)... Normal [facility] Gastroenterology Visit Repor ton 11-16-2024 Gastroenterology Visit Report [facility] Gastroenterology [address] [place] [address] OFFICE VISIT Date of Service: 11/16/24 MR#: [id number] Acct: [id number] Name: JORGE LUIS JOHNSON V Rep #: [id number] : 1960 Provider: DOC shirley Age/Sex: 64/M Location[place] [facility] [place] Status: Signed Intake Vital Signs 10/26/24 19:43 11/16/24 14:48 Height 5 ft 11.5 in 5 ft 11 in Weight: 243 lb 4 oz BMI 33.9 BP 144/87 H Respiration 20 H Pulse 83 Temp 98.6 F Temp Source Temporal Pulse Oximetry (%) 91 Oxygen Delivery Method room air Intake Visit Reasons: REFLUX IMPACTION COLON PRE COLONOSCOPY Chief Complaint: reflux for many years Communications Editor Required: No Accompanied by: Is patient in pain?: No Allergies No Known Allergies Allergy (Verified 11/16/24 14:33) Medications ???Medication ???Instructions ???Recorded ???Confirmed ???Type albuterol sulfate 90 mcg/actuation 1 puff inhalation PRN PRN Sob / Or 01/29/19 11/16/24 History aerosol inhaler Wheezing #8 grams tizanidine 4 mg tablet 4 mg PO PRN PRN muscle relaxant 11/16/24 History #90 tabs hydrocodone 7.5 mg-acetaminophen 1 tab PO DAILY PRN pain 10/06/19 0 11/16/24 History 325 mg tablet colchicine 0.6 mg tablet 0.6 mg PO QDAY PRN gout 04/26/24 0 11/16/24 History tamsulosin 0.4 mg capsule 0.4 mg PO QDAY 04/26/24 11/16/24 H istory acetaminophen 325 mg tablet 650 mg PO Q6H PRN fever or pain 11/16/24 History (Aminofen) loratadine 10 mg tablet 10 mg PO DAILY 10/26/24 11/16/24 H istory (Allerclear) meloxicam 15 mg tablet 15 mg PO DAILY 10/26/24 11/16/24 H istory pantoprazole 40 mg tablet,delayed 40 mg PO DAILY 10/26/24 11/16/24 History release sennosides 8.6 mg-docusate sodium 2 tab PO BID 10/26/24 11/16/24 Hi story 50 mg tablet (Stool Softener-Stimulant Laxative) sucralfate 1 gram tablet 1 g PO .AC and at bedtime 30 days 10/26/24 11/16/24 Rx #120 tabs Have you fallen in the past year?: No Nurse's Note: Has had GERD for years but it is starting to get worse. Last EGD was about 40 years ago. History of problems with esophagus. [facility] Medical History (Updated 11/16/24 @ 15:07 by DOC Haq) Arthritis of right acromioclavicular joint Nicotine dependence Obesity DDD (degenerative disc disease), lumbar Chronic back pain Surgical History History of back surgery History of arthroscopic procedure on shoulder (03/2019) Family History Other Cancer Social History Smoking Status: Former smoker quit date: 07/18/19 Tobacco: How many years used: 30 alcohol intake: never substance use type: does not use HPI HPI Chief Complaint: reflux for many years Details: JORGE LUIS JOHNSON, is a 64 M who presents to the office today for The patient is a 64-year-old male presenting with gastroesophageal reflux disease (GERD). He has experienced reflux symptoms for over 40 years, characterized by gas buildup and pressure. He has been on pantoprazole, a proton pump inhibitor, intermittently for the past year, with recent continuous use for three to four weeks. Despite medication, he experiences flare-ups with severe chest pain, leading to an ER visit on October 26. ER evaluation showed normal troponin levels, and a GI cocktail provided symptom relief. He was prescribed sucralfate to be taken before meals and at bedtime, which initially improved symptoms. The patient reports mild discomfort and frequent belching, with no nausea, vomiting, or dysphagia. He denies any history of myocardial infarction, stroke, or known heart, lung, or kidney disease. The patient has a history of fatty liver disease, identified via ultrasound, and is managed with vitamin E supplementation and dietary modifications. He undergoes regular colonoscopies, with the last revealing no polyps but diverticulosis. He has a history of pseudogout, managed with meloxicam and colchicine as needed for flare-ups. The patient quit smoking four years ago and consumes alcohol rarely. - gas build up / pressure for >40 years - he is taking pantoprazole 40mg daily and reports he has been on a PPI daily for many years - for the most part symptoms are controlled with PPI - he had pain in upper chest - ER sent him home with Carafate QID and feels this helped for 3-4 days - belching - denies any N/V - denies any dysphagia - denies any heart, lung or kidney disease - Meloxicam 15mg once daily for pseudo gout - h/o smoker, quit 4 years ago - EtOH rare - caffeine intake has decreased - reports starting Vitamin E for fatty liver - weight loss was recommended - previous (more content not included)... Normal [facility] 12 Lead EKGon 10-26-2024 12 Lead EKG [facility] Cardiovascular Services [address] [place] [address] 12 Lead EKG 10/26/241952 MR#: [id number] Acct: [id number] Name: JORGE LUIS JOHNSON V Rep #: [id number] : 1960 64 From: Neo Caro MD Attending Dr: Status: DEP ER Ordering Dr: Sohail Jordan MD Date: 10/26/24 Location: ED Sex: M C Admitted: Test Reason : CP Blood Pressure : */* mmHG Vent. Rate : 78 BPM Atrial Rate : 78 BPM P-R Int : 144 ms QRS Dur : 76 ms QT Int : 352 ms P-R-T Axes : 58 52 53 degrees QTcB Int : 401 ms Normal sinus rhythm Normal ECG Confirmed by Neo Caro ([id number]), editorial manager JANINE REYES ([id number]) on 10/28/2024 6:47:37 AM Referred By: Confirmed By: Neo Caro 10/28/24 0647 Date Neo Caro MD CC: Dr. Ye Acevedo MD; Dr. Sohail Jordan MD Signed Normal [facility] Absolute lymphocyte countOrd ered By: Sohail Jordan on 10-26-2024 Lymphocytes Auto (Unsp spec) [#/Vol] 2.62 10*3/uL 0.83-4.51 [facility] Absolute neutrophil countOrd ered By: [facility] Julian on 10-26-2024 Neutrophils (Bld) [#/Vol] 7.1 10*3/uL 2.0-7.7 [facility] Anion gap in Serum or Plasma Ordered By: Sohailsaul Jordan on 10-26-2024 Anion gap [Moles/Vol] 13 mmol/L 09-30 [facility] Automated lymphocyte count a s percentage of total leukocytesOrdered By: Sohailsaul Jordan on 10-26-2024 Lymphocytes/100 WBC Auto (Unsp spec) 24.1 % [facility] BUN/creatinine ratioOrdered By: Sohailsaul Jordan on 10-26-2024 Urea nitrogen/Creatinine [Mass ratio] 14.4 mg/mg 03-07 [facility] Basic Metabolic Profile (BMP )on 10-26-2024 BUN/CRE 14.4 RATIO Normal 03-07 [facility] Comment on above: Performed By: #### L 500.2500, L100.0100, L501.4021 #### [facility] Laboratory [address] [place], [address] Calcium [Mass/Vol] 9.4 mg/dL Normal 7.6-11.0 [facility] Comment on above: Performed By: #### L 500.2500, L100.0100, L501.4021 #### [facility] [address] [place], [address] Chloride [Moles/Vol] 104 mmol/L Normal 98-108 [facility] Comment on above: Performed By: #### L 500.2500, L100.0100, L501.4021 #### [facility] [address] [place], [address] CO2 [Moles/Vol] 22.0 mmol/L Normal 21.0-32.0 [facility] Comment on above: Performed By: #### L 500.2500, L100.0100, L501.4021 #### [facility] [address] [place], [address] Creatinine [Mass/Vol] 0.79 mg/dL Normal 0.70-1.20 [facility] Comment on above: Performed By: #### L 500.2500, L100.0100, L501.4021 #### [facility] [address] [place], [address] ECRCL 115.60 ml/min Normal 50-250 [facility] Comment on above: Performed By: #### L 500.2500, L100.0100, L501.4021 #### [facility] [address] [place], [address] GAP 13 Normal 5-15 [facility] Comment on above: Performed By: #### L 500.2500, L100.0100, L501.4021 #### [facility] [address] [place], [address] GFR/1.73 sq M.predicted among non-blacks MDRD (S/P/Bld) [Vol rate/Area] 98 mL/min/{1.73_m2} Normal >60 [facility] Comment on above: Result Comment: mL/m in/1.73m2 CKD-EPI Creatinine Equation (2020) Performed By: #### L 500.2500, L100.0100, L501.4021 #### [facility] [address] [place], [address] Glucose [Mass/Vol] 105 mg/dL High 70-99 [facility] Comment on above: Performed By: #### L 500.2500, L100.0100, L501.4021 #### [facility] [address] [place], [address] Potassium [Moles/Vol] 3.8 mmol/L Normal 3.3-5.1 [facility] Comment on above: Performed By: #### L 500.2500, L100.0100, L501.4021 #### [facility] [address] [place], [address] Sodium [Moles/Vol] 139 mmol/L Normal 133-145 [facility] Comment on above: Performed By: #### L 500.2500, L100.0100, L501.4021 #### [facility] [address] [place], [address] Urea nitrogen [Mass/Vol] 11 mg/dL Normal 4-19 [facility] Comment on above: Performed By: #### L 500.2500, L100.0100, L501.4021 #### [facility] [address] [place], [address] Basophil percentageOrdered B y: Sohail Jordan on 10-26-2024 Basophils/100 WBC (Bld) 0.3 % 0-1 [facility] CBC W/Diff, Automatedon 10-17 0-2024 Absolute Lymph 2.62 X10 3/uL Normal 0.83-4.51 [facility] Comment on above: Performed By: #### L 500.2500, L100.0100, L501.4021 #### [facility] [address] [place], [address] Absolute Neut 7.1 X10 3/uL Normal 2.0-7.7 [facility] Comment on above: Performed By: #### L 500.2500, L100.0100, L501.4021 #### [facility] [address] [place], [address] Basophils/100 WBC (Bld) 0.3 % Normal 0-1 [facility] Comment on above: Performed By: #### L 500.2500, L100.0100, L501.4021 #### [facility] [address] [place], [address] Eosinophils/100 WBC (Bld) 1.1 % Normal 0-5 [facility] Comment on above: Performed By: #### L 500.2500, L100.0100, L501.4021 #### [facility] [address] [place], [address] Erythrocyte distribution width (RBC) [Ratio] 12.9 % Normal 11.6-14.6 [facility] Comment on above: Performed By: #### L 500.2500, L100.0100, L501.4021 #### [facility] [address] [place], [address] Hematocrit (Bld) [Volume fraction] 43.0 % Normal 40-54 [facility] Comment on above: Performed By: #### L 500.2500, L100.0100, L501.4021 #### [facility] [address] [place], [address] Hemoglobin (Bld) [Mass/Vol] 14.9 g/dL Normal 13.0-16.5 [facility] Comment on above: Performed By: #### L 500.2500, L100.0100, L501.4021 #### [facility] [address] [place], [address] IG% 0.300 Normal 0.0-0.9 [facility] Comment on above: Result Comment: IG% - Immature Granulocytes (promyelocytes, myelocytes and metamyelocytes) > 1% indicates that a LEFT SHIFT is Present. Performed By: #### L 500.2500, L100.0100, L501.4021 #### [facility] [address] [place], [address] Lymphocytes/100 WBC (Bld) 24.1 % Normal 19-41 [facility] Comment on above: Performed By: #### L 500.2500, L100.0100, L501.4021 #### [facility] [address] [place], [address] MCH (RBC) [Entitic mass] 31.3 pg Normal 27.0-32.0 [facility] Comment on above: Performed By: #### L 500.2500, L100.0100, L501.4021 #### [facility] [address] [place], [address] MCHC (RBC) [Mass/Vol] 34.7 g/dL Normal 32-36 [facility] Comment on above: Performed By: #### L 500.2500, L100.0100, L501.4021 #### [facility] [address] [place], [address] MCV (RBC) [Entitic vol] 90.3 fL Normal 80-94 [facility] Comment on above: Performed By: #### L 500.2500, L100.0100, L501.4021 #### [facility] [address] [place], [address] Monocytes/100 WBC (Bld) 8.8 % Normal 0-10 [facility] Comment on above: Performed By: #### L 500.2500, L100.0100, L501.4021 #### [facility] [address] [place], [address] Neutrophils/100 WBC (Bld) 65.4 % Normal 47-70 [facility] Comment on above: Performed By: #### L 500.2500, L100.0100, L501.4021 #### [facility] [address] [place], [address] Nucleated RBC (Bld) [#/Vol] 0 10*3/uL Normal 0-5 [facility] Comment on above: Performed By: #### L 500.2500, L100.0100, L501.4021 #### [facility] [address] [place], [address] Platelet mean volume (Bld) [Entitic vol] 9.0 fL Normal 6.2-12.0 [facility] Comment on above: Performed By: #### L 500.2500, L100.0100, L501.4021 #### [facility] [address] [place], [address] Platelets (Bld) [#/Vol] 220 10*3/uL Normal 150-450 [facility] Comment on above: Performed By: #### L 500.2500, L100.0100, L501.4021 #### [facility] [address] [place], [address] RBC (Bld) [#/Vol] 4.76 10*6/uL Normal 4.6-6.2 [facility] Comment on above: Performed By: #### L 500.2500, L100.0100, L501.4021 #### [facility] [address] [place], [address] RDW SD 42.5 fl Normal 35.1-43.9 [facility] Comment on above: Performed By: #### L 500.2500, L100.0100, L501.4021 #### [facility] [address] [place], [address] WBC (Bld) [#/Vol] 10.9 10*3/uL Normal 4.4-11.0 [facility] Comment on above: Performed By: #### L 500.2500, L100.0100, L501.4021 #### [facility] [address] [place], [address] Carbon dioxide, total [Moles /volume] in Central venous bloodOrdered By: Sohail Jordan on 10-26-2024 CO2 [Moles/Vol] 22.0 mmol/L 21.0-32.0 [facility] Chest 1 View (Portable)on Chest 1 View (Portable) [facility] Imaging Services [address] [place] [address] Chest 1 View (Portable) MR#: [id number] Acct: [id number] Name: JORGE LUIS JOHNSON V Rep #: [id number] : 1960 M 64 From: Lb Mock MD PCP: Dr. Ye Acevedo MD Status: REG ER Study: Chest 1 View (Portable) Date of Exam: 10/26/24 Exam# [id number] Ordering Dr: Sohail Jordan MD PROCEDURE: CHEST 1 VIEW (PORTABLE) 10/26/2024 REASON FOR EXAM: CHEST PAIN TECHNIQUE: Frontal view of the chest. COMPARISON: Chest radiographs 07/02/2024 FINDINGS: Hardware: None Heart: Cardiac and mediastinal contours are stable. Lungs: The lungs are clear. No significant pleural effusion. Bones: Degenerative changes are identified within the thoracic spine. Unchanged widening of the right acromioclavicular joint. RAD/Chest 1 View (Portable) IMPRESSION: No acute cardiopulmonary abnormality. Reading Location: [facility] CC: Dr. Ye Acevedo MD; Dr. Sohail Jordan MD Joint Filler: Signed Normal [facility] Chloride assayOrdered By: Sebas Jordan on 10-26-2024 Chloride [Moles/Vol] 104 mmol/L 98-108 [facility] Emergency Department Summary on 10-26-2024 Emergency Department Summary [facility] Medical Records Department [address] [place] [address] Emergency Department Summary 10/26/24 MR#: [id number] Acct: [id number] Name: JORGE LUIS JOHNSON V Rep #: [id number] : 1960 64 From: Sohail Jordan MD PCP: Dr. Ye Acevedo MD Status:REG ER Location: ED HPI History of Present Illness Chief Complaint: Chest Pain Detail of Chief Complaint: Chest pressure. Informant: patient Onset/Context/Timing Onset: Days Activity at onset: sudden and rest Timing: Intermittent Quality: Positive for Aching and Pressure Location: Substernal Current Severity: Mild Maximum Severity: Moderate Worsened By: Nothing Relieved By: Nothing Associated Symptoms: Positive for - (No radiation of the discomfort.); Negative for Nausea, Vomiting, Diaphoresis, Dyspnea, Cough, Fever, Lightheadedness, Acid Reflux or Palpitations Narrative Narrative: Patient is a 64-year-old male. He was a smoker of 40+ years. He quit 4 years ago. He presents with an aching pressure sensation middle of his chest. This occurred at rest. This has been going on for a couple of days.'s been intermittent. He has been seen by his primary care physician Dr. Acevedo. He had troponin level drawn on the and that was normal. The only other abnormality was slight elevation of his glucose. Patient does have history of GERD. He does not sleep with his bed elevated. He was not made aware there are certain foods when should not eat and he should not having the eat 2 to 3 hours prior to going to bed. He denies black or maroon-colored stool. He denies any associated symptoms with the chest discomfort or radiation of the chest discomfort. Patient does have history of gout, bronchospasm, BPH and GERD. He was given samples of a new medication last week. He states the medicine is not helping. He was on Protonix. Patient denies any other symptoms. Prior Similar Symptoms: Yes (According to patient he was not told what was the cause of his pain.) Recent Illness/Hospitalizat ion: Yes CVD Risk Factors: Positive for Smoking; Negative for Hypertension, Diabetes or Family History 1' PE Risk Factors: Negative for Recent Travel/Surgery, Recent Immobilization, Prior DVT or PE, Cancer or OCP + Smoking + >/=35 TAD Risk Factors: Negative for Marfan's Syndrome, Hypertension or Family History [facility] Medical History (Updated 10/26/24 @ 23:[address] Sohail Jordan MD) Arthritis of right acromioclavicular joint Nicotine dependence Obesity DDD (degenerative disc disease), lumbar Chronic back pain Medical History no medical history no medical history Home Medications ???Medication ???Instructions ???Recorded ???Last Taken ???Type albuterol sulfate 90 mcg/actuation 1 puff inhalation PRN PRN Sob / Or 01/29/19 Unknown History aerosol inhaler Wheezing #8 grams tizanidine 4 mg tablet 4 mg PO PRN PRN muscle relaxant Unknown History #90 tabs hydrocodone 7.5 mg-acetaminophen 1 tab PO DAILY PRN pain 10/06/19 U nknown History 325 mg tablet colchicine 0.6 mg tablet 0.6 mg PO QDAY PRN gout 04/26/24 U nknown History tamsulosin 0.4 mg capsule 0.4 mg PO QDAY 04/26/24 Unknown Hi story acetaminophen 325 mg tablet 650 mg PO Q6H PRN fever or pain Unknown History (Aminofen) loratadine 10 mg tablet 10 mg PO DAILY 10/26/24 Unknown Hi story (Allerclear) meloxicam 15 mg tablet 15 mg PO DAILY 10/26/24 Unknown Hi story pantoprazole 40 mg tablet,delayed 40 mg PO DAILY 10/26/24 Unknown H istory release sennosides 8.6 mg-docusate sodium 2 tab PO BID 10/26/24 Unknown His tory 50 mg tablet (Stool Softener-Stimulant Laxative) sucralfate 1 gram tablet 1 g PO .AC and at bedtime 30 days 10/26/24 Unknown Rx #120 tabs Allergy/AdvReac Type Severity Reaction Status Date / Time No Known Allergies Allergy Verified 10/26/24 19:43 Surgical History History of back surgery History of arthroscopic procedure on shoulder (03/2019) Social History Smoking Status: Former smoker quit date: 07/18/19 Tobacco: How many years used: 30 ROS ROS ED Constitutional Constitutional ED: Denies chills, fever(s), subjective or sweats Eyes Eyes: Reports none ENT ENT ED: Denies rhinorrhea or sore throat Cardiovascular Cardiovascular: Reports as per HPI; Denies orthopnea or paroxysmal nocturnal dyspnea Respiratory/Chest Respiratory/Chest: Denies cough, dyspnea, dyspnea on exertion, orthopnea or paroxysmal nocturnal dyspnea Gastrointestinal Gastrointestinal: Denies abdominal pain, constipation, diarrhea, melena, nausea or vomiting Musculoskeletal Musculoskeletal: Denies arthralgias, back pain or myalgias Integumentary Denies rash Neurologic Neurologic: Denies par (more content not included)... Normal [facility] Eosinophil percentageOrdered By: [facility] Eosinophils/100 WBC (Bld) 1.1 % 0-5 [facility] Erythrocyte distribution wid th ratioOrdered By: Sohail Jordan on 10-26-2024 Erythrocyte distribution width (RBC) [Ratio] 12.9 % 11.6-14.6 [facility] Erythrocyte distribution wid th standard deviationOrdered By: [facility] on 10-26-2024 Erythrocyte distribution width (RBC) [Ratio] 42.5 fl 35.1-43.9 [facility] Glomerular filtration rate ( GFR) estimation/1.73 sq m using serum, plasma, or whole bOrdered By: [facility] on 10-26-2024 GFR/1.73 sq M.predicted among non-blacks MDRD (S/P/Bld) [Vol rate/Area] 98 mL/min/{1.73_m2} >60 [facility] Comment on above: mL/min/1.73m2 CKD-EP I Creatinine Equation (2020) Hematocrit Auto (Bld) [Volum e fraction]Ordered By: [facility] on 10-26-2024 Hematocrit (Bld) [Volume fraction] 43.0 % 40-54 [facility] Hemoglobin measurementOrdere d By: Sohail Jordan on 10-26-2024 Hemoglobin (Bld) [Mass/Vol] 14.9 g/dL 13.0-16.5 [facility] Immature granulocytes/100 WB C Auto (Bld)Ordered By: Sohailsaul Jordan on 10-26-2024 Immature granulocytes/100 WBC (Bld) 0.300 % 0.0-0.9 [facility] Comment on above: IG% - Immature Granu locytes (promyelocytes, myelocytes and metamyelocytes) > 1% indicates that a LEFT SHIFT is Present. L499.0042on 10-26-2024 Trop T High Sen Normal <=22 [facility] Comment on above: Result Comment: Canc elled via OM: Ordered Performed By: #### L 499.0042 #### [facility] [place], [address] L499.0043on 10-26-2024 Trop T High Sen Normal <=22 [facility] Comment on above: Result Comment: Canc elled via OM: Ordered Performed By: #### L 499.0043 #### [facility] [address] [place], [address] L501.4021on 10-26-2024 Trop T High Sen 8 ng/L Normal <=22 [facility] Comment on above: Performed By: #### L 500.2500, L100.0100, L501.4021 #### [facility] [address] [place], [address] MCV (mean corpuscular volume ) determinationOrdered By: Sohail Jordan on 10-26-2024 MCV (RBC) [Entitic vol] 90.3 fL 80-94 [facility] Mean corpuscular hemoglobin (MCH) determinationOrdered By: Sohailsaul Jordan on 10-26-2024 MCH (RBC) [Entitic mass] 31.3 pg 27.0-32.0 [facility] Mean corpuscular hemoglobin concentration (MCHC) determinationOrdered By: Sohail Jordan on 10-26-2024 MCHC (RBC) [Mass/Vol] 34.7 g/dL 32-36 [facility] Mean platelet volume determi nationOrdered By: Sohail Jordan on 10-26-2024 Platelet mean volume (Bld) [Entitic vol] 9.0 fL 6.2-12.0 [facility] Monocyte percentageOrdered B y: Sohail Jordan on 10-26-2024 Monocytes/100 WBC (Bld) 8.8 % 0-10 [facility] Neutrophil percentageOrdered By: Sohail Jordan on 10-26-2024 Neutrophils/100 WBC (Bld) 65.4 % 47-70 [facility] Nucleated red blood cell per centageOrdered By: Sohail Jordan on 10-26-2024 Nucleated RBC/100 WBC (Bld) [Ratio] 0 % 0-5 [facility] Platelet countOrdered By: [facility] Jordan on 10-26-2024 Platelets (Bld) [#/Vol] 220 10*3/uL 150-450 [facility] Potassium measurement (mass/ volume)Ordered By: Sohail Jordan on 10-26-2024 Potassium (Unsp spec) [Mass/Vol] 3.8 mmol/L 3.3-5.1 [facility] RBC Auto (Bld) [#/Vol]Ordere d By: Sohail Jordan on 10-26-2024 RBC (Bld) [#/Vol] 4.76 10*6/uL 4.6-6.2 [facility] Serum creatinine measurement (mass/volume)Ordered By: Sohail Jordan on 10-26-2024 Creatinine [Mass/Vol] 0.79 mg/dL 0.70-1.20 [facility] Serum glucose measurement (m ass/volume)Ordered By: Sohail Jordan on 10-26-2024 Glucose [Mass/Vol] 105 mg/dL High 70-99 [facility] Serum or plasma calcium homero urement (mass/volume)Ordered By: Sohail Jordan on 10-26-2024 Calcium [Mass/Vol] 9.4 mg/dL 7.6-11.0 [facility] Serum or plasma urea nitroge n measurement (mass/volume)Ordered By: Sohail Jordan on 10-26-2024 Urea nitrogen [Mass/Vol] 11 mg/dL 4-19 [facility] Sodium levelOrdered By: Sohail Jordan on 10-26-2024 Sodium [Moles/Vol] 139 mmol/L 133-145 [facility] Troponin T.cardiac [Mass/vol ume] in Serum or Plasma by High sensitivity methodOrdered By: Sohail Jordan on 10-26-2024 Troponin T.cardiac High sensitivity method [Mass/Vol] 8 ng/L <22 [facility] Comment on above: Delta: 9 on 10/19/24 White blood cell (WBC) count Ordered By: Sohail Jordan on 10-26-2024 WBC (Bld) [#/Vol] 10.9 10*3/uL 4.4-11.0 [facility] Myoglobin, Serumon Myoglobin, Ser 41 ng/mL Normal 28-72 [facility] Comment on above: Result Comment: Perf ormed at: - [facility] [address] [place], [place] [id number] Simonizer: Jose Enrique Castanon PhD, Phone: [phone] Performed By: #### M 100.763 #### [facility] [address] [place], [place], [id number] Myoglobin, Ser 47 ng/mL Normal 28-72 [facility] Comment on above: Result Comment: Perf ormed at: CB - [facility] [address] [place], [place] [id number] Simonizer: Jose Enrique Castanon PhD, Phone: [phone] Performed By: #### M 131.390 #### [facility] [address] [place], [place], [address] PMDSon 10-20-2024 ToxAssure 13 Summary FINAL Normal [facility] Comment on above: Result Comment: ======= TOXASSURE COMP DRUG ANALYSIS,UR ======= Test Result Flag Units Drug Present and Declared for Prescription Verification Hydrocodone 337 EXPECTED ng/mg creat Norhydrocodone 389 EXPECTED ng/mg creat Sources of hydrocodone include scheduled prescription medications. Norhydrocodone is an expected metabolite of hydrocodone. Acetaminophen PRESENT EXPECTED Drug Absent but Declared for Prescription Verification Tizanidine Not Detected UNEXPECTED Tizanidine, as indicated in the declared medication list, is not always detected even when used as directed. ======= Test Result Flag Units Ref Range Creatinine 27 mg/dL >=20 ======= Declared Medications: The flagging and interpretation on this report are based on the following declared medications. Unexpected results may arise from inaccuracies in the declared medications. Note: The testing scope of this panel includes these medications: Hydrocodone (Hydrocodone-Acetaminophen) Note: The testing scope of this panel does not include small to moderate amounts of these reported medications: Acetaminophen (Hydrocodone-Acetaminophen) Tizanidine (Zanaflex) ======= For clinical consultation, please call . ======= ToxAssure, ToxAssure FLEX or MAT drug testing: -Technical component - Data analysis performed at [facility], [address] [place] [address], [address]. [phone]. Simonizer Mary Miranda MD Performed At: [employer] [address] [place] [id number] Gil Carrasco Ph:[phone] Performed By: #### 7 [id number] #### [address] [address] CPK Total, Creatine Kinaseon 10-19-2024 CPK TOTAL 179 U/L Normal [facility] Comment on above: Performed By: #### M 100.678 #### [facility] [address] [place], [place], [address] L501.4021on 10-19-2024 Trop T High Sen 9 ng/L Normal <=22 [facility] Comment on above: Performed By: #### M 100.678 #### [facility] [address] [place], [place], [address] Serum myoglobin measurementO rdered By: Ye Acevedo on 10-19-2024 Myoglobin [Mass/Vol] 47 ng/mL [facility] Comment on above: Performed at: [address] [id number] Director: Jose Enrique Castanon PhD, Phone: [phone] Serum or plasma creatine kin ase activityOrdered By: Ye Acevedo on 10-19-2024 CK [Catalytic activity/Vol] 179 U/L [facility] Troponin T.cardiac [Mass/vol ume] in Serum or Plasma by High sensitivity methodOrdered By: Ye Acevedo on 10-19-2024 Troponin T.cardiac High sensitivity method [Mass/Vol] 9 ng/L <22 [facility] Comment on above: Delta: 7 on 10/18/24 -5 [employer] Decub and/or Erecton 10-18-2024 [employer] Decub and/or Erect [facility] [address] [place], [place] [address] [employer] Decub and/or Erect MR#: [id number] Acct: [id number] Name: JORGE LUIS JOHNSON V Rep #: [id number] : 1960 M 64 From: Michael Mckenna MD PCP: Dr. Ye Acevedo MD Status: REG CLI Study: [employer] Decub and/or Erect Date of Exam: 10/18 Exam# [id number] Ordering Dr: Ye Acevedo MD EXAM: XR Abdomen, 2 Views CLINICAL INDICATION: FECAL IMPACTION TECHNIQUE: Frontal view of the abdomen/pelvis with upright view of the abdomen. COMPARISON: No relevant prior studies available. FINDINGS: INTRAPERITONEAL SPACE: No free air. GASTROINTESTINAL TRACT: Fecal retention in the colon consistent with constipation. No dilation. BONES/JOINTS: Unremarkable. No acute fracture. RAD/[employer] Decub and/or Erect IMPRESSION: Fecal retention in the colon consistent with constipation. Reading [facility] CC: Dr. Ye Acevedo MD Joint Filler: Signed Normal [facility] Absolute lymphocyte countOrd ered By: [facility] Curtis on 10-18-2024 Lymphocytes Auto (Unsp spec) [#/Vol] 2.01 10*3/uL 0.83-4.51 [facility] Absolute neutrophil countOrd ered By: [facility] 10-18-2024 Neutrophils (Bld) [#/Vol] 7.4 10*3/uL 2.0-7.7 [facility] Anion gap in Serum or Plasma Ordered By: Ye Acevedo on 10-18-2024 Anion gap [Moles/Vol] 12 mmol/L 5-15 [facility] Automated lymphocyte count a s percentage of total leukocytesOrdered By: [facility] Curtis on 10-18-2024 Lymphocytes/100 WBC Auto (Unsp spec) 19.1 % 19-41 [facility] BUN/creatinine ratioOrdered By: [facility] 10-18-2024 Urea nitrogen/Creatinine [Mass ratio] 17.8 mg/mg 10-20 [facility] Basophil percentageOrdered B y: Ye Acevedo on 10-18-2024 Basophils/100 WBC (Bld) 0.5 % 0-1 [facility] Bilirubin, totalOrdered By: Ye Curtis on 10-18-2024 Bilirubin [Mass/Vol] 0.45 mg/dL 0.00-1.30 [facility] CBC W/Diff, Automatedon Absolute Lymph 2.01 X10 3/uL Normal 0.83-4.51 [facility] Comment on above: Performed By: #### M 100.678 #### [facility] Laboratory [facility] [place], [address] Absolute Neut 7.4 X10 3/uL Normal 2.0-7.7 [facility] Comment on above: Performed By: #### M 100.678 #### [facility] [address] [place], [address] Basophils/100 WBC (Bld) 0.5 % Normal 0-1 [facility] Comment on above: Performed By: #### M 100.678 #### [facility] [address] [place], [address] Eosinophils/100 WBC (Bld) 1.0 % Normal 0-5 [facility] Comment on above: Performed By: #### M 100.678 #### [facility] [address] [place], [address] Erythrocyte distribution width (RBC) [Ratio] 12.9 % Normal 11.6-14.6 [facility] Comment on above: Performed By: #### M 100.678 #### [facility] [address] [place], [address] Hematocrit (Bld) [Volume fraction] 43.0 % Normal 40-54 [facility] Comment on above: Performed By: #### M 100.678 #### [facility] [address] [place], [address] Hemoglobin (Bld) [Mass/Vol] 14.7 g/dL Normal 13.0-16.5 [facility] Comment on above: Performed By: #### M 100.678 #### [facility] [address] [place], [address] IG% 0.400 Normal 0.0-0.9 [facility] Comment on above: Result Comment: IG% - Immature Granulocytes (promyelocytes, myelocytes and metamyelocytes) > 1% indicates that a LEFT SHIFT is Present. Performed By: #### M 100.678 #### [facility] [address] [place], [address] Lymphocytes/100 WBC (Bld) 19.1 % Normal 19-41 [facility] Comment on above: Performed By: #### M 100.678 #### [facility] [address] [place], [address] MCH (RBC) [Entitic mass] 31.7 pg Normal 27.0-32.0 [facility] Comment on above: Performed By: #### M 100.678 #### [facility] [address] [place], [address] MCHC (RBC) [Mass/Vol] 34.2 g/dL Normal 32-36 [facility] Comment on above: Performed By: #### M 100.678 #### [facility] [address] [place], [address] MCV (RBC) [Entitic vol] 92.7 fL Normal 80-94 [facility] Comment on above: Performed By: #### M 100.678 #### [facility] [address] [place], [address] Monocytes/100 WBC (Bld) 8.5 % Normal 0-10 [facility] Comment on above: Performed By: #### M 100.678 #### [facility] [address] [place], [address] Neutrophils/100 WBC (Bld) 70.5 % High 47-70 [facility] Comment on above: Performed By: #### M 100.678 #### [facility] [address] [place], [address] Nucleated RBC (Bld) [#/Vol] 0 10*3/uL Normal 0-5 [facility] Comment on above: Performed By: #### M 100.678 #### [facility] [address] [place], [address] Platelet mean volume (Bld) [Entitic vol] 9.4 fL Normal 6.2-12.0 [facility] Comment on above: Performed By: #### M 100.678 #### [facility] [address] [place], [address] Platelets (Bld) [#/Vol] 225 10*3/uL Normal 150-450 [facility] Comment on above: Performed By: #### M 100.678 #### [facility] [address] [place], [address] RBC (Bld) [#/Vol] 4.64 10*6/uL Normal 4.6-6.2 [facility] Comment on above: Performed By: #### M 100.678 #### [facility] [address] [place], [address] RDW SD 43.9 fl Normal 35.1-43.9 [facility] Comment on above: Performed By: #### M 100.678 #### [facility] [address] [place], [address] WBC (Bld) [#/Vol] 10.5 10*3/uL Normal 4.4-11.0 [facility] Comment on above: Performed By: #### M 100.678 #### [facility] [address] [place], [address] Carbon dioxide, total [Moles /volume] in Central venous bloodOrdered By: Ye Acevedo on 10-18-2024 CO2 [Moles/Vol] 22.1 mmol/L 21.0-32.0 [facility] Chloride assayOrdered By: Andrea Acevedo on 10-18-2024 Chloride [Moles/Vol] 104 mmol/L 98-108 [facility] Comprehensive Metabolic Prof ilon 10-18-2024 Albumin [Mass/Vol] 4.3 g/dL Normal 3.4-4.8 [facility] Comment on above: Performed By: #### L 501.4021, L100.0100, L500.4050, L3600.5100, L509.6001 #### [facility] [address] [place], [address] Albumin/Globulin [Mass ratio] 1.5 {ratio} Normal 0.9-2.4 [facility] Comment on above: Performed By: #### L 501.4021, L100.0100, L500.4050, L3600.5100, L509.6001 #### [facility] [address] [place], [address] ALK PHOS 88 U/L Normal 40-129 [facility] Comment on above: Performed By: #### L 501.4021, L100.0100, L500.4050, L3600.5100, L509.6001 #### [facility] [address] [place], [address] ALT [Catalytic activity/Vol] 22 U/L Normal <=46 [facility] Comment on above: Performed By: #### L 501.4021, L100.0100, L500.4050, L3600.5100, L509.6001 #### [facility] [address] [place], [address] AST [Catalytic activity/Vol] 23 U/L Normal <=37 [facility] Comment on above: Performed By: #### L 501.4021, L100.0100, L500.4050, L3600.5100, L509.6001 #### [facility] [address] [place], [address] Bilirubin [Mass/Vol] 0.45 mg/dL Normal 0.00-1.30 [facility] Comment on above: Performed By: #### L 501.4021, L100.0100, L500.4050, L3600.5100, L509.6001 #### [facility] [address] [place], [address] BUN/CRE 17.8 RATIO Normal 10-20 [facility] Comment on above: Performed By: #### L 501.4021, L100.0100, L500.4050, L3600.5100, L509.6001 #### [facility] [address] [place], [address] Calcium [Mass/Vol] 9.1 mg/dL Normal 7.6-11.0 [facility] Comment on above: Performed By: #### L 501.4021, L100.0100, L500.4050, L3600.5100, L509.6001 #### [facility] [address] [place], [address] Chloride [Moles/Vol] 104 mmol/L Normal 98-108 [facility] Comment on above: Performed By: #### L 501.4021, L100.0100, L500.4050, L3600.5100, L509.6001 #### [facility] [address] [place], [address] CO2 [Moles/Vol] 22.1 mmol/L Normal 21.0-32.0 [facility] Comment on above: Performed By: #### L 501.4021, L100.0100, L500.4050, L3600.5100, L509.6001 #### [facility] [address] [place], [address] Creatinine [Mass/Vol] 0.71 mg/dL Normal 0.70-1.20 [facility] Comment on above: Performed By: #### L 501.4021, L100.0100, L500.4050, L3600.5100, L509.6001 #### [facility] [address] [place], [address] GAP 12 Normal 5-15 [facility] Comment on above: Performed By: #### L 501.4021, L100.0100, L500.4050, L3600.5100, L509.6001 #### [facility] [address] [place], [address] GFR/1.73 sq M.predicted among non-blacks MDRD (S/P/Bld) [Vol rate/Area] 101 mL/min/{1.73_m2} Normal >60 [facility] Comment on above: Result Comment: mL/m in/1.73m2 CKD-EPI Creatinine Equation (2020) Performed By: #### L 501.4021, L100.0100, L500.4050, L3600.5100, L509.6001 #### [facility] [address] [place], [address] Globulin (S) [Mass/Vol] 2.8 g/dL Normal 2.2-4.2 [facility] Comment on above: Performed By: #### L 501.4021, L100.0100, L500.4050, L3600.5100, L509.6001 #### [facility] [address] [place], [address] Glucose [Mass/Vol] 109 mg/dL High 70-99 [facility] Comment on above: Performed By: #### L 501.4021, L100.0100, L500.4050, L3600.5100, L509.6001 #### [facility] [address] [place], [address] Potassium [Moles/Vol] 4.5 mmol/L Normal 3.3-5.1 [facility] Comment on above: Performed By: #### L 501.4021, L100.0100, L500.4050, L3600.5100, L509.6001 #### [facility] [address] [place], [address] Sodium [Moles/Vol] 138 mmol/L Normal 133-145 [facility] Comment on above: Performed By: #### L 501.4021, L100.0100, L500.4050, L3600.5100, L509.6001 #### [facility] [address] [place], [address] T PROT 7.1 g/dL Normal 5.9-8.4 [facility] Comment on above: Performed By: #### L 501.4021, L100.0100, L500.4050, L3600.5100, L509.6001 #### [facility] [address] [place], [address] Urea nitrogen [Mass/Vol] 13 mg/dL Normal 4-19 [facility] Comment on above: Performed By: #### L 501.4021, L100.0100, L500.4050, L3600.5100, L509.6001 #### [facility] [address] [place], [address] Eosinophil percentageOrdered By: Ye Acevedo on 10-18-2024 Eosinophils/100 WBC (Bld) 1.0 % 0-5 [facility] Erythrocyte distribution wid th ratioOrdered By: Ye Acevedo on 10-18-2024 Erythrocyte distribution width (RBC) [Ratio] 12.9 % 11.6-14.6 [facility] Erythrocyte distribution wid th standard deviationOrdered By: Ye Acevedo on 10-18-2024 Erythrocyte distribution width (RBC) [Ratio] 43.9 fl 35.1-43.9 [facility] Glomerular filtration rate ( GFR) estimation/1.73 sq m using serum, plasma, or whole bOrdered By: Ye Acevedo on 10-18-2024 GFR/1.73 sq M.predicted among non-blacks MDRD (S/P/Bld) [Vol rate/Area] 101 mL/min/{1.73_m2} >60 [facility] Comment on above: mL/min/1.73m2 CKD-EP I Creatinine Equation (2020) Hematocrit Auto (Bld) [Volum e fraction]Ordered By: Ye Acevedo on 10-18-2024 Hematocrit (Bld) [Volume fraction] 43.0 % 40-54 [facility] Hemoglobin measurementOrdere d By: Ye Acevedo on 10-18-2024 Hemoglobin (Bld) [Mass/Vol] 14.7 g/dL 13.0-16.5 [facility] Immature granulocytes/100 WB C Auto (Bld)Ordered By: Ye Curtis on 10-18-2024 Immature granulocytes/100 WBC (Bld) 0.400 % 0.0-0.9 [facility] Comment on above: IG% - Immature Granu locytes (promyelocytes, myelocytes and metamyelocytes) > 1% indicates that a LEFT SHIFT is Present. L501.4021on 10-18-2024 Trop T High Sen 7 ng/L Normal <=22 [facility] Comment on above: Performed By: #### L 501.4021, L100.0100, L500.4050, L3600.5100, L509.6001 #### [facility] [address] [place], [address] L509.6001on 10-18-2024 CORTISOL 6.81 ug/dL Normal 6.02-18.40 [facility] Comment on above: Performed By: #### L 501.4021, L100.0100, L500.4050, L3600.5100, L509.6001 #### [facility] [address] [facility] [place], [address] Laboratory - Chemistry and C hemistry - challengeOrdered By: Ye Acevedo on 10-18-2024 AST [Catalytic activity/Vol] 23 U/L <38 [facility] MCV (mean corpuscular volume ) determinationOrdered By: Ye Acevedo on 10-18-2024 MCV (RBC) [Entitic vol] 92.7 fL 80-94 [facility] Mean corpuscular hemoglobin (MCH) determinationOrdered By: Ye Acevedo 10-18-2024 MCH (RBC) [Entitic mass] 31.7 pg 27.0-32.0 [facility] Mean corpuscular hemoglobin concentration (MCHC) determinationOrdered By: Ye Acevedo on 10-18-2024 MCHC (RBC) [Mass/Vol] 34.2 g/dL 32-36 [facility] Mean platelet volume determi nationOrdered By: Ye Acevedo on 10-18-2024 Platelet mean volume (Bld) [Entitic vol] 9.4 fL 6.2-12.0 [facility] Monocyte percentageOrdered B y: Ye Acevedo on 10-18-2024 Monocytes/100 WBC (Bld) 8.5 % 0-10 [facility] Neutrophil percentageOrdered By: Ye Acevedo on 10-18-2024 Neutrophils/100 WBC (Bld) 70.5 % High 47-70 [facility] Nucleated red blood cell per centageOrdered By: Ye Acevedo on 10-18-2024 Nucleated RBC/100 WBC (Bld) [Ratio] 0 % 0-5 [facility] Platelet countOrdered By: Andrea Acveedo on 10-18-2024 Platelets (Bld) [#/Vol] 225 10*3/uL 150-450 [facility] Potassium measurement (mass/ volume)Ordered By: Ye Acevedo on 10-18-2024 Potassium (Unsp spec) [Mass/Vol] 4.5 mmol/L 3.3-5.1 [facility] RBC Auto (Bld) [#/Vol]Ordere d By: Ye Acevedo on 10-18-2024 RBC (Bld) [#/Vol] 4.64 10*6/uL 4.6-6.2 [facility] Serum creatinine measurement (mass/volume)Ordered By: Ye Acevedo on 10-18-2024 Creatinine [Mass/Vol] 0.71 mg/dL 0.70-1.20 [facility] Serum globulin measurementOr dered By: Ye Acevedo 10-18-2024 Globulin (S) [Mass/Vol] 2.8 g/dL 2.2-4.2 [facility] Serum glucose measurement (m ass/volume)Ordered By: Ye Acevedo on 10-18-2024 Glucose [Mass/Vol] 109 mg/dL High 70-99 [facility] Serum myoglobin measurementO rdered By: Ye Acevedo on 10-18-2024 Myoglobin [Mass/Vol] 41 ng/mL 28-72 [facility] Comment on above: Performed at: [address] [id number] Director: Jose Enrique Castanon PhD, Phone: [phone] Serum or plasma alanine friedman otransferase (ALT) measurementOrdered By: Ye Acevedo on 10-18-2024 ALT [Catalytic activity/Vol] 22 U/L <47 [facility] Serum or plasma albumin homero urement (mass/volume)Ordered By: Ye Acevedo on 10-18-2024 Albumin [Mass/Vol] 4.3 g/dL 3.4-4.8 [facility] Serum or plasma albumin/glob ulin mass ratioOrdered By: Ye Acevedo 10-18-2024 Albumin/Globulin [Mass ratio] 1.5 {ratio} 0.9-2.4 [facility] Serum or plasma alkaline ashley sphatase measurementOrdered By: Ye Acevedo on 10-18-2024 ALP [Catalytic activity/Vol] 88 U/L 40-129 [facility] Serum or plasma calcium homero urement (mass/volume)Ordered By: Ye Acevedo 10-18-2024 Calcium [Mass/Vol] 9.1 mg/dL 7.6-11.0 [facility] Serum or plasma cortisol jason surement (mass/volume)Ordered By: Ye Acevedo 10-18-2024 Cortisol [Mass/Vol] 6.81 ug/dL 6.02-18.40 [facility] Serum or plasma urea nitroge n measurement (mass/volume)Ordered By: Ye Acevedo on 10-18-2024 Urea nitrogen [Mass/Vol] 13 mg/dL 4-19 [facility] Sodium levelOrdered By: Ye Acevedo 10-18-2024 Sodium [Moles/Vol] 138 mmol/L 133-145 [facility] Total proteinOrdered By: Ye Acevedo 10-18-2024 Protein [Mass/Vol] 7.1 g/dL 5.9-8.4 [facility] Troponin T.cardiac [Mass/vol ume] in Serum or Plasma by High sensitivity methodOrdered By: Ye Acevedo on 10-18-2024 Troponin T.cardiac High sensitivity method [Mass/Vol] 7 ng/L <22 [facility] White blood cell (WBC) count Ordered By: Ye Acevedo on 10-18-2024 WBC (Bld) [#/Vol] 10.5 10*3/uL 4.4-11.0 [facility] Influenza virus A and B and SARS-CoV-2 (COVID-19) and Respiratory syncytial virus RNAOrdered By: Ye Acevedo on 09-22-2024 SARS-CoV-2 (COVID-19) RNA SENAIT+probe Ql (Unsp spec) [facility] M100.678on 09-22-2024 M100.678 Pending SARS-CoV-2 (COVID 19) Negative INFLUENZA A Negative INFLUENZA B Negative RSV PCR Negative Normal [facility] Comment on above: Performed By: #### L 499.0043 #### [facility] [facility] [address] [place], [place] [address], [place], [id number] Absolute lymphocyte countOrd ered By: Ye Acevedo on 08-04-2024 Lymphocytes Auto (Unsp spec) [#/Vol] 2.59 10*3/uL 0.83-4.51 [facility] Absolute neutrophil countOrd ered By: Ye Acevedo on 08-04-2024 Neutrophils (Bld) [#/Vol] 8.0 10*3/uL High 2.0-7.7 [facility] Anion gap in Serum or Plasma Ordered By: Ye Acevedo on 08-04-2024 Anion gap [Moles/Vol] 10 mmol/L 5-15 [facility] Automated lymphocyte count a s percentage of total leukocytesOrdered By: Ye Acevedo on 08-04-2024 Lymphocytes/100 WBC Auto (Unsp spec) 21.8 % 19-41 [facility] BUN/creatinine ratioOrdered By: Ye Acevedo on 08-04-2024 Urea nitrogen/Creatinine [Mass ratio] 14.6 mg/mg 10-20 [facility] Basophil percentageOrdered B y: Ye Acevedo on 08-04-2024 Basophils/100 WBC (Bld) 0.4 % 0-1 [facility] Bilirubin, totalOrdered By: Ye Acevedo on 08-04-2024 Bilirubin [Mass/Vol] 0.34 mg/dL 0.00-1.30 [facility] CBC W/Diff, Automatedon 07-17 Absolute Lymph 2.59 X10 3/uL Normal 0.83-4.51 [facility] Comment on above: Performed By: #### L 499.0043 #### [facility] [address] [place], [address] Absolute Neut 8.0 X10 3/uL High 2.0-7.7 [facility] Comment on above: Performed By: #### L 499.0043 #### [facility] [address] [place], [address] Basophils/100 WBC (Bld) 0.4 % Normal 0-1 [facility] Comment on above: Performed By: #### L 499.0043 #### [facility] [address] [place], [address] Eosinophils/100 WBC (Bld) 1.3 % Normal 0-5 [facility] Comment on above: Performed By: #### L 499.0043 #### [facility] [address] [place], [address] Erythrocyte distribution width (RBC) [Ratio] 13.4 % Normal 11.6-14.6 [facility] Comment on above: Performed By: #### L 499.0043 #### [facility] [address] [place], [address] Hematocrit (Bld) [Volume fraction] 43.9 % Normal 40-54 [facility] Comment on above: Performed By: #### L 499.0043 #### [facility] [address] [place], [address] Hemoglobin (Bld) [Mass/Vol] 15.0 g/dL Normal 13.0-16.5 [facility] Comment on above: Performed By: #### L 499.0043 #### [facility] [address] [place], [address] IG% 0.300 Normal 0.0-0.9 [facility] Comment on above: Result Comment: IG% - Immature Granulocytes (promyelocytes, myelocytes and metamyelocytes) > 1% indicates that a LEFT SHIFT is Present. Performed By: #### L 499.0043 #### [facility] [address] [place], [address] Lymphocytes/100 WBC (Bld) 21.8 % Normal 19-41 [facility] Comment on above: Performed By: #### L 499.0043 #### [facility] [address] [place], [address] MCH (RBC) [Entitic mass] 31.1 pg Normal 27.0-32.0 [facility] Comment on above: Performed By: #### L 499.0043 #### [facility] [address] [place], [address] MCHC (RBC) [Mass/Vol] 34.2 g/dL Normal 32-36 [facility] Comment on above: Performed By: #### L 499.0043 #### [facility] [address] [place], [address] MCV (RBC) [Entitic vol] 90.9 fL Normal 80-94 [facility] Comment on above: Performed By: #### L 499.0043 #### [facility] [address] [place], [address] Monocytes/100 WBC (Bld) 8.6 % Normal 0-10 [facility] Comment on above: Performed By: #### L 499.0043 #### [facility] [address] [place], [address] Neutrophils/100 WBC (Bld) 67.6 % Normal 47-70 [facility] Comment on above: Performed By: #### L 499.0043 #### [facility] [address] [place], [address] Nucleated RBC (Bld) [#/Vol] 0 10*3/uL Normal 0-5 [facility] Comment on above: Performed By: #### L 499.0043 #### [facility] [address] [place], [address] Platelet mean volume (Bld) [Entitic vol] 8.8 fL Normal 6.2-12.0 [facility] Comment on above: Performed By: #### L 499.0043 #### [facility] [address] [place], [address] Platelets (Bld) [#/Vol] 219 10*3/uL Normal 150-450 [facility] Comment on above: Performed By: #### L 499.0043 #### [facility] [address] [place], [address] RBC (Bld) [#/Vol] 4.83 10*6/uL Normal 4.6-6.2 [facility] Comment on above: Performed By: #### L 499.0043 #### [facility] [address] [place], [address] RDW SD 45.0 fl High 35.1-43.9 [facility] Comment on above: Performed By: #### L 499.0043 #### [facility] [address] [place], [address] WBC (Bld) [#/Vol] 11.9 10*3/uL High 4.4-11.0 [facility] Comment on above: Performed By: #### L 499.0043 #### [facility] [address] [place], [address] Carbon dioxide, total [Moles /volume] in Central venous bloodOrdered By: Ye Curtis on 08-04-2024 CO2 [Moles/Vol] 23.7 mmol/L 21.0-32.0 [facility] Chloride assayOrdered By: Andrea Acevedo on 08-04-2024 Chloride [Moles/Vol] 106 mmol/L 98-108 [facility] Comprehensive Metabolic Prof ilon 08-04-2024 Albumin [Mass/Vol] 4.2 g/dL Normal 3.4-4.8 [facility] Comment on above: Performed By: #### L 499.0043 #### [facility] [address] [place], [address] Albumin/Globulin [Mass ratio] 1.4 {ratio} Normal 0.9-2.4 [facility] Comment on above: Performed By: #### L 499.0043 #### [facility] [address] [place], [address] ALK PHOS 94 U/L Normal 40-129 [facility] Comment on above: Performed By: #### L 499.0043 #### [facility] [address] [place], [address] ALT [Catalytic activity/Vol] 20 U/L Normal <=46 [facility] Comment on above: Performed By: #### L 499.0043 #### [facility] [address] [place], [address] AST [Catalytic activity/Vol] 22 U/L Normal <=37 [facility] Comment on above: Performed By: #### L 499.0043 #### [facility] [address] [place], [address] Bilirubin [Mass/Vol] 0.34 mg/dL Normal 0.00-1.30 [facility] Comment on above: Performed By: #### L 499.0043 #### [facility] [address] [place], [address] BUN/CRE 14.6 RATIO Normal 10-20 [facility] Comment on above: Performed By: #### L 499.0043 #### [facility] [address] [place], [address] Calcium [Mass/Vol] 9.1 mg/dL Normal 7.6-11.0 [facility] Comment on above: Performed By: #### L 499.0043 #### [facility] [address] [place], [address] Chloride [Moles/Vol] 106 mmol/L Normal 98-108 [facility] Comment on above: Performed By: #### L 499.0043 #### [facility] [address] [place], [address] CO2 [Moles/Vol] 23.7 mmol/L Normal 21.0-32.0 [facility] Comment on above: Performed By: #### L 499.0043 #### [facility] [address] [place], [address] Creatinine [Mass/Vol] 0.79 mg/dL Normal 0.70-1.20 [facility] Comment on above: Performed By: #### L 499.0043 #### [facility] [address] [place], [address] GAP 10 Normal 5-15 [facility] Comment on above: Performed By: #### L 499.0043 #### [facility] [address] [place], [address] GFR/1.73 sq M.predicted among non-blacks MDRD (S/P/Bld) [Vol rate/Area] 99 mL/min/{1.73_m2} Normal >60 [facility] Comment on above: Result Comment: mL/m in/1.73m2 CKD-EPI Creatinine Equation (2020) Performed By: #### L 499.0043 #### [facility] [address] [place], [address] Globulin (S) [Mass/Vol] 3.0 g/dL Normal 2.2-4.2 [facility] Comment on above: Performed By: #### L 499.0043 #### [facility] [address] [place], [address] Glucose [Mass/Vol] 109 mg/dL High 70-99 [facility] Comment on above: Performed By: #### L 499.0043 #### [facility] [address] [place], [address] Potassium [Moles/Vol] 4.0 mmol/L Normal 3.3-5.1 [facility] Comment on above: Performed By: #### L 499.0043 #### [facility] [address] [place], [address] Sodium [Moles/Vol] 139 mmol/L Normal 133-145 [facility] Comment on above: Performed By: #### L 499.0043 #### [facility] [address] [place], [address] T PROT 7.1 g/dL Normal 5.9-8.4 [facility] Comment on above: Performed By: #### L 499.0043 #### [facility] [address] [place], [address] Urea nitrogen [Mass/Vol] 12 mg/dL Normal 4-19 [facility] Comment on above: Performed By: #### L 499.0043 #### [facility] [address] [place], [address] Eosinophil percentageOrdered By: Ye Acevedo on 08-04-2024 Eosinophils/100 WBC (Bld) 1.3 % 0-5 [facility] Erythrocyte distribution wid th ratioOrdered By: Ye Acevedo on 08-04-2024 Erythrocyte distribution width (RBC) [Ratio] 13.4 % 11.6-14.6 [facility] Erythrocyte distribution wid th standard deviationOrdered By: Ye Acevedo on 08-04-2024 Erythrocyte distribution width (RBC) [Entitic vol] 45.0 fL High 35.1-43.9 [facility] Erythrocyte distribution width (RBC) [Ratio] 45.0 fl High 35.1-43.9 [facility] GFR/1.73 sq M.predicted maude g non-blacks MDRD (S/P/Bld) [Vol rate/Area]Ordered By: Ye Acevedo on 08-04-2024 Estimated GFR (MDRD) Non-Af Amer 99 >60 [facility] Comment on above: mL/min/1.73m2 CKD-EP I Creatinine Equation (2020) Glomerular filtration rate ( GFR) estimation/1.73 sq m using serum, plasma, or whole bOrdered By: Ye Acevedo on 08-04-2024 GFR/1.73 sq M.predicted among non-blacks MDRD (S/P/Bld) [Vol rate/Area] 99 mL/min/{1.73_m2} >60 [facility] Comment on above: mL/min/1.73m2 CKD-EP I Creatinine Equation (2020) Hematocrit Auto (Bld) [Volum e fraction]Ordered By: Ye Acevedo 08-04-2024 Hematocrit (Bld) [Volume fraction] 43.9 % 40-54 [facility] Hemoglobin measurementOrdere d By: Ye Acevedo 08-04-2024 Hemoglobin (Bld) [Mass/Vol] 15.0 g/dL 13.0-16.5 [facility] Immature granulocytes/100 WB C Auto (Bld)Ordered By: Ye Acevedo 08-04-2024 Immature granulocytes/100 WBC (Bld) 0.300 % 0.0-0.9 [facility] Comment on above: IG% - Immature Granu locytes (promyelocytes, myelocytes and metamyelocytes) > 1% indicates that a LEFT SHIFT is Present. Influenza virus A and B and SARS-CoV-2 (COVID-19) and Respiratory syncytial virus RNAOrdered By: Ye Acevedo on 08-04-2024 SARS-CoV-2 (COVID-19) RNA SENAIT+probe Ql (Unsp spec) [facility] L506.1001on 08-04-2024 Vitamin D 25-OH 13.0 ng/mL Low 30-100 [facility] Comment on above: Result Comment: [place] min D Status Deficiency: <20 ng/mL (50nmol/L) Insufficiency: 20-30 ng/mL (50-75 nmol/L) Sufficiency: 30-100 ng/mL (75-250 nmol/L) Toxicity: >100 ng/mL (>250 nmol/L) Performed By: #### L 499.0043 #### [facility] [address] [facility] [place], [place], [id number] Laboratory - Chemistry and C hemistry - challengeOrdered By: Ye Acevedo on 08-04-2024 AST [Catalytic activity/Vol] 22 U/L <38 [facility] Lymphocytes Auto (Unsp spec) [#/Vol]Ordered By: Ye Acevedo on 08-04-2024 Lymphocytes (Bld) [#/Vol] 2.59 10*3/uL 0.83-4.51 [facility] Lymphocytes/100 WBC Auto (Un sp spec)Ordered By: Ye Acevedo on 08-04-2024 Lymphocytes/100 WBC (Bld) 21.8 % 19-41 [facility] M100.678on 08-04-2024 M100.678 Pending SARS-CoV-2 (COVID 19) Negative INFLUENZA A Negative INFLUENZA B Negative RSV PCR Negative Normal [facility] Comment on above: Performed By: #### L 500.2500, L100.0100, L501.4021 #### [facility] [address] [place] [place], [address] MCV (mean corpuscular volume ) determinationOrdered By: Ye Acevedo on 08-04-2024 MCV (RBC) [Entitic vol] 90.9 fL 80-94 [facility] Mean corpuscular hemoglobin (MCH) determinationOrdered By: Ye Acevedo on 08-04-2024 MCH (RBC) [Entitic mass] 31.1 pg 27.0-32.0 [facility] Mean corpuscular hemoglobin concentration (MCHC) determinationOrdered By: Ye Acevedo on 08-04-2024 MCHC (RBC) [Mass/Vol] 34.2 g/dL 32-36 [facility] Mean platelet volume determi nationOrdered By: Ye Acevedo on 08-04-2024 Platelet mean volume (Bld) [Entitic vol] 8.8 fL 6.2-12.0 [facility] Monocyte percentageOrdered B y: Ye Acevedo on 08-04-2024 Monocytes/100 WBC (Bld) 8.6 % 0-10 [facility] Neutrophil percentageOrdered By: Ye Acevedo on 08-04-2024 Neutrophils/100 WBC (Bld) 67.6 % 47-70 [facility] Nucleated red blood cell per centageOrdered By: Ye Acevedo on 08-04-2024 Nucleated RBC/100 WBC (Bld) [Ratio] 0 % 0-5 [facility] Platelet countOrdered By: Andrea Acevedo on 08-04-2024 Platelets (Bld) [#/Vol] 219 10*3/uL 150-450 [facility] Potassium (Unsp spec) [Mass/ Vol]Ordered By: Ye Acevedo on 08-04-2024 Potassium [Moles/Vol] 4.0 mmol/L 3.3-5.1 [facility] Potassium measurement (mass/ volume)Ordered By: Ye Acevedo on 08-04-2024 Potassium (Unsp spec) [Mass/Vol] 4.0 mmol/L 3.3-5.1 [facility] RBC Auto (Bld) [#/Vol]Ordere d By: Ye Acevedo on 08-04-2024 RBC (Bld) [#/Vol] 4.83 10*6/uL 4.6-6.2 [facility] Serum creatinine measurement (mass/volume)Ordered By: Ye Acevedo on 08-04-2024 Creatinine [Mass/Vol] 0.79 mg/dL 0.70-1.20 [facility] Serum globulin measurementOr dered By: Ye Acevedo on 08-04-2024 Globulin (S) [Mass/Vol] 3.0 g/dL 2.2-4.2 [facility] Serum glucose measurement (m ass/volume)Ordered By: Ye Acevedo on 08-04-2024 Glucose [Mass/Vol] 109 mg/dL High 70-99 [facility] Serum or plasma alanine friedman otransferase (ALT) measurementOrdered By: Ye Acevedo on 08-04-2024 ALT [Catalytic activity/Vol] 20 U/L <47 [facility] Serum or plasma albumin homero urement (mass/volume)Ordered By: Ye Acevedo on 08-04-2024 Albumin [Mass/Vol] 4.2 g/dL 3.4-4.8 [facility] Serum or plasma albumin/glob ulin mass ratioOrdered By: Ye Acevedo on 08-04-2024 Albumin/Globulin [Mass ratio] 1.4 {ratio} 0.9-2.4 [facility] Serum or plasma alkaline ashley sphatase measurementOrdered By: Ye Acevedo on 08-04-2024 ALP [Catalytic activity/Vol] 94 U/L 40-129 [facility] Serum or plasma calcium homero urement (mass/volume)Ordered By: Ye Acevedo on 08-04-2024 Calcium [Mass/Vol] 9.1 mg/dL 7.6-11.0 [facility] Serum or plasma urea nitroge n measurement (mass/volume)Ordered By: Ye Acevedo on 08-04-2024 Urea nitrogen [Mass/Vol] 12 mg/dL 4-19 [facility] Sodium levelOrdered By: Ye Acevedo on 08-04-2024 Sodium [Moles/Vol] 139 mmol/L 133-145 [facility] TSH DL <= 0.005 mIU/L QnOrde red By: eY Acevedo on 08-04-2024 Thyroid Stimulating Hormone (TSH) 0.846 uIU/mL 0.300-4.200 [facility] TSH Qn 0.846 uIU/mL 0.300-4.200 [facility] Thyroid Stim Hormone (TSH)on 08-04-2024 TSH 0.846 uIU/mL Normal 0.300-4.200 [facility] Comment on above: Performed By: #### L 499.0043 #### [facility] Laboratory [facility] [place], [address] Total proteinOrdered By: Ye Acevedo on 08-04-2024 Protein [Mass/Vol] 7.1 g/dL 5.9-8.4 [facility] Vitamin D, 25-hydroxyOrdered By: Ye Acevedo on 08-04-2024 Vitamin D 25-Hydroxy 13.0 ng/mL Low 30-100 [facility] Comment on above: Vitamin D StatusDefi ciency: <20 ng/mL (50nmol/L)Insufficiency: 20-30 ng/mL (50-75 nmol/L)Sufficiency: 30-100 ng/mL (75-250 nmol/L)Toxicity: >100 ng/mL (>250 nmol/L) White blood cell (WBC) count Ordered By: Ye Acevedo on 08-04-2024 WBC (Bld) [#/Vol] 11.9 10*3/uL High 4.4-11.0 [facility] Ribs Uni Min 3V w/PA Cheston 07-02-2024 Ribs Uni Min 3V w/PA Chest [facility] [address] [place] [address] Ribs Uni Min 3V w/PA Chest MR#: [id number] Acct: [id number] Name: JORGE LUIS JOHNSON V Rep #: [id number] : 1960 M 63 From: Michael Mckenna MD PCP: Dr. Ye Acevedo MD Status: REG CLI Study: Ribs Uni Min 3V w/PA Chest Date of Exam: 07/02 Exam# [id number] Ordering Dr: Ye Acevedo MD EXAM: XR Right Ribs and AP Chest, 3 or More Views CLINICAL INDICATION: TECHNIQUE: Frontal and oblique views of the right ribs and frontal view of the chest. COMPARISON: No relevant prior studies available. FINDINGS: LUNGS AND PLEURAL SPACES: Unremarkable. No consolidation. No pneumothorax. HEART: Unremarkable. No cardiomegaly. MEDIASTINUM: Unremarkable. Normal mediastinal contour. BONES/JOINTS: Unremarkable. No displaced rib fractures. RAD/Ribs Uni Min 3V w/PA Chest IMPRESSION: No displaced rib fractures. [facility] CC: Dr. Ye Acevedo MD Joint Filler: Signed Normal [facility] Influenza virus A and B and SARS-CoV-2 (COVID-19) and Respiratory syncytial virus RNAOrdered By: Ye Acevedo on 06-01-2024 SARS-CoV-2 (COVID-19) RNA SENAIT+probe Ql (Unsp spec) [facility] M100.678on 06-01-2024 M100.678 Pending SARS-CoV-2 (COVID 19) Negative INFLUENZA A Negative INFLUENZA B Negative RSV PCR Negative Normal [facility] Comment on above: Performed By: #### M 100.678 #### [facility] Laboratory [address] [place], [place], [address] Influenza virus A and B and SARS-CoV-2 (COVID-19) and Respiratory syncytial virus RNAOrdered By: Ye Acevedo on 04-29-2024 SARS-CoV-2 (COVID-19) RNA SENAIT+probe Ql (Unsp spec) [facility] M100.678on 04-29-2024 M100.678 Pending SARS-CoV-2 (COVID 19) Negative INFLUENZA A Negative INFLUENZA B Negative RSV PCR Negative [facility] Comment on above: Performed By: #### M 100.678 #### [facility] Laboratory [address] [place], [place], [id number] Urgent Care Visit Reporton 1 06-27-2023 Urgent Care Visit Report [facility] [address], [address] [place], [place] [address] OFFICE VISIT Date of Service: 04/26/24 MR#: [id number] Acct: [id number] Name: JORGE LUIS JOHNSON V Rep #: [id number] : 1960 Provider: LUPE Chan Age/Sex: 63/M Location: [facility] Status: Signed Intake Vital Signs 04/26/24 08:10 Height 5 ft 11.5 in Weight: 246 lb BMI 33.8 BP 130/78 H Blood Pressure Location Rt brachial Position Sitting Respiration 12 Pulse 116 H Pulse Source NIBP Temp 98.5 F Temp Source Oral Pulse Oximetry (%) 94 Oxygen Delivery Method room air Intake Visit Reasons: R EAR COMP/COUGH/ST/SINUS COMP Chief Complaint: bilat ear complaint, cough, st, sinus congestion Communications Editor Required: No Is patient in pain?: No Allergies No Known Allergies Allergy (Verified 04/26/24 08:11) Medications ???Medication ???Instructions ???Recorded ???Confirmed ???Type albuterol sulfate 90 mcg/actuation 1 puff inhalation PRN PRN Sob /Or 01/29/19 10/06/19 History aerosol inhaler Wheezing #8 grams famotidine 40 mg tablet 40 mg PO DAILY #90 tabs 01/29/19 10/06/19 History tizanidine 4 mg tablet 4 mg PO PRN PRN muscle relaxant 01/29/19 10/06/19 History #90 tabs hydrocodone 7.5 mg-acetaminophen 1 tab PO DAILY PRN 10/06/19 10/06/19 History 325 mg tablet colchicine 0.6 mg tablet 0.6 mg PO QDAY 04/26/24 04/26/24 History doxycycline hyclate 100 mg tablet 100 mg PO BID 04/26/24 History levofloxacin 750 mg tablet 750 mg PO Q24H #10 tabs 04/26/24 04/26/24 Rx tamsulosin 0.4 mg capsule 0.4 mg PO QDAY 04/26/24 History Have you fallen in the past year?: No Nurse's Note: patient here for bilat ear complaint, cough, st, sinus congestion x2 weeks.. PFSH Medical History Arthritis of right acromioclavicular joint Nicotine dependence Obesity DDD (degenerative disc disease), lumbar Chronic back pain Surgical History History of back surgery History of arthroscopic procedure on shoulder (03/2019) Social History (Updated 04/26/24 @ 08:20 by Dionne Mares) Smoking Status: Former smoker quit date: 07/18/19 Tobacco: How many years used: 30 HPI HPI Chief Complaint: bilat ear complaint, cough, st, sinus congestion Details: JORGE LUIS JOHNSON, is a 63 M who presents to the office today for initial evaluation at the [facility] for approximately 2.5-3-week history of progressively worsening facial pressure/congestion with purulent postnasal drip/cough and bilateral ear pressure. No complaints of fever, chills, myalgias, fatigue, runny nose, or nausea/vomiting/diar ace. No complaints of chest pain/shortness of breath/dyspnea on exertion. Previously prescribed Augmentin approximately 2 weeks ago by another urgent care noticing mild improvement in symptoms while on the medication though symptoms immediately started progressively worsening within 24-48 hrs. of completing. Ex-smoker x 3 years. No close contacts with similar complaints. No other associated symptoms and no other alleviating/aggravat ing factors. ROS Const Constitutional: No other (as above) Exam Const General: cooperative, healthy appearing and no acute distress Nutritional Appearance: average body habitus Orientation: alert, awake and oriented x3 HENMT Head: normal to inspection Ears: hearing grossly normal bilaterally, external ears normal, TM's normal bilaterally (except trace erythema), and EAC's normal Nose: external nose normal, nares normal, septum normal and no nasal discharge Face and sinus: normal facial exam, sinuses nontender (Though bilateral maxillary fullness to palpation) and face symmetric Mouth: oral mucosae normal, lip normal, tongue normal and oropharynx normal Throat: posterior oropharynx normal, tonsils normal, uvula midline and postnasal drainage (Purulent) Eyes General: appearance normal, both eyes and all related structures Neck Neck: normal visual inspection, full ROM, no meningeal signs, supple and lymphadenopathy (Bilateral anterior cervical lymph node swelling/tender to palpation) Neck mass: No Thyroid: thyroid normal Chest Chest palpation inspection: normal inspection of the chest Resp Effort Inspection: normal respiratory effort and able to speak in complete sentences Auscultation: Bilateral: Clear to Auscultation Cardio Palpation: normal PMI Rate: Tachycardic Rhythm: regular rhythm Heart Sounds: S1 normal, S2 normal, no gallops, no murmurs and no rubs Pulses: radial pulses present GI Inspection: normal to inspection Skin General: no rashes or lesions noted Neuro General: patient alert, patient awake and patient oriented x3 Cognition: normal cognition Speech: speech normal Psych Appearance (more content not included)... [facility] Tox[facility] 13 Summary FINAL Normal [facility] Comment on above: Result Comment: ======= TOXASSURE COMP DRUG ANALYSIS,UR ======= Test Result Flag Units Drug Present and Declared for Prescription Verification Hydrocodone 939 EXPECTED ng/mg creat Hydromorphone 266 EXPECTED ng/mg creat Norhydrocodone 898 EXPECTED ng/mg creat Sources of hydrocodone include scheduled prescription medications. Hydromorphone and norhydrocodone are expected metabolites of hydrocodone. Hydromorphone is also available as a scheduled prescription medication. Acetaminophen PRESENT EXPECTED Drug Absent but Declared for Prescription Verification Tizanidine Not Detected UNEXPECTED Tizanidine, as indicated in the declared medication list, is not always detected even when used as directed. ======= Test Result Flag Units Ref Range Creatinine 44 mg/dL >=20 ======= Declared Medications: The flagging and interpretation on this report are based on the following declared medications. Unexpected results may arise from inaccuracies in the declared medications. Note: The testing scope of this panel includes these medications: Hydrocodone ([place]) Note: The testing scope of this panel does not include small to moderate amounts of these reported medications: Acetaminophen Acetaminophen ([place]) Tizanidine (Zanaflex) ======= For clinical consultation, please call . ======= ToxAssure, ToxAssure FLEX or MAT drug testing: -Technical component - Data analysis performed at [facility] [place] [address]. ToxAssure, ToxAssure FLEX or MAT drug testing: -Technical component - Result certification performed at [address] [address]. [phone] [employer] Natalio Wright MD. Performed At: [employer] [address] [place] [id number] [facility] Ph:[phone] Performed By: #### [id number] #### [facility] [address] [place] [id number] M100.678on 03-30-2024 M100.678 Pending SARS-CoV-2 (COVID 19) Negative INFLUENZA A Negative INFLUENZA B Negative RSV PCR Negative Normal [facility] Comment on above: Performed By: #### L 500.2500, L100.0100, L501.4021 #### [facility] [address] [place], [place], [id number] CBC W/Diff, Automatedon - Absolute Lymph 2.42 X10 3/uL Normal 0.83-4.51 [facility] Comment on above: Performed By: #### M [id number] #### [facility] [address] [place], [address] Absolute Neut 6.3 X10 3/uL Normal 2.0-7.7 [facility] Comment on above: Performed By: #### M 100.678 #### [facility] [address] [place], [address] Basophils/100 WBC (Bld) 0.4 % Normal 0-1 [facility] Comment on above: Performed By: #### M 100.678 #### [facility] [address] [place], [address] Eosinophils/100 WBC (Bld) 1.6 % Normal 0-5 [facility] Comment on above: Performed By: #### M 100.678 #### [facility] [address] [place], [address] Erythrocyte distribution width (RBC) [Ratio] 13.3 % Normal 11.6-14.6 [facility] Comment on above: Performed By: #### M 100.678 #### [facility] [address] [place], [address] Hematocrit (Bld) [Volume fraction] 44.1 % Normal 40-54 [facility] Comment on above: Performed By: #### M 100.678 #### [facility] [address] [place], [address] Hemoglobin (Bld) [Mass/Vol] 14.8 g/dL Normal 13.0-16.5 [facility] Comment on above: Performed By: #### M 100.678 #### [facility] [address] [place], [address] IG% 0.300 Normal 0.0-0.9 [facility] Comment on above: Result Comment: IG% - Immature Granulocytes (promyelocytes, myelocytes and metamyelocytes) > 1% indicates that a LEFT SHIFT is Present. Performed By: #### M 100.678 #### [facility] [address] [place], [address] Lymphocytes/100 WBC (Bld) 24.6 % Normal 19-41 [facility] Comment on above: Performed By: #### M 100.678 #### [facility] [address] [place], [address] MCH (RBC) [Entitic mass] 30.4 pg Normal 27.0-32.0 [facility] Comment on above: Performed By: #### M 100.678 #### [facility] [address] [place], [address] MCHC (RBC) [Mass/Vol] 33.6 g/dL Normal 32-36 [facility] Comment on above: Performed By: #### M 100.678 #### [facility] [address] [place], [address] MCV (RBC) [Entitic vol] 90.6 fL Normal 80-94 [facility] Comment on above: Performed By: #### M 100.678 #### [facility] [address] [place], [address] Monocytes/100 WBC (Bld) 9.6 % Normal 0-10 [facility] Comment on above: Performed By: #### M 100.678 #### [facility] [address] [place], [address] Neutrophils/100 WBC (Bld) 63.5 % Normal 47-70 [facility] Comment on above: Performed By: #### M 100.678 #### [facility] [address] [place], [address] Nucleated RBC (Bld) [#/Vol] 0 10*3/uL Normal 0-5 [facility] Comment on above: Performed By: #### M 100.678 #### [facility] [address] [place], [address] Platelet mean volume (Bld) [Entitic vol] 9.4 fL Normal 6.2-12.0 [facility] Comment on above: Performed By: #### M 100.678 #### [facility] [address] [place], [address] Platelets (Bld) [#/Vol] 206 10*3/uL Normal 150-450 [facility] Comment on above: Performed By: #### M 100.678 #### [facility] [address] [place], [address] RBC (Bld) [#/Vol] 4.87 10*6/uL Normal 4.6-6.2 [facility] Comment on above: Performed By: #### M 100.678 #### [facility] [address] [place], [address] RDW SD 44.1 fl High 35.1-43.9 [facility] Comment on above: Performed By: #### M 100.678 #### [facility] [address] [place], [address] WBC (Bld) [#/Vol] 9.9 10*3/uL Normal 4.4-11.0 [facility] Comment on above: Performed By: #### M 100.678 #### [facility] [address] [place], [address] Comprehensive [facility] 02-05-2024 Albumin [Mass/Vol] 3.4 g/dL Normal 3.2-5.0 [facility] Comment on above: Performed By: #### M 100.678 #### [facility] [address] [place], [address] Albumin/Globulin [Mass ratio] 0.9 {ratio} Normal 0.9-2.4 [facility] Comment on above: Performed By: #### M 100.678 #### [facility] [address] [place], [address] ALK P 97 U/L Normal 45-117 [facility] Comment on above: Performed By: #### M 100.678 #### [facility] [address] [place], [address] ALT [Catalytic activity/Vol] 24 U/L Normal 16-61 [facility] Comment on above: Performed By: #### M 100.678 #### [facility] [address] [place], [address] AST [Catalytic activity/Vol] 19 U/L Normal 15-37 [facility] Comment on above: Performed By: #### M 100.678 #### [facility] [address] [place], [address] Bilirubin [Mass/Vol] 0.30 mg/dL Normal 0.20-1.00 [facility] Comment on above: Result Comment: For patients on eltrombopag therapy, use of Dimension Harvard TBIL is not recommended. Performed By: #### M 100.678 #### [facility] [address] [place], [address] BUN/CRE 15.4 RATIO Normal 10-20 [facility] Comment on above: Performed By: #### M 100.678 #### [facility] [address] [place], [address] CA,Total 9.2 mg/dL Normal 8.5-10.1 [facility] Comment on above: Performed By: #### M 100.678 #### [facility] [address] [place], [address] Chloride [Moles/Vol] 111 mmol/L High 98-107 [facility] Comment on above: Performed By: #### M 100.678 #### [facility] [address] [place], [address] CO2 [Moles/Vol] 24.0 mmol/L Normal 21.0-32.0 [facility] Comment on above: Performed By: #### M 100.678 #### [facility] [address] [place], [address] Creatinine [Mass/Vol] 0.98 mg/dL Normal 0.70-1.30 [facility] Comment on above: Result Comment: The validity of the calculated GFR GFRAA in patients over 70 years has not been determined. Clinical correlation is essential. Performed By: #### M 100.678 #### [facility] [address] [place], [address] EST GFR - AA 99 mL/min Normal >60 [facility] Comment on above: Result Comment: Afri can [place] GFR Calc Performed By: #### M 100.678 #### [facility] [address] [place], [address] GAP 7 Normal 5-15 [facility] Comment on above: Performed By: #### M 100.678 #### [facility] [address] [place], [address] GFR/1.73 sq M.predicted among non-blacks MDRD (S/P/Bld) [Vol rate/Area] 82 mL/min/{1.73_m2} Normal >60 [facility] Comment on above: Result Comment: Non- GFR Calc Performed By: #### M 100.678 #### [facility] [address] [place], [address] Globulin (S) [Mass/Vol] 3.9 g/dL Normal 2.2-4.2 [facility] Comment on above: Performed By: #### M 100.678 #### [facility] [address] [place], [address] Glucose [Mass/Vol] 96 mg/dL Normal 74-106 [facility] Comment on above: Performed By: #### M 100.678 #### [facility] [address] [place], [address] Potassium [Moles/Vol] 4.1 mmol/L Normal 3.5-5.1 [facility] Comment on above: Performed By: #### M 100.678 #### [facility] [address] [place], [address] Sodium [Moles/Vol] 142 mmol/L Normal 136-145 [facility] Comment on above: Performed By: #### M 100.678 #### [facility] [address] [place], [address] T PROT 7.3 g/dL Normal 6.4-8.2 [facility] Comment on above: Performed By: #### M 100.678 #### [facility] [address] [place], [address] Urea nitrogen [Mass/Vol] 15 mg/dL Normal 7-18 [facility] Comment on above: Performed By: #### M 100.678 #### [facility] [address] [place], [address] PSA,Total - Annual Screenon 02-05-2024 PSA,TOT SCREEN 0.96 ng/mL Normal 0.00-4.00 [facility] Comment on above: Result Comment: This test was performed using the TPSA assay method for the Dash chemistry system. Values obtained with different assay methods cannot be used interchangably. When changing PSA assays in the course of monitoring a patient, additional sequential testing should be carried out to confirm baseline values. Performed By: #### M 100.678 #### [facility] [address] [place], [address] Thyroid Stim Hormone (TSH)on 02-05-2024 TSH 0.971 uIU/mL Normal 0.358-3.740 [facility] Comment on above: Performed By: #### M 100.678 #### [facility] [address] [place], [place], [id number] Vitamin D,25 Hydroxyon 02-04 Vitamin D 25-OH 15.8 ng/mL Normal [facility] Comment on above: Result Comment: [place] min D 25(OH) Status Range Deficiency <20 ng/mL (50nmol/L) Insufficiency 20 - 30 ng/mL (50 - 75 nmol/L) Sufficiency 30 - 100 ng/mL (75 - 250 nmol/L) Toxicity >100 ng/mL (>250 nmol/L) Performed By: #### M 100.678 #### [facility] [address] [place], [place], [id number] Absolute lymphocyte countOrd ered By: Ye Acevedo on 07-07-2023 Lymphocytes Auto (Unsp spec) [#/Vol] 2.14 10*3/uL 0.83-4.51 [facility] Automated lymphocyte count a s percentage of total leukocytesOrdered By: Ye Curtis on 07-07-2023 Lymphocytes/100 WBC Auto (Unsp spec) 25.6 % 19-41 [facility] Basophil percentageOrdered B y: Ye Acevedo on 07-07-2023 Basophils/100 WBC (Bld) 0.6 % 0-1 [facility] Bilirubin [Mass/Vol] 0.40 mg/dL 0.20-1.00 [facility] Comment on above: For patients on eltr ombopag therapy, use of Dimension [place] TBIL is not recommended. Chloride [Moles/Vol] 110 mmol/L 98-107 [facility] Eosinophils/100 WBC (Bld) 2.2 % 0-5 [facility] Glucose [Mass/Vol] 111 mg/dL 74-106 [facility] Comment on above: Fasting Glucose resu lt from 100 to 125 mg/dL suggests IMPAIRED HOMEOSTASIS per A.D.A. criteria. Hemoglobin (Bld) [Mass/Vol] 15.0 g/dL 13.0-16.5 [facility] Monocytes/100 WBC (Bld) 9.7 % 0-10 [facility] Neutrophils (Bld) [#/Vol] 5.2 10*3/uL 2.0-7.7 [facility] Neutrophils/100 WBC (Bld) 61.5 % 47-70 [facility] Potassium [Moles/Vol] 4.1 mmol/L 3.5-5.1 [facility] Protein [Mass/Vol] 7.2 g/dL 6.4-8.2 [facility] Sodium [Moles/Vol] 139 mmol/L 136-145 [facility] WBC (Bld) [#/Vol] 8.4 10*3/uL 4.4-11.0 [facility] Determination of erythrocyte mean corpuscular volume (MCV)Ordered By: Ye Acevedo on 07-07-2023 MCV (RBC) [Entitic vol] 92.0 fL 80-94 [facility] Erythrocyte distribution wid th ratioOrdered By: Ye Acevedo on 07-07-2023 Erythrocyte distribution width (RBC) [Ratio] 12.8 % 11.6-14.6 [facility] Erythrocyte distribution wid th standard deviationOrdered By: Ye Acevedo on 07-07-2023 Erythrocyte distribution width (RBC) [Entitic vol] 42.7 fL 35.1-43.9 [facility] Hematocrit Auto (Bld) [Volum e fraction]Ordered By: Ye Acevedo on 07-07-2023 Hematocrit (Bld) [Volume fraction] 46.0 % 40-54 [facility] Immature granulocytes/100 WB C Auto (Bld)Ordered By: Ye Acevedo 07-07-2023 Immature granulocytes/100 WBC (Bld) 0.400 % 0.0-0.9 [facility] Comment on above: IG% - Immature Granu locytes (promyelocytes, myelocytes and metamyelocytes) > 1% indicates that a LEFT SHIFT is Present. Laboratory - Chemistry and C hemistry - challengeOrdered By: Ye Acevedo on 07-07-2023 Albumin/Globulin [Mass ratio] 1.1 {ratio} 0.9-2.4 [facility] ALP [Catalytic activity/Vol] 100 U/L 45-117 [facility] ALT [Catalytic activity/Vol] 40 U/L 16-61 [facility] CO2 [Moles/Vol] 26.0 mmol/L 21.0-32.0 [facility] Globulin (S) [Mass/Vol] 3.5 g/dL 2.2-4.2 [facility] Urea nitrogen/Creatinine [Mass ratio] 22.5 mg/mg 10-20 [facility] Laboratory - Hematology and Cell countsOrdered By: Ye Acevedo on 07-07-2023 MCH (RBC) [Entitic mass] 30.0 pg 27.0-32.0 [facility] MCHC (RBC) [Mass/Vol] 32.6 g/dL 32-36 [facility] Nucleated RBC/100 WBC (Bld) [Ratio] 0 % 0-5 [facility] Platelet mean volume (Bld) [Entitic vol] 9.8 fL 6.2-12.0 [facility] Platelets (Bld) [#/Vol] 201 10*3/uL 150-450 [facility] No Panel InformationOrdered By: Ye Acevedo on 07-07-2023 Estimated GFR (MDRD) Amer 133 mL/min >60 [facility] Comment on above: GFR Calc Estimated GFR (MDRD) Non-Af Amer 110 mL/min >60 [facility] Comment on above: Non- GFR Calc RBC Auto (Bld) [#/Vol]Ordere d By: Ye Acevedo on 07-07-2023 RBC (Bld) [#/Vol] 5.00 10*6/uL 4.6-6.2 [facility] Serum or plasma calcium homero urement (mass/volume)Ordered By: Ye Acevedo on 07-07-2023 Calcium [Mass/Vol] 8.7 mg/dL 8.5-10.1 [facility] Serum or plasma creatinine m easurement (mass/volume)Ordered By: Ye Acevedo on 07-07-2023 Creatinine [Mass/Vol] 0.76 mg/dL 0.70-1.30 [facility] Comment on above: The validity of the calculated GFR & GFRAA in patients over 70 years has not been determined. Clinical correlation is essential. Serum or plasma thyroid stim ulating hormone (TSH) measurement (units/volume)Ordered By: Ye Acevedo on 07-07-2023 TSH Qn 0.88 uIU/mL 0.358-3.74 [facility] Serum or plasma urea nitroge n measurement (mass/volume)Ordered By: Ye Acevedo on 07-07-2023 Urea nitrogen [Mass/Vol] 17 mg/dL 7-18 [facility] Thin prep Papanicolaou smear with manual screeningOrdered By: Ye Acevedo on 07-07-2023 Thin prep Papanicolaou smear with manual screening 3.7 g/dL 3.2-5.0 [facility] Thin prep Papanicolaou smear with manual screening 21 U/L 15-37 [facility] Thin prep Papanicolaou smear with manual screening 3 5-15 [facility] Absolute lymphocyte countOrd ered By: Ye Acevedo on 06-16-2023 Lymphocytes Auto (Unsp spec) [#/Vol] 2.46 10*3/uL 0.83-4.51 [facility] Automated lymphocyte count a s percentage of total leukocytesOrdered By: Ye Acevedo on 06-16-2023 Lymphocytes/100 WBC Auto (Unsp spec) 28.1 % 19-41 [facility] Basophil percentageOrdered B y: Ye Acevedo on 06-16-2023 Basophils/100 WBC (Bld) 0.5 % 0-1 [facility] Chloride [Moles/Vol] 110 mmol/L 98-107 [facility] Eosinophils/100 WBC (Bld) 2.3 % 0-5 [facility] Glucose [Mass/Vol] 133 mg/dL 74-106 [facility] Comment on above: Fasting Glucose resu lt greater than or equal to 126 mg/dL suggests DIABETES MELLITUS per A.D.A. criteria. Hemoglobin (Bld) [Mass/Vol] 14.7 g/dL 13.0-16.5 [facility] Monocytes/100 WBC (Bld) 9.1 % 0-10 [facility] Neutrophils (Bld) [#/Vol] 5.2 10*3/uL 2.0-7.7 [facility] Neutrophils/100 WBC (Bld) 59.8 % 47-70 [facility] Potassium [Moles/Vol] 3.9 mmol/L 3.5-5.1 [facility] Sodium [Moles/Vol] 138 mmol/L 136-145 [facility] WBC (Bld) [#/Vol] 8.8 10*3/uL 4.4-11.0 [facility] Determination of erythrocyte mean corpuscular volume (MCV)Ordered By: Ye Acevedo on 06-16-2023 MCV (RBC) [Entitic vol] 88.7 fL 80-94 [facility] Erythrocyte distribution wid th ratioOrdered By: Ye Acevedo on 06-16-2023 Erythrocyte distribution width (RBC) [Ratio] 12.7 % 11.6-14.6 [facility] Erythrocyte distribution wid th standard deviationOrdered By: Ye Curtis on 06-16-2023 Erythrocyte distribution width (RBC) [Entitic vol] 41.4 fL 35.1-43.9 [facility] Erythrocyte sedimentation ra teOrdered By: [facility] ESR (Bld) [Velocity] 10 mm/h 0-20 [facility] Hematocrit Auto (Bld) [Volum e fraction]Ordered By: Ye Acevedo 06-16-2023 Hematocrit (Bld) [Volume fraction] 43.1 % 40-54 [facility] Immature granulocytes/100 WB C Auto (Bld)Ordered By: [facility] 06-16-2023 Immature granulocytes/100 WBC (Bld) 0.200 % 0.0-0.9 [facility] Comment on above: IG% - Immature Granu locytes (promyelocytes, myelocytes and metamyelocytes) > 1% indicates that a LEFT SHIFT is Present. Laboratory - Chemistry and C hemistry - challengeOrdered By: Ye Acevedo 06-16-2023 CO2 [Moles/Vol] 22.0 mmol/L 21.0-32.0 [facility] Urea nitrogen/Creatinine [Mass ratio] 15.3 mg/mg 10-20 [facility] Laboratory - Hematology and Cell countsOrdered By: Ye Acevedo 06-16-2023 MCH (RBC) [Entitic mass] 30.2 pg 27.0-32.0 [facility] MCHC (RBC) [Mass/Vol] 34.1 g/dL 32-36 [facility] Nucleated RBC/100 WBC (Bld) [Ratio] 0 % 0-5 [facility] Platelets (Bld) [#/Vol] 180 10*3/uL 150-450 [facility] No Panel InformationOrdered By: Ye Acevedo on 06-16-2023 C-Reactive Protein Extended Range 13.80 mg/L 0.0-3.0 [facility] Comment on above: C-Reactive Protein ( CRP) provides useful information for thediagnosis, therapy and monitoring of inflammatory processesand associated diseases. For the evaluation of Relative Riskfor Cardiovascular Disease, a High Sensitivity CRP (HSCRP)should be ordered. Estimated GFR (MDRD) Amer 116 mL/min >60 [facility] Comment on above: GFR Calc Estimated GFR (MDRD) Non-Af Amer 96 mL/min >60 [facility] Comment on above: Non- GFR Calc Platelet mean volume Uri-Ec ker (Bld) [Entitic vol]Ordered By: Ye Acevedo on 06-16-2023 Platelet mean volume (Bld) [Entitic vol] 9.7 fL 6.2-12.0 [facility] [facility] Auto (Bld) [#/Vol]Ordere d By: Ye Acevedo on 06-16-2023 RBC (Bld) [#/Vol] 4.86 10*6/uL 4.6-6.2 [facility] Serum or plasma calcium homero urement (mass/volume)Ordered By: Ye Acevedo 06-16-2023 Calcium [Mass/Vol] 8.8 mg/dL 8.5-10.1 [facility] Serum or plasma creatinine m easurement (mass/volume)Ordered By: Ye Acevedo 06-16-2023 Creatinine [Mass/Vol] 0.85 mg/dL 0.70-1.30 [facility] Comment on above: The validity of the calculated GFR & GFRAA in patients over 70 years has not been determined. Clinical correlation is essential. Serum or plasma urea nitroge n measurement (mass/volume)Ordered By: Ye Acevedo 06-16-2023 Urea nitrogen [Mass/Vol] 13 mg/dL 7-18 [facility] Serum or plasma uric acid me asurement (mass/volume)Ordered By: Ye Acevedo 06-16-2023 Urate [Mass/Vol] 5.5 mg/dL 3.5-7.2 [facility] Comment on above: The drugs N-Acetylcy steine and Metamizole may falsely depress this assay. Thin prep Papanicolaou smear with manual screeningOrdered By: Ye Acevedo on 06-16-2023 Thin prep Papanicolaou smear with manual screening 6 5-15 [facility] Absolute lymphocyte countOrd ered By: Ye Acevedo on 01-08-2023 Lymphocytes Auto (Unsp spec) [#/Vol] 2.30 10*3/uL 0.83-4.51 [facility] Basophil percentageOrdered B y: Ye Acevedo on 01-08-2023 Basophils/100 WBC (Bld) 0.7 % 0-1 [facility] Bilirubin [Mass/Vol] 0.30 mg/dL 0.20-1.00 [facility] Comment on above: For patients on eltr ombopag therapy, use of Dimension [facility] TBIL is not recommended. Chloride [Moles/Vol] 109 mmol/L 98-107 [facility] Eosinophils/100 WBC (Bld) 1.9 % 0-5 [facility] Glucose [Mass/Vol] 114 mg/dL 74-106 [facility] Comment on above: Fasting Glucose resu lt from 100 to 125 mg/dL suggests IMPAIRED HOMEOSTASIS per A.D.A. criteria. Neutrophils (Bld) [#/Vol] 5.0 10*3/uL 2.0-7.7 [facility] Neutrophils/100 WBC (Bld) 60.0 % 47-70 [facility] Potassium [Moles/Vol] 4.3 mmol/L 3.5-5.1 [facility] Protein [Mass/Vol] 7.4 g/dL 6.4-8.2 [facility] Sodium [Moles/Vol] 140 mmol/L 136-145 [facility] WBC (Bld) [#/Vol] 8.3 10*3/uL 4.4-11.0 [facility] Blood erythrocytes count (nu mber/volume)Ordered By: Ye Acevedo on 01-08-2023 RBC (Bld) [#/Vol] 4.87 10*6/uL 4.6-6.2 [facility] Blood hemoglobin measurement (mass/volume)Ordered By: Ye Acevedo on 01-08-2023 Hemoglobin (Bld) [Mass/Vol] 14.8 g/dL 13.0-16.5 [facility] Blood lymphocytes/100 leukoc ytesOrdered By: [facility] on 01-08-2023 Lymphocytes/100 WBC (Bld) 27.8 % 19-41 [facility] Blood monocytes/100 leukocyt esOrdered By: [facility] on 01-08-2023 Monocytes/100 WBC (Bld) 9.4 % 0-10 [facility] Blood platelet mean volumeOr dered By: [facility] on 01-08-2023 Platelet mean volume (Bld) [Entitic vol] 10.1 fL 6.2-12.0 [facility] Determination of erythrocyte mean corpuscular volume (MCV)Ordered By: [facility] on 01-08-2023 MCV (RBC) [Entitic vol] 90.6 fL 80-94 [facility] Hematocrit Auto (Bld) [Volum e fraction]Ordered By: [facility] 01-08-2023 Hematocrit (Bld) [Volume fraction] 44.1 % 40-54 [facility] Laboratory - Chemistry and C hemistry - challengeOrdered By: [facility] 01-08-2023 ALP [Catalytic activity/Vol] 103 U/L 45-117 [facility] ALT [Catalytic activity/Vol] 41 U/L 16-61 [facility] CO2 [Moles/Vol] 25.0 mmol/L 21.0-32.0 [facility] Globulin (S) [Mass/Vol] 3.7 g/dL 2.2-4.2 [facility] Urea nitrogen/Creatinine [Mass ratio] 16.0 mg/mg 10-20 [facility] Laboratory - Hematology and Cell countsOrdered By: [facility] 01-08-2023 Erythrocyte distribution width (RBC) [Entitic vol] 42.2 fL 35.1-43.9 [facility] Erythrocyte distribution width (RBC) [Ratio] 12.8 % 11.6-14.6 [facility] Immature granulocytes/100 WBC (Bld) 0.200 % 0.0-0.9 [facility] Comment on above: IG% - Immature Granu locytes (promyelocytes, myelocytes and metamyelocytes) > 1% indicates that a LEFT SHIFT is Present. MCH (RBC) [Entitic mass] 30.4 pg 27.0-32.0 [facility] Nucleated RBC/100 WBC (Bld) [Ratio] 0 % 0-5 [facility] MCHC Auto (RBC) [Mass/Vol]Or dered By: Ye Acevedo on 01-08-2023 MCHC (RBC) [Mass/Vol] 33.6 g/dL 32-36 [facility] No Panel InformationOrdered By: Ye Acevedo on 01-08-2023 Estimated GFR (MDRD) Amer 135 mL/min >60 [facility] Comment on above: GFR Calc Estimated GFR (MDRD) Non-Af Amer 112 mL/min >60 [facility] Comment on above: Non- GFR Calc Prostate Specific Antigen Screen 0.66 ng/mL 0.00-4.00 [facility] Comment on above: This test was perfor med using the TPSA assay method for [employer] chemistry system. Values obtained with differentassay methods cannot be used interchangably.When changing PSA assays in the course of monitoring apatient, additional sequential testing should be carriedout to confirm baseline values. Thyroid Stimulating Hormone (TSH) 1.18 uIU/mL 0.358-3.74 [facility] Platelets bldOrdered By: Ye Acevedo on 01-08-2023 Platelets (Bld) [#/Vol] 218 10*3/uL 150-450 [facility] Serum or plasma albumin homero urement (mass/volume)Ordered By: Ye Acevedo on 01-08-2023 Albumin [Mass/Vol] 3.7 g/dL 3.2-5.0 [facility] Serum or plasma albumin/glob ulin mass ratioOrdered By: Ye Acevedo on 01-08-2023 Albumin/Globulin [Mass ratio] 1.0 {ratio} 0.9-2.4 [facility] Serum or plasma calcium homero urement (mass/volume)Ordered By: Ye Acevedo on 01-08-2023 Calcium [Mass/Vol] 8.8 mg/dL 8.5-10.1 [facility] Serum or plasma creatinine m easurement (mass/volume)Ordered By: Ye Acevedo on 01-08-2023 Creatinine [Mass/Vol] 0.75 mg/dL 0.70-1.30 [facility] Comment on above: The validity of the calculated GFR & GFRAA in patients over 70 years has not been determined. Clinical correlation is essential. Serum or plasma urea nitroge n measurement (mass/volume)Ordered By: Ye Acevedo on 01-08-2023 Urea nitrogen [Mass/Vol] 12 mg/dL 7-18 [facility] Thin prep Papanicolaou smear with manual screeningOrdered By: Ye Acevedo on 01-08-2023 Thin prep Papanicolaou smear with manual screening 24 U/L 15-37 [facility] Thin prep Papanicolaou smear with manual screening 6 5-15 [facility] Absolute lymphocyte countOrd ered By: Dr. Acevedo on 11-07-2022 Lymphocytes Auto (Unsp spec) [#/Vol] 2.33 10*3/uL 0.83-4.51 [facility] Basophil percentageOrdered B y: Dr. Acevedo on 11-07-2022 Amylase [Catalytic activity/Vol] 57 U/L 25-115 [facility] Basophils/100 WBC (Bld) 0.6 % 0-1 [facility] Bilirubin [Mass/Vol] 0.30 mg/dL 0.20-1.00 [facility] Comment on above: For patients on eltr ombopag therapy, use of Dimension [facility] TBIL is not recommended. Chloride [Moles/Vol] 110 mmol/L 98-107 [facility] Eosinophils/100 WBC (Bld) 1.9 % 0-5 [facility] Glucose [Mass/Vol] 113 mg/dL 74-106 [facility] Comment on above: Fasting Glucose resu lt from 100 to 125 mg/dL suggests IMPAIRED HOMEOSTASIS per A.D.A. criteria. Neutrophils (Bld) [#/Vol] 5.0 10*3/uL 2.0-7.7 [facility] Neutrophils/100 WBC (Bld) 58.8 % 47-70 [facility] Potassium [Moles/Vol] 4.4 mmol/L 3.5-5.1 [facility] Protein [Mass/Vol] 7.2 g/dL 6.4-8.2 [facility] Sodium [Moles/Vol] 141 mmol/L 136-145 [facility] WBC (Bld) [#/Vol] 8.5 10*3/uL 4.4-11.0 [facility] Blood erythrocytes count (nu mber/volume)Ordered By: Dr. Acevedo on 11-07-2022 RBC (Bld) [#/Vol] 4.99 10*6/uL 4.6-6.2 [facility] Blood hemoglobin measurement (mass/volume)Ordered By: Dr. Acevedo on 11-07-2022 Hemoglobin (Bld) [Mass/Vol] 15.0 g/dL 13.0-16.5 [facility] Blood lymphocytes/100 leukoc ytesOrdered By: Dr. Acevedo on 11-07-2022 Lymphocytes/100 WBC (Bld) 27.3 % 19-41 [facility] Blood monocytes/100 leukocyt esOrdered By: Dr. Acevedo on 11-07-2022 Monocytes/100 WBC (Bld) 11.2 % 0-10 [facility] Blood platelet mean volumeOr dered By: Dr. Acevedo on 11-07-2022 Platelet mean volume (Bld) [Entitic vol] 9.9 fL 6.2-12.0 [facility] Determination of erythrocyte mean corpuscular volume (MCV)Ordered By: Dr. Acevedo on 11-07-2022 MCV (RBC) [Entitic vol] 91.2 fL 80-94 [facility] Hematocrit Auto (Bld) [Volum e fraction]Ordered By: Dr. Acevedo on 11-07-2022 Hematocrit (Bld) [Volume fraction] 45.5 % 40-54 [facility] Laboratory - Chemistry and C hemistry - challengeOrdered By: Dr. Acevedo on 11-07-2022 ALP [Catalytic activity/Vol] 90 U/L 45-117 [facility] ALT [Catalytic activity/Vol] 38 U/L 16-61 [facility] CO2 [Moles/Vol] 28.0 mmol/L 21.0-32.0 [facility] Globulin (S) [Mass/Vol] 3.4 g/dL 2.2-4.2 [facility] Lipase [Catalytic activity/Vol] 37 U/L 13-75 [facility] Comment on above: Please note:LIPASE r evised reference range effective 22. New Lipase methodology. Expected to produce lower values than the previous assay method. NEW Reference Range: 13 - 75 U/L Urea nitrogen/Creatinine [Mass ratio] 18.4 mg/mg 10-20 [facility] Laboratory - Hematology and Cell countsOrdered By: Dr. Acevedo on 11-07-2022 Erythrocyte distribution width (RBC) [Entitic vol] 43.1 fL 35.1-43.9 [facility] Erythrocyte distribution width (RBC) [Ratio] 12.9 % 11.6-14.6 [facility] Immature granulocytes/100 WBC (Bld) 0.200 % 0.0-0.9 [facility] Comment on above: IG% - Immature Granu locytes (promyelocytes, myelocytes and metamyelocytes) > 1% indicates that a LEFT SHIFT is Present. MCH (RBC) [Entitic mass] 30.1 pg 27.0-32.0 [facility] Nucleated RBC/100 WBC (Bld) [Ratio] 0 % 0-5 [facility] MCHC Auto (RBC) [Mass/Vol]Or dered By: Dr. Acevedo on 11-07-2022 MCHC (RBC) [Mass/Vol] 33.0 g/dL 32-36 [facility] No Panel InformationOrdered By: Dr. Acevedo on 11-07-2022 Estimated GFR (MDRD) Amer 133 mL/min >60 [facility] Comment on above: GFR Calc Estimated GFR (MDRD) Non-Af Amer 110 mL/min >60 [facility] Comment on above: Non- GFR Calc Platelets bldOrdered By: Dr. Acevedo on 11-07-2022 Platelets (Bld) [#/Vol] 221 10*3/uL 150-450 [facility] Serum or plasma albumin homero urement (mass/volume)Ordered By: Dr. Acevedo on 11-07-2022 Albumin [Mass/Vol] 3.8 g/dL 3.2-5.0 [facility] Serum or plasma albumin/glob ulin mass ratioOrdered By: Dr. Acevedo on 11-07-2022 Albumin/Globulin [Mass ratio] 1.1 {ratio} 0.9-2.4 [facility] Serum or plasma calcium homero urement (mass/volume)Ordered By: Dr. Acevedo on 11-07-2022 Calcium [Mass/Vol] 8.9 mg/dL 8.5-10.1 [facility] Serum or plasma creatinine m easurement (mass/volume)Ordered By: Dr. Acevedo on 11-07-2022 Creatinine [Mass/Vol] 0.76 mg/dL 0.70-1.30 [facility] Comment on above: The validity of the calculated GFR & GFRAA in patients over 70 years has not been determined. Clinical correlation is essential. Serum or plasma urea nitroge n measurement (mass/volume)Ordered By: Dr. Acevedo on 11-07-2022 Urea nitrogen [Mass/Vol] 14 mg/dL 7-18 [facility] Thin prep Papanicolaou smear with manual screeningOrdered By: Dr. Acevedo on 11-07-2022 Thin prep Papanicolaou smear with manual screening 26 U/L 15-37 [facility] Thin prep Papanicolaou smear with manual screening 3 5-15 [facility] LABORATORYOrdered By: SYSTEM SYSTEM on 07-23-2022 Albumin BCP dye [Mass/Vol] 3.7 G/dL Invalid Interpretation Code 3.4 - 4.8 G/dL AO ADM SS Albumin/Globulin [Mass ratio] 1.3 {ratio} Invalid Interpretation Code 1.1 - 2.5 ratio AO ADM SS ALP [Catalytic activity/Vol] 89 U/L Invalid Interpretation Code 40 - 135 U/L AO ADM SS ALT With P-5'-P [Catalytic activity/Vol] 36 U/L Invalid Interpretation Code 16 - 63 U/L AO ADM SS AST With P-5'-P [Catalytic activity/Vol] 21 U/L Invalid Interpretation Code 10 - 40 U/L AO ADM SS Bilirubin [Mass/Vol] 0.3 mg/dL Invalid Interpretation Code 0.2 - 1.0 mg/dL AO ADM SS Calcium [Mass/Vol] 8.8 mg/dL Invalid Interpretation Code 8.4 - 10.2 mg/dL AO ADM SS Chloride [Moles/Vol] 106 mmol/L Invalid Interpretation Code 98 - 107 mmol/L AO ADM SS CO2 [Moles/Vol] 28 mmol/L Invalid Interpretation Code 23 - 31 mmol/L AO ADM SS Creatinine [Mass/Vol] 0.87 mg/dL Invalid Interpretation Code 0.70 - 1.30 mg/dL AO ADM SS Electrolyte Balance 8.0 mEq/L Invalid Interpretation Code 4.0 - 15.0 mEq/L AO ADM SS GFR 107 ml/min/1.73sqm Invalid Interpretation Code AO Chemistry S GFR Non- 89 ml/min/1.73sqm Inval id Interpretation Code AO Chemistry S Globulin 2.8 G/dL Invalid Interpretation Code AO ADM SS Glucose [Mass/Vol] 116 mg/dL Invalid Interpretation Code 80 - 115 mg/dL AO ADM SS Magnesium [Mass/Vol] 2.1 mg/dL Invalid Interpretation Code 1.8 - 2.4 mg/dL AO ADM SS Potassium [Moles/Vol] 4.5 mmol/L Invalid Interpretation Code 3.5 - 5.1 mmol/L AO ADM SS Protein [Mass/Vol] 6.5 G/dL Invalid Interpretation Code 6.4 - 8.2 G/dL AO ADM SS Sodium [Moles/Vol] 142 mmol/L Invalid Interpretation Code 136 - 145 mmol/L AO ADM SS Urea nitrogen [Mass/Vol] 16 mg/dL Invalid Interpretation Code 7 - 18 mg/dL AO ADM SS Urea nitrogen/Creatinine [Mass ratio] 18 ratio Invalid Interpretation Code 7 - 27 ratio AO ADM SS LABORATORYOrdered By: Zara Malave on 07-23-2022 Basophil, Absolute 0.1 103/mcL Invalid Interpretation Code 0.0 - 0.2 10^3/mcL AO Workflow SS Basophils/100 WBC (Bld) 0.6 % Invalid Interpretation Code 0.0 - 2.5 % AO Workflow SS Eosinophil, Absolute 0.2 103/mcL Invalid Interpretation Code 0.0 - 0.4 10^3/mcL AO Workflow SS Eosinophils/100 WBC (Bld) 1.9 % Invalid Interpretation Code 0.0 - 7.0 % AO Workflow SS Erythrocyte distribution width (RBC) [Ratio] 13.6 % Invalid Interpretation Code 11.5 - 14.5 % AO Workflow SS Hematocrit (Bld) [Volume fraction] 41.4 % Invalid Interpretation Code 42.0 - 52.0 % AO Workflow SS Hemoglobin (Bld) [Mass/Vol] 14.1 G/dL Invalid Interpretation Code 14.0 - 18.0 G/dL AO Workflow SS Lymphocyte, Absolute 2.7 103/mcL Invalid Interpretation Code 0.8 - 3.9 10^3/mcL AO Workflow SS Lymphocytes/100 WBC (Bld) 30.2 % Invalid Interpretation Code 10.0 - 50.0 % AO Workflow SS MCH (RBC) [Entitic mass] 30.7 pg Invalid Interpretation Code 27.0 - 31.2 pg AO Workflow SS MCHC 34.0 G/dL Invalid Interpretation Code 31.8 - 35.4 G/dL AO Workflow SS MCV (RBC) [Entitic vol] 90.2 fL Invalid Interpretation Code 80.0 - 94.0 fL AO Workflow SS Monocyte, Absolute 1.0 103/mcL Invalid Interpretation Code 0.2 - 1.0 10^3/mcL AO Workflow SS Monocytes/100 WBC (Bld) 11.4 % Invalid Interpretation Code 1.7 - 13.0 % AO Workflow SS Neutrophil, Absolute 5.0 103/mcL Invalid Interpretation Code 2.9 - 6.2 10^3/mcL AO Workflow SS Neutrophils/100 WBC (Bld) 55.9 % Invalid Interpretation Code 37.0 - 80.0 % AO Workflow SS Platelet mean volume (Bld) [Entitic vol] 7.5 fL Invalid Interpretation Code 7.4 - 10.4 fL AO Workflow SS Platelets (Bld) [#/Vol] 193 103/mcL Invalid Interpretation Code 130 - 400 10^3/mcL AO Workflow SS RBC (Bld) [#/Vol] 4.59 106/mcL Invalid Interpretation Code 4.04 - 6.13 10^6/mcL AO Workflow SS WBC (Bld) [#/Vol] 9.0 103/mcL Invalid Interpretation Code 4.6 - 10.8 10^3/mcL AO Workflow SS LABORATORYOrdered By: SYSTEM SYSTEM on 07-22-2022 Troponin I.cardiac DL <= 0.01 ng/mL [Mass/Vol] 6.8 ng/L Invalid Interpretation Code 0.0 - 76.2 ng/L AO ADM SS Troponin I.cardiac DL <= 0.01 ng/mL [Mass/Vol] 6.1 ng/L Invalid Interpretation Code 0.0 - 76.2 ng/L AO ADM SS Calcium [Mass/Vol] 8.8 mg/dL Invalid Interpretation Code 8.4 - 10.2 mg/dL AO ADM SS Chloride [Moles/Vol] 106 mmol/L Invalid Interpretation Code 98 - 107 mmol/L AO ADM SS CO2 [Moles/Vol] 26 mmol/L Invalid Interpretation Code 23 - 31 mmol/L AO ADM SS Creatinine [Mass/Vol] 0.79 mg/dL Invalid Interpretation Code 0.70 - 1.30 mg/dL AO ADM SS Electrolyte Balance 10.0 mEq/L Invalid Interpretation Code 4.0 - 15.0 mEq/L AO ADM SS GFR 120 ml/min/1.73sqm Invalid Interpretation Code AO Chemistry S GFR Non- 99 ml/min/1.73sqm Inval id Interpretation Code AO Chemistry S Glucose [Mass/Vol] 118 mg/dL Invalid Interpretation Code 80 - 115 mg/dL AO ADM SS Natriuretic peptide.B prohormone N-Terminal [Mass/Vol] 21 pg/mL Invalid Interpretation Code 0 - 125 pg/mL AO ADM SS Potassium [Moles/Vol] 4.4 mmol/L Invalid Interpretation Code 3.5 - 5.1 mmol/L AO ADM SS Sodium [Moles/Vol] 142 mmol/L Invalid Interpretation Code 136 - 145 mmol/L AO ADM SS Troponin I.cardiac DL <= 0.01 ng/mL [Mass/Vol] 6.4 ng/L Invalid Interpretation Code 0.0 - 76.2 ng/L AO ADM SS Urea nitrogen [Mass/Vol] 14 mg/dL Invalid Interpretation Code 7 - 18 mg/dL AO ADM SS Urea nitrogen/Creatinine [Mass ratio] 18 ratio Invalid Interpretation Code 7 - 27 ratio AO ADM SS LABORATORYOrdered By: Joyce Castelan on 07-22-2022 Basophil, Absolute 0.1 103/mcL Invalid Interpretation Code 0.0 - 0.2 10^3/mcL AO Workflow SS Basophils/100 WBC (Bld) 0.7 % Invalid Interpretation Code 0.0 - 2.5 % AO Workflow SS Eosinophil, Absolute 0.1 103/mcL Invalid Interpretation Code 0.0 - 0.4 10^3/mcL AO Workflow SS Eosinophils/100 WBC (Bld) 1.5 % Invalid Interpretation Code 0.0 - 7.0 % AO Workflow SS Erythrocyte distribution width (RBC) [Ratio] 13.2 % Invalid Interpretation Code 11.5 - 14.5 % AO Workflow SS Hematocrit (Bld) [Volume fraction] 43.4 % Invalid Interpretation Code 42.0 - 52.0 % AO Workflow SS Hemoglobin (Bld) [Mass/Vol] 14.8 G/dL Invalid Interpretation Code 14.0 - 18.0 G/dL AO Workflow SS Lymphocyte, Absolute 2.0 103/mcL Invalid Interpretation Code 0.8 - 3.9 10^3/mcL AO Workflow SS Lymphocytes/100 WBC (Bld) 24.0 % Invalid Interpretation Code 10.0 - 50.0 % AO Workflow SS MCH (RBC) [Entitic mass] 30.5 pg Invalid Interpretation Code 27.0 - 31.2 pg AO Workflow SS MCHC 34.0 G/dL Invalid Interpretation Code 31.8 - 35.4 G/dL AO Workflow SS MCV (RBC) [Entitic vol] 89.7 fL Invalid Interpretation Code 80.0 - 94.0 fL AO Workflow SS Monocyte distribution width Auto (Bld) [Entitic vol] 16.82 Invalid Interpretation Code 0.00 - 20.00 AO Workflow SS Comment on above: Result Comment: For ED adult patients suspected of sepsis, MDW<=20.0 does not rule out sepsis or risk of sepsis Monocyte, Absolute 0.7 103/mcL Invalid Interpretation Code 0.2 - 1.0 10^3/mcL AO Workflow SS Monocytes/100 WBC (Bld) 8.8 % Invalid Interpretation Code 1.7 - 13.0 % AO Workflow SS Neutrophil, Absolute 5.4 103/mcL Invalid Interpretation Code 2.9 - 6.2 10^3/mcL AO Workflow SS Neutrophils/100 WBC (Bld) 65.0 % Invalid Interpretation Code 37.0 - 80.0 % AO Workflow SS Platelet mean volume (Bld) [Entitic vol] 7.3 fL Invalid Interpretation Code 7.4 - 10.4 fL AO Workflow SS Platelets (Bld) [#/Vol] 213 103/mcL Invalid Interpretation Code 130 - 400 10^3/mcL AO Workflow SS RBC (Bld) [#/Vol] 4.83 106/mcL Invalid Interpretation Code 4.04 - 6.13 10^6/mcL AO Workflow SS WBC (Bld) [#/Vol] 8.3 103/mcL Invalid Interpretation Code 4.6 - 10.8 10^3/mcL AO Workflow SS Absolute lymphocyte countOrd ered By: Ye Acevedo on 07-09-2022 Lymphocytes Auto (Unsp spec) [#/Vol] 2.61 10*3/uL 0.83-4.51 [facility] Basophil percentageOrdered B y: Ye Acevedo on 07-09-2022 Basophils/100 WBC (Bld) 0.7 % 0-1 [facility] Bilirubin [Mass/Vol] 0.30 mg/dL 0.20-1.00 [facility] Comment on above: For patients on eltr ombopag therapy, use of Dimension [facility] TBIL is not recommended. Chloride [Moles/Vol] 106 mmol/L 98-107 [facility] Eosinophils/100 WBC (Bld) 2.3 % 0-5 [facility] Glucose [Mass/Vol] 79 mg/dL 74-106 [facility] Neutrophils (Bld) [#/Vol] 4.7 10*3/uL 2.0-7.7 [facility] Neutrophils/100 WBC (Bld) 54.9 % 47-70 [facility] Potassium [Moles/Vol] 4.2 mmol/L 3.5-5.1 [facility] Protein [Mass/Vol] 7.2 g/dL 6.4-8.2 [facility] Sodium [Moles/Vol] 139 mmol/L 136-145 [facility] WBC (Bld) [#/Vol] 8.5 10*3/uL 4.4-11.0 [facility] Blood erythrocytes count (nu mber/volume)Ordered By: Ye Acevedo on 07-09-2022 RBC (Bld) [#/Vol] 4.78 10*6/uL 4.6-6.2 [facility] Blood hemoglobin measurement (mass/volume)Ordered By: Ye Acevedo on 07-09-2022 Hemoglobin (Bld) [Mass/Vol] 14.8 g/dL 13.0-16.5 [facility] Blood lymphocytes/100 leukoc ytesOrdered By: Ye Acevedo on 07-09-2022 Lymphocytes/100 WBC (Bld) 30.6 % 19-41 [facility] Blood monocytes/100 leukocyt esOrdered By: Ye Acevedo on 07-09-2022 Monocytes/100 WBC (Bld) 11.1 % 0-10 [facility] Blood platelet mean volumeOr dered By: Ye Acevedo on 07-09-2022 Platelet mean volume (Bld) [Entitic vol] 9.9 fL 6.2-12.0 [facility] Determination of erythrocyte mean corpuscular volume (MCV)Ordered By: Ye Acevedo on 07-09-2022 MCV (RBC) [Entitic vol] 91.4 fL 80-94 [facility] Hematocrit Auto (Bld) [Volum e fraction]Ordered By: Ye Acevedo on 07-09-2022 Hematocrit (Bld) [Volume fraction] 43.7 % 40-54 [facility] Laboratory - Chemistry and C hemistry - challengeOrdered By: Ye Acevedo on 07-09-2022 ALP [Catalytic activity/Vol] 97 U/L 45-117 [facility] ALT [Catalytic activity/Vol] 37 U/L 16-61 [facility] CO2 [Moles/Vol] 27.0 mmol/L 21.0-32.0 [facility] Globulin (S) [Mass/Vol] 3.5 g/dL 2.2-4.2 [facility] Urea nitrogen/Creatinine [Mass ratio] 15.9 mg/mg 10-20 [facility] Laboratory - Hematology and Cell countsOrdered By: Ye Curtis on 07-09-2022 Erythrocyte distribution width (RBC) [Entitic vol] 42.1 fL 35.1-43.9 [facility] Erythrocyte distribution width (RBC) [Ratio] 12.7 % 11.6-14.6 [facility] Immature granulocytes/100 WBC (Bld) 0.400 % 0.0-0.9 [facility] Comment on above: IG% - Immature Granu locytes (promyelocytes, myelocytes and metamyelocytes) > 1% indicates that a LEFT SHIFT is Present. MCH (RBC) [Entitic mass] 31.0 pg 27.0-32.0 [facility] Nucleated RBC/100 WBC (Bld) [Ratio] 0 % 0-5 [facility] [facility] Auto (RBC) [Mass/Vol]Or dered By: Ye Acevedo on 07-09-2022 MCHC (RBC) [Mass/Vol] 33.9 g/dL 32-36 [facility] No Panel InformationOrdered By: Ye Acevedo on 07-09-2022 Estimated GFR (MDRD) Amer 122 mL/min >60 [facility] Comment on above: GFR Calc Estimated GFR (MDRD) Non-Af Amer 101 mL/min >60 [facility] Comment on above: Non- GFR Calc Thyroid Stimulating Hormone (TSH) 0.87 uIU/mL 0.358-3.74 [facility] Vitamin D 25-Hydroxy 21.2 ng/mL [facility] Comment on above: Vitamin D 25(OH) Sta tus Range Deficiency <20 ng/mL (50nmol/L) Insufficiency 20 - 30 ng/mL (50 - 75 nmol/L) Sufficiency 30 - 100 ng/mL (75 - 250 nmol/L) Toxicity >100 ng/mL (>250 nmol/L) Platelets bldOrdered By: Ye Acevedo on 07-09-2022 Platelets (Bld) [#/Vol] 227 10*3/uL 150-450 [facility] Serum or plasma albumin homero urement (mass/volume)Ordered By: Ye Acevedo on 07-09-2022 Albumin [Mass/Vol] 3.7 g/dL 3.2-5.0 [facility] Serum or plasma albumin/glob ulin mass ratioOrdered By: Ye Acevedo on 07-09-2022 Albumin/Globulin [Mass ratio] 1.1 {ratio} 0.9-2.4 [facility] Serum or plasma calcium homero urement (mass/volume)Ordered By: Ye Acevedo 07-09-2022 Calcium [Mass/Vol] 9.2 mg/dL 8.5-10.1 [facility] Serum or plasma creatinine m easurement (mass/volume)Ordered By: Ye Acevedo 07-09-2022 Creatinine [Mass/Vol] 0.82 mg/dL 0.70-1.30 [facility] Comment on above: The validity of the calculated GFR & GFRAA in patients over 70 years has not been determined. Clinical correlation is essential. Serum or plasma urea nitroge n measurement (mass/volume)Ordered By: Ye Acevedo on 07-09-2022 Urea nitrogen [Mass/Vol] 13 mg/dL 7-18 [facility] Thin prep Papanicolaou smear with manual screeningOrdered By: Ye Acevedo 07-09-2022 Thin prep Papanicolaou smear with manual screening 27 U/L 15-37 [facility] Thin prep Papanicolaou smear with manual screening 6 5-15 [facility] Absolute lymphocyte countOrd ered By: Dr. Acevedo on 06-05-2022 Lymphocytes Auto (Unsp spec) [#/Vol] 2.55 10*3/uL 0.83-4.51 [facility] Basophil percentageOrdered B y: Dr. Acevedo on 06-05-2022 Basophils/100 WBC (Bld) 0.4 % 0-1 [facility] Bilirubin [Mass/Vol] 0.40 mg/dL 0.20-1.00 [facility] Comment on above: For patients on eltr ombopag therapy, use of Dimension [facility] TBIL is not recommended. Chloride [Moles/Vol] 110 mmol/L 98-107 [facility] Eosinophils/100 WBC (Bld) 1.6 % 0-5 [facility] Glucose [Mass/Vol] 90 mg/dL 74-106 [facility] Neutrophils (Bld) [#/Vol] 5.5 10*3/uL 2.0-7.7 [facility] Neutrophils/100 WBC (Bld) 58.6 % 47-70 [facility] Potassium [Moles/Vol] 4.2 mmol/L 3.5-5.1 [facility] Protein [Mass/Vol] 7.3 g/dL 6.4-8.2 [facility] Sodium [Moles/Vol] 141 mmol/L 136-145 [facility] WBC (Bld) [#/Vol] 9.4 10*3/uL 4.4-11.0 [facility] Blood erythrocytes count (nu mber/volume)Ordered By: Dr. Acevedo on 06-05-2022 RBC (Bld) [#/Vol] 4.89 10*6/uL 4.6-6.2 [facility] Blood hemoglobin measurement (mass/volume)Ordered By: Dr. Acevedo on 06-05-2022 Hemoglobin (Bld) [Mass/Vol] 15.2 g/dL 13.0-16.5 [facility] Blood lymphocytes/100 leukoc ytesOrdered By: Dr. Acevedo on 06-05-2022 Lymphocytes/100 WBC (Bld) 27.3 % 19-41 [facility] Blood monocytes/100 leukocyt esOrdered By: Dr. Acevedo on 06-05-2022 Monocytes/100 WBC (Bld) 11.8 % 0-10 [facility] Blood platelet mean volumeOr dered By: Dr. Acevedo on 06-05-2022 Platelet mean volume (Bld) [Entitic vol] 9.5 fL 6.2-12.0 [facility] Determination of erythrocyte mean corpuscular volume (MCV)Ordered By: Dr. Acevedo on 06-05-2022 MCV (RBC) [Entitic vol] 90.8 fL 80-94 [facility] Hematocrit Auto (Bld) [Volum e fraction]Ordered By: Dr. Acevedo on 06-05-2022 Hematocrit (Bld) [Volume fraction] 44.4 % 40-54 [facility] Laboratory - Chemistry and C hemistry - challengeOrdered By: Dr. Acevedo on 06-05-2022 ALP [Catalytic activity/Vol] 104 U/L 45-117 [facility] ALT [Catalytic activity/Vol] 39 U/L 16-61 [facility] CO2 [Moles/Vol] 26.0 mmol/L 21.0-32.0 [facility] Globulin (S) [Mass/Vol] 3.5 g/dL 2.2-4.2 [facility] Urea nitrogen/Creatinine [Mass ratio] 18.0 mg/mg 10-20 [facility] Laboratory - Hematology and Cell countsOrdered By: Dr. Acevedo on 06-05-2022 Erythrocyte distribution width (RBC) [Entitic vol] 41.2 fL 35.1-43.9 [facility] Erythrocyte distribution width (RBC) [Ratio] 12.4 % 11.6-14.6 [facility] Immature granulocytes/100 WBC (Bld) 0.300 % 0.0-0.9 [facility] Comment on above: IG% - Immature Granu locytes (promyelocytes, myelocytes and metamyelocytes) > 1% indicates that a LEFT SHIFT is Present. MCH (RBC) [Entitic mass] 31.1 pg 27.0-32.0 [facility] Nucleated RBC/100 WBC (Bld) [Ratio] 0 % 0-5 [facility] MCHC Auto (RBC) [Mass/Vol]Or dered By: Dr. Acevedo on 06-05-2022 MCHC (RBC) [Mass/Vol] 34.2 g/dL 32-36 [facility] No Panel InformationOrdered By: Dr. Acevedo on 06-05-2022 Estimated GFR (MDRD) Amer 129 mL/min >60 [facility] Comment on above: GFR Calc Estimated GFR (MDRD) Non-Af Amer 107 mL/min >60 [facility] Comment on above: Non- GFR Calc Platelets bldOrdered By: Dr. Acevedo on 06-05-2022 Platelets (Bld) [#/Vol] 212 10*3/uL 150-450 [facility] Serum or plasma albumin homero urement (mass/volume)Ordered By: Dr. Acevedo on 06-05-2022 Albumin [Mass/Vol] 3.8 g/dL 3.2-5.0 [facility] Serum or plasma albumin/glob ulin mass ratioOrdered By: Dr. Acevedo on 06-05-2022 Albumin/Globulin [Mass ratio] 1.1 {ratio} 0.9-2.4 [facility] Serum or plasma calcium homero urement (mass/volume)Ordered By: Dr. Acevedo on 06-05-2022 Calcium [Mass/Vol] 9.0 mg/dL 8.5-10.1 [facility] Serum or plasma creatinine m easurement (mass/volume)Ordered By: Dr. Acevedo on 06-05-2022 Creatinine [Mass/Vol] 0.78 mg/dL 0.70-1.30 [facility] Comment on above: The validity of the calculated GFR & GFRAA in patients over 70 years has not been determined. Clinical correlation is essential. Serum or plasma urea nitroge n measurement (mass/volume)Ordered By: Dr. Acevedo on 06-05-2022 Urea nitrogen [Mass/Vol] 14 mg/dL 7-18 [facility] Thin prep Papanicolaou smear with manual screeningOrdered By: Dr. Acevedo on 06-05-2022 Thin prep Papanicolaou smear with manual screening 19 U/L 15-37 [facility] Thin prep Papanicolaou smear with manual screening 5 5-15 [facility] Laboratory - Microbiology an d Antimicrobial susceptibilityOrdered By: Dr. Acevedo on 04-29-2022 SARS-CoV-2 (COVID-19) RNA SENAIT+probe Ql (Unsp spec) Not detected Not Detect [facility] Comment on above: Normal Reference Ran ge: Not DetectedMethod:(RT-PCR) real-time reverse transcriptase PCRLuminex ANASTASIYA Instrument*The Food and Drug Administration (FDA) has issued an Emergency Use Authorization (EAU) for the ANASTASIYA SARS-CoV-2 Assay for the rapid detection of the virus that causes COVID-19. This test has been validated, but the FDAs independent review of this validation is pending.*Negative results do not preclude infection and should not be used as the sole basis for treatment or patient management. Optimum specimen types and timing for peak viral levels during infections caused by SARS-CoV-2 have not been determined. Collection of multiple specimens from the same patient may be necessary to detect the virus. The possibility of a false negative result should be considered if the patient has clinical presentation or has had recent exposure. No Panel InformationOrdered By: Dr. Acevedo on 04-29-2022 Influenza Types A,B Direct FA (CHAO) [facility] RSV Ag EIAOrdered By: Dr. El mane on 04-29-2022 RSV Ag Immune stain Ql (Tiss) [facility] Laboratory - Microbiology an d Antimicrobial susceptibilityon 11-14-2021 SARS-CoV-2 (COVID-19) RNA SENAIT+probe Ql (Unsp spec) Not detected Not Detect [facility] Work Phone: Comment on above: Normal Reference Ran ge: Not DetectedMethod:(RT-PCR) real-time reverse transcriptase PCRLuminex ANASTASIYA Instrument*The Food and Drug Administration (FDA) has issued an Emergency Use Authorization (EAU) for the ANASTASIYA SARS-CoV-2 Assay for the rapid detection of the virus that causes COVID-19. This test has been validated, but the FDAs independent review of this validation is pending.*Negative results do not preclude infection and should not be used as the sole basis for treatment or patient management. Optimum specimen types and timing for peak viral levels during infections caused by SARS-CoV-2 have not been determined. Collection of multiple specimens from the same patient may be necessary to detect the virus. The possibility of a false negative result should be considered if the patient has clinical presentation or has had recent exposure. Office Visit: recheck leg wo undon 01-23-2017 Documentation of current medications (procedure) Done Invalid Interpretation Code [facility] [employer] Work Phone: Fall risk assessment No Invalid Interpretation Code [facility] Work Phone: Protein mass conc Done [facility] [employer] Work Phone: Tobacco smoking status NHIS Former smoker [facility] Work Phone: Tobacco use CP Former smoker Invalid Interpretation Code [facility] Work Phone: Office Visit: right lower le g abscesson 01-16-2017 Documentation of current medications (procedure) Done Invalid Interpretation Code [facility] Work Phone: Fall risk assessment No Invalid Interpretation Code [facility] Work Phone: Tobacco use [facility] Former smoker Invalid Interpretation Code [facility] [employer] Work Phone: No Panel Information Influenza Types A,B Direct FA (CHAO) [facility] Work Phone: RSV Ag EIA RSV Ag Immune stain Ql (Tiss) [facility] Work Phone: Vital Signs Date Time Vital Sign Value Performing Clinician Facility 12-30-2024 08:33-0400 Body height 180.[address] Ye Acevedo MD Work Phone: [facility] 12-30-2024 08:33-0400 Body mass index (BMI) [Ratio] 34.1 kg/m2 Dr. Ye Acevedo MD Work Phone: [facility] 12-30-2024 08:33-0400 Body temperature 98.3 [degF] Dr. Ye Acevedo MD Work Phone: [facility] 12-30-2024 08:33-0400 Body weight 110.[address] Ye Acevedo MD Work Phone: [facility] 12-30-2024 08:33-0400 Diastolic blood pressure 82 mm[Hg] Dr. Ye Acevedo MD Work Phone: [facility] 12-30-2024 08:33-0400 Heart rate 65 /min Dr. Ye Acevedo MD Work Phone: 6(559)876-331374 [place] [address] 12-30-2024 08:33-0400 Respiratory rate 18 /min Dr. Ye Acevedo MD Work Phone: 5(381)888-873774 [place] [address] 12-30-2024 08:33-0400 SaO2% (BldA) [Mass fraction] 98 % Dr. Ye Acevedo MD Work Phone: 3(470)853-483074 [place] [address] 12-30-2024 08:33-0400 Systolic blood pressure 127 mm[Hg] Dr. Ye Acevedo MD Work Phone: 0(509)092-510094 [place] [address] 11-25-2024 12:45-0400 Body temperature 97.5 [degF] Dr. Ye Acevedo MD Work Phone: 6(581)214-449794 [place] [address] 11-25-2024 12:45-0400 Diastolic blood pressure 72 mm[Hg] Dr. Ye Acevedo MD Work Phone: 4(597)085-049194 [place] [address] 11-25-2024 12:45-0400 Heart rate 70 /min Dr. Ye Acevedo MD Work Phone: 0(848)613-039594 [place] [address] 11-25-2024 12:45-0400 Respiratory rate 16 /min Dr. Ye Acevedo MD Work Phone: 2(908)418-547494 [place] [address] 11-25-2024 12:45-0400 SaO2% (BldA) [Mass fraction] 94 % Dr. Ye Acevedo MD Work Phone: 2(036)102-740194 [place] [address] 11-25-2024 12:45-0400 Systolic blood pressure 112 mm[Hg] Dr. Ye Acevedo MD Work Phone: 5(796)030-114394 [place] [address] 11-25-2024 10:27-0400 Body height 180.[address] Ye Acevedo MD Work Phone: 4(271)693-202894 [place] [address] 11-25-2024 10:27-0400 Body mass index (BMI) [Ratio] 34 kg/m2 Dr. Ye Acevedo MD Work Phone: 1(714)009-432094 [place] [address] 11-25-2024 10:27-0400 Body weight 110.[address] Ye Acevedo MD Work Phone: 9(702)679-691874 [place] [address] 11-16-2024 14:48-0400 Body height 180.[address] Ye Acevedo MD Work Phone: 8(132)811-511994 [place] [address] 11-16-2024 14:48-0400 Body mass index (BMI) [Ratio] 33.9 kg/m2 Dr. Ye Acevedo MD Work Phone: 7(381)929-177194 [place] [address] 11-16-2024 14:48-0400 Body temperature 98.6 [degF] Dr. Ye Acevedo MD Work Phone: 3(509)965-541294 [place] [address] 11-16-2024 14:48-0400 Body weight 110.[address] Ye Acevedo MD Work Phone: 8(008)789-296094 [place] [address] 11-16-2024 14:48-0400 Diastolic blood pressure 87 mm[Hg] Dr. Ye Acevedo MD Work Phone: 2(885)610-223194 [place] [address] 11-16-2024 14:48-0400 Heart rate 83 /min Dr. Ye Acevedo MD Work Phone: 7(504)865-764394 [place] [address] 11-16-2024 14:48-0400 Respiratory rate 20 /min Dr. Ye Acevedo MD Work Phone: 7(779)617-592294 [place] [address] 11-16-2024 14:48-0400 SaO2% (BldA) [Mass fraction] 91 % Dr. Ye Acevedo MD Work Phone: 3(957)179-932694 [place] [address] 11-16-2024 14:48-0400 Systolic blood pressure 144 mm[Hg] Dr. Ye Acevedo MD Work Phone: 5(164)830-104194 [place] [address] 10-27-2024 00:00-0400 Body temperature 98.7 [degF] Dr. Ye Acevedo MD Work Phone: 0(774)421-374394 [place] [address] 10-27-2024 00:00-0400 Diastolic blood pressure 89 mm[Hg] Dr. Ye Acevedo MD Work Phone: 9(119)756-084794 [place] [address] 10-27-2024 00:00-0400 Heart rate 63 /min Dr. Ye Acevedo MD Work Phone: 9(578)035-818474 [place] [address] 10-27-2024 00:00-0400 Respiratory rate 16 /min Dr. Ye Acevedo MD Work Phone: 7(419)963-745194 [place] [address] 10-27-2024 00:00-0400 SaO2% (BldA) [Mass fraction] 99 % Dr. Ye Acevedo MD Work Phone: 2(180)632-486494 [place] [address] 10-27-2024 00:00-0400 Systolic blood pressure 127 mm[Hg] Dr. Ye Acevedo MD Work Phone: 5(719)819-556194 [place] [address] 10-26-2024 19:47-0400 Body mass index (BMI) [Ratio] 33.9 kg/m2 Dr. Ye Acevedo MD Work Phone: 0(813)131-159894 [place] [address] 10-26-2024 19:47-0400 Body weight [address] Ye Acevedo MD Work Phone: 0(795)057-788994 [place] [address] 10-26-2024 19:43-0400 Body height 181.[address] Ye Acevedo MD Work Phone: 6(116)571-354794 [place] [address] 04-26-2024 08:10-0500 Body height 181.[address] Ye Acevedo MD Work Phone: 3(968)911-972594 [place] [address] 04-26-2024 08:10-0500 Body mass index (BMI) [Ratio] 33.8 kg/m2 Dr. Ye Acevedo MD Work Phone: 9(306)159-859394 [place] [address] 04-26-2024 08:10-0500 Body temperature 98.5 [degF] Dr. Ye Acevedo MD Work Phone: 4(767)983-316694 [place] [address] 04-26-2024 08:10-0500 Body weight 111.[address] Ye Acevedo MD Work Phone: 4(713)083-972494 [place] [address] 04-26-2024 08:10-0500 Diastolic blood pressure 78 mm[Hg] Dr. Ye Acevedo MD Work Phone: 5(555)147-611894 [place] [address] 04-26-2024 08:10-0500 Heart rate 116 /min Dr. Ye Acevedo MD Work Phone: [facility] 04-26-2024 08:10-0500 Respiratory rate 12 /min Dr. Ye Acevedo MD Work Phone: [facility] 04-26-2024 08:10-0500 SaO2% (BldA) [Mass fraction] 94 % Dr. Ye Acevedo MD Work Phone: [facility] 04-26-2024 08:10-0500 Systolic blood pressure 130 mm[Hg] Dr. Ye Acevedo MD Work Phone: [facility] 01-18-2023 21:37-0400 Diastolic Blood Pressure Non-Invasive [address] EVERARDO ZALDIVAR DO [facility] 01-18-2023 21:37-0400 Heart rate 95 /min DR EVERARDO ZALDIVAR DO [facility] 01-18-2023 21:37-0400 Reason For Taking VItal Signs DR EVERARDO ZALDIVAR DO [facility] 01-18-2023 21:37-0400 Respiratory rate 18 /min DR EVERARDO ZALDIVAR DO [facility] 01-18-2023 21:37-0400 Systolic Blood Pressure Non-Invasive [address] EVERARDO ZALDIVAR DO [facility] 01-18-2023 20:34-0400 Body temperature 98.6 [degF] DR EVERARDO ZALDIVAR DO [facility] 01-18-2023 20:34-0400 Diastolic Blood Pressure Non-Invasive [address] EVERARDO ZALDIVAR DO [facility] 01-18-2023 20:34-0400 Heart rate 98 /min DR EVERARDO ZALDIVAR DO [facility] 09-02-2023 20:34-0400 Respiratory rate 18 /min DR EVERARDO ZALDIVAR DO [facility] 01-18-2023 20:34-0400 Systolic Blood Pressure Non-Invasive [address] MCGEE EFRABONI DO [facility] 07-23-2022 14:07-0500 Body temperature 97.88 [degF] ROBBINDAISHA [employer]EN [employer] [facility] 07-23-2022 14:07-0500 Diastolic Blood Pressure Non-Invasive 82 1 ROBBIN JOANNENEN [employer] [facility] 07-23-2022 14:07-0500 Heart rate 73 /min ROBBIN JOANNENEN [employer] [facility] 07-23-2022 14:07-0500 Respiratory rate 18 /min ROBBINDAISHA RUBIONEN [employer] [facility] 07-23-2022 14:07-0500 Systolic Blood Pressure Non-Invasive 121 1 ROBBINDAISHA RUBIONEN [employer] [facility] 07-23-2022 12:05-0500 Heart rate 69 /min ROBBINDAISHA [employer]EN [employer] [facility] 07-23-2022 11:11-0500 Body temperature 97.34 [degF] ROBBINDAISHA [employer] [facility] 07-23-2022 11:11-0500 Diastolic Blood Pressure Non-Invasive 70 1 ROBBINDAISHA [employer]EN [employer] [facility] 07-23-2022 11:11-0500 Heart rate 71 /min ROBBINDAISHA RUBIOBARRONN [employer] [facility] 07-23-2022 11:11-0500 Respiratory rate 18 /min ROBBIN GAMINO [employer] [facility] 07-23-2022 11:11-0500 Systolic Blood Pressure Non-Invasive 117 1 ROBBIN GAMINO [employer] [facility] 07-23-2022 08:02-0500 Blood Pressure Cuff Size ROBBIN GAMINO [employer] [facility] 07-23-2022 08:02-0500 Blood Pressure Location ROBBIN GAMINO [employer] [facility] 07-23-2022 08:02-0500 Blood Pressure Method ROBBIN GAMINO [employer] [facility] 07-23-2022 08:02-0500 Body temperature 97.88 [degF] ROBBIN G[employer]INO [employer] [facility] 07-23-2022 08:02-0500 Diastolic Blood Pressure Non-Invasive 90 1 ROBBIN GAMINO [employer] [facility] 07-23-2022 08:02-0500 Heart rate 73 /min ROBBIN GAMINO [employer] [facility] 07-23-2022 08:02-0500 Respiratory rate 18 /min ROBBIN GAMINO [employer] [facility] 07-23-2022 08:02-0500 Systolic Blood Pressure Non-Invasive 143 1 ROBBIN GAMINO [employer] [facility] 07-22-2022 18:03-0500 Body height 180.3 cm ROBBIN DEL RIOShoaib [employer] [facility] 07-22-2022 18:03-0500 Body weight 117.3 kg ROBBIN GAMINO [employer] [facility] 07-22-2022 18:03-0500 Body weight 36.08 kg/m2 ROBBIN GAMINO [employer] [facility] 07-22-2022 12:14-0500 Heart rate 89 /min ROBBIN GAMINO [employer] [facility] 01-16-2017 13:35-0400 BP Diastolic 78 mm[Hg] Janine Carney PA-C [facility] Work Phone: 01-16-2017 13:35-0400 BP Systolic 122 mm[Hg] Janine Carney PA-C [facility] Work Phone: 01-16-2017 13:35-0400 Pulse (Heart Rate) 87 /min Janine Carney PA-C [facility] Work Phone: 01-16-2017 13:35-0400 Respiratory Rate 18 /min Janinearnie Carney PA-C [facility] Work Phone: Encounters Encounter Date Encounter Type Care Provider Facility Start: 01-13-2025 ambulatory Ye Chi Curtis Facility:[facility] Start: 01-11-2025 ambulatory Ye Chi Curtis Facility:[facility] Start: 01-03-2025 Encounter for genera l adult medical examination without abnormal findings Lindsey Gallo [facility] Start: 12-30-2024 End: 12-30-2024 Patient encounter procedure Lindsey ROACH -[facility] Work Phone: Start: 12-30-2024 End: 12-30-[address] Ye Acevedo MD Work Phone: -[facility] Start: 12-30-2024 End: 12-30-2024 ambulatory Ye Chi Curtis Facility:[facility] Start: 11-25-2024 Non-patient / Non-visit Donovan Ramirez DO -[facility] Start: 11-25-2024 End: 11-25-2024 Admission to same day surgery center Donovanlinn Ramirez -Endoscopy Work Phone: Start: 11-25-2024 End: 11-25-[address] Ye Acevedo MD Work Phone: -Endoscopy Start: 11-24-2024 Non-patient / Non-visit Dr. Aleksandar Patton MD -[facility] Work Phone: Start: 11-24-[address] Ye Acevedo MD -Cat Scan [facility] Work Phone: Start: 11-24-2024 ambulatory Ye Acevedo Facility:[facility] Start: 11-16-2024 End: 11-16-2024 Patient encounter procedure Lindsey ROACH -[facility] Work Phone: Start: 11-16-2024 End: 11-16-[address] Ye Acevedo MD Work Phone: -[facility] Start: 11-15-2024 ambulatory Ye Acevedo Facility:[facility] Start: 10-26-2024 End: 10-27-2024 Emergency department patient visit Dr. Ye Acevedo MD Work Phone: -Emergency Department Work Phone: Start: 10-19-2024 End: 10-19-[address] Ye Acevedo MD Work Phone: [facility] Work Phone: Start: 10-19-2024 End: 10-19-[address] Ye Acevedo MD -Laboratory Work Phone: Start: 10-18-2024 End: 10-19-[address] Ye Acevedo MD Work Phone: [facility] Work Phone: Start: 10-18-2024 End: 10-18-[address] Ye Acevedo MD -Radiology [facility] Work Phone: Start: 10-18-2024 End: 10-18-2024 ambulatory [facility] Facility:[facility] Start: 10-13-2024 End: 10-17-2024 ambulatory VANDANA LERMA [employer] GEAR C[employer]TER[employer]HAT MAKER Facility:A Start: 09-22-2024 End: 09-22-[address] Ye Acevedo MD Work Phone: [facility] Work Phone: Start: 09-22-2024 End: 09-22-[address] Ye Acevedo MD -Laboratory, Specimen Work Phone: Start: 09-22-2024 End: 09-22-2024 ambulatory [facility] Facility:[facility] Start: 08-04-2024 End: 08-04-[address] Ye Acevedo MD Work Phone: [facility] Work Phone: Start: 08-04-2024 End: 08-04-[address] Ye Acevedo MD -Laboratory, Phy Office 3rd Flr Start: 08-04-2024 End: 08-04-2024 ambulatory [facility] Facility:[facility] Start: 07-02-2024 End: 07-02-[address] Ye Acevedo MD -Radiology, [facility] Work Phone: Start: 07-02-2024 End: 07-02-2024 ambulatory [facility] Facility:[facility] Start: 06-01-2024 End: 06-01-[address] Ye Acevedo MD -Laboratory, Phy Office 3rd Flr Start: 06-01-2024 End: 06-01-2024 ambulatory [facility] Facility:[facility] Start: 04-29-2024 End: 04-29-[address] Ye Acevedo MD -Laboratory, Phy Office 3rd Flr Start: 04-29-2024 End: 04-29-2024 ambulatory [facility] Facility:[facility] Start: 04-26-2024 End: 04-26-2024 Patient encounter procedure Shaji Mathur MS [facility] Work Phone: Start: 04-26-2024 End: 04-26-2024 ambulatory Ye Coombs Curtis Facility:[facility] Start: 04-07-2024 End: 04-11-[address] AMEENA ACEVEDO MD Facility:A Start: 03-30-2024 End: 03-30-2024 ambulatory [facility] Facility:[facility] Start: 02-05-2024 End: 02-05-2024 ambulatory [facility] Facility:[facility] Start: 09-02-2023 End: 09-03-[address] AMEENA ACEVEDO MD Facility:A Start: 09-02-2023 End: 09-02-2023 Patient encounter procedure SHI GARCIA PRODUCTION GEAR CUTTER-HAT MAKER [facility] Start: 08-06-2023 End: 08-07-2023 ambulatory ZECHARIAH RAMOS PRODUCTION GEAR CUTTER-TEACHING SUPERVISOR Facility:A Start: 08-06-2023 End: 08-06-2023 Patient encounter procedure ZECHARIAH RAMOS PRODUCTION GEAR CUTTER-TEACHING SUPERVISOR [facility] Start: 07-07-2023 End: 07-07-2023 ambulatory [facility]ital Work Phone: Start: 07-07-2023 End: 07-07-2023 Patient encounter procedure [facility]-Laboratory Work Phone: Start: 07-03-2023 End: 07-04-[address] ERINN ORTIZ MD Facility:A Start: 06-16-2023 End: 06-16-2023 ambulatory [facility] Work Phone: Start: 06-16-2023 End: 06-16-2023 Patient encounter procedure [facility]-Laboratory, y Office 3rd Flr Start: 06-04-2023 End: 06-05-[address] AMEENA ACEVEDO MD Facility:A Start: 06-04-2023 End: 06-04-2023 Patient encounter procedure ZECHARIAH Meyer RICHARD LIEBERMAN [facility] Start: 05-22-2023 End: 05-22-2023 ambulatory [facility] Work Phone: Start: 05-22-2023 End: 05-22-2023 Patient encounter procedure [facility] [place], [facility] Work Phone: Start: 05-07-2023 End: 05-08-[address] AMEENA ACEVEDO MD Facility:A Start: 05-07-2023 End: 05-07-2023 Patient encounter procedure ZECHARIAH Meyer RICHARD LIEBERMAN [facility] Start: 03-26-2023 End: 03-27-2023 ambulatory ZECHARIAH Meyer RICHARD LIEBERMAN Facility:A Start: 02-27-2023 End: 02-27-2023 ambulatory [facility] Work Phone: Start: 02-27-2023 End: 02-27-2023 Patient encounter procedure [facility]-Cat Scan, [facility] Work Phone: Start: 02-26-2023 End: 02-27-2023 ambulatory ZECHARIAH LIEBERMAN Facility:A Start: 01-24-2023 End: 01-25-[address] AMEENA ACEVEDO MD Facility:A Start: 01-18-2023 End: 01-18-2023 Emergency department patient visit DR AMEENA ACEVEDO MD Facility:B Start: 01-18-2023 End: 01-18-2023 Emergency department patient visit DR EVERARDO ZALDIVAR DO [facility] Start: 01-08-2023 End: 01-08-2023 ambulatory [facility] Work Phone: Start: 01-08-2023 End: 01-08-2023 Patient encounter procedure [facility]-Laboratory, Phy Office 3rd Flr Start: 12-25-2022 End: 12-26-[address] AMEENA ACEVEDO MD Facility:A Start: 11-26-2022 End: 11-27-2022 ambulatory ZECHARIAH Mitch RICHARD PRODUCTION GEAR CUTTER-TEACHING SUPERVISOR Facility:A Start: 11-26-2022 End: 11-26-2022 Patient encounter procedure ZECHARIAH DESIRETTA PRODUCTION GEAR CUTTER-TEACHING SUPERVISOR [facility] Start: 11-20-2022 End: 11-20-2022 ambulatory [facility] Work Phone: Start: 11-20-2022 End: 11-20-2022 Patient encounter procedure [facility] [place], [facility] Work Phone: Start: 11-07-2022 End: 11-07-2022 ambulatory [facility] Work Phone: Start: 11-07-2022 End: 11-07-2022 Patient encounter procedure [facility]-Ultrasound, [facility] Start: 2022 End: 09-13-[address] ERINN ORTIZ MD Facility:A Start: 07-22-2022 End: 07-23-2022 Observation ROBBIN GAMINO PRODUCTION GEAR CUTTER-[facility] Start: 07-09-2022 End: 07-09-2022 ambulatory [facility] Work Phone: Start: 07-09-2022 End: 07-10-[address] ERINN ORTIZ MD [facility] Start: 06-05-2022 End: 06-05-2022 ambulatory [facility] Work Phone: Start: 06-05-2022 End: 06-05-2022 [facility] Start: 05-22-2022 End: 05-22-2022 Patient encounter procedure ZECHARIAH DESIRETTA PRODUCTION GEAR CUTTER-TEACHING SUPERVISOR [facility] Start: 04-29-2022 End: 04-29-2022 ambulatory [facility] Work Phone: Start: 04-29-2022 End: 04-29-2022 [facility] Start: 03-19-2022 End: 03-19-2022 Patient encounter procedure ZECHARIAH Meyer RICHARD PRODUCTION GEAR CUTTER-TEACHING SUPERVISOR [facility] Start: 01-17-2022 End: 01-17-2022 Patient encounter procedure ZECHARIAH DESIRETTA PRODUCTION GEAR CUTTER-TEACHING SUPERVISOR [facility] Start: 11-14-2021 End: 11-14-2021 [facility] Start: 10-25-2021 End: 10-25-2021 Patient encounter procedure ZECHARIAH RAMOS PRODUCTION GEAR CUTTER-TEACHING SUPERVISOR [facility] Start: 08-08-2021 End: 08-08-[address] ERINN ORTIZ MD [facility] Start: 03-29-2021 End: 03-29-[address] ERINN ORTIZ MD [facility] Procedures Date Procedure Procedure Detail Performing Clinician Start: 12-30-[address] Ye Acevedo MD Work Phone: Comment on above: Test Ordered: [id number] Enhanced Liver Fibr osis (ELF)ELF(TM) Score 9.48 BN Reference Range: <9.80ELF(TM) Score Interpretation:Risk cut-offs to assess the likelihood of progressionto cirrhosis and liver-related clinical events within3.9 years following baseline ELF score (IQR: 14.0-22.4months)*: Lower risk < 9.80 Mid risk 9.80 - 11.29 Higher risk >11.29Note: The ELF(TM) Score is a unitless numerical value.*Lucas SA, Néstor VW, Linette T, et al. Selonsertibfor patients with bridging fibrosis or compensatedcirrhosis due to PEREZ: Results from randomized phaseIII STELLAR trials. J Hepatol. 2020 Nov;73(1):26-39.Performed at: [facility] [address] [id number] Director: Festus Bustamante MD, Phone: [phone] at: [facility] [address] [id number] Director: Jose Enrique Castanon PhD, Phone: [phone] Start: 11-25-[address] Ye Acevedo MD Work Phone: Start: 11-24-2024 CT angiography of coronary arteries Dr. Ye Acevedo MD Work Phone: Start: 10-26-2024 Plain chest X-ray Dr. Ye Acevedo MD Work Phone: Start: 10-26-[address] Ye cardoza MD Work Phone: Start: 10-18-2024 Plain X-ray abdomen Dr. Ye Acevedo MD Work Phone: Start: 09-22-[address] Ye Acevedo MD Work Phone: Start: 09-22-2024 SARS-CoV-2, Influenza & RSV (PCR) Dr. Andrea Acevedo MD Work Phone: Start: 08-04-2024 SARS-CoV-2, Influenza & RSV (PCR) Dr. Andrea Acevedo MD Work Phone: Start: 08-04-2024 Vitamin D, 25-hydroxy measurement Dr. Andrea Acevedo MD Work Phone: Comment on above: Vitamin D StatusDeficiency: <20 ng/mL (5 0nmol/L)Insufficiency: 20-30 ng/mL (50-75 nmol/L)Sufficiency: 30-100 ng/mL (75-250 nmol/L)Toxicity: >100 ng/mL (>250 nmol/L) Start: 07-02-2024 X-ray of chest posteroanterior view Dr. Ye Acevedo MD Work Phone: Start: 06-01-2024 SARS-CoV-2, Influenza & RSV (PCR) Dr. Andrea Acevedo MD Work Phone: Start: 04-29-2024 SARS-CoV-2, Influenza & RSV (PCR) Dr. Andrea Acevedo MD Work Phone: Start: 06-16-2023 Plain x-ray of wrist Start: 06-16-2023 Plain x-ray of hand Start: 05-22-2023 Ultrasound elastography of liver Start: 02-27-2023 CT of chest Start: 11-20-2022 Ultrasound elastography Start: 11-07-2022 Diagnostic radiography of abdomen, decubitus and erect Start: 11-07-2022 Ultrasonography of abdomen Start: 06-05-2022 Computed tomography of abdomen and pelvis with contrast Start: 01-16-2017 End: 01-16-2017 Drainage of skin abscess Janine Araiza ERIC Work Phone: Influenza Types A,B Direct FA (CHAO) Influenza Types A,B Direct FA (CHAO) Laminectomy DR ERINN ORTIZ MD Mass (morphologic abnormality) DR ERINN ORTIZ MD Comment on above: benign in neck Repair of musculoten dinous cuff of shoulder DR ERINN ORTIZ MD Comment on above: right Respiratory syncytia l virus antigen assay Respiratory syncytia l virus antigen assay Plan of Treatment Date Care Activity Detail Author Start: 11-25-2024 Endoscopy upper small intestine w/biopsy SMALL BOWEL ENDOSCOPY/BIOPSY [facility] Start: 11-25-2024 Patient discharge [facility] Start: 10-27-2024 [facility] Start: 10-26-2024 End: 10-26-2024 [facility] Start: 01-23-2017 End: 01-23-2017 Appointment Appointment [facility] Work Phone: Start: 01-16-2017 End: 01-16-2017 Appointment Appointment [facility] Work Phone: Liver stiffness by US.transient elastography [facility] Patient Education GERD Lifestyle Changes ED GERD (Adult) [facility] Work Phone: Patient referral [facility] Work Phone: Procedure [facility] Work Phone: [facility] Immunizations Immunization Date Immunization Notes Care Provider Adriano turner 03-13-2022 influenza virus vacc ine, unspecified formulation ROBBIN KENNEN PRODUCTION GEAR CUTTER-HAT MAKER [facility] 05-08-2021 SARS-CoV-2 mRNA (tozinameran) vaccine ROBBIN KENNEN PRODUCTION GEAR CUTTER-HAT MAKER [facility] 03-05-2021 influenza virus vacc ine, unspecified formulation ROBBIN KENNEN PRODUCTION GEAR CUTTER-HAT MAKER [facility] 09-02-2020 SARS-CoV-2 mRNA (tozinameran) vaccine ROBBIN KENNEN PRODUCTION GEAR CUTTER-HAT MAKER [facility] Comment on above: Result Comment: 2022: [id number] 08-12-2020 SARS-CoV-2 mRNA (tozinameran) vaccine ROBBIN KENNEN PRODUCTION GEAR CUTTER-HAT MAKER [facility] Comment on above: Result Comment: 2022: TPV6 02-14-2020 influenza virus vacc ine, unspecified formulation ROBBIN JOANNENEN PRODUCTION GEAR CUTTER-HAT MAKER [facility] 01-19-2019 influenza virus vacc ine, unspecified formulation ROBBIN JOANNENEN PRODUCTION GEAR CUTTER-HAT MAKER [facility] 10-30-2018 zoster vaccine recombinant ROBBIN JOANNENEN PRODUCTION GEAR CUTTER-HAT MAKER [facility] 08-26-2018 zoster vaccine recombinant ROBBIN JOANNENEN PRODUCTION GEAR CUTTER-HAT MAKER [facility] 02-17-2018 influenza virus vacc ine, unspecified formulation ROBBIN JOANNENEN PRODUCTION GEAR CUTTER-HAT MAKER [facility] 01-17-2017 influenza virus vacc ine, unspecified formulation ROBBIN JOANNENEN PRODUCTION GEAR CUTTER-HAT MAKER [facility] 01-13-2017 influenza virus vacc ine, unspecified formulation ROBBIN JOANNENEN PRODUCTION GEAR CUTTER-HAT MAKER [facility] 01-18-2016 influenza virus vacc ine, unspecified formulation ROBBIN JOANNENEN PRODUCTION GEAR CUTTER-HAT MAKER [facility] 10-18-2015 pneumococcal polysaccharide vaccine, 23 valent ROBBIN RUBIONEN PRODUCTION GEAR CUTTER-HAT MAKER [facility] 10-18-2015 zoster vaccine, live ROBBIN DEL RION PRODUCTION GEAR CUTTER-HAT MAKER [facility] Payers Date Payer Category Payer Unknown 2024 Self-pay [id number] 2023 Medicare [id number] 2015 Unknown [id number] 2015 Unknown ANTHEM [id number] 1958 Unknown [id number] 2.16.8 40.1.041298.3.579.2.62 1958 Unknown [id number] 2.16.8 40.1.283695.3.579.2.62 1958 Unknown [id number] 2.16.8 40.1.427749.3.579.2. 1958 Unknown [id number] 2.16.8 40.1.782088.3.579.2. 1958 Unknown [id number] 2.16.8 40.1.719282.3.579.2. 1958 Unknown [id number] 2.16.8 40.1.902115.3.579.2. 1958 Unknown [id number] 2.16.8 40.1.967793.3.579.2. 1958 Unknown [id number] 2.16.8 40.1.536660.3.579.2. 1958 Unknown [id number] 2.16.8 40.1.525443.3.579.2.62 1958 Unknown [id number] 2.16.8 40.1.287407.3.579.2.62 1958 Unknown [id number] 2.16.8 40.1.266666.3.579.2.62 1958 Unknown [id number] 2.16.8 40.1.537479.3.579.2. 1958 Unknown [id number] 2.16.8 40.1.597057.3.579.2. 1960 Unknown [id number] 2.16.8 40.1.486805.3.579.2.627 Medicaid [id number] Unknown [id number] Unknown [facility] PACKAGE PLAN [id number] Unknown [id number] 2.16.8 40.1.625517.3.579.2.462 Unknown [id number] 2.16.8 40.1.178580.3.579.2.462 Unknown [id number] 2.16.8 40.1.109911.3.579.2.462 Unknown [id number] 2.16.8 40.1.372038.3.579.2.462 Unknown [id number] 2.16.8 40.1.079354.3.579.2.462 Unknown [id number] 2.16.8 40.1.628963.3.579.2.462 Unknown [id number] 2.16.8 40.1.481032.3.579.2.462 Unknown [id number] 2.16.8 40.1.829916.3.579.2.462 Unknown [id number] 2.16.8 40.1.810908.3.579.2.462 Unknown [id number] 2.16.8 40.1.610883.3.579.2.462 Unknown [id number] 2.16.8 40.1.840478.3.579.2.462 Unknown [id number] 2.16.8 40.1.820398.3.579.2.462 Unknown [id number] 2.16.8 40.1.905493.3.579.2.462 Unknown [id number] 2.16.8 40.1.394042.3.579.2.462 Unknown [id number] 2.16.8 40.1.484303.3.579.2.462 Unknown [id number] 2.16.8 40.1.442942.3.579.2.462 Unknown [id number] 2.16.8 40.1.722317.3.579.2.462 Unknown [id number] 2.16.8 40.1.606749.3.579.2.462 Unknown [id number] 2.16.8 40.1.156661.3.579.2.462 Unknown [id number] 2.16.8 40.1.939754.3.579.2.462 Unknown [id number] 2.16.8 40.1.279897.3.579.2.462 Social History Date Type Detail Facility Start: 09-20-2020 Light tobacco smoker (finding) [facility] Start: 07-03-2023 End: 12-30-2024 Ex-smoker (finding) [facility] Start: 1960 Sex Assigned At Male A [facility] Start: 10-06-2019 End: 10-06-2019 Tobacco smoking status NHIS Unknown if ever smoked [facility] Start: 04-19-2019 Cigarettes [facility] Start: 08-11-2024 Sex Male (finding) [facility] Goals Date Patient Goal Desired Activity /State Functional Status Date Assessment Result Facility 01-18-2023 [facility] Functional Status Standard Safet y ID band on, Call device within reach, Bed in low position, Wheels locked, Upper/Half-Length side-rails up, Toileting device within reach, Bedside Cart Locked, Visitor at bedside [facility] 07-23-2022 Functional Status Door open, Room check performed [facility] 07-23-2022 [facility] Functional Status bilateral knee high [facility] 07-23-2022 Functional Status Multilevel home [facility] 07-23-2022 Functional Status Jose [facility] 07-22-2022 Functional Status Sensory Deficits None A [facility] Mental Status Date Assessment Result Facility 11-25-2024 Cognitive function Voice/Name [facility] Work Phone: 10-26-2024 Cognitive function Level Of Cons ciousness Awake;Alert;Appropriate [facility] Work Phone: 01-18-2023 Mental Status Orientation Oriented x 4 [facility] 01-18-2023 Mental Status [facility] 07-23-2022 Mental Status Oriented x 4 [facility] 07-23-2022 Mental Status [facility] Clinical Notes 07-22-2022 to 11-25-2024 Note Date & Type Note Facility 11-25-2024 Consult note Note Date/Time November 25, 2024 11:06am [facility] Medical Records Department [address] [place] [address] Pre-Anesthesia Evaluation 11/25/24 1100 MR#: [id number] Acct: [id number] Name: JORGE LUIS JOHNSON V Rep #:[id number] : 1960 64 From: Naomie KANG PCP: Dr. Ye Acevedo MD Status:REG S DC Y Race: C Location: [place] [address] ASA Classification* ASA Classification ASA Classification: 3 Assessment & Plan Anesthesia* Anesthesia Assessment Anesthesia Assessment: Discussed sedation and/or anesthesia options, risks, benefits, and alternatives with patient/parents/legal guardian/POA. Questions invited. The patient/parents/legal guardian/POA seems to understand and agrees to proceedwith anesthesia plan. Reviewed the physical assessment, medical history, allergy history and patient home medications list prior to surgery/procedure/anesthetic and documented any changes. Performed airway and anesthesia risk assessments. Anesthesia Type Anesthesia Type: MAC History Source History Obtained from:: Patient and Chart Anesthesia Focused Assessment* Temperature: 98.4 F Pulse Rate: 74 Blood Pressure: 139/99 Respiratory Rate: 16 Pulse Ox: 98 Oxygen Delivery Method: Room Air Airway Assessment Mouth opens: >3 cm Mallampati Score: III Teeth Condition: Caps/Crowns (Two front teeth) Neck Range of motion (ROM): Full ROM Comment: Patient has a history of difficult airway Labs Anesthesia Preop lab: CBC WBC 10.9 K/mm3 (4.4-11.0) 10/26/24 20:35 10/26/24 RBC 4.76 M/mm3 (4.6-6.2) 10/26/24 20:35 10/26/24 Hgb 14.9 g/dL (13.0-16.5) 10/26/24 20:35 10/26/24 Hct 43.0 % (40-54) 10/26/24 20:35 10/26/24 Plt Count 220 K/mm3 (150-450) 10/26/24 20:35 10/26/24 CHEMISTRY Potassium 3.8 mmol/L (3.3-5.1) 10/26/24 20:35 10/26/24 Sodium 139 mmol/L (133-145) 10/26/24 20:35 10/26/24 BUN 11 mg/dL (4-19) 10/26/24 20:35 10/26/24 Creatinine 0.79 mg/dL (0.70-1.20) 10/26/24 20:35 10/26/24 Glucose 105 mg/dL (70-99) H 10/26/24 20:35 10/26/24 TSH 0.846 uIU/mL (0.300-4.200) 08/04/24 13:13 07/17 02/10 COAG Pre-Assessment Diagnosis/Proposed Procedure Planned Operative Procedure(s): EGD Anesthesia History 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 When Was Last Pacemaker Check QUESTION #4 FULL TEXT: You/Your Family Experience fever (hyperthermia) with Anesthesia Last Oral Intake Last Oral intake: Last Oral Intake NPO since 23:00 11/25/24 10:27 Meds taken in AM with sips of water? 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 developer Female No 11/24/24 10:03 HX of Motion Sickness No 11/24/24 10:03 HX of N/V After Surgery No 11/24/24 10:03 Non-Smoker Yes 11/24/24 10:03 Duration of Surgery greater No 11/24/24 10:03 than 60 minutes Number of Risk Factors 1 11/24/24 10:03 PONV Score Low Risk 11/24/24 10:03 Height & Weight Height & Weight: Anesthesia: Height & Weight Height 5 ft 11 in 11/25/24 10:27 Weight: 110.677 kg 11/25/24 10:27 Body Mass Index (BMI) 34.0 11/25/24 10:27 Respiratory Assessment Respiratory Assessment - ibm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 Has anyone observed you stop breathing during sleep? STOP Results Positive 11/24/24 10:03 QUESTION #5 FULL TEXT : Do you snore loudly (louder than talking or can be heard through closed doors)? 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 Specify any problems Hx of Preganancy in last 3 N/A 11/24/24 10:03 Months Nurse Filling Out Transfusion VCHRISTIN 11/24/24 10:03 & Questions: Date: 11/24/24 11/24/24 10:03 Time: 10:11/24/24 10:03 Patient unable to answer at this time (ie. 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: /Reproductive Hx- ibm websphere commerce developer Hx Now No 11/24/24 10:03 Gestational Age (in weeks): EDC: Hx Hx Para Hx Section SAB No 11/24/24 10:03 Active Medications Active Medications: Current Medications Generic Name Dose Route Start Last Admin Trade Name Freq PRN Reason Stop Dose Admin Lactated Ringer's 1,000 mls @ 15 mls/hr 11/25/24 10:30 11/25/24 10:35 IV 15 mls/hr .Q48H ADDIE Administration PFSH Medical History MRSA infection Alcohol use History of steroid therapy Kidney stone Back pain Gastric reflux CPAP (continuous positive airway pressure) dependence Sleep apnea Former smoker History of edema History of echocardiogram History of stress test Cardiology follow-up encounter Hypertension Arthritis of right acromioclavicular joint Nicotine dependence Obesity DDD (degenerative disc disease), lumbar Chronic back pain Home Medications ?Medication ?Instructions ?Recorded ?Last Taken ?Type albuterol sulfate 90 mcg/actuation 1 puff inhalation P RN PRN Sob &/Or 01/29/19 Unknown History aerosol inhaler Wheezing #8 grams tizanidine 4 mg tablet 4 mg PO PRN PRN muscle relax ant 01/29/19 Unknown History #90 tabs hydrocodone 7.5 mg-acetaminophen 1 tab PO DAILY PRN pa in 10/06/19 Unknown History 325 mg tablet colchicine 0.6 mg tablet 0.6 mg PO QDAY PRN gout 02/09 Unknown History tamsulosin 0.4 mg capsule 0.4 mg PO QDAY 04/26/24 Unkn own History acetaminophen 325 mg tablet 650 mg PO Q6H PRN fever or pain 10/26/24 Unknown History (Aminofen) loratadine 10 mg tablet 10 mg PO DAILY 10/26/24 Unkn own History (Allerclear) meloxicam 15 mg tablet 15 mg PO DAILY PRN pain 10/17 Unknown History pantoprazole 40 mg tablet,delayed 40 mg PO DAILY 10/2611/24/24 History release sennosides 8.6 mg-docusate sodium 2 tab PO BID 5 Unknown History 50 mg tablet (Stool Softener-Stimulant Laxative) sucralfate 1 gram tablet 1 g PO .AC and at bedtime 30 days 10/26/24 11/24/24 Rx #120 tabs losartan 50 mg tablet 50 mg PO QHS 11/24/24 History Allergy/AdvReac Type Severity Reaction Status Date / Time No Known Allergies Allergy Verified 11/25/24 10:25 Family History Other Cancer Surgical History History of throat surgery History of back surgery History of arthroscopic procedure on shoulder (03/2019) Social History Smoking Status: Former smoker quit date: 07/18/19 Tobacco: How many years used: 30 alcohol intake: never substance use type: does not use Review of Systems (Anesthesia) ROS Narrative System reviewed and no additional complaints, except as documented. 11/25/24 1106 <Electronically signed by Naomie Maria CRNA> Date _ Naomie Maria CRNA Cosigner Signature: Date CC: ~ Signed [facility] Work Phone: [phone]) 467-697807-10-2025 Consult note [facility] Medical Records Department [address] [place] [address] Anesthesia Postop Eval I 11/25/24 1234 MR#: [id number] Acct: [id number] Name: JORGE LUIS JOHNSON V Rep #:[id number] : 1960 64 From: Gilbert Matt PCP: Dr. Ye Acevedo MD Status:REG S DC Y Race: C Location: [place] [address] Anesthesia: Postop Eval I Current Vital Signs Temperature: 98.2 F Pulse Rate: 75 Blood Pressure: 109/69 Respiratory Rate: 16 Pulse Ox: 93 Oxygen Delivery Method: Room Air Assessment Airway patent: Yes Spontaneous unlabored respirations: Yes Mental status: Asleep nausea: No Vomiting: No Anesthesia Complication: No Fluid Hydration Crystalloid volume administer (ml): 300 Total IV fluid infused: 300 Progress Note Anesthesia document: Postop Eval 1 completed: Yes 11/25/24 1235 > Date _ Gilbert Spears Signature: Date CC: ~ Signed [facility]07-10-2025 Procedure note [facility] Medical Records Department [address] [place] [address] EGD Report MR#: [id number] Acct: [id number] Name: JORGE LUIS JOHNSON V Rep #:[id number] : 1960 64 From: Donovan Ramirez DO PCP: Dr. Ye Acevedo MD Status:REG S DC Patient Name: Jorge Luis Johnson Procedure Date: 11/25/2024 12:13 PM Date of : 1960 Age: 64 Procedure: Upper GI endoscopy Indications: Epigastric abdominal pain, Heartburn Providers: Donovan Ramirez DO Referring MD: Ye Acevedo MD Medicines: Monitored Anesthesia Care Patient Profile: This is a 64 year old male. Refer to note in patient chart for documentation of history and physical. Patient has symptoms of acute abdominal distention, acute epigastric abdominal pain, acute dyspepsia and acute heartburn. Complications: No immediate complications. Procedure: Pre-Anesthesia Assessment: - Prior to the procedure, a History and Physical was performed, and patient medications and allergies were reviewed. The patient is competent. The risks and benefits of the procedure and the sedation options and risks were discussed with the patient. All questions were answered and informed consent was obtained. Patient identification and proposed procedure were verified by the physician in the pre-procedure area. Mental Status Examination: alert and oriented. Airway Examination: normal oropharyngeal airway and neck mobility. Respiratory Examination: clear to auscultation. CV Examination: normal. Prophylactic Antibiotics: The patient does not require prophylactic antibiotics. Prior Anticoagulants: The patient has taken no anticoagulant or antiplatelet agents except for NSAID medication. ASA Grade Assessment: II - A patient with mild systemic disease. After reviewing the risks and benefits, the patient was deemed in satisfactory condition to undergo the procedure. The anesthesia plan was to use monitored anesthesia care (MAC). Immediately prior to administration of medications, the patient was re-assessed for adequacy to receive sedatives. The heart rate, respiratory rate, oxygen saturations, blood pressure, adequacy of pulmonary ventilation, and response to care were monitored throughout the procedure. The physical status of the patient was re-assessed after the procedure. After obtaining informed consent, the endoscope was passed under direct vision. Throughout the procedure, the patient's blood pressure, pulse, and oxygen saturations were monitored continuously. The Endoscope was introduced through the mouth, and advanced to the third part of the duodenum. Small bowel enteroscopy was deemed necessary. The upper GI endoscopy was accomplished without difficulty. The patient tolerated the procedure well. Scope In: 12:19:18 PM Scope Out: 12:23:19 PM Total Procedure Duration Time 0 hours 4 minutes 1 second Findings: The Z-line was irregular and was found 39 cm from the incisors. Biopsies were taken with a cold forceps for histology. Verification of patient identification for the specimen was done. Estimated blood loss was minimal. No gross lesions were noted in the entire examined stomach. Many non-bleeding superficial duodenal ulcers with no stigmata of bleeding were found in the duodenal bulb and in the first portion of the duodenum. Biopsies were taken with a cold forceps for histology. Verification of patient identification for the specimen was done. Estimated blood loss was minimal. Multiple 3 mm carpet-like polyps with no bleeding were found in the duodenal bulb, in the first portion of the duodenum and in the second portion of the duodenum. Impression: - Z-line irregular, 39 cm from the incisors. Biopsied. - No gross lesions in the entire stomach. - Non-bleeding duodenal ulcers with no stigmata of bleeding. Biopsied. -The exact cause of duodenal polyps isn't always clear. However, certain factors increase the risk, including: Chronic inflammation of the GI tract. Family history of intestinal polyps or inherited syndromes like familial adenomatous polyposis (FAP). FAP is caused by an APC gene mutation and is associated with a significantly increased risk of duodenal polyps, according to My[employer]. Dietary factors like a low-fiber, high-fat diet. Smoking and heavy alcohol consumption. Older age (over 50). Recommendation: - Discharge patient to home. - Resume previous diet. - Continue present medications. - Await pathology results. Procedure Code(s): --- Professional --- 87451, Small intestinal endoscopy, enteroscopy beyond second portion of duodenum, not including ileum; with biopsy, single or multiple CPT copyright 2021 [employer]. All rights reserved. The codes documented in this report are preliminary and upon manager spring review may be revised to meet current compliance requirements. Donovan Ramirez DO 11/25/2024 12:30:47 PM This report has been signed electronically. Number of Addenda: 0 Note Initiated On: 11/25/2024 12:13 PM 11/25/24 1230 Date _ Donovan Mason Signature: Date (if indicated) CC: Dr. Ye Acevedo MD; Donovan Ramirez DO ~ Date Dictated: 11/25/24 1213 Date Transcribed: Joint Filler: RF Signed [facility]07-10-2025 Procedure note [facility] Medical Records Department [address] [place] [address] Operative Report - CC Letter MR#: [id number] Acct: [id number] Name: JORGE LUIS JOHNSON V Rep #:[id number] : 1960 64 From: Donovan Ramirez DO PCP: Dr. Ye Acevedo MD Status:REG S DC 11/25/2024 Ye Acevedo MD [address] [place] [address] Re : Upper GI endoscopy procedure for Jorge Luis Johnson Dear Dr. Acevedo This procedure was performed on November. My impressions and recommendations are as follows: Impressions : - Z-line irregular, 39 cm from the incisors. Biopsied. - No gross lesions in the entire stomach. - Non-bleeding duodenal ulcers with no stigmata of bleeding. Biopsied. -The exact cause of duodenal polyps isn't always clear. However, certain factors increase the risk, including: Chronic inflammation of the GI tract. Family history of intestinal polyps or inherited syndromes like familial adenomatous polyposis (FAP). FAP is caused by an APC gene mutation and is associated with a significantly increased risk of duodenal polyps, according to [employer]. Dietary factors like a low-fiber, high-fat diet. Smoking and heavy alcohol consumption. Older age (over 50). Recommendations : - Discharge patient to home. - Resume previous diet. - Continue present medications. - Await pathology results. My findings are described in the full procedure note, which is enclosed. If I can be of further assistance, please feel free to contact me at . Sincerely, Donovan Ramirez DO 11/25/2024 12:30:47 PM This report has been signed electronically. 11/25/24 1230 Date _ Donovan Ramirez DO Cosigner Signature: Date (if indicated) CC: Dr. Ye Acevedo MD; Donovan Ramirez DO ~ Date Dictated: 11/25/24 1213 Date Transcribed: Joint Filler: RF Signed [facility]07-10-2025 History and physical note Author Donovan Ramirez [facility] Note Date/Time November 25, 2024 10:2 2am [facility] Medical Records Department [address] [place] [address] History & Physical Exam 11/25/24 1021 MR#: [id number] Acct: [id number] Name: JORGE LUIS JOHNSON V Rep #:[id number] : 1960 64 From: Donovan Ramirez DO PCP: Dr. Ye Acevedo MD Status:REG S [place] Location: [place] [address] HPI - General General Date of Admission: 11/25/24 Date of Service: 11/25/24 Chief Complaint: GERD HPI Narrative JORGE LUIS JOHNSON, is a 64 M who presents for Chief Complaint: reflux for many years The patient is a 64-year-old male presenting with gastroesophageal reflux disease (GERD). He has experienced reflux symptoms for over 40 years, characterized by gas buildup and pressure. He has been on pantoprazole, a protonpump inhibitor, intermittently for the past year, with recent continuous use forthree to four weeks. Despite medication, he experiences flare-ups with severe chest pain, leading to an ER visit on October 26. ER evaluation showed normal troponin levels, and a GI cocktail provided symptom relief. He was prescribed sucralfate to be taken before meals and at bedtime, which initially improved symptoms. The patient reports mild discomfort and frequent belching, with no nausea, vomiting, or dysphagia. He denies any history of myocardial infarction, stroke, or known heart, lung, or kidney disease. The patient has a history of fatty liver disease, identified via ultrasound, andis managed with vitamin E supplementation and dietary modifications. He undergoes regular colonoscopies, with the last revealing no polyps but diverticulosis. He has a history of pseudogout, managed with meloxicam and colchicine as needed for flare-ups. The patient quit smoking four years ago and consumes alcohol rarely. - gas build up / pressure for >40 years - he is taking pantoprazole 40mg daily and reports he has been on a PPI daily for many years - for the most part symptoms are controlled with PPI - he had pain in upper chest - ER sent him home with Carafate QID and feels this helped for 3-4 days - belching - denies any N/V - denies any dysphagia - denies any heart, lung or kidney disease - Meloxicam 15mg once daily for pseudo gout - h/o smoker, quit 4 years ago - EtOH rare - caffeine intake has decreased - reports starting Vitamin E for fatty liver - weight loss was recommended - previously seen by Dr. Kan - reports he is due for next colonoscopy in 2-3 years, reports his last colonoscopy was negative for polyps 2 years ago - personal h/o colon polyps - denies any family h/o colon CA Attestation: Documentation on this patient encounter was supported using ambient scribe technology/ voice AI technology. The patient consented to recording for the purpose of documenting the encounter. Provider reviewed content of the generatednote prior to signature. [facility] Medical History MRSA infection Alcohol use History of steroid therapy Kidney stone Back pain Gastric reflux CPAP (continuous positive airway pressure) dependence Sleep apnea Former smoker History of edema History of echocardiogram History of stress test Cardiology follow-up encounter Hypertension Arthritis of right acromioclavicular joint Nicotine dependence Obesity DDD (degenerative disc disease), lumbar Chronic back pain Home Medications ?Medication ?Instructions ?Recorded ?Last Taken ?Type albuterol sulfate 90 mcg/actuation 1 puff inhalation P RN PRN Sob &/Or 01/29/19 Unknown History aerosol inhaler Wheezing #8 grams tizanidine 4 mg tablet 4 mg PO PRN PRN muscle relax ant 01/29/19 Unknown History #90 tabs hydrocodone 7.5 mg-acetaminophen 1 tab PO DAILY PRN pa in 10/06/19 Unknown History 325 mg tablet colchicine 0.6 mg tablet 0.6 mg PO QDAY PRN gout 02/09 Unknown History tamsulosin 0.4 mg capsule 0.4 mg PO QDAY 04/26/24 Unkn own History acetaminophen 325 mg tablet 650 mg PO Q6H PRN fever or pain 10/26/24 Unknown History (Aminofen) loratadine 10 mg tablet 10 mg PO DAILY 10/26/24 Unkn own History (Allerclear) meloxicam 15 mg tablet 15 mg PO DAILY PRN pain 10/17 Unknown History pantoprazole 40 mg tablet,delayed 40 mg PO DAILY 10/26 Unknown History release sennosides 8.6 mg-docusate sodium 2 tab PO BID 5 Unknown History 50 mg tablet (Stool Softener-Stimulant Laxative) sucralfate 1 gram tablet 1 g PO .AC and at bedtime 30 days 10/26/24 Unknown Rx #120 tabs losartan 50 mg tablet 50 mg PO QHS 11/24/24 Unknow n History Allergy/AdvReac Type Severity Reaction Status Date / Time No Known Allergies Allergy Verified 11/24/24 09:46 Family History Other Cancer Surgical History History of throat surgery History of back surgery History of arthroscopic procedure on shoulder (03/2019) Social History Smoking Status: Former smoker quit date: 07/18/19 Tobacco: How many years used: 30 alcohol intake: never substance use type: does not use ROS Constitutional Constitutional: Denies fatigue, fever(s), poor appetite, weight gain or weight loss Gastrointestinal Gastrointestinal: Denies belching, bloating, change in bowel habits, change in stool character, chewing difficulty, coffee ground emesis, constipation, cramping, diarrhea, dyspepsia, dysphagia, early satiety, excessive flatus, fecalincontinence, heartburn, hematemesis, hematochezia, hemorrhoids, loose stools, melena, nausea, odynophagia, rectal bleeding, tenesmus, vomiting or weight changes Physical Exam Const alert, oriented x3, no apparent distress and healthy appearing General Appearance: cooperative GI normal to inspection, nondistended, normoactive bowel sounds, soft to palpation,non-tender and non-distended Percussion: normal to percussion Rectal Exam: deferred Assessment & Plan Assessment/Plan (1) GERD (gastroesophageal reflux disease): (2) Chest pain: PLAN: Assessment and Plan Assessment and Plan (1) GERD (gastroesophageal reflux disease): Status: Acute Plan: The patient will continue pantoprazole once daily in the morning on an empty stomach. Sucralfate will be taken before lunch, dinner, and at bedtime to avoid interaction with pantoprazole. An upper endoscopy is scheduled to further evaluate the gastrointestinal symptoms. Plan 64-year-old male with a history of gastroesophageal reflux disease GERD) presents with exacerbated symptoms, including severe chest pain, leading to an ER visit. The ER evaluation ruled out cardiac causes with normal troponin levels, and a GI cocktail provided symptom relief, suggesting a gastrointestinaletiology. The patient is currently on pantoprazole and sucralfate, with adjustments to the dosing schedule to optimize symptom control. The patient also has a history of fatty liver disease, managed with vitamin E and lifestyle modifications, and pseudogout, managed with meloxicam and colchicine as needed. Regular colonoscopies have shown diverticulosis, with no recent polyps detected. Patient Instructions: - Continue taking pantoprazole once daily in the morning on an empty stomach. - Take sucralfate before lunch, dinner, and at bedtime. - Schedule and prepare for an upper endoscopy as instructed. - Maintain dietary modifications and continue vitamin E for fatty liver management. 11/25/24 1022 <Electronically signed by Donovan Ramirez DO> Cosigner Signature (if applicable): CC: Dr. Ye Acevedo MD; Donovan Ramirez DO~ Signed [facility] Work Phone: [phone]) 883-285907-10-2025 Consult note [facility] Medical Records Department [address] [place] [address] Pre-Anesthesia Evaluation 11/25/24 1100 MR#: [id number] Acct: [id number] Name: JORGE LUIS JOHNSON V Rep #:[id number] : 1960 64 From: Naomie KANG PCP: Dr. Ye Acevedo MD Status:REG S DC Y Race: C Location: [place] [address] ASA Classification* ASA Classification ASA Classification: 3 Assessment & Plan Anesthesia* Anesthesia Assessment Anesthesia Assessment: Discussed sedation and/or anesthesia options, risks, benefits, and alternatives with patient/parents/legal guardian/POA. Questions invited. The patient/parents/legal guardian/POA seems to understand and agrees to proceedwith anesthesia plan. Reviewed the physical assessment, medical history, allergy history and patient home medications list prior to surgery/procedure/anesthetic and documented any changes. Performed airway and anesthesia risk assessments. Anesthesia Type Anesthesia Type: MAC History Source History Obtained from:: Patient and Chart Anesthesia Focused Assessment* Temperature: 98.4 F Pulse Rate: 74 Blood Pressure: 139/99 Respiratory Rate: 16 Pulse Ox: 98 Oxygen Delivery Method: Room Air Airway Assessment Mouth opens: >3 cm Mallampati Score: III Teeth Condition: Caps/Crowns (Two front teeth) Neck Range of motion (ROM): Full ROM Comment: Patient has a history of difficult airway Labs Anesthesia Preop lab: CBC WBC 10.9 K/mm3 (4.4-11.0) 10/26/24 20:35 10/26/24 RBC 4.76 M/mm3 (4.6-6.2) 10/26/24 20:35 10/26/24 Hgb 14.9 g/dL (13.0-16.5) 10/26/24 20:35 10/26/24 Hct 43.0 % (40-54) 10/26/24 20:35 10/26/24 Plt Count 220 K/mm3 (150-450) 10/26/24 20:35 10/26/24 CHEMISTRY Potassium 3.8 mmol/L (3.3-5.1) 10/26/24 20:35 10/26/24 Sodium 139 mmol/L (133-145) 10/26/24 20:35 10/26/24 BUN 11 mg/dL (4-19) 10/26/24 20:35 10/26/24 Creatinine 0.79 mg/dL (0.70-1.20) 10/26/24 20:35 10/26/24 Glucose 105 mg/dL (70-99) H 10/26/24 20:35 10/26/24 TSH 0.846 uIU/mL (0.300-4.200) 08/04/24 13:13 0302/10 COAG Pre-Assessment Diagnosis/Proposed Procedure Planned Operative Procedure(s): EGD Anesthesia History 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 When Was Last Pacemaker Check QUESTION #4 FULL TEXT: You/Your Family Experience fever (hyperthermia) with Anesthesia Last Oral Intake Last Oral intake: Last Oral Intake NPO since 23:00 11/25/24 10:27 Meds taken in AM with sips of water? 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 developer Female No 11/24/24 10:03 HX of Motion Sickness No 11/24/24 10:03 HX of N/V After Surgery No 11/24/24 10:03 Non-Smoker Yes 11/24/24 10:03 Duration of Surgery greater No 11/24/24 10:03 than 60 minutes Number of Risk Factors 1 11/24/24 10:03 PONV Score Low Risk 11/24/24 10:03 Height & Weight Height & Weight: Anesthesia: Height & Weight Height 5 ft 11 in 11/25/24 10:27 Weight: 110.677 kg 11/25/24 10:27 Body Mass Index (BMI) 34.0 11/25/24 10:27 Respiratory Assessment Respiratory Assessment - [employer]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 Has anyone observed you stop breathing during sleep? STOP Results Positive 11/24/24 10:03 QUESTION #5 FULL TEXT : Do you snore loudly (louder than talking or can be heard through closeddoors)? 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 Specify any problems Hx of Preganancy in last 3 N/A 11/24/24 10:03 Months Nurse Filling Out Transfusion VCHRISTIN 11/24/24 10:03 & Questions: Date: 11/24/24 11/24/24 10:03 Time: 10:07 11/24/24 10:03 Patient unable to answer at this time (ie. 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: /Reproductive Hx- [employer] web[employer] commerce developer Hx Now No 11/24/24 10:03 Gestational Age (in weeks): EDC: Hx Hx Para Hx Section SAB No 11/24/24 10:03 Active Medications Active Medications: Current Medications Generic Name Dose Route Start Last Admin Trade Name Freq PRN Reason Stop Dose Admin Lactated Ringer's 1,000 mls @ 15 mls/hr 11/25/24 10:30 11/25/24 10:35 IV 15 mls/hr .Q48H ADDIE Administration PFSH Medical History MRSA infection Alcohol use History of steroid therapy Kidney stone Back pain Gastric reflux CPAP (continuous positive airway pressure) dependence Sleep apnea Former smoker History of edema History of echocardiogram History of stress test Cardiology follow-up encounter Hypertension Arthritis of right acromioclavicular joint Nicotine dependence Obesity DDD (degenerative disc disease), lumbar Chronic back pain Home Medications ?Medication ?Instructions ?Recorded ?Last Taken ?Type albuterol sulfate 90 mcg/actuation 1 puff inhalation P RN PRN Sob &/Or 01/29/19 Unknown History aerosol inhaler Wheezing #8 grams tizanidine 4 mg tablet 4 mg PO PRN PRN muscle relax ant 01/29/19 Unknown History #90 tabs hydrocodone 7.5 mg-acetaminophen 1 tab PO DAILY PRN pa in 10/06/19 Unknown History 325 mg tablet colchicine 0.6 mg tablet 0.6 mg PO QDAY PRN gout 02/09 Unknown History tamsulosin 0.4 mg capsule 0.4 mg PO QDAY 04/26/24 Unkn own History acetaminophen 325 mg tablet 650 mg PO Q6H PRN fever or pain 10/26/24 Unknown History (Aminofen) loratadine 10 mg tablet 10 mg PO DAILY 10/26/24 Unkn own History (Allerclear) meloxicam 15 mg tablet 15 mg PO DAILY PRN pain 10/17 Unknown History pantoprazole 40 mg tablet,delayed 40 mg PO DAILY 10/2611/24/24 History release sennosides 8.6 mg-docusate sodium 2 tab PO BID 5 Unknown History 50 mg tablet (Stool Softener-Stimulant Laxative) sucralfate 1 gram tablet 1 g PO .AC and at bedtime 30 days 10/26/24 11/24/24 Rx #120 tabs losartan 50 mg tablet 50 mg PO QHS 11/24/24 History Allergy/AdvReac Type Severity Reaction Status Date / Time No Known Allergies Allergy Verified 11/25/24 10:25 Family History Other Cancer Surgical History History of throat surgery History of back surgery History of arthroscopic procedure on shoulder (03/2019) Social History Smoking Status: Former smoker quit date: 07/18/19 Tobacco: How many years used: 30 alcohol intake: never substance use type: does not use Review of Systems (Anesthesia) ROS Narrative System reviewed and no additional complaints, except as documented. 11/25/24 1106 NIGHT TIME NANNY> Date _ Naomie Dotterer NIGHT TIME NANNY Cosigner Signature: Date CC: ~ Signed [facility]07-10-2025 History and physical note [facility] Medical Records Department [address] [place] [address] History & Physical Exam 11/25/24 1021 MR#: [id number] Acct: [id number] Name: JORGE LUIS JOHNSON V Rep #:[id number] : 1960 64 From: Donovan Friend DO PCP: Dr. Ye Acevedo MD Status:REG S [place] Location: [place] [address] HPI - General General Date of Admission: 11/25/24 Date of Service: 11/25/24 Chief Complaint: GERD HPI Narrative JORGE LUIS JOHNSON, is a 64 M who presents for Chief Complaint: reflux for many years The patient is a 64-year-old male presenting with gastroesophageal reflux disease (GERD). He has experienced reflux symptoms for over 40 years, characterized by gas buildup and pressure. He has been on pantoprazole, a protonpump inhibitor, intermittently for the past year, with recent continuous use forthree to four weeks. Despite medication, he experiences flare-ups with severe chest pain, leading to an ER visit on . ER evaluation showed normal troponin levels, and a GI cocktail provided symptom relief. He was prescribed sucralfate to be taken before meals and at bedtime, which initially improved symptoms. The patient reports mild discomfort and frequent belching, with no nausea, vomiting, or dysphagia. He denies any history of myocardial infarction, stroke, or known heart, lung, or kidney disease. The patient has a history of fatty liver disease, identified via ultrasound, andis managed with vitamin E supplementation and dietary modifications. He undergoes regular colonoscopies, with the last revealing no polyps but diverticulosis. He has a history of pseudogout, managed with meloxicam and colchicine as needed for flare-ups. The patient quit smoking four years ago and consumes alcohol rarely. - gas build up / pressure for >40 years - he is taking pantoprazole 40mg daily and reports he has been on a PPI daily for many years - for the most part symptoms are controlled with PPI - he had pain in upper chest - ER sent him home with Carafate QID and feels this helped for 3-4 days - belching - denies any N/V - denies any dysphagia - denies any heart, lung or kidney disease - Meloxicam 15mg once daily for pseudo gout - h/o smoker, quit 4 years ago - EtOH rare - caffeine intake has decreased - reports starting Vitamin E for fatty liver - weight loss was recommended - previously seen by Dr. Kan - reports he is due for next colonoscopy in 2-3 years, reports his last colonoscopy was negative for polyps 2 years ago - personal h/o colon polyps - denies any family h/o colon CA Attestation: Documentation on this patient encounter was supported using ambient scribe technology/ voice AI technology. The patient consented to recording for the purpose of documenting the encounter. Provider reviewed content of the generatednote prior to signature. [facility] Medical History MRSA infection Alcohol use History of steroid therapy Kidney stone Back pain Gastric reflux CPAP (continuous positive airway pressure) dependence Sleep apnea Former smoker History of edema History of echocardiogram History of stress test Cardiology follow-up encounter Hypertension Arthritis of right acromioclavicular joint Nicotine dependence Obesity DDD (degenerative disc disease), lumbar Chronic back pain Home Medications ?Medication ?Instructions ?Recorded ?Last Taken ?Type albuterol sulfate 90 mcg/actuation 1 puff inhalation P RN PRN Sob &/Or 01/29/19 Unknown History aerosol inhaler Wheezing #8 grams tizanidine 4 mg tablet 4 mg PO PRN PRN muscle relax ant 01/29/19 Unknown History #90 tabs hydrocodone 7.5 mg-acetaminophen 1 tab PO DAILY PRN pa in 10/06/19 Unknown History 325 mg tablet colchicine 0.6 mg tablet 0.6 mg PO QDAY PRN gout 02/09 Unknown History tamsulosin 0.4 mg capsule 0.4 mg PO QDAY 04/26/24 Unkn own History acetaminophen 325 mg tablet 650 mg PO Q6H PRN fever or pain 10/26/24 Unknown History (Aminofen) loratadine 10 mg tablet 10 mg PO DAILY 10/26/24 Unkn own History (Allerclear) meloxicam 15 mg tablet 15 mg PO DAILY PRN pain 10/17 Unknown History pantoprazole 40 mg tablet,delayed 40 mg PO DAILY 10/26 Unknown History release sennosides 8.6 mg-docusate sodium 2 tab PO BID 5 Unknown History 50 mg tablet (Stool Softener-Stimulant Laxative) sucralfate 1 gram tablet 1 g PO .AC and at bedtime 30 days 10/26/24 Unknown Rx #120 tabs losartan 50 mg tablet 50 mg PO QHS 11/24/24 Unknow n History Allergy/AdvReac Type Severity Reaction Status Date / Time No Known Allergies Allergy Verified 11/24/24 09:46 Family History Other Cancer Surgical History History of throat surgery History of back surgery History of arthroscopic procedure on shoulder (03/2019) Social History Smoking Status: Former smoker quit date: 07/18/19 Tobacco: How many years used: 30 alcohol intake: never substance use type: does not use ROS Constitutional Constitutional: Denies fatigue, fever(s), poor appetite, weight gain or weight loss Gastrointestinal Gastrointestinal: Denies belching, bloating, change in bowel habits, change in stool character, chewing difficulty, coffee ground emesis, constipation, cramping, diarrhea, dyspepsia, dysphagia, earlysatiety, excessive flatus, fecalincontinence, heartburn, hematemesis, hematochezia, hemorrhoids, loose stools, melena, nausea, odynophagia, rectal bleeding, tenesmus, vomiting or weight changes Physical Exam Const alert, oriented x3, no apparent distress and healthy appearing General Appearance: cooperative GI normal to inspection, nondistended, normoactive bowel sounds, soft to palpation,non-tender and non-distended Percussion: normal to percussion Rectal Exam: deferred Assessment & Plan Assessment/Plan (1) GERD (gastroesophageal reflux disease): (2) Chest pain: PLAN: Assessment and Plan Assessment and Plan (1) GERD (gastroesophageal reflux disease): Status: Acute Plan: The patient will continue pantoprazole once daily in the morning on an empty stomach. Sucralfate will be taken before lunch, dinner, and at bedtime to avoid interaction with pantoprazole. An upper endoscopy is scheduled to further evaluate the gastrointestinal symptoms. Plan 64-year-old male with a history of gastroesophageal reflux disease GERD) presents with exacerbated symptoms, including severe chest pain, leading to an ER visit. The ER evaluation ruled out cardiac causes with normal troponin levels, and a GI cocktail provided symptom relief, suggesting a gastrointe stinaletiology. The patient is currently on pantoprazole and sucralfate, with adjustments to the dosing schedule to optimize symptom control. The patient also has a history of fatty liver disease, managed with vitamin E and lifestyle modifications, and pseudogout, managed with meloxicam and colchicine as needed. Regular colonoscopies have shown diverticulosis, with no recent polyps detected. Patient Instructions: - Continue taking pantoprazole once daily in the morning on an empty stomach. - Take sucralfate before lunch, dinner, and at bedtime. - Schedule and prepare for an upper endoscopy as instructed. - Maintain dietary modifications and continue vitamin E for fatty liver management. 11/25/24 1022 Cosigner Signature (if applicable): CC: Dr. Ye Acevedo MD; Donovan Ramirez DO~ Signed [facility]07-10-2025 [facility] Medical Records Department [address] [place] [address] History Physical Exam 11/25/24 1021 MR#: [id number] Acct: [id number] Name: JORGE LUIS JOHNSON V Rep #: [id number] : 1960 64 From: Donovan Ramirez DO PCP: Dr. Ye Acevedo MD Status:[facility] Location: [place] [address] HPI - General General Date of Admission: 11/25/24 Date of Service: 11/25/24 Chief Complaint: GERD HPI Narrative JORGE LUIS JOHNSON, is a 64 M who presents for Chief Complaint: reflux for many years The patient is a 64-year-old male presenting with gastroesophageal reflux disease (GERD). He has experienced reflux symptoms for over 40 years, characterized by gas buildup and pressure. He has been on pantoprazole, a proton pump inhibitor, intermittently for the past year, with recent continuous use for three to four weeks. Despite medication, he experiences flare-ups with severe chest pain, leading to an ER visit on October 26. ER evaluation showed normal troponin levels, and a GI cocktail provided symptom relief. He was prescribed sucralfate to be taken before meals and at bedtime, which initially improved symptoms. The patient reports mild discomfort and frequent belching, with no nausea, vomiting, or dysphagia. He denies any history of myocardial infarction, stroke, or known heart, lung, or kidney disease. The patient has a history of fatty liver disease, identified via ultrasound, and is managed with vitamin E supplementation and dietary modifications. He undergoes regular colonoscopies, with the last revealing no polyps but diverticulosis. He has a history of pseudogout, managed with meloxicam and colchicine as needed for flare-ups. The patient quit smoking four years ago and consumes alcohol rarely. - gas build up / pressure for >40 years - he is taking pantoprazole 40mg daily and reports he has been on a PPI daily for many years - for the most part symptoms are controlled with PPI - he had pain in upper chest - ER sent him home with Carafate QID and feels this helped for 3-4 days - belching - denies any N/V - denies any dysphagia - denies any heart, lung or kidney disease - Meloxicam 15mg once daily for pseudo gout - h/o smoker, quit 4 years ago - EtOH rare - caffeine intake has decreased - reports starting Vitamin E for fatty liver - weight loss was recommended - previously seen by Dr. Kan - reports he is due for next colonoscopy in 2-3 years, reports his last colonoscopy was negative for polyps 2 years ago - personal h/o colon polyps - denies any family h/o colon CA Attestation: Documentation on this patient encounter was supported using ambient scribe technology/ voice AI technology. The patient consented to recording for the purpose of documenting the encounter. Provider reviewed content of the generated note prior to signature. [facility] Medical History MRSA infection Alcohol use History of steroid therapy Kidney stone Back pain Gastric reflux CPAP (continuous positive airway pressure) dependence Sleep apnea Former smoker History of edema History of echocardiogram History of stress test Cardiology follow-up encounter Hypertension Arthritis of right acromioclavicular joint Nicotine dependence Obesity DDD (degenerative disc disease), lumbar Chronic back pain Home Medications ???Medication ???Instructions ???Recorded ???Last Taken ???Type albuterol sulfate 90 mcg/actuation 1 puff inhalation PRN PRN Sob / Or 01/29/19 Unknown History aerosol inhaler Wheezing #8 grams tizanidine 4 mg tablet 4 mg PO PRN PRN muscle relaxant Unknown History #90 tabs hydrocodone 7.5 mg-acetaminophen 1 tab PO DAILY PRN pain 10/06/19 U nknown History 325 mg tablet colchicine 0.6 mg tablet 0.6 mg PO QDAY PRN gout 04/26/24 U nknown History tamsulosin 0.4 mg capsule 0.4 mg PO QDAY 04/26/24 Unknown Hi story acetaminophen 325 mg tablet 650 mg PO Q6H PRN fever or pain Unknown History (Aminofen) loratadine 10 mg tablet 10 mg PO DAILY 10/26/24 Unknown Hi story (Allerclear) meloxicam 15 mg tablet 15 mg PO DAILY PRN pain 10/26/24 U nknown History pantoprazole 40 mg tablet,delayed 40 mg PO DAILY 10/26/24 Unknown H istory release sennosides 8.6 mg-docusate sodium 2 tab PO BID 10/26/24 Unknown His tory 50 mg tablet (Stool Softener-Stimulant Laxative) sucralfate 1 gram tablet 1 g PO .AC and at bedtime 30 days 10/26/24 Unknown Rx #120 tabs losartan 50 mg tablet 50 mg PO QHS 11/24/24 Unknown Hist ory Allergy/AdvReac Type Severity Reaction Status Date / Time No Known Allergies Allergy Verified 11/24/24 09:46 Family History Other Cancer Surgical History (Review (more content not included)...[facility]07-01-2025 Evaluation note* Diagnosis Onset Date Resolution Status Admit Date GERD (gastroesophageal reflu x disease) acute November 16, 2024 2 :12pm Chest pain acute November 25 10:12am GERD (gastroesophageal reflu x disease) acute November 25, 2024 10:12am [facility] Work Phone: 1(814) 538-689507-01-2025 Evaluation note* Diagnosis Onset Date Resolution Status Admit Date GERD (gastroesophageal reflu x disease) acute November 16, 2024 2 :12pm Chest pain acute November 25 10:12am GERD (gastroesophageal reflu x disease) acute November 25, 2024 10:12am Duodenal ulcer acute December 8:18am Steatosis, 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 8:18am [facility] Work Phone: 1(724) 682-137707-01-2025 Evaluation note* Diagnosis Onset Date Resolution Status Admit Date GERD (gastroesophageal reflu x disease) acute November 16, 2024 2 :12pm Chest pain acute November 25 10:12am GERD (gastroesophageal reflu x disease) acute November 25, 2024 10:12am Duodenal ulcer acute December 8:18am GERD (gastroesophageal reflu x disease) acute December 30 8:18am Steatosis, 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 8:18am [facility] Work Phone: 1(817) 451-817607-01-2025 [facility] [address] [place] [address] OFFICE VISIT Date of Service: 11/16/24 MR#: [id number] Acct: [id number] Name: JORGE LUIS JOHNSON V Rep #: [id number] : 1960 Provider: DOC Gallo Age/Sex: 64/M Location: [facility] Status: Signed Intake Vital Signs 10/26/24 19:43 11/16/24 14:48 Height 5 ft 11.5 in 5 ft 11 in Weight: 243 lb 4 oz BMI 33.9 BP 144/87 H Respiration 20 H Pulse 83 Temp 98.6 F Temp Source Temporal Pulse Oximetry (%) 91 Oxygen Delivery Method room air Intake Visit Reasons: REFLUX IMPACTION COLON PRE COLONOSCOPY Chief Complaint: reflux for many years Communications Editor Required: No Accompanied by: Is patient in pain?: No Allergies No Known Allergies Allergy (Verified 11/16/24 14:33) Medications ?Medication ?Instructions ?Recorded ?Confirmed ?Type albuterol sulfate 90 mcg/actuation 1 puff inhalation P RN PRN Sob &/Or 01/29/19 11/16/24 History aerosol inhaler Wheezing #8 grams tizanidine 4 mg tablet 4 mg PO PRN PRN muscle relax ant 01/29/19 11/16/24 History #90 tabs hydrocodone 7.5 mg-acetaminophen 1 tab PO DAILY PRN pa in 10/06/19 11/16/24 History 325 mg tablet colchicine 0.6 mg tablet 0.6 mg PO QDAY PRN gout 02/0911/16/24 History tamsulosin 0.4 mg capsule 0.4 mg PO QDAY 04/26/2406/12 History acetaminophen 325 mg tablet 650 mg PO Q6H PRN fever or pain 10/26/24 11/16/24 History (Aminofen) loratadine 10 mg tablet 10 mg PO DAILY 10/26/2406/12 History (Allerclear) meloxicam 15 mg tablet 15 mg PO DAILY 10/26/2406/12 History pantoprazole 40 mg tablet,delayed 40 mg PO DAILY 10/2611/16/24 History release sennosides 8.6 mg-docusate sodium 2 tab PO BID 5 11/16/24 History 50 mg tablet (Stool Softener-Stimulant Laxative) sucralfate 1 gram tablet 1 g PO .AC and at bedtime 30 days 10/26/24 11/16/24 Rx #120 tabs Have you fallen in the past year?: No Nurse's Note: Has had GERD for years but it is starting to get worse. Last EGD was about 40 years ago. History ofproblems with esophagus. [facility] Medical History (Updated 11/16/24 @ 15:07 by Lindsey Gallo NP-C) Arthritis of right acromioclavicular joint Nicotine dependence Obesity DDD (degenerative disc disease), lumbar Chronic back pain Surgical History History of back surgery History of arthroscopic procedure on shoulder (03/2019) Family History Other Cancer Social History Smoking Status: Former smoker quit date: 07/18/19 Tobacco: How many years used: 30 alcohol intake: never substance use type: does not use HPI HPI Chief Complaint: reflux for many years Details: JORGE LUIS JOHNSON, is a 64 M who presents to the office today for The patient is a 64-year-old male presenting with gastroesophageal reflux disease (GERD). He has experienced reflux symptoms for over 40 years, characterized by gas buildup and pressure. He has been on pantoprazole, a protonpump inhibitor, intermittently for the past year, with recent continuous use forthree to four weeks. Despite medication, he experiences flare-ups with severe chest pain, leading to an ER visit on . ER evaluation showed normal troponin levels, and a GI cocktail provided symptom relief. He was prescribed sucralfate to be taken before meals and at bedtime, which initially improved symptoms. The patient reports mild discomfort and frequent belching, with no nausea, vomiting, or dysphagia. He denies any history of myocardial infarction, stroke, or known heart, lung, or kidney disease. The patient has a history of fatty liver disease, identified via ultrasound, andis managed with vitamin E supplementation and dietary modifications. He undergoes regular colonoscopies, with the last revealing no polyps but diverticulosis. He has a history of pseudogout, managed with meloxicam and colchicine as needed for flare-ups. The patient quit smoking four years ago and consumes alcohol rarely. - gas build up / pressure for >40 years - he is taking pantoprazole 40mg daily and reports he has been on a PPI daily for many years - for the most part symptoms are controlled with PPI - he had pain in upper chest - ER sent him home with Carafate QID and feels this helped for 3-4 days - belching - denies any N/V - denies any dysphagia - denies any heart, lung or kidney disease - Meloxicam 15mg once daily for pseudo gout - h/o smoker, quit 4 years ago - EtOH rare - caffeine intake has decreased - reports starting Vitamin E for fatty liver - weight loss was recommended - previously seen by Dr. Kan - reports he is due for next colonoscopy in 2-3 years, reports his last colonoscopy was negative for polyps 2 years ago - personal h/o colon polyps - denies any family h/o colon CA Attestation: Documentation on this patient encounter was supported using ambient scribe technology/ voice AI technology. The patient consented to recording for the purpose of documenting the encounter. Provider reviewed content of the generatednote prior to signature. ROS Const Constitutional: No fatigue, fever(s) or weight change ENT ENT: No difficulty swallowing Gastro GI: No abdominal pain, belching, bloating, change in bowel habits, change in stool character, coffee ground emesis, constipation, cramping, diarrhea, heartburn, difficulty swallowing, feeling full early, excessive flatus, incontinent of stools, Vomiting blood/hematemesis, Blood in stool, loose stool s,Black,tarry stools, nausea/dyspepsia, pain with swallowing, vomiting or other Musc Musculoskeletal: Positive for joint pain and back pain Skin Skin: No yellowing of the eye or itchy eyes Psych Psychiatric: No anxiety and No depression Endo Endocrine: No fatigue or weight change Aller/Imm Allergy/Immunologic: No itchy eyes Dexter/Lymp Hematologic/Lymphatic: Positive for easy bruising; No easy bleeding Exam Const General: cooperative, healthy appearing, no acute distress and well developed Nutritional Appearance: well nourished and overweight Orientation: alert and oriented x3 [facility] Head: normocephalic Ears: hearing grossly normal bilaterally Mouth: moist mucous membranes Eyes Conjunctivae: conjunctivae normal Sclera: sclerae normal Neck Neck: normal visual inspection, full ROM and trachea midline Resp Effort & Inspection: normal respiratory effort, able to speak in complete sentences and symmetric chest movement GI Inspection: normal to inspection Auscultation: normal bowel sounds Palpation: soft and no hepatosplenomegaly Rectal Exam: deferred Neuro General: patient alert and patient oriented x3 Cranial Nerves: other (CN's grossly intact, non-focal exam) Cognition: normal cognition Speech: speech normal Gait: normal gait Extrem General: normal to inspection (no edema noted) Psych Appearance: grossly normal and well kempt Affect: normal affect Attitude: cooperative Thought Process: normal Assessment and Plan Assessment and Plan (1) GERD (gastroesophageal reflux disease): Status: Acute Plan: The patient will continue pantoprazole once daily in the morning on an empty stomach. Sucralfate will be taken before lunch, dinner, and at bedtime to avoid interaction with pantoprazole. An upper endoscopy is scheduled to further evaluate the gastrointestinal symptoms. Plan 64-year-old male with a history of gastroesophageal reflux disease GERD) presents with exacerbated symptoms, including severe chest pain, leading to an ER visit. The ER evaluation ruled out cardiac causes with normal troponin levels, and a GI cocktail provided symptom relief, suggesting a gastrointe stinaletiology. The patient is currently on pantoprazole and sucralfate, with adjustments to the dosing schedule to optimize symptom control. The patient also has a history of fatty liver disease, managed with vitamin E and lifestyle modifications, and pseudogout, managed with meloxicam and colchicine as needed. Regular colonoscopies have shown diverticulosis, with no recent polyps detected. Patient Instructions: - Continue taking pantoprazole once daily in the morning on an empty stomach. - Take sucralfate before lunch, dinner, and at bedtime. - Schedule and prepare for an upper endoscopy as instructed. - Maintain dietary modifications and continue vitamin E for fatty liver management. Coding Level of Care Code Off vis,new,level 3 Diagnoses GERD (gastroesophageal reflux disease) K21.9 Clinical Quality Measures Falls Risk Screening/Assistive Devices Have you fallen in the past year?: No Smoking Screening Smoking Status: Former smoker 11/16/24 1508 gilles GO CART MECHANIC-C> Date _ Lindsey Gallo GO CART MECHANIC-C Cosigner Signature: Date (if applicable) CC: ~ [facility]07-01-2025 Progress note Author Lindsey Gallo [facility] Note Date/Time November 16, 2024 3:08p m [facility] [address] [place] [address] OFFICE VISIT Date of Service: 11/16/24 MR#: [id number] Acct: [id number] Name: JORGE LUIS JOHNSON V Rep #: [id number] : 1960 Provider: DOC Gallo Age/Sex: 64/M Location: [facility] Status: Signed Intake Vital Signs 10/26/24 19:43 11/16/24 14:48 Height 5 ft 11.5 in 5 ft 11 in Weight: 243 lb 4 oz BMI 33.9 BP 144/87 H Respiration 20 H Pulse 83 Temp 98.6 F Temp Source Temporal Pulse Oximetry (%) 91 Oxygen Delivery Method room air Intake Visit Reasons: REFLUX IMPACTION COLON PRE COLONOSCOPY Chief Complaint: reflux for many years Communications Editor Required: No Accompanied by: Is patient in pain?: No Allergies No Known Allergies Allergy (Verified 11/16/24 14:33) Medications ?Medication ?Instructions ?Recorded ?Confirmed ?Type albuterol sulfate 90 mcg/actuation 1 puff inhalation P RN PRN Sob &/Or 01/29/19 11/16/24 History aerosol inhaler Wheezing #8 grams tizanidine 4 mg tablet 4 mg PO PRN PRN muscle relax ant 01/29/19 11/16/24 History #90 tabs hydrocodone 7.5 mg-acetaminophen 1 tab PO DAILY PRN pa in 10/06/19 11/16/24 History 325 mg tablet colchicine 0.6 mg tablet 0.6 mg PO QDAY PRN gout 02/0911/16/24 History tamsulosin 0.4 mg capsule 0.4 mg PO QDAY 04/26/2406/12 History acetaminophen 325 mg tablet 650 mg PO Q6H PRN fever or pain 10/26/24 11/16/24 History (Aminofen) loratadine 10 mg tablet 10 mg PO DAILY 10/26/2406/12 History (Allerclear) meloxicam 15 mg tablet 15 mg PO DAILY 10/26/2406/12 History pantoprazole 40 mg tablet,delayed 40 mg PO DAILY 10/2611/16/24 History release sennosides 8.6 mg-docusate sodium 2 tab PO BID 5 11/16/24 History 50 mg tablet (Stool Softener-Stimulant Laxative) sucralfate 1 gram tablet 1 g PO .AC and at bedtime 30 days 10/26/24 11/16/24 Rx #120 tabs Have you fallen in the past year?: No Nurse's Note: Has had GERD for years but it is starting to get worse. Last EGD was about 40 years ago. History of problems with esophagus. [facility] Medical History (Updated 11/16/24 @ 15:07 by Lindsey Gallo NP-C) Arthritis of right acromioclavicular joint Nicotine dependence Obesity DDD (degenerative disc disease), lumbar Chronic back pain Surgical History History of back surgery History of arthroscopic procedure on shoulder (03/2019) Family History Other Cancer Social History Smoking Status: Former smoker quit date: 07/18/19 Tobacco: How many years used: 30 alcohol intake: never substance use type: does not use HPI HPI Chief Complaint: reflux for many years Details: JORGE LUIS JOHNSON, is a 64 M who presents to the office today for The patient is a 64-year-old male presenting with gastroesophageal reflux disease (GERD). He has experienced reflux symptoms for over 40 years, characterized by gas buildup and pressure. He has been on pantoprazole, a protonpump inhibitor, intermittently for the past year, with recent continuous use forthree to four weeks. Despite medication, he experiences flare-ups with severe chest pain, leading to an ER visit on October 26. ER evaluation showed normal troponin levels, and a GI cocktail provided symptom relief. He was prescribed sucralfate to be taken before meals and at bedtime, which initially improved symptoms. The patient reports mild discomfort and frequent belching, with no nausea, vomiting, or dysphagia. He denies any history of myocardial infarction, stroke, or known heart, lung, or kidney disease. The patient has a history of fatty liver disease, identified via ultrasound, andis managed with vitamin E supplementation and dietary modifications. He undergoes regular colonoscopies, with the last revealing no polyps but diverticulosis. He has a history of pseudogout, managed with meloxicam and colchicine as needed for flare-ups. The patient quit smoking four years ago and consumes alcohol rarely. - gas build up / pressure for >40 years - he is taking pantoprazole 40mg daily and reports he has been on a PPI daily for many years - for the most part symptoms are controlled with PPI - he had pain in upper chest - ER sent him home with Carafate QID and feels this helped for 3-4 days - belching - denies any N/V - denies any dysphagia - denies any heart, lung or kidney disease - Meloxicam 15mg once daily for pseudo gout - h/o smoker, quit 4 years ago - EtOH rare - caffeine intake has decreased - reports starting Vitamin E for fatty liver - weight loss was recommended - previously seen by Dr. Kan - reports he is due for next colonoscopy in 2-3 years, reports his last colonoscopy was negative for polyps 2 years ago - personal h/o colon polyps - denies any family h/o colon CA Attestation: Documentation on this patient encounter was supported using ambient scribe technology/ voice AI technology. The patient consented to recording for the purpose of documenting the encounter. Provider reviewed content of the generatednote prior to signature. ROS Const Constitutional: No fatigue, fever(s) or weight change ENT ENT: No difficulty swallowing Gastro GI: No abdominal pain, belching, bloating, change in bowel habits, change in stool character, coffee ground emesis, constipation, cramping, diarrhea, heartburn, difficulty swallowing, feeling full early, excessive flatus, incontinent of stools, Vomiting blood/hematemesis, Blood in stool, loose stools,Black,tarry stools, nausea/dyspepsia, pain with swallowing, vomiting or other Musc Musculoskeletal: Positive for joint pain and back pain Skin Skin: No yellowing of the eye or itchy eyes Psych Psychiatric: No anxiety and No depression Endo Endocrine: No fatigue or weight change Aller/Imm Allergy/Immunologic: No itchy eyes Dexter/Lymp Hematologic/Lymphatic: Positive for easy bruising; No easy bleeding Exam Const General: cooperative, healthy appearing, no acute distress and well developed Nutritional Appearance: well nourished and overweight Orientation: alert and oriented x3 HENMT Head: normocephalic Ears: hearing grossly normal bilaterally Mouth: moist mucous membranes Eyes Conjunctivae: conjunctivae normal Sclera: sclerae normal Neck Neck: normal visual inspection, full ROM and trachea midline Resp Effort & Inspection: normal respiratory effort, able to speak in complete sentences and symmetric chest movement GI Inspection: normal to inspection Auscultation: normal bowel sounds Palpation: soft and no hepatosplenomegaly Rectal Exam: deferred Neuro General: patient alert and patient oriented x3 Cranial Nerves: other (CN's grossly intact, non-focal exam) Cognition: normal cognition Speech: speech normal Gait: normal gait Extrem General: normal to inspection (no edema noted) Psych Appearance: grossly normal and well kempt Affect: normal affect Attitude: cooperative Thought Process: normal Assessment and Plan Assessment and Plan (1) GERD (gastroesophageal reflux disease): Status: Acute Plan: The patient will continue pantoprazole once daily in the morning on an empty stomach. Sucralfate will be taken before lunch, dinner, and at bedtime to avoid interaction with pantoprazole. An upper endoscopy is scheduled to further evaluate the gastrointestinal symptoms. Plan 64-year-old male with a history of gastroesophageal reflux disease GERD) presents with exacerbated symptoms, including severe chest pain, leading to an ER visit. The ER evaluation ruled out cardiac causes with normal troponin levels, and a GI cocktail provided symptom relief, suggesting a gastrointestinaletiology. The patient is currently on pantoprazole and sucralfate, with adjustments to the dosing schedule to optimize symptom control. The patient also has a history of fatty liver disease, managed with vitamin E and lifestyle modifications, and pseudogout, managed with meloxicam and colchicine as needed. Regular colonoscopies have shown diverticulosis, with no recent polyps detected. Patient Instructions: - Continue taking pantoprazole once daily in the morning on an empty stomach. - Take sucralfate before lunch, dinner, and at bedtime. - Schedule and prepare for an upper endoscopy as instructed. - Maintain dietary modifications and continue vitamin E for fatty liver management. Coding Level of Care Code Off vis,new,level 3 Diagnoses GERD (gastroesophageal reflux disease) K21.9 Clinical Quality Measures Falls Risk Screening/Assistive Devices Have you fallen in the past year?: No Smoking Screening Smoking Status: Former smoker 11/16/24 4191 <Electronically signed by Lindsey Anth gilles GO CART MECHANIC-C> Date _ Lindsey Sabino GO CART MECHANIC-C Cosigner Signature: Date (if applicable) CC: ~ [facility] Work Phone: [phone]) 410-472506-10-2025 Discharge summary [facility] Medical Records Department [address] [place] [address] Emergency Department Summary 10/26/24 MR#: [id number] Acct: [id number] Name: JORGE LUIS JOHNSON V Rep #:[id number] : 1960 64 From: Sohail Jordan MD PCP: Dr. Ye Acevedo MD Status:REG E R Location: ED HPI History of Present Illness Chief Complaint: Chest Pain Detail of Chief Complaint: Chest pressure. Informant: patient Onset/Context/Timing Onset: Days Activity at onset: sudden and rest Timing: Intermittent Quality: Positive for Aching and Pressure Location: Substernal Current Severity: Mild Maximum Severity: Moderate Worsened By: Nothing Relieved By: Nothing Associated Symptoms: Positive for - (No radiation of the discomfort.); Negative for Nausea, Vomiting, Diaphoresis, Dyspnea, Cough, Fever, Lightheadedness, Acid Reflux or Palpitations Narrative Narrative: Patient is a 64-year-old male. He was a smoker of 40+ years. He quit 4 years ago. He presents with an aching pressure sensation middle of his chest. This occurred at rest. This has been going on for a couple of days.'s been intermittent. He has been seen by his primary care physician Dr. Acevedo. He had troponin level drawn on the and that was normal. The only other abnormality was slight elevation of his glucose. Patient does have history of GERD. He does not sleep with his bed elevated. Hewas not made aware there are certain foods when should not eat and he should nothaving the eat 2 to 3 hours prior to going to bed. He denies black or maroon- colored stool. He denies any associated symptoms with the chest discomfort or radiation of the chest discomfort. Patient does have history of gout, bronchospasm, BPH and GERD. He was given samples of a new medication last week. He states the medicine is not helping. He was on Protonix. Patient denies any other symptoms. Prior Similar Symptoms: Yes (According to patient he was not told what was the cause of his pain.) Recent Illness/Hospitalization: Yes CVD Risk Factors: Positive for Smoking; Negative for Hypertension, Diabetes or Family History 1' PERisk Factors: Negative for Recent Travel/Surgery, Recent Immobilization, Prior DVT or PE, Cancer orOCP + Smoking + >/=35 TAD Risk Factors: Negative for Marfan's Syndrome, Hypertension or Family History PFSH PFS Medical History (Updated 10/26/24 @ 23:[address] Sohail Jordan MD) Arthritis of right acromioclavicular joint Nicotine dependence Obesity DDD (degenerative disc disease), lumbar Chronic back pain Medical History no medical history no medical history Home Medications ?Medication ?Instructions ?Recorded ?Last Taken ?Type albuterol sulfate 90 mcg/actuation 1 puff inhalation P RN PRN Sob &/Or 01/29/19 Unknown History aerosol inhaler Wheezing #8 grams tizanidine 4 mg tablet 4 mg PO PRN PRN muscle relax ant 01/29/19 Unknown History #90 tabs hydrocodone 7.5 mg-acetaminophen 1 tab PO DAILY PRN pa in 10/06/19 Unknown History 325 mg tablet colchicine 0.6 mg tablet 0.6 mg PO QDAY PRN gout 02/09 Unknown History tamsulosin 0.4 mg capsule 0.4 mg PO QDAY 04/26/24 Unkn own History acetaminophen 325 mg tablet 650 mg PO Q6H PRN fever or pain 10/26/24 Unknown History (Aminofen) loratadine 10 mg tablet 10 mg PO DAILY 10/26/24 Unkn own History (Allerclear) meloxicam 15 mg tablet 15 mg PO DAILY 10/26/24 Unkn own History pantoprazole 40 mg tablet,delayed 40 mg PO DAILY 10/26 Unknown History release sennosides 8.6 mg-docusate sodium 2 tab PO BID 5 Unknown History 50 mg tablet (Stool Softener-Stimulant Laxative) sucralfate 1 gram tablet 1 g PO .AC and at bedtime 30 days 10/26/24 Unknown Rx #120 tabs Allergy/AdvReac Type Severity Reaction Status Date / Time No Known Allergies Allergy Verified 10/26/24 19:43 Surgical History History of back surgery History of arthroscopic procedure on shoulder (03/2019) Social History Smoking Status: Former smoker quit date: 07/18/19 Tobacco: How many years used: 30 ROS ROS ED Constitutional Constitutional ED: Denies chills, fever(s), subjective or sweats Eyes Eyes: Reports none ENT ENT ED: Denies rhinorrhea or sore throat Cardiovascular Cardiovascular: Reports as per HPI; Denies orthopnea or paroxysmal nocturnal dyspnea Respiratory/Chest Respiratory/Chest: Denies cough, dyspnea, dyspnea on exertion, orthopnea or paroxysmal nocturnal dyspnea Gastrointestinal Gastrointestinal: Denies abdominal pain, constipation, diarrhea, melena, nausea or vomiting Musculoskeletal Musculoskeletal: Denies arthralgias, back pain or myalgias Integumentary Denies rash Neurologic Neurologic: Denies paresthesias or weakness Hematologic/Lymphatic Hematologic/Lymphatic: Denies easy bleeding or easy bruising EXAM Physical Exam Const Vital Signs: 10/26/24 19:43 10/26/24 19:55 10/26/24 20:43 Temperature 97.4 F L Temperature Source Temporal Pulse Rate 97 74 Respiratory Rate 18 16 Blood Pressure 152/95 H 144/97 H Blood Pressure Mean 114 112 Pulse Ox 95 97 Oxygen Delivery Method Room Air Room Air 10/26/24 21:00 10/26/24 22:00 10/26/24 23:00 Temperature Temperature Source Pulse Rate 68 63 64 Respiratory Rate 16 18 18 Blood Pressure 137/89 H 138/86 H 134/84 H Blood Pressure Mean 105 103 100 Pulse Ox 97 97 94 Oxygen Delivery Method Room Air Room Air Positive well nourished and well developed Constitutional Narrative: BMI is 34.0. General Appearance ED: well developed and NAD; Negative for pallor HEENT normocephalic and atraumatic Eyes PERRL and EOMs intact bilaterally General Eye ED: Negative for pale conjunctiva or scleral icterus Neck no lymphadenopathy, supple and no JVD Chest Wall inspection of chest normal and palpation of chest normal Resp normal respiratory effort and clear to auscultation bilaterally Effort and Inspection: Negative for pain with movement Cardio regular rate, regular rhythm, S1 normal heart sound, S2 normal heart sound and no murmurs GI normal to inspection, nondistended, normoactive bowel sounds, soft to palpation,non-tender and no masses; Negative for hepatosplenomegaly Back/Spine no CVA tenderness Extremity normal to inspection General Extremety ED: Negative for edema General Extremity: Negative for edema Neuro oriented x3 and CN's II-XII intact bilaterally Neuro Narrative: Moves all extremities. Sensorium / Orientation: awake and alert Psych mental status grossly normal Skin no rashes or lesions noted and no wounds General Skin Exam: Negative for jaundice or pallor MDM MDM MDM Narrative Medical decision making narrative: Cardiac versus noncardiac. Noncardiac would include GERD, peptic ulcer disease,pulmonary. Nurse protocol orders were placed which included EKG, chest x-ray and appropriate blood work. History & Record Review Additional record(s) reviewed:: Prior outpatient record (Office notes and laboratory results from Dr. Acevedo's office were reviewed.) Lab Data Attestation: I reviewed the patient's lab results. Lab results narrative: CBC is unremarkable. Basic metabolic panel reveals slight elevation in glucose to 105 with normal CO2 anion gap. High sensitivity troponin was normal at 8. Labs: Laboratory Results - last 24 hr 10/26/24 20:35 WBC 10.9 RBC 4.76 Hgb 14.9 Hct 43.0 MCV 90.3 MCH 31.3 MCHC 34.7 RDW Std Deviation 42.5 RDW Coeff of Shae 12.9 Plt Count 220 MPV 9.0 Immature Gran % (Auto) 0.300 Neut % (Auto) 65.4 Lymph % (Auto) 24.1 [place] % (Auto) 8.8 Eos % (Auto) 1.1 Baso % (Auto) 0.3 Absolute Neuts (auto) 7.1 Absolute Lymphs (auto) 2.62 Nucleated RBC % 0 Sodium 139 Potassium 3.8 Chloride 104 Carbon Dioxide 22.0 Anion Gap 13 BUN 11 Creatinine 0.79 Estim Creat Clear Calc 115.60 Est GFR (MDRD) Non-Af 98 BUN/Creatinine Ratio 14.4 Glucose 105 H Calcium 9.4 Troponin T High Sens 8 D Radiography Chest X-Ray - ED: 1 View, Read by ED Physician, Unchanged, Normal, Heart, Lungs (Chronic changes with some mild atelectasis.), Mediastinum, Bony Structures, No Acute Disease and Chronic Changes Diagnostic Testing: Clinical Impression(s) from Imaging Studies Chest X-Ray 10/26/24 20:42 IMPRESSION: No acute cardiopulmonary abnormality. Reading Location: [facility] EKG Initial EKG: Attestation: I personally reviewed and interpreted this EKG as follows: Interpretation: Sinus Rhythm (EKG is normal. Rate is 78. IL interval is 144 ms. Cures duration 76 ms. QT duration did not 52 ms. [place] is normal) Treatment and Re-Evaluation :: Patient was given a GI cocktail with improvement. Suspect his chest discomfort is due to his GERD. Prescribed Sucre fate to take in addition to the medicine he is presently taking for his reflux. He also was given lifestyle changes withGERD. All of his questions were answered and he was discharged to home. Discharge Plan Triage Chief Complaint: Chest Pain ED Provider: Sohail Jordan Dx/Rx/DC Orders Clinical Impression: Chest pain due to GERD, Elevated blood-pressure reading without diagnosis of hypertension Instructions: GERD Lifestyle Changes, ED GERD (Adult) Prescriptions: New sucralfate 1 gram tablet 1 g PO .AC and at bedtime 30 Days Qty: 120 0RF No Action tizanidine 4 mg tablet 4 mg PO PRN PRN (Reason: muscle relaxant) Qty: 90 albuterol sulfate 90 mcg/actuation HFA aerosol inhaler 1 puff INHALATION PRN PRN (Reason: Sob &/Or Wheezing) Qty: 8 hydrocodone-acetaminophen 7.5-325 mg tablet 1 tab PO DAILY PRN (Reason: pain) tamsulosin 0.4 mg capsule 0.4 mg PO QDAY colchicine 0.6 mg tablet 0.6 mg PO QDAY PRN (Reason: gout) pantoprazole 40 mg tablet,delayed release (DR/EC) 40 mg PO DAILY meloxicam 15 mg tablet 15 mg PO DAILY sennosides-docusate sodium [Stool Softener-Stimulant Laxat] 8.6-50 mg tablet 2 tab PO BID loratadine [Allerclear] 10 mg tablet 10 mg PO DAILY acetaminophen [Aminofen] 325 mg tablet 650 mg PO Q6H PRN (Reason: fever or pain) Primary Care Provider: Ye Acevedo Chi Referrals: Ye Acevedo Chi, MD [Primary Care Provider] - Print Language: Serbian Disposition Disposition: Home, Self Care What to do if you have Problems For any increased pain, shortness of breath, bleeding, nausea or vomiting, chestpain, or any unexpected problems, contact your Primary Care Provider. Call [facility] ([phone]) or report tothe closest Emergency Room. Call 911 if necessary. 10/26/24 2344 Cosigner Signature (if applicable): CC: Dr. Ye Acevedo MD ~ Signed [facility]06-10-2025 Radiology Diagnostic study note [facility] Imaging Services [address], [place] [id number] Chest 1 View (Portable) MR#: [id number] Acct: [id number] Name: JORGE LUIS JOHNSON V Rep #: [id number] : 1960 M 64 From: Thu Mock MD PCP: Dr. Ye Acevedo MD Status: REG E R Study:Chest 1 View (Portable) Date of Exam: 10/26/24 Exam# [id number] Ordering Dr: Sebas Jordan MD PROCEDURE: CHEST 1 VIEW (PORTABLE) 10/26/2024 REASON FOR EXAM: CHEST PAIN TECHNIQUE: Frontal view of the chest. COMPARISON: Chest radiographs 07/02/2024 FINDINGS: Hardware: None Heart: Cardiac and mediastinal contours are stable. Lungs: The lungs are clear. No significant pleural effusion. Bones: Degenerative changes are identified within the thoracic spine. Unchangedwidening of the right acromioclavicular joint. RAD/Chest 1 View (Portable) IMPRESSION: No acute cardiopulmonary abnormality. Reading Location: [facility] CC: Dr. Ye Acevedo MD; Dr. Sohail Jordan MD ~ Joint Filler: Signed [facility]06-10-2025 Discharge summary Author Sohail Jordan [facility] Note Date/Time October 26, 2024 11:4 4pm [facility] Medical Records Department [address] [place] [address] Emergency Department Summary 10/26/24 MR#: [id number] Acct: [id number] Name: JORGE LUIS JOHNSON V Rep #:[id number] : 1960 64 From: Sohail Jordan MD PCP: Dr. Ye Acevedo MD Status:REG E R Location: ED HPI History of Present Illness Chief Complaint: Chest Pain Detail of Chief Complaint: Chest pressure. Informant: patient Onset/Context/Timing Onset: Days Activity at onset: sudden and rest Timing: Intermittent Quality: Positive for Aching and Pressure Location: Substernal Current Severity: Mild Maximum Severity: Moderate Worsened By: Nothing Relieved By: Nothing Associated Symptoms: Positive for - (No radiation of the discomfort.); Negative for Nausea, Vomiting, Diaphoresis, Dyspnea, Cough, Fever, Lightheadedness, Acid Reflux or Palpitations Narrative Narrative: Patient is a 64-year-old male. He was a smoker of 40+ years. He quit 4 years ago. He presents with an aching pressure sensation middle of his chest. This occurred at rest. This has been going on for a couple of days.'s been intermittent. He has been seen by his primary care physician Dr. Acevedo. He had troponin level drawn on the and that was normal. The only other abnormality was slight elevation of his glucose. Patient does have history of GERD. He does not sleep with his bed elevated. Hewas not made aware there are certain foods when should not eat and he should nothaving the eat 2 to 3 hours prior to going to bed. He denies black or maroon-colored stool. He denies any associated symptoms with the chest discomfort or radiation of the chest discomfort. Patient does have history of gout, bronchospasm, BPH and GERD. He was given samples of a new medication last week. He states the medicine is not helping. He was on Protonix. Patient denies any other symptoms. Prior Similar Symptoms: Yes (According to patient he was not told what was the cause of his pain.) Recent Illness/Hospitalization: Yes CVD Risk Factors: Positive for Smoking; Negative for Hypertension, Diabetes or Family History 1' </=55 PE Risk Factors: Negative for Recent Travel/Surgery, Recent Immobilization, Prior DVT or PE, Cancer or OCP + Smoking + >/=35 TAD Risk Factors: Negative for Marfan's Syndrome, Hypertension or Family History [facility] Medical History (Updated 10/26/24 @ 23:[address] Sohail Jordan MD) Arthritis of right acromioclavicular joint Nicotine dependence Obesity DDD (degenerative disc disease), lumbar Chronic back pain Medical History no medical history no medical history Home Medications ?Medication ?Instructions ?Recorded ?Last Taken ?Type albuterol sulfate 90 mcg/actuation 1 puff inhalation P RN PRN Sob &/Or 01/29/19 Unknown History aerosol inhaler Wheezing #8 grams tizanidine 4 mg tablet 4 mg PO PRN PRN muscle relax ant 01/29/19 Unknown History #90 tabs hydrocodone 7.5 mg-acetaminophen 1 tab PO DAILY PRN pa in 10/06/19 Unknown History 325 mg tablet colchicine 0.6 mg tablet 0.6 mg PO QDAY PRN gout 02/09 Unknown History tamsulosin 0.4 mg capsule 0.4 mg PO QDAY 04/26/24 Unkn own History acetaminophen 325 mg tablet 650 mg PO Q6H PRN fever or pain 10/26/24 Unknown History (Aminofen) loratadine 10 mg tablet 10 mg PO DAILY 10/26/24 Unkn own History (Allerclear) meloxicam 15 mg tablet 15 mg PO DAILY 10/26/24 Unkn own History pantoprazole 40 mg tablet,delayed 40 mg PO DAILY 10/26 Unknown History release sennosides 8.6 mg-docusate sodium 2 tab PO BID 5 Unknown History 50 mg tablet (Stool Softener-Stimulant Laxative) sucralfate 1 gram tablet 1 g PO .AC and at bedtime 30 days 10/26/24 Unknown Rx #120 tabs Allergy/AdvReac Type Severity Reaction Status Date / Time No Known Allergies Allergy Verified 10/26/24 19:43 Surgical History History of back surgery History of arthroscopic procedure on shoulder (03/2019) Social History Smoking Status: Former smoker quit date: 07/18/19 Tobacco: How many years used: 30 ROS ROS ED Constitutional Constitutional ED: Denies chills, fever(s), subjective or sweats Eyes Eyes: Reports none ENT ENT ED: Denies rhinorrhea or sore throat Cardiovascular Cardiovascular: Reports as per HPI; Denies orthopnea or paroxysmal nocturnal dyspnea Respiratory/Chest Respiratory/Chest: Denies cough, dyspnea, dyspnea on exertion, orthopnea or paroxysmal nocturnal dyspnea Gastrointestinal Gastrointestinal: Denies abdominal pain, constipation, diarrhea, melena, nausea or vomiting Musculoskeletal Musculoskeletal: Denies arthralgias, back pain or myalgias Integumentary Denies rash Neurologic Neurologic: Denies paresthesias or weakness Hematologic/Lymphatic Hematologic/Lymphatic: Denies easy bleeding or easy bruising EXAM Physical Exam Const Vital Signs: 10/26/24 19:43 10/26/24 19:55 10/26/24 20:43 Temperature 97.4 F L Temperature Source Temporal Pulse Rate 97 74 Respiratory Rate 18 16 Blood Pressure 152/95 H 144/97 H Blood Pressure Mean 114 112 Pulse Ox 95 97 Oxygen Delivery Method Room Air Room Air 10/26/24 21:00 10/26/24 22:00 10/26/24 23:00 Temperature Temperature Source Pulse Rate 68 63 64 Respiratory Rate 16 18 18 Blood Pressure 137/89 H 138/86 H 134/84 H Blood Pressure Mean 105 103 100 Pulse Ox 97 97 94 Oxygen Delivery Method Room Air Room Air Positive well nourished and well developed Constitutional Narrative: BMI is 34.0. General Appearance ED: well developed and NAD; Negative for pallor HEENT normocephalic and atraumatic Eyes PERRL and EOMs intact bilaterally General Eye ED: Negative for pale conjunctiva or scleral icterus Neck no lymphadenopathy, supple and no JVD Chest Wall inspection of chest normal and palpation of chest normal Resp normal respiratory effort and clear to auscultation bilaterally Effort and Inspection: Negative for pain with movement Cardio regular rate, regular rhythm, S1 normal heart sound, S2 normal heart sound and no murmurs GI normal to inspection, nondistended, normoactive bowel sounds, soft to palpation,non-tender and no masses; Negative for hepatosplenomegaly Back/Spine no CVA tenderness Extremity normal to inspection General Extremety ED: Negative for edema General Extremity: Negative for edema Neuro oriented x3 and CN's II-XII intact bilaterally Neuro Narrative: Moves all extremities. Sensorium / Orientation: awake and alert Psych mental status grossly normal Skin no rashes or lesions noted and no wounds General Skin Exam: Negative for jaundice or pallor MDM MDM MDM Narrative Medical decision making narrative: Cardiac versus noncardiac. Noncardiac would include GERD, peptic ulcer disease,pulmonary. Nurse protocol orders were placed which included EKG, chest x-ray and appropriate blood work. History & Record Review Additional record(s) reviewed:: Prior outpatient record (Office notes and laboratory results from Dr. Acevedo's office were reviewed.) Lab Data Attestation: I reviewed the patient's lab results. Lab results narrative: CBC is unremarkable. Basic metabolic panel reveals slight elevation in glucose to 105 with normal CO2 anion gap. High sensitivity troponin was normal at 8. Labs: Laboratory Results - last 24 hr 10/26/24 20:35 WBC 10.9 RBC 4.76 Hgb 14.9 Hct 43.0 MCV 90.3 MCH 31.3 MCHC 34.7 RDW Std Deviation 42.5 RDW Coeff of Shae 12.9 Plt Count 220 MPV 9.0 Immature Gran % (Auto) 0.300 Neut % (Auto) 65.4 Lymph % (Auto) 24.1 [place] % (Auto) 8.8 Eos % (Auto) 1.1 Baso % (Auto) 0.3 Absolute Neuts (auto) 7.1 Absolute Lymphs (auto) 2.62 Nucleated RBC % 0 Sodium 139 Potassium 3.8 Chloride 104 Carbon Dioxide 22.0 Anion Gap 13 BUN 11 Creatinine 0.79 Estim Creat Clear Calc 115.60 Est GFR (MDRD) Non-Af 98 BUN/Creatinine Ratio 14.4 Glucose 105 H Calcium 9.4 Troponin T High Sens 8 D Radiography Chest X-Ray - ED: 1 View, Read by ED Physician, Unchanged, Normal, Heart, Lungs (Chronic changes with some mild atelectasis.), Mediastinum, Bony Structures, No Acute Disease and Chronic Changes Diagnostic Testing: Clinical Impression(s) from Imaging Studies Chest X-Ray 10/26/24 20:42 IMPRESSION: No acute cardiopulmonary abnormality. Reading Location: [id number] EKG Initial EKG: Attestation: I personally reviewed and interpreted this EKG as follows: Interpretation: Sinus Rhythm (EKG is normal. Rate is 78. IL interval is 144 ms. Cures duration 76 ms. QT duration did not 52 ms. Macon is normal) Treatment and Re-Evaluation :: Patient was given a GI cocktail with improvement. Suspect his chest discomfort is due to his GERD. Prescribed Sucre fate to take in addition to the medicine he is presently taking for his reflux. He also was given lifestyle changes withGERD. All of his questions were answered and he was discharged to home. Discharge Plan Triage Chief Complaint: Chest Pain ED Provider: Sohail Jordan Dx/Rx/DC Orders Clinical Impression: Chest pain due to GERD, Elevated blood-pressure reading without diagnosis of hypertension Instructions: GERD Lifestyle Changes, ED GERD (Adult) Prescriptions: New sucralfate 1 gram tablet 1 g PO .AC and at bedtime 30 Days Qty: 120 0RF No Action tizanidine 4 mg tablet 4 mg PO PRN PRN (Reason: muscle relaxant) Qty: 90 albuterol sulfate 90 mcg/actuation HFA aerosol inhaler 1 puff INHALATION PRN PRN (Reason: Sob &/Or Wheezing) Qty: 8 hydrocodone-acetaminophen 7.5-325 mg tablet 1 tab PO DAILY PRN (Reason: pain) tamsulosin 0.4 mg capsule 0.4 mg PO QDAY colchicine 0.6 mg tablet 0.6 mg PO QDAY PRN (Reason: gout) pantoprazole 40 mg tablet,delayed release (DR/EC) 40 mg PO DAILY meloxicam 15 mg tablet 15 mg PO DAILY sennosides-docusate sodium [Stool Softener-Stimulant Laxat] 8.6-50 mg tablet 2 tab PO BID loratadine [Allerclear] 10 mg tablet 10 mg PO DAILY acetaminophen [Aminofen] 325 mg tablet 650 mg PO Q6H PRN (Reason: fever or pain) Primary Care Provider: Ye Acevedo Chi Referrals: Ye Acevedo Chi, MD [Primary Care Provider] - Print Language: Serbian Disposition Disposition: Home, Self Care What to do if you have Problems For any increased pain, shortness of breath, bleeding, nausea or vomiting, chestpain, or any unexpected problems, contact your Primary Care Provider. Call [facility] ([phone]) or report to the closest Emergency Room. Call 911 if necessary. 10/26/24 8338 <Electronically signed by Sohail Jordan MD> Cosigner Signature (if applicable): CC: Dr. Ye Acevedo MD ~ Signed [facility] Work Phone: 1(786) 547-104006-02-2025 Radiology Diagnostic study note [facility] Imaging Services [address] [place] [id number] Abd Inc Decub and/or Erect MR#: [id number] Acct: [id number] Name: JORGE LUIS JOHNSON V Rep #: [id number] : 1960 M 64 From: Anabell Mckenna MD PCP: Dr. Ye Acevedo MD Status: REG C SIMBA Study:Abd Inc Decub and/or Erect Date of Exam : 10/18/24 Exam# [id number] Ordering Dr: Ye Acevedo MD EXAM: XR Abdomen, 2 Views CLINICAL INDICATION: FECAL IMPACTION TECHNIQUE: Frontal view of the abdomen/pelvis with upright view of the abdomen. COMPARISON: No relevant prior studies available. FINDINGS: INTRAPERITONEAL SPACE: No free air. GASTROINTESTINAL TRACT: Fecal retention in the colon consistent with constipation. No dilation. BONES/JOINTS: Unremarkable. No acute fracture. RAD/Abd Inc Decub and/or Erect IMPRESSION: Fecal retention in the colon consistent with constipation. Reading Location: [facility] CC: Dr. Ye Acevedo MD ~ Joint Filler: Signed [facility]04-02-2025 Consult note Author Gilbert Matt [facility] Note Date/Time November 25, 2024 12:3 5pm [facility] Medical Records Department [address] [place] [address] Anesthesia Postop Eval I 11/25/24 1234 MR#: [id number] Acct: [id number] Name: JORGE LUIS JOHNSON V Rep #:[id number] : 1960 64 From: Gilbert Matt PCP: Dr. Ye Acevedo MD Status:REG S DC Y Race: C Location: [place] [address] Anesthesia: Postop Eval I Current Vital Signs Temperature: 98.2 F Pulse Rate: 75 Blood Pressure: 109/69 Respiratory Rate: 16 Pulse Ox: 93 Oxygen Delivery Method: Room Air Assessment Airway patent: Yes Spontaneous unlabored respirations: Yes Mental status: Asleep nausea: No Vomiting: No Anesthesia Complication: No Fluid Hydration Crystalloid volume administer (ml): 300 Total IV fluid infused: 300 Progress Note Anesthesia document: Postop Eval 1 completed: Yes 11/25/24 5904 <Electronically signed by Gilbert Matt > Date _ Gilbert Matt Cosigner Signature: Date CC: ~ Signed [facility] Work Phone: 1(364) 725-485509-02-2023 Hospital Discharge instructions Patient Education 01/18/2023 20:42:45 Back Care [...] strengthening both the back muscles and the abdominalmuscles will provide better support for your spine. Swimming and brisk walking are good overall exercises to improve your fitness level. Practice safe lifting methods (below). Practice good posture when sitting, standing and walking. Avoid prolonged sitting. This puts more stress on the lower back than standing or walking. Wear quality shoes with sufficient arch support. Foot and ankle alignment can affect back symptoms.Women should avoid wearing high heels. Therapeutic massage [...] that bend your neck to one side. Puta pillow between your legs to further relax your lower back. If you sleep on your back, put pillowsunder your knees to support your legs in [...] be reviewed by a radiologist. You will benotified of any new findings that may affect [...] or legs Numbness in the groin area 4929-2494 [employer]. [address] [place] [address]. All rights reserved. This information is not intended as a substitute for professional medical care. Always follow yourhealthcare professional's instructions. Follow Up Care 01/18/2023 18:36:19 With:AMEENA ACEVEDO MD Address: [facility] [facility] [address] [place] [address]- When:2-4 days [facility] 09-02-2023 Emergency department Discharge summary Discharge Instructions Thank you for allowing [facility] to assist you with your healthcare needs. The following is importantdischarge information regarding your hospital visit. Diagnosis from Today's Visit Back pain What to Do Next Instructions from Your Care Team No qualifying data available. Post Acute Orders No qualifying data available. You Need to Schedule the Following Appointments Follow Up with AMEENA ACEVEDO MD When Within 2-4 days Where: [facility] [facility] [address] [place], [place] [address]- Allergies NKA Medications Please ask your primary doctor or pharmacist before taking any other medication not listed, including over the counter drugs, herbal medications, vitamins and or supplements as they may interact withyour home medications. What How Much When Why [...] strengthening both the back muscles and the abdominalmuscles will provide better support for your spine. Swimming and brisk walking are good overall exercises to improve your fitness level. Practice safe lifting methods (below). Practice good posture when sitting, standing and walking. Avoid prolonged sitting. This puts more stress on the lower back than standing or walking. Wear quality shoes with sufficient arch support. Foot and ankle alignment can affect back symptoms.Women should avoid wearing high heels. Therapeutic massage [...] that bend your neck to one side. Puta pillow between your legs to further relax your lower back. If you sleep on your back, put pillowsunder your knees to support your legs in [...] be reviewed by a radiologist. You will benotified of any new findings that may affect [...] or legs Numbness in the groin area 6873-8889 [employer]. [address] [place] [address]. All rights reserved. This information is not intended as a substitute for professional medical care. Always follow yourhealthcare professional's instructions. Additional Information VACCINATE! IT SAVES LIVES! Members of the community who have not yet received the COVID-19 vaccine and would like to receive it can visit one of [facility] vaccine clinics. There are many vaccine clinic locations within the [facility]. For locations and available times, please visit www.[email or web address].[place].gov/. It is important to note that some COVID mobile vaccine clinics are held outdoors and may be canceled in rainy or stormy conditions. To learn more about pediatric vaccinations (ages 5-11), we invite you to visit the [facility] webpage. https://www.[facility].org/pages/0049-Bozjc-Rocpkbmcrft-Qjihapqqgs-Bvvjr-Ovy stions.htmlTo learn more about the COVID-19 vaccine, we invite you to visit the CDC website for a list of frequently asked questions. https://www.cdc.gov/coronavirus/2019-ncov/vaccines/faq.html [facility] Patient Portal Access Instructions: Stay connected with your healthcare team and access your personal medical information anytime with the [facility] Patient Portal. If you would like a full copy of your medical records please contact the [facility] Medical Records Department Friday through Friday between 8a.m. and 4:30p.m. Please follow the directions below to access the portal: 1.Access the email account you provided upon registration to the [facility].2.Look for an invitation email from [facility].3.Open the email and access the invitation link: Accept Invitation to [facility]4.Fill in the required taylor to create your account. Sign into [email or web address] with your username and password that you [...] you will allow to register on the [facility] Patient Portal for access to your information. You can also access the [facility] Patient Portal on the [employer]. Simply click on Health Records under [employer] and then click on the [employer] logo. HOW TO SAFELY DISPOSE OF PRESCRIPTION MEDICATIONS Please use one of the following methods to safely dispose of your unused medications. 1.Use a drug disposal kit: the drug disposal pouch allows you to safely discard your old and unuseddrugs. Ask your nurse to give you one when you are discharged.2.Visit a local take-back location: Many local pharmacies and police departments have programs that collect old and unwanted prescriptiondrugs. Call your local pharmacy or go to http://[employer].Gorb/1K3Uz7v to find one close to you.3.Make use of household items: Use cat litter or old coffee grounds to dispose medications if other options arenot available. Mix your drugs with these household products, seal them in an airtight container andthrow it into the garbage. Call [facility]: [phone] to be sure your drugs can be [...] drowsiness, such as benzodiazepines, also known as benzos,including diazepam and alprazolam, muscle relaxants or sleep aids. Never sell or share prescriptionopioids. This is illegal. Store opioids in a secure place and out of reach of others (including children, family, friends and visitors). The last page(s) of this document has been signed and retained as a CHART COPY Signatures Patient Education Materials Back Care Tips Medication Leaflets My discharge plan and instructions have been reviewed and explained to me and I,JORGE LUIS JOHNSON V understand my current condition and have read and understand these discharge instructions. I have received a written copy of the plan/instructions. If I have questions, I am aware that I should contact my doctor. Patient/Triage Registered Nurse Signature: Date/Time: Relationship to Patient: Witness Name/Signature: Date/Time: [facility]03-07-2023 Hospital Discharge instructions Patient Education 07/23/2022 13:50:33 Aspirin and [...] is safe and beneficial for you to takeaspirin daily. Taking aspirin daily may be helpful [...] take. The two forms of aspirin are: ?Myq-vwdzhgh-yquzig.This type of aspirin does not have a coating and is absorbed quickly. This typeof aspirin also comes in a chewable form. ?Enteric-coated. This type of aspirin has a coating that releases the medicine very slowly. Enteric-coated aspirin might cause less stomach upset than boh-mqiajfn-kuwtyl aspirin. This type of aspirinshould not be chewed or crushed. Limit alcohol intake to no more than 1 drink a day for non women and 2 drinks a day for men. Drinking alcohol increases your risk of bleeding. One drink equals 12 oz of beer, 5 oz of wine, or1 oz of hard liquor. Contact a health [...] 04/17/2009 Document Revised: 03/05/2018 Document Reviewed: 03/05/2018 nPario Patient Education 2020 [employer]. 07/23/2022 13:48:35 Chest Pain (Nonspecific), Pkxp-pe-Ktnl Chest Pain (Nonspecific) It is often hard [...] Document Reviewed: 10/21/2008 ExitCare Patient Information 2015 [employer]. This information is not intended to replace advicegiven to you by your health care provider. Make sure you discuss any questions you have with your health care provider. Follow Up Care 07/22/2022 12:05:58 With:AMEENA ACEVEDO MD Address: [facility] [facility] [address] [place] [address]- When:5 to 7 days Comments:Follow up. Message left with office [facility] 03-07-2023 Note Discharge Instructions Thank you for allowing [facility] to assist you with your healthcare needs. The following is importantdischarge information regarding your hospital visit. Your Care Team Robbin Gamino APRN Your Diagnosis Chest pain Chronic pain Tobacco [...] 2022 08:30 AM EDT ERINN ORTIZ MD [facility] Follow Up Appointments Follow Up with AMEENA ACEVEDO MD When Within 5 to 7 days Why: Follow up. Message left with office Where: [facility] [facility] [address] [place] [address]- The Following Activity and Diet Have Been [...] and or supplements as they may interact withyour home medications. What How Much When Why Instructions Last Dose Changed acetaminophen (Tylenol Extra Strength 500 mg oral tablet) 2 tab(s) by mouth Three (3) times a day as needed for as needed for pain None today Changed acetaminophen-hydrocodone ([place] 325- 7.5 mg oral tablet) 1 tab(s) [...] before supper Duration: 30 Days Pickup at [facility] 18107/23/22 at 1202 Unchanged tiZANidine (tiZANidine 4 mg oral tablet) 1 tab(s) by mouth Three (3) times a day DDD (degenerative disc disease), lumbar Duration: 30 Days Fill 07/23/22 at 0923am Pharmacy Information [facility]: [address] [place], [place] [id number] [phone] Please take this list to your next [...] Document Reviewed: 10/21/2008 ExitCare Patient Information 2015 [employer], [employer]. This information is not intended to replace advicegiven to you by your health care provider. Make sure you discuss any questions you have with your health care provider. Additional Information VACCINATE! IT SAVES LIVES! Members of the community who have not yet received the COVID-19 vaccine and would like to receive it can visit one of [facility] vaccine clinics. There are many vaccine clinic locations within the [facility]. For locations and available times, please visit https://[email or web address].[place].gov/. It is important to note that some COVID mobile vaccine clinics are held outdoors and may be canceled in rainy or stormy conditions. To learn more about pediatric vaccinations (ages 5-11), we invite you to visit the [facility] webpage. https://www.[facility].org/pages/6684-Xlsuw-Wmmgfkqynqy-Crnwczmqil-Lshmf-Fqk stions.htmlTo learn more about the COVID-19 vaccine, we invite you to visit the CDC website for a list of frequently asked questions. https://www.cdc.gov/coronavirus/2019-ncov/vaccines/faq.html [facility] Patient Portal Access Instructions: Stay connected with your healthcare team and access your personal medical information anytime with the [facility] Patient Portal.If you would like a full copy of your medical records, please contact the [facility] Medical Records Department, Friday through Friday between 8a.m. and 4:30p.m. Please follow the directions below to access the portal: 1.Access the email account you provided upon registration to the [facility].2.Look for an invitation email from [facility].3.Open the email and access the invitation link: Accept Invitation to [facility]4.Fill in the required taylor to create your account. Sign into [email or web address] with your username and password that you [...] you will allow to register on the [facility] Patient Portal for access to your information. You can also access the [facility] Patient Portal on the [employer]. Simply click on Health Records under [employer] and then click on the Liftago logo. HOW TO SAFELY DISPOSE OF PRESCRIPTION MEDICATIONS Please use one of the following methods to safely dispose of your unused medications. 1.Use a drug disposal kit: the drug disposal pouch allows you to safely discard your old and unuseddrugs. Ask your nurse to give you one when you are discharged.2.Visit a local take-back location: Many local pharmacies and police departments have programs that collect old and unwanted prescriptiondrugs. Call your local pharmacy or go to http://[employer].Gorb/0C5Cq4w to find one close to you.3.Make use of household items: Use cat litter or old coffee grounds to dispose medications if other options arenot available. Mix your drugs with these household products, seal them in an airtight container andthrow it into the garbage. Call [facility]: [phone] to be sure your drugs can be [...] Signatures Patient Education Materials Chest Pain (Nonspecific), Wdqw-ci-Djlu Medication Leaflets My discharge plan and instructions have been reviewed and explained to me and I,JORGE LUIS JOHNSON V understand my current condition and have read and understand these discharge instructions. I have received a written copy of the plan/instructions. If I have questions, I am aware that I should contact my doctor. Patient/Triage Registered Nurse Signature: Date/Time: Relationship to Patient: Witness Name/Signature: Date/Time: [facility]03-07-2023 Note ORIGINAL NM MYOCARDIAL SPECT STRESS/REST CLINICAL STATEMENT: cp TECHNIQUE: Lexiscan dose:0.4 mg Radiopharmaceutical (stress): Tc-99m Sestamibi Dose:31.6 mCi Radiopharmaceutical (rest): Tc-99m Sestamibi Dose:9.9 mCi SPECT acquisition and processing Reconstruction and reorientation of SPECT images into short axis, vertical and horizontal long axisplanes Quantitative LVEF assessment COMPARISON:None REPORT: Rotating planar [...] Date: 07/23/2022 1:04:20 PM Ordering Provider:Robbin Gamino [facility]03-07-2023 Note ORIGINAL NM MYOCARDIAL SPECT STRESS/REST CLINICAL STATEMENT: cp TECHNIQUE: Lexiscan dose:0.4 mg Radiopharmaceutical (stress): Tc-99m Sestamibi Dose:31.6 mCi Radiopharmaceutical (rest): Tc-99m Sestamibi Dose:9.9 mCi SPECT acquisition and processing Reconstruction and reorientation of SPECT images into short axis, vertical and horizontal long axisplanes Quantitative LVEF assessment COMPARISON:None REPORT: Rotating planar [...] Ordering Provider:[facility] [place]03-06-2023 Note Date of Service 07/22/22 Chief Complaint c/o chest pain into left arm since last night History of Present Illness 61-year-old male with past medical history significant for chronic back pain, obesity, tobacco use,GERD. Patient presented to [facility] emergency department on 07/22/2022 with a 1 day history of left-sided chest pain. In the emergency department he was afebrile, mildly hypertensive, adequate oxygensaturations on room air. CBC was within normal limits. Glucose elevated at 118. BNP 21. High-sensitivity troponin 6.4. X-ray chest was unremarkable. On exam today, pt denies any fever or chills. No headache or dizziness. Denies palpitations. Admitschest discomfort on the left side that is constant does not worsen with activity. Left arm pain. Nocough, dyspnea, sputum production. Denies N/V/D/C. No melena/hematochezia. No dysuria or hematuria.No new paresthesias. Review of Systems See HPI for specific ROS. All other systems reviewed and negative. Physical Exam Vitals and Measurements T: 36.5 C (Oral) TMIN: 36.5 C (Oral) TMAX: 36.9 C (Oral) HR: 92(Monitored) RR: 18 BP: 148/87 SpO2:96% HT: 180.3 cm WT: 117.3 kg BMI: [...] by ROBBIN GAMINO on 07/22/2022 07:03 PM [facility]03-06-2023 Evaluation + Plan noteExtracted from: Title:History and Physical Author:ROBBIN GAMINO Date:07/22/22 1. Chest pain 2. Chronic pain 3. [...] ORTIZ MD Location:PM Office Appointment Type:PM OV [facility] 03-06-2023 Note ORIGINAL EXAMINATION: ONE XRAY [...] 07/22/2022 1:03:44 PM Ordering Provider: FAWN BARGER [facility]03-06-2023 Note ORIGINAL EXAMINATION: ONE XRAY VIEW [...] Sign Date: 07/22/2022 1:03:44 PM [facility] No data available for this section [facility] Pain Management Evaluation + Plan note Future Appointments Appointment Date:12/27/2021 08:30:00 AM Scheduled Provider:ZECHARIAH RAMOS Location:PM Office Appointment Type:PM OV [facility] Pain Management Evaluation + Plan note Future Appointments Appointment Date:03/19/2022 12:30:00 PM Scheduled Provider:ZECHARIAH RAMOS Location:PM Office Appointment Type:PM OV [facility] Pain Management Evaluation + Plan note Future Appointments Appointment Date:05/22/2022 09:30:00 AM Scheduled Provider:ZECHARIAH RAMOS Location:PM Office Appointment Type:PM OV [facility] AT [facility] Pain Management Evaluation + Plan note Future Appointments Appointment Date:07/24/2022 09:30:00 AM Scheduled Provider:ZECHARIAH RAMOS Location:PM Office Appointment Type:PM OV [facility] AT [facility] Pain Management Evaluation + Plan note Future Appointments Appointment Date:2022 08:30:00 AM Scheduled Provider:ERINN ORTIZ MD Location:PM Office Appointment Type:PM OV [facility] Pain Management Evaluation + Plan note Future Appointments Appointment Date:12/25/2022 08:20:00 AM Scheduled Provider:ZECHARIAH RAMOS Location:PM Office Appointment Type:PM OV [facility] AT [facility] Pain Management Evaluation + Plan note Future Appointments Appointment Date:01/24/2023 08:10:00 AM Scheduled Provider:ZECHARIAH RAMOS Location:PM Office Appointment Type:PM OV [facility] AT [facility] Evaluation + Plan note Future Appointments Appointment Date:07/03/2023 06:50:00 AM Scheduled Provider:ERINN ORTIZ MD Location:PM Office Appointment Type:PM OV [facility] Pain Management Evaluation + Plan note Future Appointments Appointment Date:09/03/2023 07:40:00 AM Scheduled Provider:ZECHARIAH RAMOS Location:PM Office Appointment Type:PM OV [facility] AT [facility] Evaluation + Plan note Future Appointments Appointment Date:10/01/2023 09:00:00 AM Scheduled Provider:SHI GARCIA Location:[facility] Appointment Type:PM GO [employer] Pain Management Evaluation + Plan note Future Appointments Appointment Date:06/04/2023 07:20:00 AM Scheduled Provider:ZECHARIAH RAMOS Location:PM Office Appointment Type:PM OV [facility] AT [facility] evaluation noteNo assessment information available [facility] Work Phone: evaluation note* Diagnosis Onset Date Resolution Status Admit Date GERD (gastroesophageal reflu x disease) acute November 16, 2024 2 :12pm [facility] Work Phone: Hospital Discharge instructions No data available for this section [facility] Note* Roosevelt Louise J: PERFORM Event Display: Pain Management Treatment Agreement Authored Date: [id number] [facility] Pain Management progress note No data available for this section [facility] Pain Management reason for referral (narrative)No reason for referral [facility] Work Phone: Chief Complaint and Reason for Visit Chief Complaint CHILLS WITHOUT FEVER Chief Complaint SCREENING Chief Complaint SCREENING STAT K57.32 Chief Complaint RUQ PAIN Chief Complaint RUQ PAIN FATTY LIVER Chief Complaint RUQ PAIN FATTY LIVER NICOTINE DEPENDENCE Chief Complaint NICOTINE DEPENDENCE Fatty (change of) liver, not elsewhere classified Chief Complaint Fatty (change of) li jenni, not elsewhere classified Chief Complaint Admit Date R EAR COMP/COUGH/ST/SINUS COMP April 26, 2024 8:00am Chief Complaint Admit Date October 26, 2024 7:42 pm Chief Complaint Admit Date October 26, 2024 7:42 pm REFLUX IMPACTION COLON PRE COLONOSCOPY 2024 2:12pm Reason for Visit Admit Date GERD (gastroesophageal reflux disease) 2024 2:12pm Chief Complaint Admit Date October 26, 2024 7:42 pm REFLUX IMPACTION COLON PRE COLONOSCOPY 2024 2:12pm CAD CHEST PAIN November 24, 2024 6:39a m Reason for Visit Admit Date GERD (gastroesophageal reflux disease) 2024 2:12pm Chest pain November 25, 2024 10:1 2am GERD (gastroesophageal reflux disease) 2024 10:12am Chief Complaint Admit Date October 26, 2024 7:42 pm REFLUX IMPACTION COLON PRE COLONOSCOPY 2024 2:12pm CAD CHEST PAIN November 24, 2024 6:39a m CT CALCIUM SCORING November 24, 2024 6:40a m Test Result December 30, 2024 8: 18am Reason for Visit Admit Date GERD (gastroesophageal reflux disease) 2024 2:12pm Chest pain November 25, 2024 10:1 2am GERD (gastroesophageal reflux disease) 2024 10:12am Duodenal ulcer December 30, 2024 8: 18am Steatosis, 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, 2024 8: 18am Reason for Visit Admit Date GERD (gastroesophageal reflux disease) [email or web address] 2:12pm Chest pain November 25, 2024 10:1 2am GERD (gastroesophageal reflux disease) [email or web address] 10:12am Duodenal ulcer December 30, 2024 8: 18am GERD (gastroesophageal reflux disease) A ugust 2024 8:18am Steatosis, 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 No October 26, 2024 8:42pm Advance Directive Response Recorded Date/ Time Do you have a Healthcare Power of Fire Alarm Installer? No October 26, 2024 8:42pm Do you have a Healthcare Power of Fire Alarm Installer? No November 24, 2024 10:03am Summary Purpose Family History Relationship Condition Age at Onset Recorded Date/T jacque father Malignant neoplasm Unknown mother Diabetes mellitus Unknown No Family History Records Found Additional Source Comments Care Team (unrecognized sect ion and content) Team Status: Active Member Role Status Dates Dr. Ye Acevedo MD Family Provider Active Dr. Ye Acevedo MD Primary Care Provider Active Team Status: Inactive Member Role Status Dates Dr. Ye Acevedo MD Primary Care Provider, Attending Provider Active Team Status: Inactive Member Role Status Dates Dr. Ye Acevedo MD Primary Care Provi beka, Attending Provider, Referring Provider Active Team Status: Inactive Member Role Status Dates Dr. Ye Acevedo MD Primary Care Provider Active Ye Acevedo MD Attending Provider Active Team Status: Inactive Member Role Status Dates Dr. Ye Acevedo MD Primary Care Provider Active Dr. Jose Enrique Kan MD Attending Provider, Referring Provider Active Team Status: Inactive Member Role Status Dates Dr. Ye Acevedo MD Primary Care Provider Active Start: April 26, 2024 End: April 26, 2024 Dr. Ye Acevedo MD Referring Provider Active Start: April 26, 2024 End: April 26, 2024 Shaji Mathur PA, PA Attending Provider Active Start: April 26, 2024 End: April 26, 2024 Team Status: Inactive Member Role Status Dates Dr. Ye Acevedo MD Primary Care Provider Active Start: April 29, 2024 End: April 29, 2024 Dr. Ye Acevedo MD Attending Provider Active Start: April 29, 2024 End: April 29, 2024 Team Status: Inactive Member Role Status Dates Dr. Ye Acevedo MD Primary Care Provider Active Start: June 01, 2024 End: June 01, 2024 Dr. Ye Acevedo MD Attending Provider Active Start: June 01, 2024 End: June 01, 2024 Team Status: Inactive Member Role Status Dates Dr. Ye Acevedo MD Primary Care Provider Active Start: July 02, 2024 End: July 02, 2024 Dr. Ye Acevedo MD Attending Provider Active Start: July 02, 2024 End: July 02, 2024 Dr. Ye Acevedo MD Referring Provider Active Start: July 02, 2024 End: July 02, 2024 Team Status: Inactive Member Role Status Dates Dr. Ye Acevedo MD Primary Care Provider Active Start: August 04, 2024 End: August 04, 2024 Dr. Ye Acevedo MD Attending Provider Active Start: August 04, 2024 End: August 04, 2024 Team Status: Inactive Member Role Status Dates Dr. Ye Acevedo MD Primary Care Provider Active Start: September 22, 2024 End: September 22, 2024 Dr. Ye Acevedo MD Attending Provider Active Start: September 22, 2024 End: September 22, 2024 Team Status: Active Member Role Status Dates Dr. Ye Acevedo MD Primary Care Provider Active Team Status: Inactive Member Role Status Dates Dr. Ye Acevedo MD Primary Care Provider Active Start: October 18, 2024 End: October 18, 2024 Dr. Ye Acevedo MD Attending Provider Active Start: October 18, 2024 End: October 18, 2024 Dr. Ye Acevedo MD Referring Provider Active Start: October 18, 2024 End: October 18, 2024 Team Status: Active Member Role Status Dates Dr. Ye Acevedo MD Primary Care Provider Active Start: October 19, 2024 Dr. Ye Acevedo MD Attending Provider Active Start: October 19, 2024 Dr. Ye Acevedo MD Referring Provider Active Start: October 19, 2024 Team Status: Inactive Member Role Status Dates Dr. Ye Acevedo MD Primary Care Provider Active Start: October 19, 2024 End: October 19, 2024 Dr. Ye Acevedo MD Attending Provider Active Start: October 19, 2024 End: October 19, 2024 Dr. Ye Acevedo MD Referring Provider Active Start: October 19, 2024 End: October 19, 2024 Team Status: Inactive Member Role Status Dates Dr. Ye Acevedo MD Primary Care Provider Active Start: October 26, 2024 End: October 27, 2024 Dr. Sohail Jordan MD Emergency Provider Active Sta rt: October 26, 2024 End: October 27, 2024 Team Status: Active Member Role/Relationship Status Dates Dr. Ye Acevedo MD Primary Care Provider Active Team Status: Inactive Member Role/Relationship Status Dates Dr. Ye Acevedo MD Primary Care Provider Active Start: August 04, 2024 End: August 04, 2024 Dr. Ye Acevedo MD Attending Provider Active Start: August 04, 2024 End: August 04, 2024 Team Status: Inactive Member Role/Relationship Status Dates Dr. Ye Acevedo MD Primary Care Provider Active Start: September 22, 2024 End: September 22, 2024 Dr. Ye Acevedo MD Attending Provider Active Start: September 22, 2024 End: September 22, 2024 Team Status: Inactive Member Role/Relationship Status Dates Dr. Ye Acevedo MD Primary Care Provider Active Start: October 18, 2024 End: October 18, 2024 Dr. Ye Acevedo MD Attending Provider Active Start: October 18, 2024 End: October 18, 2024 Dr. Ye Acevedo MD Referring Provider Active Start: October 18, 2024 End: October 18, 2024 Team Status: Inactive Member Role/Relationship Status Dates Dr. Ye Acevedo MD Primary Care Provider Active Start: October 19, 2024 End: October 19, 2024 Dr. eY Acevedo MD Attending Provider Active Start: October 19, 2024 End: October 19, 2024 Dr. Ye Acevedo MD Referring Provider Active Start: October 19, 2024 End: October 19, 2024 Team Status: Inactive Member Role/Relationship Status Dates Dr. Ye Acevedo MD Primary Care Provider Active Start: October 26, 2024 End: October 27, 2024 Dr. Sohail Jordan MD Attending Provider Active Sta rt: October 26, 2024 End: October 27, 2024 Dr. Sohail Jordan MD Emergency Provider Active Sta rt: October 26, 2024 End: October 27, 2024 Team Status: Inactive Member Role/Relationship Status Dates Dr. Ye Acevedo MD Primary Care Provider Active Start: November 16, 2024 End: November 16, 2024 Dr. Ye Acevedo MD Referring Provider Active Start: November 16, 2024 End: November 16, 2024 DOC Haq Attending Provider Active Start: November 16, 2024 End: November 16, 2024 Team Status: Active Member Role/Relationship Status Dates Dr. Ye Acevedo MD Primary Care Provider Active Start: November 24, 2024 Dr. Ye Acevedo MD Attending Provider Active Start: November 24, 2024 Dr. Ye Acevedo MD Referring Provider Active Start: November 24, 2024 Team Status: Inactive Member Role/Relationship Status Dates Dr. Ye Acevedo MD Primary Care Provider Active Start: November 25, 2024 End: November 25, 2024 Dr. Ye Acevedo MD Referring Provider Active Start: November 25, 2024 End: November 25, 2024 Dr. Donovan Ramirez DO Attending Provider Active Start: November 25, 2024 End: November 25, 2024 Team Status: Active Member Role/Relationship Status Dates Dr. Ye Acevedo MD Primary Care Provider Active Start: November 25, 2024 Dr. Ye Acevedo MD Referring Provider Active Start: November 25, 2024 Dr. Donovan Ramirez DO Attending Provider Active Start: November 25, 2024 Dr. Donovan Ramirez DO Other Provider Active St art: November 25, 2024 Team Status: Inactive Member Role/Relationship Status Dates Dr. Ye Acevedo MD Primary Care Provider Active Start: September 22, 2024 End: September 22, 2024 Dr. Ye Acevedo MD Attending Provider Active Start: September 22, 2024 End: September 22, 2024 Team Status: Inactive Member Role/Relationship Status Dates Dr. Ye Acevedo MD Primary Care Provider Active Start: October 18, 2024 End: October 18, 2024 Dr. Ye Acevedo MD Attending Provider Active Start: October 18, 2024 End: October 18, 2024 Dr. Ye Acevedo MD Referring Provider Active Start: October 18, 2024 End: October 18, 2024 Team Status: Inactive Member Role/Relationship Status Dates Dr. Ye Acevedo MD Primary Care Provider Active Start: October 19, 2024 End: October 19, 2024 Dr. Ye Acevedo MD Attending Provider Active Start: October 19, 2024 End: October 19, 2024 Dr. Ye Acevedo MD Referring Provider Active Start: October 19, 2024 End: October 19, 2024 Team Status: Inactive Member Role/Relationship Status Dates Dr. Ye Acevedo MD Primary Care Provider Active Start: October 26, 2024 End: October 27, 2024 Dr. Sohail Jordan MD Attending Provider Active Sta rt: October 26, 2024 End: October 27, 2024 Dr. Sohail Jordan MD Emergency Provider Active Sta rt: October 26, 2024 End: October 27, 2024 Team Status: Inactive Member Role/Relationship Status Dates Dr. Ye Acevedo MD Primary Care Provider Active Start: November 16, 2024 End: November 16, 2024 Dr. Ye Acevedo MD Referring Provider Active Start: November 16, 2024 End: November 16, 2024 DOC Haq Attending Provider Active Start: November 16, 2024 End: November 16, 2024 Team Status: Active Member Role/Relationship Status Dates Dr. Ye Acevedo MD Primary Care Provider Active Start: November 24, 2024 Dr. Ye Acevedo MD Attending Provider Active Start: November 24, 2024 Dr. Ye Acevedo MD Referring Provider Active Start: November 24, 2024 Team Status: Active Member Role/Relationship Status Dates Dr. Ye Acevedo MD Primary Care Provider Active Start: November 24, 2024 Dr. Ye Acevedo MD Referring Provider Active Start: November 24, 2024 Dr. Aleksandar Patton MD Attending Provider Active S tart: November 24, 2024 Team Status: Inactive Member Role/Relationship Status Dates Dr. Ye Acevedo MD Primary Care Provider Active Start: December 30, 2024 End: December 30, 2024 Dr. Ye Acevedo MD Referring Provider Active Start: December 30, 2024 End: December 30, 2024 DOC Haq Attending Provider Active Start: December 30, 2024 End: December 30, 2024 Team Status: Inactive Member Role/Relationship Status Dates Dr. Ye Acevedo MD Primary Care Provider Active Start: December 30, 2024 End: December 30, 2024 DOC Haq Attending Provider Active Start: December 30, 2024 End: December 30, 2024 DOC Haq Referring Provider Active Start: December 30, 2024 End: December 30, 2024 Goals (unrecognized section and content) Goals may be documented in a n alternate section Care Team (unrecognized sect ion and content) Care Team Personnel Name: AMEENA ACEVEDO MD Member Role: Primary Care Physician Address: Address: [facility] [address] [place] [id number]- Care Team Related Persons Name: [facility] Address: Home [address] [place] [address] [place] Care Team Personnel Name: AMEENA ACEVEDO MD Member Role: Primary Care Physician Address: Address: [facility] [address] [place] [address]- Care Team Related Persons Name: [facility] Address: Home [address] [place] [address] [place] Care Team Personnel Name: AMEENA ACEVEDO MD Member Role: Primary Care Physician Address: Address: [facility] [address] [place] [address]- Care Team Related Persons Name: [facility] Address: Home [address] [place] [address] [place] Care Team Personnel Name: AMEENA ACEVEDO MD Member Role: Primary Care Physician Address: Address: [facility] [address] [place] [address]- [place] Care Team Related Persons Name: JACOB JOHNSON Address: Home [address] [place] [address] [place] Care Team Personnel Name: AMEENA ACEVEDO MD Member Role: Primary Care Physician Address: Address: [facility] [address] [place] [address]- Name: JESS Lorenzo Position: AO RN Member Role: ED RN Name: Katharine Gan Coder Position: HIM: Coders Member Role: HIM: Coders Name: MD FAWN BARGER MD Position: ED Physician Member Role: ED Physician Address: Address: [facility] [address] [place] [address]- Care Team Related Persons Name: JACOB JOHNSON Address: Home [address] [place] [address] [place] (unrecognized sect ion and content) No Status Records FoundNo Status Records FoundNo Status Records Found INFORMATION SOURCE (unrecogn ized section and content) DATE CREATED AUTHOR 2023 [facility] ([place]) DATE CREATED AUTHOR AUTHOR'S ORGANIZ ATION 10/21/2024 [facility] DATE CREATED AUTHOR AUTHOR'S ORGANIZ ATION 01/09/2025 [facility] FOR RECORDS PERTAINING TO PATIENTS WHO ARE [...] BE BASED ON THE PRIMARY CLINICAL RECORDS. [employer] [facility]. provides no warranty or guarantee of the accuracy or completeness of information in this document.
== END | disposition home or self-care (01) ==
LOC: US 07:57
PROVIDERS: PCP Family Medicine Geriatric Medicine; Referring Provider Nurse Practitioner Acute Care; Visit Provider Nurse Practitioner Acute Care
DX: K76.0 Fatty (change of) liver, not elsewhere classified (principal); K26.9 Duodenal ulcer, unspecified as acute or chronic, without hemorrhage or perforation
CPT/HCPCS: 76705; 76981

== ENCOUNTER → 2025-01-13 | Outpatient (CLI) | payer BC, MEDICARE, SELFPAY ==
[2025-01-13 13:05] LABS: Cholesterol 179 mg/dL (<=200); Low Density Lipoprotein Calc. 113 mg/dL; Triglycerides 74 mg/dL; Very Low Density Lipoprotein 15 mg/dL (5-40); cholesterol:hdl ratio screen 3.52
== END | disposition home or self-care (01) ==
LOC: LAB 11:16
PROVIDERS: PCP Family Medicine Geriatric Medicine; Referring Provider Internal Medicine Cardiovascular Disease; Visit Provider Internal Medicine Cardiovascular Disease
DX: I25.10 Atherosclerotic heart disease of native coronary artery without angina pectoris (principal)
CPT/HCPCS: 36415; 80061

== ENCOUNTER → 2025-02-09 | Outpatient (CLI) | payer BC, MEDICARE, SELFPAY ==
[2025-02-09 14:06] LABS: Hematocrit 45.2 % (40-54); Hemoglobin 15.4 g/dL (13.0-16.5); Immature Granulocytes Count 0.030 X10^3/uL (0.0-0.0); Mean Corp Hgb Conc 34.1 g/dL (32-36); Mean Corpuscular Volume 90.0 fL (80-94); Mean Platelet Vol. 9.4 fl (6.2-12.0); NRBC Flagged by Analyzer 0 % (0-5); Platelet Count 212 K/mm3 (150-450); RBC Distribution Width CV 12.6 % (11.6-14.6); RBC Distribution Width SD 41.4 fl (35.1-43.9); Red Blood Count 5.02 M/mm3 (4.6-6.2); White Blood Count 9.3 K/mm3 (4.4-11.0)
[2025-02-09 15:26] LABS: PSA,Total - Annual Screen 0.75 ng/mL (0.02-4.00); Vitamin D,25 Hydroxy 16.8 ng/mL (30-100)
[2025-02-09 15:39] LABS: AST(SGOT) 24 U/L (<=37); Alanine Aminotransfer ALT/SGPT 21 U/L (<=46); Albumin, Serum 4.4 g/dL (3.4-4.8); Alkaline Phosphatase 102 U/L (40-129); Anion Gap 11 (5-15); BUN 13 mg/dL (4-19); BUN/Creat Ratio 16.5 RATIO (10-20); Calcium,Total 9.3 mg/dL (7.6-11.0); Carbon Dioxide 25.2 mmol/L (21.0-32.0); Chloride 103 mmol/L (98-108); Globulin 3.0 g/dL (2.2-4.2); Glucose 102 mg/dL (70-99); Potassium 4.5 mmol/L (3.3-5.1)
[2025-02-09 20:51] LABS: Xtra Tube Kwok EXTRA TUBE
== END | disposition home or self-care (01) ==
LOC: POLAB3 12:51
PROVIDERS: PCP Family Medicine Geriatric Medicine; Visit Provider Family Medicine Geriatric Medicine
DX: I10 Essential (primary) hypertension (principal); E03.9 Hypothyroidism, unspecified; E55.9 Vitamin D deficiency, unspecified; Z12.5 Encounter for screening for malignant neoplasm of prostate
CPT/HCPCS: 36415; 80053; 82306; 84153; 84443; 85025; G0103

== ENCOUNTER → 2025-03-16 | Outpatient (CLI) | payer BC, MEDICARE, SELFPAY ==
[2025-03-16 11:55] LABS: AST(SGOT) 26 U/L (<=37); Alanine Aminotransfer ALT/SGPT 21 U/L (<=46); Albumin, Serum 4.1 g/dL (3.4-4.8); Alkaline Phosphatase 86 U/L (40-129); Bilirubin, Direct 0.22 mg/dL (0.00-0.30); Cholesterol 174 mg/dL (<=200); Globulin 3.1 g/dL (2.2-4.2); Low Density Lipoprotein Calc. 109 mg/dL; Triglycerides 137 mg/dL; Very Low Density Lipoprotein 27 mg/dL (5-40); cholesterol:hdl ratio screen 4.29
[2025-03-16 12:13] LABS: Hepatitis B Surface Antigen Nonreactive (Nonreactive); Hepatitis C Antibody Nonreactive (Nonreactive)
== END | disposition home or self-care (01) ==
PROVIDERS: PCP Family Medicine Geriatric Medicine; Referring Provider Nurse Practitioner Acute Care; Visit Provider Physician Assistant Medical
DX: K76.0 Fatty (change of) liver, not elsewhere classified (principal); I25.10 Atherosclerotic heart disease of native coronary artery without angina pectoris
CPT/HCPCS: 36415; 80061; 80076; 86704; 86706; 86708; 86803; 87340

== ENCOUNTER → 2025-04-07 | Outpatient (CLI) | payer BC, MEDICARE, SELFPAY ==
[2025-04-07 13:32] LABS: Hematocrit 44.4 % (40-54); Hemoglobin 14.6 g/dL (13.0-16.5); Immature Granulocytes Count 0.050 X10^3/uL (0.0-0.0); Mean Corp Hgb Conc 32.9 g/dL (32-36); Mean Corpuscular Volume 91.4 fL (80-94); Mean Platelet Vol. 9.1 fl (6.2-12.0); NRBC Flagged by Analyzer 0 % (0-5); Platelet Count 227 K/mm3 (150-450); RBC Distribution Width CV 13.1 % (11.6-14.6); RBC Distribution Width SD 43.5 fl (35.1-43.9); Red Blood Count 4.86 M/mm3 (4.6-6.2); White Blood Count 13.0 K/mm3 (4.4-11.0)
[2025-04-07 13:39] LABS: Anion Gap 10 (5-15); BUN 13 mg/dL (4-19); BUN/Creat Ratio 19.1 RATIO (10-20); Calcium,Total 9.3 mg/dL (7.6-11.0); Carbon Dioxide 25.7 mmol/L (21.0-32.0); Chloride 103 mmol/L (98-108); Glucose 103 mg/dL (70-99); Potassium 4.4 mmol/L (3.3-5.1); Uric Acid 4.6 mg/dL (3.5-7.2)
[2025-04-09 08:09] LABS: CRP, High Sensitivity 36.54 mg/L (0.00-3.00)
== END | disposition home or self-care (01) ==
LOC: LAB 11:59
PROVIDERS: PCP Family Medicine Geriatric Medicine; Referring Provider Family Medicine Geriatric Medicine; Visit Provider Family Medicine Geriatric Medicine
DX: E79.0 Hyperuricemia without signs of inflammatory arthritis and tophaceous disease (principal)
CPT/HCPCS: 36415; 80048; 84550; 85025; 85652; 86141